=== PATIENT | male | born 1990 | race African-American/Black ===

== ENCOUNTER → 2016-12-29 | Outpatient (REF) | payer OTHER | LOC: M LAB REF 15:25 | PROVIDERS: ATTEND Physician Assistant Medical | DX: J10.1 Influenza due to other identified influenza virus with other respiratory manifestations (principal) ==

== ENCOUNTER → 2018-04-05 | Outpatient (REF) | payer OTHER ==
[2018-04-05 12:15] LABS: BASO % 0.5 % (0.0-1.0); EOS # 0.1 10^3/uL (0.0-0.50); EOS % 1.2 % (0.0-3.0); HEMATOCRIT 46.8 % (42.0-52.0); HEMOGLOBIN 15.8 g/dl (13.5-17.5); IMMATURE GRANULOCYTE % 0.3 % (0-3.0); LYMPH # 1.9 10^3/uL (1.5-6.5); MEAN CORPUSCULAR HGB CONC 33.8 g/dl (32.0-36.5); MEAN CORPUSCULAR VOLUME 91.8 fl (80.0-96.0); MONO # 0.7 10^3/uL (0.0-0.8); MONO % 11.7 % (0.0-5.0); NEUTROPHILS # 3.1 10^3/uL (1.8-7.7); NEUTROPHILS % 53.3 % (36.0-66.0); PLATELET COUNT, AUTOMATED 252 10^3/uL (150-450); RED CELL DISTRIBUTION WIDTH 12.3 % (11.5-14.5); WHITE BLOOD COUNT 5.8 10^3/uL (4.0-10.0)
[2018-04-05 12:17] LABS: APPEARANCE, URINE CLEAR (CLEAR); BACTERIA, URINE AUTO NEGATIVE (NEGATIVE); BILIRUBIN, URINE AUTO NEGATIVE (NEGATIVE); BLOOD, URINE BLOOD NEGATIVE (NEGATIVE); COLOR, URINE YELLOW (YELLOW); GLUCOSE, URINE (UA) AUTO 3+ mg/dL (NEGATIVE); KETONE, URINE AUTO 2+ mg/dL (NEGATIVE); LEUKOCYTE ESTERASE, URINE AUTO NEGATIVE (NEGATIVE); NITRITE, URINE AUTO NEGATIVE (NEGATIVE); PROTEIN, URINE AUTO NEGATIVE (NEGATIVE); RBC, URINE AUTO 2 /HPF (0-3); SPECIFIC GRAVITY URINE AUTO 1.038 (1.002-1.035); SQUAMOUS EPITHELIAL CELL UR AU 0 /HPF (0-6); UROBILINOGEN, URINE AUTO 0.2 mg/dL (0.0-2.0); WBC, URINE AUTO 0 /HPF (0-3)
[2018-04-05 12:45] LABS: PTH INTACT 29.8 PG/ML (18.5-88.0); TOTAL 25(OH) VITAMIN D 13.6 NG/ML (30.0-100.0)
[2018-04-05 13:03] LABS: ALBUMIN 4.1 GM/DL (3.2-5.2); ALBUMIN/GLOBULIN RATIO 1.17 (1.00-1.93); ALKALINE PHOSPHATASE 126 U/L (45-117); ALT/SGPT 21 U/L (12-78); ANION GAP 15 MEQ/L (8-16); AST/SGOT 12 U/L (7-37); BLOOD UREA NITROGEN 6 MG/DL (7-18); CALCIUM LEVEL 9.2 MG/DL (8.5-10.1); CARBON DIOXIDE LEVEL 28 MEQ/L (21-32); CHLORIDE LEVEL 94 MEQ/L (98-107); CHOLESTEROL LEVEL 174 MG/DL (<200); CHOLESTEROL RISK RATIO 4.833 (<5); CREATININE FOR GFR 1.04 MG/DL (0.70-1.30); GLOMERULAR FILTRATION RATE > 60.0 (>60); GLUCOSE, FASTING 342 MG/DL (70-100); HDL CHOLESTEROL 36 MG/DL (>40); LDL CHOLESTEROL 87.6 MG/DL (<100); NON-HDL-C 138 MG/DL; SODIUM LEVEL 137 MEQ/L (136-145); TOTAL PROTEIN 7.6 GM/DL (6.4-8.2); TRIGLYCERIDES LEVEL 252 MG/DL (<150)
[2018-04-05 13:32] LABS: ESTIMATED AVERAGE GLUCOSE 298 MG/DL (60-110)
[2018-04-06 14:28] LABS: C-PEPTIDE 0.6 ng/mL (1.1-4.4)
== END ==
LOC: M SFHCPLAZ 08:27
DX: Z13.228 Encounter for screening for other metabolic disorders (principal); Z13.220 Encounter for screening for lipoid disorders; E55.9 Vitamin D deficiency, unspecified
CPT/HCPCS: 84443

== ENCOUNTER → 2018-04-06 | Outpatient (CLI) | payer OTHER ==
[2018-04-09 14:30] LABS: INSULIN LEVEL 3.6 uIU/mL (2.6-24.9)
== END ==
LOC: M LAB 09:19
DX: E11.9 Type 2 diabetes mellitus without complications (principal)
CPT/HCPCS: 83525

== ENCOUNTER 2018-04-07 20:30 | Inpatient (IN) | payer OTHER ==
[2018-04-07] MEDS: NS 1,000 ML IV (21:15)
[2018-04-07 21:43] LABS: BEDSIDE GLUCOSE 324 MG/DL (70-105)
[2018-04-07 21:48] LABS: BASO % 0.2 % (0.0-1.0); EOS % 0.1 % (0.0-3.0); HEMATOCRIT 50.2 % (42.0-52.0); HEMOGLOBIN 16.8 g/dl (13.5-17.5); IMMATURE GRANULOCYTE % 0.4 % (0-3.0); LYMPH # 1.2 10^3/uL (1.5-6.5); LYMPH % 10.7 % (24.0-44.0); MEAN CORPUSCULAR HEMOGLOBIN 30.8 pg (27.0-33.0); MEAN CORPUSCULAR HGB CONC 33.5 g/dl (32.0-36.5); MEAN CORPUSCULAR VOLUME 92.1 fl (80.0-96.0); MONO # 0.9 10^3/uL (0.0-0.8); MONO % 8.3 % (0.0-5.0); NEUTROPHILS # 8.8 10^3/uL (1.8-7.7); NEUTROPHILS % 80.3 % (36.0-66.0); PLATELET COUNT, AUTOMATED 262 10^3/uL (150-450); RED BLOOD COUNT 5.45 10^6/uL (4.30-6.10); RED CELL DISTRIBUTION WIDTH 12.5 % (11.5-14.5); WHITE BLOOD COUNT 10.9 10^3/uL (4.0-10.0)
[2018-04-07 21:52] LABS: APPEARANCE, URINE CLEAR (CLEAR); BACTERIA, URINE AUTO NEGATIVE (NEGATIVE); BILIRUBIN, URINE AUTO NEGATIVE (NEGATIVE); BLOOD, URINE BLOOD 1+ (NEGATIVE); COLOR, URINE STRAW (YELLOW); GLUCOSE, URINE (UA) AUTO 3+ mg/dL (NEGATIVE); KETONE, URINE AUTO 2+ mg/dL (NEGATIVE); LEUKOCYTE ESTERASE, URINE AUTO NEGATIVE (NEGATIVE); MUCUS, URINE SMALL (NEGATIVE); NITRITE, URINE AUTO NEGATIVE (NEGATIVE); PROTEIN, URINE AUTO 2+ mg/dL (NEGATIVE); RBC, URINE AUTO 5 /HPF (0-3); SPECIFIC GRAVITY URINE AUTO 1.027 (1.002-1.035); SQUAMOUS EPITHELIAL CELL UR AU 0 /HPF (0-6); UROBILINOGEN, URINE AUTO 0.2 mg/dL (0.0-2.0); WBC, URINE AUTO 2 /HPF (0-3)
[2018-04-07 22:10] LABS: ALBUMIN 4.7 GM/DL (3.2-5.2); ALBUMIN/GLOBULIN RATIO 1.15 (1.00-1.93); ALKALINE PHOSPHATASE 141 U/L (45-117); ALT/SGPT 22 U/L (12-78); ANION GAP 24 MEQ/L (8-16); AST/SGOT 13 U/L (7-37); BILIRUBIN,DIRECT 0.2 MG/DL (0.0-0.2); BILIRUBIN,TOTAL 0.8 MG/DL (0.2-1.0); BLOOD UREA NITROGEN 8 MG/DL (7-18); CALCIUM LEVEL 9.2 MG/DL (8.5-10.1); CARBON DIOXIDE LEVEL 11 MEQ/L (21-32); CHLORIDE LEVEL 104 MEQ/L (98-107); CREATININE FOR GFR 1.48 MG/DL (0.70-1.30); GLOMERULAR FILTRATION RATE > 60.0 (>60); GLUCOSE, FASTING 320 MG/DL (70-100); LIPASE 65 U/L (73-393); POTASSIUM SERUM 4.4 MEQ/L (3.5-5.1); SODIUM LEVEL 139 MEQ/L (136-145); TOTAL PROTEIN 8.8 GM/DL (6.4-8.2)
[2018-04-07] MEDS ORDERED: INSULIN IV RATE CHANGE DOCUMENTATION ML/HR XX (22:15)
[2018-04-07 22:32] LABS: ACETONE/KETONE > 46.00 MG/DL (<2.81)
[2018-04-07 22:48] LABS: ABG BASE EXCESS -16.9 (-2.0-2.0); ABG HCO3 9.3 MEQ/L (22.0-26.0); ABG O2 SATURATION 97.9 % (95.0-99.0); ABG PARTIAL PRESSURE CO2 24.5 mmHg (35.0-45.0); ABG PARTIAL PRESSURE O2 104.2 mmHg (75.0-100.0); ABG STANDARD HCO3 12.3 MEQ/L (22.0-26.0); ABG pH (ARTERIAL) 7.196 UNITS (7.350-7.450)
[2018-04-07] MEDS: HumuLIN R (REGULAR) INSULIN (NovoLIN R) **100U/ML** PER UNIT IV (22:53)
[2018-04-07] MEDS: INSULIN HUMAN REGULAR 100 UNITS in NS 99 ML IV (22:59)
[2018-04-07 23:32] LABS: BEDSIDE GLUCOSE 241 MG/DL (70-105)
[2018-04-07 23:44] LABS: OSMOLALITY SERUM 315 MOSM/KG (275-295)
[2018-04-07] MEDS ORDERED: ONDANSETRON 4MG/2ML VIAL (J2405) IV (23:45)
[2018-04-08 00:12] LABS: VENOUS BASE EXCESS -18.5 (-2.0-2.0); VENOUS HCO3 9.8 MEQ/L (23.0-27.0); VENOUS O2 SATURATION 80.7 % (60.0-80.0); VENOUS PARTIAL PRESSURE CO2 31.6 mmHg (38.0-50.0); VENOUS PARTIAL PRESSURE O2 48.2 mmHg (30.0-50.0); VENOUS PH 7.109 UNITS (7.330-7.430); VENOUS STANDARD HCO3 11.1 MEQ/L; VENOUS TOTAL CO2 10.8 MEQ/L (24.0-28.0)
[2018-04-08 00:37] LABS: ANION GAP 22 MEQ/L (8-16); BLOOD UREA NITROGEN 8 MG/DL (7-18); CARBON DIOXIDE LEVEL 11 MEQ/L (21-32); CHLORIDE LEVEL 109 MEQ/L (98-107); CREATININE FOR GFR 1.51 MG/DL (0.70-1.30); GLOMERULAR FILTRATION RATE 59.3 (>60); GLUCOSE, FASTING 205 MG/DL (70-100); POTASSIUM SERUM 3.6 MEQ/L (3.5-5.1); SODIUM LEVEL 142 MEQ/L (136-145)
[2018-04-08 00:40] LABS: BEDSIDE GLUCOSE 194 MG/DL (70-105)
[2018-04-08] MEDS ORDERED: D5W/0.45% SODIUM CHLORIDE 1,000 ML IV (01:00)
[2018-04-08] MEDS: POTASSIUM CHLORIDE 10 MEQ SR TABLET PO (01:07)
[2018-04-08] MEDS: KCL 20MEQ IN D5/0.45NS 1000ML 1,000 ML IV ×6 (01:08→21:00)
[2018-04-08 01:49] LABS: BEDSIDE GLUCOSE 262 MG/DL (70-105)
[2018-04-08] MEDS: INSULIN HUMAN REGULAR 100 UNITS in NS 99 ML IV ×2 (02:00)
[2018-04-08 03:05] LABS: BEDSIDE GLUCOSE 279 MG/DL (70-105)
[2018-04-08] MEDS: INSULIN IV RATE CHANGE DOCUMENTATION ML/HR XX ×5 (03:11→20:15)
[2018-04-08 04:01] LABS: VENOUS BASE EXCESS -16.7 (-2.0-2.0); VENOUS HCO3 9.8 MEQ/L (23.0-27.0); VENOUS O2 SATURATION 95.7 % (60.0-80.0); VENOUS PARTIAL PRESSURE CO2 26.5 mmHg (38.0-50.0); VENOUS PARTIAL PRESSURE O2 81.1 mmHg (30.0-50.0); VENOUS PH 7.187 UNITS (7.330-7.430); VENOUS STANDARD HCO3 12.3 MEQ/L; VENOUS TOTAL CO2 10.6 MEQ/L (24.0-28.0)
[2018-04-08 04:10] LABS: BEDSIDE GLUCOSE 263 MG/DL (70-105)
[2018-04-08 04:24] LABS: ANION GAP 18 MEQ/L (8-16); BLOOD UREA NITROGEN 6 MG/DL (7-18); CALCIUM LEVEL 8.1 MG/DL (8.5-10.1); CARBON DIOXIDE LEVEL 11 MEQ/L (21-32); CHLORIDE LEVEL 110 MEQ/L (98-107); CREATININE FOR GFR 1.39 MG/DL (0.70-1.30); GLOMERULAR FILTRATION RATE > 60.0 (>60); GLUCOSE, FASTING 279 MG/DL (70-100); SODIUM LEVEL 139 MEQ/L (136-145)
[2018-04-08 05:02] LABS: BEDSIDE GLUCOSE 317 MG/DL (70-105)
[2018-04-08 05:45] LABS: VENOUS BASE EXCESS -15.3 (-2.0-2.0); VENOUS HCO3 10.3 MEQ/L (23.0-27.0); VENOUS PARTIAL PRESSURE O2 141.7 mmHg (30.0-50.0); VENOUS PH 7.233 UNITS (7.330-7.430); VENOUS STANDARD HCO3 13.2 MEQ/L; VENOUS TOTAL CO2 11.1 MEQ/L (24.0-28.0)
[2018-04-08 05:52] LABS: ANION GAP 19 MEQ/L (8-16); BLOOD UREA NITROGEN 6 MG/DL (7-18); CALCIUM LEVEL 8.1 MG/DL (8.5-10.1); CARBON DIOXIDE LEVEL 11 MEQ/L (21-32); CHLORIDE LEVEL 110 MEQ/L (98-107); CREATININE FOR GFR 1.42 MG/DL (0.70-1.30); GLOMERULAR FILTRATION RATE > 60.0 (>60); GLUCOSE, FASTING 304 MG/DL (70-100); POTASSIUM SERUM 4.4 MEQ/L (3.5-5.1); SODIUM LEVEL 140 MEQ/L (136-145)
[2018-04-08 06:04] LABS: BEDSIDE GLUCOSE 298 MG/DL (70-105)
[2018-04-08 06:34] LABS: MAGNESIUM LEVEL 1.9 MG/DL (1.8-2.4); PHOSPHORUS LEVEL 1.8 MG/DL (2.5-4.9); TROPONIN I < 0.02 NG/ML (< 0.10)
[2018-04-08 07:10] LABS: BEDSIDE GLUCOSE 296 MG/DL (70-105)
[2018-04-08 08:21] LABS: BEDSIDE GLUCOSE 290 MG/DL (70-105)
[2018-04-08 09:29] LABS: BEDSIDE GLUCOSE 284 MG/DL (70-105)
[2018-04-08 10:09] LABS: ANION GAP 13 MEQ/L (8-16); BLOOD UREA NITROGEN 4 MG/DL (7-18); CALCIUM LEVEL 8.3 MG/DL (8.5-10.1); CARBON DIOXIDE LEVEL 17 MEQ/L (21-32); CHLORIDE LEVEL 111 MEQ/L (98-107); CREATININE FOR GFR 1.44 MG/DL (0.70-1.30); GLOMERULAR FILTRATION RATE > 60.0 (>60); GLUCOSE, FASTING 297 MG/DL (70-100); POTASSIUM SERUM 4.3 MEQ/L (3.5-5.1); SODIUM LEVEL 141 MEQ/L (136-145)
[2018-04-08 10:47] LABS: AMPHETAMINES URINE REFLEX NEGATIVE (NEGATIVE); BARBITURATES URINE REFLEX NEGATIVE (NEGATIVE); BENZODIAZEPINES URINE REFLEX NEGATIVE (NEGATIVE); CANNABINOIDS URINE REFLEX NEGATIVE (NEGATIVE); COCAINE METABOLITE URINE REFLE NEGATIVE (NEGATIVE); METHADONE URINE REFLEX NEGATIVE (NEGATIVE); OPIATES URINE REFLEX NEGATIVE (NEGATIVE); PHENCYCLIDINE URINE REFLEX NEGATIVE (NEGATIVE)
[2018-04-08 11:06] LABS: BEDSIDE GLUCOSE 293 MG/DL (70-105)
[2018-04-08 12:02] LABS: BEDSIDE GLUCOSE 272 MG/DL (70-105)
[2018-04-08 12:11] LABS: BEDSIDE GLUCOSE 274 MG/DL (70-105)
[2018-04-08 13:15] LABS: BEDSIDE GLUCOSE 262 MG/DL (70-105)
[2018-04-08 14:18] LABS: BEDSIDE GLUCOSE 259 MG/DL (70-105)
[2018-04-08 14:41] LABS: ANION GAP 13 MEQ/L (8-16); BLOOD UREA NITROGEN 3 MG/DL (7-18); CALCIUM LEVEL 8.5 MG/DL (8.5-10.1); CARBON DIOXIDE LEVEL 16 MEQ/L (21-32); CHLORIDE LEVEL 113 MEQ/L (98-107); CREATININE FOR GFR 1.34 MG/DL (0.70-1.30); GLOMERULAR FILTRATION RATE > 60.0 (>60); GLUCOSE, FASTING 284 MG/DL (70-100); POTASSIUM SERUM 4.2 MEQ/L (3.5-5.1); SODIUM LEVEL 142 MEQ/L (136-145)
[2018-04-08 15:16] LABS: BEDSIDE GLUCOSE 262 MG/DL (70-105)
[2018-04-08 16:10] LABS: BEDSIDE GLUCOSE 277 MG/DL (70-105)
[2018-04-08 17:09] LABS: BEDSIDE GLUCOSE 256 MG/DL (70-105)
[2018-04-08] MEDS: ENOXAPARIN 40 MG/0.4 ML SYRINGE (J1650) SC (17:17)
[2018-04-08 18:18] LABS: BEDSIDE GLUCOSE 261 MG/DL (70-105)
[2018-04-08] MEDS: ACETAMINOPHEN TAB 650MG DOSE (2X325MG) PO (18:43)
[2018-04-08 18:54] LABS: INR 1.08; PROTHROMBIN TIME 14.1 SECONDS (12.1-14.4)
[2018-04-08 18:57] LABS: ANION GAP 14 MEQ/L (8-16); BLOOD UREA NITROGEN 2 MG/DL (7-18); CALCIUM LEVEL 8.5 MG/DL (8.5-10.1); CARBON DIOXIDE LEVEL 15 MEQ/L (21-32); CHLORIDE LEVEL 112 MEQ/L (98-107); CREATININE FOR GFR 1.31 MG/DL (0.70-1.30); GLOMERULAR FILTRATION RATE > 60.0 (>60); GLUCOSE, FASTING 266 MG/DL (70-100); POTASSIUM SERUM 3.7 MEQ/L (3.5-5.1); SODIUM LEVEL 141 MEQ/L (136-145)
[2018-04-08 19:08] LABS: BEDSIDE GLUCOSE 304 MG/DL (70-105)
[2018-04-08 20:12] LABS: BEDSIDE GLUCOSE 265 MG/DL (70-105)
[2018-04-08 21:11] LABS: BEDSIDE GLUCOSE 287 MG/DL (70-105)
[2018-04-08 22:17] LABS: BEDSIDE GLUCOSE 269 MG/DL (70-105)
[2018-04-08 22:18] LABS: ANION GAP 16 MEQ/L (8-16); BLOOD UREA NITROGEN 3 MG/DL (7-18); CALCIUM LEVEL 8.1 MG/DL (8.5-10.1); CARBON DIOXIDE LEVEL 16 MEQ/L (21-32); CHLORIDE LEVEL 109 MEQ/L (98-107); CREATININE FOR GFR 1.24 MG/DL (0.70-1.30); GLOMERULAR FILTRATION RATE > 60.0 (>60); GLUCOSE, FASTING 290 MG/DL (70-100); POTASSIUM SERUM 3.8 MEQ/L (3.5-5.1); SODIUM LEVEL 141 MEQ/L (136-145)
[2018-04-08 23:22] LABS: BEDSIDE GLUCOSE 281 MG/DL (70-105)
[2018-04-09 00:24] LABS: BEDSIDE GLUCOSE 282 MG/DL (70-105)
[2018-04-09] MEDS: KCL 20MEQ IN D5/0.45NS 1000ML 1,000 ML IV ×2 (01:05→05:00)
[2018-04-09 01:14] LABS: BEDSIDE GLUCOSE 273 MG/DL (70-105)
[2018-04-09 02:19] LABS: ANION GAP 10 MEQ/L (8-16); BLOOD UREA NITROGEN 3 MG/DL (7-18); CALCIUM LEVEL 8.3 MG/DL (8.5-10.1); CARBON DIOXIDE LEVEL 20 MEQ/L (21-32); CHLORIDE LEVEL 111 MEQ/L (98-107); CREATININE FOR GFR 1.26 MG/DL (0.70-1.30); GLOMERULAR FILTRATION RATE > 60.0 (>60); GLUCOSE, FASTING 266 MG/DL (70-100); POTASSIUM SERUM 3.5 MEQ/L (3.5-5.1); SODIUM LEVEL 141 MEQ/L (136-145)
[2018-04-09 02:25] LABS: BEDSIDE GLUCOSE 260 MG/DL (70-105)
[2018-04-09 03:06] LABS: BEDSIDE GLUCOSE 264 MG/DL (70-105)
[2018-04-09 04:26] LABS: BEDSIDE GLUCOSE 269 MG/DL (70-105)
[2018-04-09 05:12] LABS: HEMATOCRIT 37.6 % (42.0-52.0); MEAN CORPUSCULAR HEMOGLOBIN 30.9 pg (27.0-33.0); MEAN CORPUSCULAR HGB CONC 34.6 g/dl (32.0-36.5); MEAN CORPUSCULAR VOLUME 89.3 fl (80.0-96.0); PLATELET COUNT, AUTOMATED 206 10^3/uL (150-450); RED BLOOD COUNT 4.21 10^6/uL (4.30-6.10); RED CELL DISTRIBUTION WIDTH 12.8 % (11.5-14.5); WHITE BLOOD COUNT 6.1 10^3/uL (4.0-10.0)
[2018-04-09 05:44] LABS: ANION GAP 15 MEQ/L (8-16); BLOOD UREA NITROGEN 2 MG/DL (7-18); CARBON DIOXIDE LEVEL 19 MEQ/L (21-32); CHLORIDE LEVEL 110 MEQ/L (98-107); CREATININE FOR GFR 1.09 MG/DL (0.70-1.30); GLOMERULAR FILTRATION RATE > 60.0 (>60); GLUCOSE, FASTING 283 MG/DL (70-100); MAGNESIUM LEVEL 1.8 MG/DL (1.8-2.4); PHOSPHORUS LEVEL 1.2 MG/DL (2.5-4.9); POTASSIUM SERUM 3.5 MEQ/L (3.5-5.1); SODIUM LEVEL 144 MEQ/L (136-145)
[2018-04-09 05:52] LABS: BEDSIDE GLUCOSE 252 MG/DL (70-105)
[2018-04-09 06:33] LABS: BEDSIDE GLUCOSE 282 MG/DL (70-105)
[2018-04-09 07:05] LABS: BEDSIDE GLUCOSE 280 MG/DL (70-105)
[2018-04-09] MEDS ORDERED: DEXTROSE 50% 50 ML SYRINGE IV (08:30)
[2018-04-09] MEDS ORDERED: GLUCAGON FOR INJ 1 MG VIAL (J1610) SC (08:30)
[2018-04-09] MEDS ORDERED: GLUCOSE 4 GM CHEW TABLET PO (08:30)
[2018-04-09] MEDS: LEVEMIR (INSULIN DETEMIR) 1 UNITS/0.01ML SC (09:16)
[2018-04-09 10:41] LABS: DRVV SCREEN 42.7 SEC
[2018-04-09 11:06] LABS: ANION GAP 9 MEQ/L (8-16); BLOOD UREA NITROGEN 2 MG/DL (7-18); CALCIUM LEVEL 8.8 MG/DL (8.5-10.1); CARBON DIOXIDE LEVEL 24 MEQ/L (21-32); CHLORIDE LEVEL 111 MEQ/L (98-107); CREATININE FOR GFR 1.24 MG/DL (0.70-1.30); GLOMERULAR FILTRATION RATE > 60.0 (>60); GLUCOSE, FASTING 237 MG/DL (70-100); POTASSIUM SERUM 3.9 MEQ/L (3.5-5.1); SODIUM LEVEL 144 MEQ/L (136-145)
[2018-04-09 13:04] LABS: BEDSIDE GLUCOSE 249 MG/DL (70-105)
[2018-04-09] MEDS: HumaLOG INSULIN (NovoLOG) PER UNIT SC ×3 (13:20→21:00)
[2018-04-09 17:29] LABS: BEDSIDE GLUCOSE 179 MG/DL (70-105)
[2018-04-09] MEDS: ENOXAPARIN 40 MG/0.4 ML SYRINGE (J1650) SC (17:51)
[2018-04-09 20:49] LABS: BEDSIDE GLUCOSE 206 MG/DL (70-105)
[2018-04-10 07:51] LABS: HEMATOCRIT 39.6 % (42.0-52.0); HEMOGLOBIN 13.3 g/dl (13.5-17.5); MEAN CORPUSCULAR HEMOGLOBIN 30.7 pg (27.0-33.0); MEAN CORPUSCULAR HGB CONC 33.6 g/dl (32.0-36.5); MEAN CORPUSCULAR VOLUME 91.5 fl (80.0-96.0); PLATELET COUNT, AUTOMATED 207 10^3/uL (150-450); RED BLOOD COUNT 4.33 10^6/uL (4.30-6.10); WHITE BLOOD COUNT 5.7 10^3/uL (4.0-10.0)
[2018-04-10 07:58] LABS: ANION GAP 15 MEQ/L (8-16); BLOOD UREA NITROGEN 3 MG/DL (7-18); CALCIUM LEVEL 8.3 MG/DL (8.5-10.1); CARBON DIOXIDE LEVEL 20 MEQ/L (21-32); CHLORIDE LEVEL 108 MEQ/L (98-107); CREATININE FOR GFR 1.02 MG/DL (0.70-1.30); GLOMERULAR FILTRATION RATE > 60.0 (>60); GLUCOSE, FASTING 201 MG/DL (70-100); MAGNESIUM LEVEL 1.6 MG/DL (1.8-2.4); POTASSIUM SERUM 3.2 MEQ/L (3.5-5.1); SODIUM LEVEL 143 MEQ/L (136-145)
[2018-04-10] MEDS: POTASSIUM CHLORIDE 10 MEQ SR TABLET PO (08:58)
[2018-04-10] MEDS: LEVEMIR (INSULIN DETEMIR) 1 UNITS/0.01ML SC (08:59)
[2018-04-10] MEDS: MAG SULF 1GM/100ML (MAG RUN) 1 GM in APPROPRIATE DILUENT 1 EA IV (09:00)
[2018-04-10] MEDS: HumaLOG INSULIN (NovoLOG) PER UNIT SC ×4 (09:20→21:52)
[2018-04-10 12:18] LABS: BEDSIDE GLUCOSE 225 MG/DL (70-105)
[2018-04-10 16:58] LABS: BEDSIDE GLUCOSE 210 MG/DL (70-105)
[2018-04-10] MEDS: ENOXAPARIN 40 MG/0.4 ML SYRINGE (J1650) SC (17:51)
[2018-04-10 19:33] LABS: ANION GAP 14 MEQ/L (8-16); BLOOD UREA NITROGEN 3 MG/DL (7-18); CALCIUM LEVEL 8.1 MG/DL (8.5-10.1); CARBON DIOXIDE LEVEL 22 MEQ/L (21-32); CHLORIDE LEVEL 104 MEQ/L (98-107); CREATININE FOR GFR 1.13 MG/DL (0.70-1.30); GLOMERULAR FILTRATION RATE > 60.0 (>60); GLUCOSE, FASTING 251 MG/DL (70-100); POTASSIUM SERUM 3.1 MEQ/L (3.5-5.1); SODIUM LEVEL 140 MEQ/L (136-145)
[2018-04-10 21:35] LABS: BEDSIDE GLUCOSE 262 MG/DL (70-105)
[2018-04-11 07:23] LABS: HEMATOCRIT 37.6 % (42.0-52.0); HEMOGLOBIN 13.1 g/dl (13.5-17.5); MEAN CORPUSCULAR HEMOGLOBIN 30.9 pg (27.0-33.0); MEAN CORPUSCULAR HGB CONC 34.8 g/dl (32.0-36.5); MEAN CORPUSCULAR VOLUME 88.7 fl (80.0-96.0); PLATELET COUNT, AUTOMATED 196 10^3/uL (150-450); RED BLOOD COUNT 4.24 10^6/uL (4.30-6.10); RED CELL DISTRIBUTION WIDTH 12.9 % (11.5-14.5)
[2018-04-11 07:47] LABS: ANION GAP 14 MEQ/L (8-16); BLOOD UREA NITROGEN 4 MG/DL (7-18); CALCIUM LEVEL 8.3 MG/DL (8.5-10.1); CARBON DIOXIDE LEVEL 24 MEQ/L (21-32); CHLORIDE LEVEL 104 MEQ/L (98-107); CREATININE FOR GFR 0.91 MG/DL (0.70-1.30); GLOMERULAR FILTRATION RATE > 60.0 (>60); GLUCOSE, FASTING 183 MG/DL (70-100); SODIUM LEVEL 142 MEQ/L (136-145)
[2018-04-11 08:17] LABS: MAGNESIUM LEVEL 1.6 MG/DL (1.8-2.4)
[2018-04-11] MEDS: POTASSIUM CHLORIDE 10 MEQ SR TABLET PO ×2 (08:19→09:22)
[2018-04-11] MEDS: LEVEMIR (INSULIN DETEMIR) 1 UNITS/0.01ML SC (08:20)
[2018-04-11] MEDS ORDERED: KCL 10MEQ/100ML SWI (KRUN) 10 MEQ in APPROPRIATE DILUENT 1 EA IV (09:00)
[2018-04-11 09:12] LABS: BEDSIDE GLUCOSE 231 MG/DL (70-105)
[2018-04-11] MEDS: HumaLOG INSULIN (NovoLOG) PER UNIT SC ×3 (09:21→17:34)
[2018-04-11] MEDS: MAG SULF 1GM/100ML (MAG RUN) 1 GM in APPROPRIATE DILUENT 1 EA IV (09:21)
[2018-04-11] MEDS: MAGNESIUM OXIDE 400 MG TAB (MAG-OX) PO (09:22)
[2018-04-11] MEDS: KCL 10MEQ/100ML SWI (KRUN) 10 MEQ in APPROPRIATE DILUENT 1 EA IV (10:33)
[2018-04-11 13:26] LABS: BEDSIDE GLUCOSE 224 MG/DL (70-105)
[2018-04-11 17:29] LABS: BEDSIDE GLUCOSE 255 MG/DL (70-105)
[2018-04-11] MEDS: ENOXAPARIN 40 MG/0.4 ML SYRINGE (J1650) SC (18:00)
== END 2018-04-11 18:45 | disposition home or self-care (01) | DRG 420 ==
LOC: M PED 04-09 14:14 → M ICU 04-08 00:44 → M ED 20:30 → M ED INP 23:36
DX: E10.10 Type 1 diabetes mellitus with ketoacidosis without coma (principal); Z88.0 Allergy status to penicillin; Z88.8 Allergy status to other drugs, medicaments and biological substances

== ENCOUNTER → 2018-04-22 | Outpatient (REF) | payer OTHER ==
[2018-04-22 16:06] LABS: ALBUMIN 3.8 GM/DL (3.2-5.2); ALBUMIN/GLOBULIN RATIO 1.09 (1.00-1.93); ALKALINE PHOSPHATASE 86 U/L (45-117); ALT/SGPT 27 U/L (12-78); ANION GAP 8 MEQ/L (8-16); AST/SGOT 13 U/L (7-37); BILIRUBIN,TOTAL 0.4 MG/DL (0.2-1.0); BLOOD UREA NITROGEN 5 MG/DL (7-18); C REACTIVE PROTEIN QUANTITATIV < 0.30 MG/DL (0.00-0.30); CALCIUM LEVEL 9.7 MG/DL (8.5-10.1); CARBON DIOXIDE LEVEL 27 MEQ/L (21-32); CHLORIDE LEVEL 104 MEQ/L (98-107); CHOLESTEROL LEVEL 225 MG/DL (<200); CHOLESTEROL RISK RATIO 5.232 (<5); CPK CREATINE PHOSPHOKINASE 110 U/L (39-308); CREATININE FOR GFR 0.87 MG/DL (0.70-1.30); GLOMERULAR FILTRATION RATE > 60.0 (>60); GLUCOSE, FASTING 196 MG/DL (70-100); HDL CHOLESTEROL 43 MG/DL (>40); LDL CHOLESTEROL 159.8 MG/DL (<100); MAGNESIUM LEVEL 1.9 MG/DL (1.8-2.4); NON-HDL-C 182 MG/DL; POTASSIUM SERUM 4.4 MEQ/L (3.5-5.1); SODIUM LEVEL 139 MEQ/L (136-145); TOTAL PROTEIN 7.3 GM/DL (6.4-8.2); TRIGLYCERIDES LEVEL 111 MG/DL (<150)
[2018-04-22 16:07] LABS: THYROID PEROXIDASE ANTIBODY 28.3 U/ML (<60.0); TOTAL 25(OH) VITAMIN D 15.1 NG/ML (30.0-100.0)
[2018-04-22 16:08] LABS: PTH INTACT 39.8 PG/ML (18.5-88.0); VITAMIN B12 LEVEL 1083 PG/ML (247-911)
[2018-04-22 18:41] LABS: APPEARANCE, URINE CLEAR (CLEAR); BACTERIA, URINE AUTO NEGATIVE (NEGATIVE); BILIRUBIN, URINE AUTO NEGATIVE (NEGATIVE); BLOOD, URINE BLOOD NEGATIVE (NEGATIVE); COLOR, URINE YELLOW (YELLOW); GLUCOSE, URINE (UA) AUTO 3+ mg/dL (NEGATIVE); KETONE, URINE AUTO TRACE mg/dL (NEGATIVE); LEUKOCYTE ESTERASE, URINE AUTO NEGATIVE (NEGATIVE); NITRITE, URINE AUTO NEGATIVE (NEGATIVE); PROTEIN, URINE AUTO NEGATIVE (NEGATIVE); RBC, URINE AUTO 0 /HPF (0-3); SPECIFIC GRAVITY URINE AUTO 1.006 (1.002-1.035); SQUAMOUS EPITHELIAL CELL UR AU 0 /HPF (0-6); UROBILINOGEN, URINE AUTO 0.2 mg/dL (0.0-2.0); WBC, URINE AUTO 0 /HPF (0-3)
[2018-04-22 19:31] LABS: CREATININE, URINE 66.9 MG/DL; MALB URINE SIEMENS < 5.0 MG/L; MAU/CREAT RATIO 7.4 MCG/MG (0.0-30.0)
[2018-04-25 00:20] LABS: TISSUE TRANSGLUTAMINASE IgA <2 U/mL (0-3)
== END ==
LOC: M SFHCPLAZ 13:23
DX: E78.2 Mixed hyperlipidemia (principal); I10 Essential (primary) hypertension; E55.9 Vitamin D deficiency, unspecified; E10.9 Type 1 diabetes mellitus without complications
CPT/HCPCS: 82550

== ENCOUNTER → 2018-08-15 | Outpatient (REF) | payer OTHER ==
[2018-08-15 13:08] LABS: ALBUMIN/GLOBULIN RATIO 1.33 (1.00-1.93); ALKALINE PHOSPHATASE 89 U/L (45-117); ALT/SGPT 22 U/L (12-78); ANION GAP 6 MEQ/L (8-16); AST/SGOT 12 U/L (7-37); BILIRUBIN,TOTAL 0.6 MG/DL (0.2-1.0); BLOOD UREA NITROGEN 9 MG/DL (7-18); C REACTIVE PROTEIN QUANTITATIV < 0.30 MG/DL (0.00-0.30); CALCIUM LEVEL 9.4 MG/DL (8.5-10.1); CARBON DIOXIDE LEVEL 29 MEQ/L (21-32); CHLORIDE LEVEL 103 MEQ/L (98-107); CHOLESTEROL LEVEL 107 MG/DL (<200); CHOLESTEROL RISK RATIO 2.431 (<5); CPK CREATINE PHOSPHOKINASE 109 U/L (39-308); CREATININE FOR GFR 0.93 MG/DL (0.70-1.30); FREE T4 1.15 NG/DL (0.76-1.46); GLOMERULAR FILTRATION RATE > 60.0 (>60); GLUCOSE, FASTING 212 MG/DL (70-100); HDL CHOLESTEROL 44 MG/DL (>40); LDL CHOLESTEROL 55 MG/DL (<100); MAGNESIUM LEVEL 1.9 MG/DL (1.8-2.4); NON-HDL-C 63 MG/DL; POTASSIUM SERUM 4.8 MEQ/L (3.5-5.1); PTH INTACT 32.8 PG/ML (18.5-88.0); RHEUMATOID FACTOR QUANT < 10.0 IU/ML (<15.0); SODIUM LEVEL 138 MEQ/L (136-145); TOTAL 25(OH) VITAMIN D 46.5 NG/ML (30.0-100.0); TRIGLYCERIDES LEVEL 39 MG/DL (<150)
[2018-08-15 18:29] LABS: ESTIMATED AVERAGE GLUCOSE 157 MG/DL (60-110); HEMOGLOBIN A1c 7.1 %
[2018-08-17 00:06] LABS: CYCLIC CITRULLINATED PEPTIDE 7 units (0-19)
== END ==
LOC: M SFHCPLAZ 08:45
DX: E55.9 Vitamin D deficiency, unspecified (principal); E10.9 Type 1 diabetes mellitus without complications; E78.2 Mixed hyperlipidemia; I10 Essential (primary) hypertension

== ENCOUNTER → 2018-09-03 | Outpatient (CLI) | payer OTHER ==
[~2018-09-03] MED LIST: GASTROGRAFIN SOLUTION 30ML (Q9963) As Ordered; ISOVUE-370 76% 100ML VIAL (Q9967) As Ordered
== END ==
LOC: M RAD 17:50
DX: R10.10 Upper abdominal pain, unspecified (principal); Q27.2 Other congenital malformations of renal artery
CPT/HCPCS: Q9963

== ENCOUNTER 2019-01-04 08:36 | Inpatient (IN) | payer OTHER ==
[~2019-01-04] VITALS: Ht 175.3 cm; Wt 100.0 kg
[~2019-01-04 08:36] MED LIST changes: +ACET-683 PO; -GASTROGRAFIN SOLUTION 30ML (Q9963) As Ordered; +GLUC1KIT IM; +GLUC1TES2 XX; +INSU31MI XX; -ISOVUE-370 76% 100ML VIAL (Q9967) As Ordered; +KLOR10TA76 PO; +LANTINJ4 SC; +MAG400TA PO; +NOVOINJ3 SC; +ONETKIT XX; +ONETMIS7 TOP; +PEN1MIS22 XX
[2019-01-04] MEDS ORDERED: ATOR1TAB21 PO (08:42)
[2019-01-04] MEDS ORDERED: POTA10TA67 PO (08:42)
[2019-01-04] MEDS ORDERED: MAGN400T PO (08:42)
[2019-01-04] MEDS ORDERED: ADME100I SQ (08:42)
[2019-01-04] MEDS ORDERED: BAYEMIS PO (08:42)
[2019-01-04] MEDS ORDERED: VITA2000 PO (08:42)
[2019-01-04] MEDS ORDERED: SM A1TAB PO (08:42)
[2019-01-04] MEDS ORDERED: NS 1,000 ML IV ONE ×2 (09:00→09:45)
[2019-01-04 09:26] LABS: VENOUS BASE EXCESS -7.9 (-2.0-2.0); VENOUS HCO3 16.7 MEQ/L (23.0-27.0); VENOUS O2 SATURATION 94.7 % (60.0-80.0); VENOUS PARTIAL PRESSURE CO2 32.1 mmHg (38.0-50.0); VENOUS PARTIAL PRESSURE O2 76.6 mmHg (30.0-50.0); VENOUS PH 7.335 UNITS (7.330-7.430); VENOUS STANDARD HCO3 18.1 MEQ/L; VENOUS TOTAL CO2 17.7 MEQ/L (24.0-28.0)
[2019-01-04] MEDS ORDERED: ONDANSETRON 4MG/2ML VIAL (J2405) IV ONE (09:30)
[2019-01-04 09:32] LABS: BASO % 0.1 % (0.0-1.0); HEMOGLOBIN 13.8 g/dl (13.5-17.5); LYMPH # 0.6 10^3/uL (1.5-6.5); LYMPH % 3.2 % (24.0-44.0); MEAN CORPUSCULAR HEMOGLOBIN 31.3 pg (27.0-33.0); MEAN CORPUSCULAR HGB CONC 32.9 g/dl (32.0-36.5); MEAN CORPUSCULAR VOLUME 95.2 fl (80.0-96.0); MONO # 1.3 10^3/uL (0.0-0.8); MONO % 7.4 % (0.0-5.0); NEUTROPHILS # 15.8 10^3/uL (1.8-7.7); NEUTROPHILS % 88.7 % (36.0-66.0); PLATELET COUNT, AUTOMATED 266 10^3/uL (150-450); RED BLOOD COUNT 4.41 10^6/uL (4.30-6.10); WHITE BLOOD COUNT 17.8 10^3/uL (4.0-10.0)
[2019-01-04 10:36] LABS: ALBUMIN 4.5 GM/DL (3.2-5.2); ALT/SGPT 27 U/L (12-78); BILIRUBIN,DIRECT 0.6 MG/DL (0.0-0.2); BILIRUBIN,TOTAL 1.6 MG/DL (0.2-1.0); BLOOD UREA NITROGEN 26 MG/DL (7-18); CALCIUM LEVEL 9.6 MG/DL (8.5-10.1); CARBON DIOXIDE LEVEL 19 MEQ/L (21-32); CHLORIDE LEVEL 96 MEQ/L (98-107); CREATININE FOR GFR 1.59 MG/DL (0.70-1.30); GLOMERULAR FILTRATION RATE 55.5 (>60); LIPASE 47 U/L (73-393); MAGNESIUM LEVEL 1.9 MG/DL (1.8-2.4); PHOSPHORUS LEVEL 5.7 MG/DL (2.5-4.9); POTASSIUM SERUM 5.2 MEQ/L (3.5-5.1); SODIUM LEVEL 133 MEQ/L (136-145); TOTAL PROTEIN 7.3 GM/DL (6.4-8.2)
[2019-01-04 10:42] LABS: GLUCOSE, FASTING 445 MG/DL (70-100); OSMOLALITY SERUM 308 MOSM/KG (275-295)
[2019-01-04] MEDS ORDERED: INSULIN IV RATE CHANGE DOCUMENTATION ML/HR XX SCH ×2 (10:45→14:15)
[2019-01-04] MEDS ORDERED: INSULIN HUMAN REGULAR 100 UNITS in NS 99 ML IV SCH ×3 (10:45→14:30)
[2019-01-04 10:53] LABS: ACETONE/KETONE > 46.00 MG/DL (<2.81)
--- NOTE | 2019-01-04 11:20 | ECGEPIP ---
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
[2019-01-04] MEDS ORDERED: NS 1,000 ML IV SCH (11:30)
[2019-01-04] MEDS ORDERED: GLUC1KIT IM (11:39)
[2019-01-04 11:58] LABS: APPEARANCE, URINE CLEAR (CLEAR); BACTERIA, URINE AUTO NEGATIVE (NEGATIVE); BILIRUBIN, URINE AUTO NEGATIVE (NEGATIVE); BLOOD, URINE BLOOD NEGATIVE (NEGATIVE); COLOR, URINE STRAW (YELLOW); GLUCOSE, URINE (UA) AUTO 3+ mg/dL (NEGATIVE); KETONE, URINE AUTO 2+ mg/dL (NEGATIVE); LEUKOCYTE ESTERASE, URINE AUTO NEGATIVE (NEGATIVE); MUCUS, URINE SMALL (NEGATIVE); NITRITE, URINE AUTO NEGATIVE (NEGATIVE); OSMOLALITY URINE 659 MOSM/KG (500-800); PROTEIN, URINE AUTO NEGATIVE (NEGATIVE); RBC, URINE AUTO 1 /HPF (0-3); SPECIFIC GRAVITY URINE AUTO 1.024 (1.002-1.035); SQUAMOUS EPITHELIAL CELL UR AU 0 /HPF (0-6); UROBILINOGEN, URINE AUTO 0.2 mg/dL (0.0-2.0); WBC, URINE AUTO 0 /HPF (0-3)
[2019-01-04] MEDS ORDERED: D5W/0.45% SODIUM CHLORIDE 1,000 ML IV SCH (12:00)
[2019-01-04] MEDS ORDERED: ONDANSETRON 4MG/2ML VIAL (J2405) IV PRN (12:15)
[2019-01-04 12:18] LABS: HEMOGLOBIN A1c 7.5 %
--- NOTE | 2019-01-04 12:26 | HPEPDOC ---
[facility] Medical History & Physical Date of Admission Jan 04, 2019 Primary Care Physician: Jake Waters M.D. Attending Physician: BHUMIKA LIZARRAGA DO History and Physical PRIMARY CARE PROVIDER: Dr. Waters ATTENDING: Dr. Lizarraga CHIEF COMPLAINT: Emesis, generalized body aches HISTORY OF PRESENT ILLNESS: Patient is a 28 year old male presenting with chief complaints of nausea, vomiting, and generalized body aches beginning at 0300 this morning. He reports that he felt fine yesterday and that he and his both ate subway last night at about 2200. He admits to subjective fevers, but denies any headaches, dizziness, neck tenderness, sore throat, cough, dyspnea, chest pain, palpitations, constipation, diarrhea, blood in his stool, dysuria, hematuria, swelling in his arms or legs, or back pain. He was recently diagnosed with latent autoimmune diabetes this past April when he was hospitalized for DKA. He has been using an insulin pump and is not sure if it was working correctly last few days. They attempted to change out the injection disc earlier this morning but did not check to make sure the needle was in the skin when they actually removed the disc. The device has been removed and not using the emergency department because it is unknown whether it is functioning correctly. PAST MEDICAL HISTORY: 1. 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 Mixed Hyperlipidemia 3. Vitamin D Deficiency 4. Obesity PAST SURGICAL HISTORY: None SOCIAL HISTORY: Patient is a nonsmoker, denies alcohol use, denies illicit drug use including heroin, cocaine, PCP. Lives at home with his and mother who are at bedside currently FAMILY HISTORY: Mother has rheumatoid arthritis Father has unknown blood clotting condition ALLERGIES: Please see below. REVIEW OF SYSTEMS: GENERAL: Admits to subjective fevers, denies chills, recent unexpected weight change, hemoptysis HEENT: Denies headache, dizziness, vision changes, hearing loss, sore throat CARDIOVASCULAR: Denies chest pain, palpitations, orthopnea RESPIRATORY: Denies shortness of breath, wheezing, cough GASTROINTESTINAL: See HPI GENITOURINARY: Denies dysuria,urinary urgency, hematuria. MUSCULOSKELETAL: Denies muscle/joint pain, weakness, stiffness NEUROLOGICAL: Denies any numbness/tingling, focal weakness, or syncope HOME MEDICATIONS: Please see below. PHYSICAL EXAMINATION: Vitals: (see below) General: No acute distress, laying comfortably in bed. HEENT: Normocephalic, atraumatic. EOMI. Moist mucous membranes. Neck: No JVD, lymphadenopathy, or meningeal signs Cardiac: RRR, No murmurs, gallops, rubs. Pulm: Clear to auscultation bilaterally. No wheezing, crackles, or rhonchi Abd: Bowel sounds present. Soft, moderately tender to palpation in right lower quadrant, non-distended, no guarding, rebound tenderness, or rigidity. No CVA tenderness. No tenderness to palpation along cervical thoracic or lumbar vertebra Ext: No edema or cyanosis. LUE scaling rash near lateral elbow consistent with e czema. patient states he has had for a while, not new. Neuro: CN 3-12 grossly intact. Patient able to stand on 2 feet without assistance. No focal deficits appreciated LABORATORY DATA: See below. IMAGING: None MICROBIOLOGY: Please see below. ASSESSMENT/PLAN: Patient is a 28-year-old male with a recent diagnosis of type 1 diabetes in April presenting with DKA likely secondary to pump malfunction versus viral gastroenteritis. #. Diabetic ketoacidosis - Hyperglycemia with an elevated anion gap, elevated Beta Hydroxybutyrate, glucose, and ketones in urine. Patient on insulin drip at a rate of 4 and will be transitioned to D5-1/2NS once gap closes. Initial VBG did not show acidemia. K elevated at 5.2, may need K replacement later on today, ok to give Kruns as needed. Rechecking BMP at 1500 today with fingersticks Q1 hour. #. Acute Kidney Injury - Likely secondary to dehydration from DKA induced dehydration and emesis. Not ordering Renal US as patient's creatinine is improving with IV hydration. - Will continue to give patient IV fluid, currently he has received 2 liters of IV fluid. Currently running 1/2 NS@100 without D5 at this time. When we transition him we will try to use his insulin pump so that if it truly fails we can contact [employer] to troubleshoot the device and if need be they can send a replacement device within 24 hours. #. Leukocytosis -Not currently showing signs, symptoms, or lab work consistent with bacterial illness but we will continue to monitor him closely. UA negative, no upper respiratory complaints, no diarrhea, and currently not nauseated. Was actually asking for food 30 minutes after provider left the room. If this is truly infectious, I suspect it is likely viral gastroenteritis. #. Tick found on LUE - Tick was found LUE, patient was at a friends house last night and may have gotten it there. A nurse was able to remove it within 5 minutes and it was placed in a specimen jar. I think we are safe to say it has been less than 24 hours since the tick latched onto his arm, thus no treatment needs to be initiated. If he becomes symptomatic after his discharge he can have lyme titers drawn in 30 days as that is when the titer would likely be positive. -DVT prophy:Heparin SQ Vital Signs Vital Signs Date Time Temp Pulse Resp B/P (MAP) Pulse Ox O2 Delivery O2 Flow Rate FiO2 01/04/19 10:45 99.4 01/04/19 10:30 115 18 125/59 (81) 99 01/04/19 08:36 Room Air Laboratory Data Labs 24H Laboratory Tests 2 01/04/19 09:19: Immature Granulocyte % (Auto) 0.6, White Blood Count 17.8H, Red Blood Count 4.41, Hemoglobin 13.8, Hematocrit 42.0, Mean Corpuscular Volume 95.2, Mean Corpuscular Hemoglobin 31.3, Mean Corpuscular Hemoglobin Concent 32.9, Red Cell Distribution Width 12.3, Platelet Count 266, Neutrophils (%) (Auto) 88.7H, Lymphocytes (%) (Auto) 3.2L, Monocytes (%) (Auto) 7.4H, Eosinophils (%) (Auto) 0.0, Basophils (%) (Auto) 0.1, Neutrophils # (Auto) 15.8H, Lymphocytes # (Auto) 0.6L, Monocytes # (Auto) 1.3H, Eosinophils # (Auto) 0.0, Basophils # (Auto) 0.0, Nucleated Red Blood Cells % (auto) 0.0, Blood Gas Bicarbonate Standard 18.1, Venous Blood pH 7.335, Venous Blood Partial Pressure CO2 32.1L, Venous Blood Partial Pressure O2 76.6H, Venous Blood Total Carbon Dioxide 17.7L, Venous Blood HCO3 16.7L, Venous Blood Oxygen Saturation 94.7H, Venous Blood Base Excess - 7.9L, Anion Gap 18H, Glomerular Filtration Rate 55.5L, Osmolality 308H, Calcium Level 9.6, Phosphorus Level 5.7H, Magnesium Level 1.9, Aspartate Amino Transf (AST/SGOT) 19, Alanine Aminotransferase (ALT/SGPT) 27, Alkaline Phosphatase 115, Total Bilirubin 1.6H, Direct Bilirubin 0.6H, Total Protein 7.3, Albumin 4.5, Albumin/Globulin Ratio 1.61, Lipase 47L, B-Hydroxybutyrate > 46.00H 01/04/19 10:07: Bedside Glucose (Misc Panel) 418H 01/04/19 11:19: Bedside Glucose (Misc Panel) 393H 01/04/19 11:34: Urine Appearance CLEAR, Urine Color STRAW, Urine pH 5.0, Urine Specific [place] 1.024, Urine Protein NEGATIVE, Urine Glucose (UA) 3+H, Urine Ketones 2+H, Urine Urobilinogen 0.2, Urine Bilirubin NEGATIVE, Urine Leukocyte Esterase NEGATIVE, Urine Blood NEGATIVE, Urine Nitrite NEGATIVE, Urine WBC (Auto) 0, Urine RBC (Auto) 1, Urine Hyaline Casts (Auto) 0, Urine Bacteria (Auto) NEGATIVE, Urine Squamous Epithelial Cells 0, Urine Mucus (Auto) SMALL, Urine Sperm (Auto) , Uri ne Random Osmolality 659 01/04/19 11:48: CBC/BMP Laboratory Tests 01/04/19 09:19 Red Blood Count 4.41, Mean Corpuscular Volume 95.2, Mean Corpuscular Hemoglobin 31.3, Mean Corpuscular Hemoglobin Concent 32.9, Red Cell Distribution Width 12.3, Neutrophils (%) (Auto) 88.7 H, Lymphocytes (%) (Auto) 3.2 L, Monocytes (%) (Auto) 7.4 H, Eosinophils (%) (Auto) 0.0, Basophils (%) (Auto) 0.1, Neutrophils # (Auto) 15.8 H, Lymphocytes # (Auto) 0.6 L, Monocytes # (Auto) 1.3 H, Eosinophi ls # (Auto) 0.0, Basophils # (Auto) 0.0 Microbiology Microbiology 01/04/19 Blood Culture, Received Pending 01/04/19 Blood Culture, Received Pending Home Medications Scheduled (Admelog) 100 Unit/Ml Inj, 1 DOSE SQ ASDIRECTED USES WITH INSULIN PUMP. (Sm Aspirin Adult Low Stre) 81 Mg Tab, 81 MG PO QHS Atorvastatin Calcium (Atorvastatin Calcium) 20 Mg Tab, 20 MG PO QHS Cholecalciferol (Vitamin D3) 2,000 Unit Cap, 2,000 UNITS PO QHS Glucagon Rdna (Glucagon Emergency Kit) 1 Mg Kit, 1 MG IM ASDIRECTED Magnesium Oxide (Magnesium Oxide) 400 Mg Tab, 400 MG PO QHS Potassium Chloride (Potassium Chloride Cr) 10 Meq Tab, 20 MEQ PO BID Allergies Coded Allergies: amoxicillin (Verified Allergy, Intermediate, RASH, 01/04/19) clavulanic acid (Verified Allergy, Intermediate, RASH, 01/04/19) GME ATTESTATION GME ATTESTATION My faculty preceptor for this patient encounter was physically present during the encounter and was fully available. All aspects of the patient interview, examination, medical decision making process, and medical care plan development were reviewed and approved by the faculty preceptor. The faculty preceptor is aware and concurs with the plan as stated in the body of this note and will attest to such by his/her cosignature. MICH NEAL DO Jan 04, 2019 12:26
[2019-01-04 12:27] LABS: BLOOD UREA NITROGEN 24 MG/DL (7-18); CALCIUM LEVEL 8.5 MG/DL (8.5-10.1); CARBON DIOXIDE LEVEL 19 MEQ/L (21-32); CHLORIDE LEVEL 104 MEQ/L (98-107); CREATININE FOR GFR 1.37 MG/DL (0.70-1.30); GLOMERULAR FILTRATION RATE > 60.0 (>60); GLUCOSE, FASTING 372 MG/DL (70-100); SODIUM LEVEL 136 MEQ/L (136-145)
[2019-01-04] MEDS ORDERED: KCL 10MEQ/100ML SWI (KRUN) 10 MEQ in APPROPRIATE DILUENT 1 EA IV ONE (13:30)
[2019-01-04 14:00] VITALS: BP 118/60
[2019-01-04] MEDS ORDERED: NS 0.45% 1,000 ML IV SCH (14:00)
[2019-01-04] MEDS ORDERED: D5W/0.45% SODIUM CHLORIDE 1,000 ML IV ONE (14:15)
[2019-01-04] MEDS: PANTOPRAZOLE 40MG INJ (PROTONIX) (C9113) IV SCH (14:16)
[2019-01-04] MEDS: HEPARIN SOD (PORCINE) 5000 UNITS/ML VIAL SC SCH ×2 (14:16→21:07)
[2019-01-04 15:35] LABS: BLOOD UREA NITROGEN 21 MG/DL (7-18); CALCIUM LEVEL 8.4 MG/DL (8.5-10.1); CARBON DIOXIDE LEVEL 24 MEQ/L (21-32); CHLORIDE LEVEL 108 MEQ/L (98-107); CREATININE FOR GFR 1.31 MG/DL (0.70-1.30); GLOMERULAR FILTRATION RATE > 60.0 (>60); GLUCOSE, FASTING 213 MG/DL (70-100); POTASSIUM SERUM 4.3 MEQ/L (3.5-5.1); SODIUM LEVEL 141 MEQ/L (136-145)
[2019-01-04 16:00] VITALS: BP 108/53
[2019-01-04] MEDS: ACETAMINOPHEN TAB 650MG DOSE (2X325MG) PO PRN (17:32)
[2019-01-04 18:00] VITALS: BP 128/60
[2019-01-04 18:39] LABS: HEMATOCRIT 35.2 % (42.0-52.0); HEMOGLOBIN 11.9 g/dl (13.5-17.5); MEAN CORPUSCULAR HEMOGLOBIN 31.7 pg (27.0-33.0); MEAN CORPUSCULAR HGB CONC 33.8 g/dl (32.0-36.5); MEAN CORPUSCULAR VOLUME 93.9 fl (80.0-96.0); PLATELET COUNT, AUTOMATED 221 10^3/uL (150-450); RED BLOOD COUNT 3.75 10^6/uL (4.30-6.10); WHITE BLOOD COUNT 15.5 10^3/uL (4.0-10.0)
[2019-01-04] MEDS ORDERED: GLUCAGON FOR INJ 1 MG VIAL (J1610) SC PRN (19:15)
[2019-01-04] MEDS ORDERED: GLUCOSE 4 GM CHEW TABLET PO PRN (19:15)
[2019-01-04] MEDS ORDERED: LEVEMIR (INSULIN DETEMIR) 1 UNITS/0.01ML SC SCH (19:15)
[2019-01-04] MEDS ORDERED: DEXTROSE 50% 50 ML SYRINGE IV PRN (19:15)
[2019-01-04 20:00] VITALS: BP 106/53
[2019-01-04] MEDS: MAGNESIUM OXIDE 400 MG TAB (MAG-OX) PO SCH (21:06)
[2019-01-04] MEDS: VITAMIN D 1,000 INTERNATIONAL UNITS TABLET PO SCH (21:06)
[2019-01-04] MEDS: ATORVASTATIN 20 MG TAB PO SCH (21:06)
[2019-01-04] MEDS: HumaLOG INSULIN (NovoLOG) PER UNIT SC SCH (21:07)
[2019-01-04 21:35] LABS: BLOOD UREA NITROGEN 20 MG/DL (7-18); CARBON DIOXIDE LEVEL 27 MEQ/L (21-32); CHLORIDE LEVEL 105 MEQ/L (98-107); CREATININE FOR GFR 1.32 MG/DL (0.70-1.30); GLOMERULAR FILTRATION RATE > 60.0 (>60); GLUCOSE, FASTING 282 MG/DL (70-100); POTASSIUM SERUM 4.5 MEQ/L (3.5-5.1); SODIUM LEVEL 138 MEQ/L (136-145)
[2019-01-05] VITALS: BP 113/55
[2019-01-05 04:00] VITALS: BP 115/58
[2019-01-05 05:05] LABS: HEMOGLOBIN 11.5 g/dl (13.5-17.5); MEAN CORPUSCULAR HGB CONC 32.9 g/dl (32.0-36.5); MEAN CORPUSCULAR VOLUME 94.3 fl (80.0-96.0); PLATELET COUNT, AUTOMATED 223 10^3/uL (150-450); RED BLOOD COUNT 3.71 10^6/uL (4.30-6.10); WHITE BLOOD COUNT 9.7 10^3/uL (4.0-10.0)
[2019-01-05] MEDS: HEPARIN SOD (PORCINE) 5000 UNITS/ML VIAL SC SCH ×3 (05:05→21:20)
[2019-01-05 05:17] LABS: BLOOD UREA NITROGEN 17 MG/DL (7-18); CALCIUM LEVEL 8.3 MG/DL (8.5-10.1); CARBON DIOXIDE LEVEL 25 MEQ/L (21-32); CHLORIDE LEVEL 107 MEQ/L (98-107); CREATININE FOR GFR 1.03 MG/DL (0.70-1.30); GLOMERULAR FILTRATION RATE > 60.0 (>60); GLUCOSE, FASTING 191 MG/DL (70-100); POTASSIUM SERUM 4.3 MEQ/L (3.5-5.1); SODIUM LEVEL 140 MEQ/L (136-145)
[2019-01-05 08:00] VITALS: BP 116/56
[2019-01-05] MEDS: HumaLOG INSULIN (NovoLOG) PER UNIT SC SCH ×4 (08:25→21:36)
[2019-01-05] MEDS: PANTOPRAZOLE 40MG INJ (PROTONIX) (C9113) IV SCH (08:25)
[2019-01-05 10:10] VITALS: BP 129/75
[2019-01-05 16:10] VITALS: BP 129/65
[2019-01-05 20:00] VITALS: BP 121/61
[2019-01-05] MEDS ORDERED: LEVEMIR (INSULIN DETEMIR) 1 UNITS/0.01ML SC SCH (21:00)
[2019-01-05] MEDS: MAGNESIUM OXIDE 400 MG TAB (MAG-OX) PO SCH (21:19)
[2019-01-05] MEDS: ATORVASTATIN 20 MG TAB PO SCH (21:19)
[2019-01-05] MEDS: VITAMIN D 1,000 INTERNATIONAL UNITS TABLET PO SCH (21:35)
--- NOTE | 2019-01-05 23:16 | IPNPDOC ---
Subjective Date Seen The patient was seen on 01/05/19. Subjective Chief Complaint/HPI Leukocytosis resolved. After unsuccessfully trying to restart his insulin pump last night, including a troubleshooting session with [employer], patient was restarted on subcutaneous insulin. Today he is hyperglycemic. He also notes some oral discomfort; last night he complained of R sided jaw pain, and today of discomfort in the roof of his mouth. Constitutional: Denies: Chills, Fever ENT: Reports: Other Symptoms (roof of mouth intermittently sore) Skin: Denies: Rash Pulmonary: Denies: Dyspnea, Cough Cardiovascular: Denies: Chest Pain Gastrointestinal: Denies: Nausea, Vomiting, Abdominal Pain, Diarrhea, Co nstipation Objective Physical Examination General Exam: Positive: Alert, Cooperative, No Acute Distress Eye Exam: Positive: Conjunctiva & lids normal ENT Exam: Positive: Mucous membr. moist/pink, Pharynx Normal, Tongue Midline, Other ENT (no oral lesions) Neck Exam: Positive: Supple; Negative: Lymphadenopathy Chest Exam: Positive: Clear to auscultation, Normal air movement Heart Exam: Positive: Rate Normal, Regular Rhythm Abdomen Exam: Positive: Normal bowel sounds, Soft; Negative: Tenderness Skin Exam: Positive: Nl turgor and temperature; Negative: Rash Neuro Exam: Positive: Normal Speech Psych Exam: Positive: Mental status NL, Mood NL Assessment /Plan Problems (1) Diabetic ketoacidosis Status: Resolved Problem Text: Likely secondary to pump malfunction. No clinical infection, leukocytosis has resolved, and patient's DM is well-controlled at baseline. No longer acidotic, but patient is hyperglycemic; insulin adjusted today. (2) Dehydration Status: Resolved Problem Text: Secondary to DKA. (3) Breakdown (mechanical) of insulin pump, initial encounter Problem Text: [employer] is sending replacement parts. Dr. Waters, who manages the patient's pump, will be here tomorrow. Patient will not restart pump until seeing Dr. Waters and Tina. (4) Painful mouth Problem Text: No visible lesion or erythema, parotid gland duct identifiable and not inflamed, no dental trauma, no visible Candidiasis along the roof of the mouth. When jaw was more uncomfortable last night, ears were examined and WNL, sinuses nontender to palpation. Patient has continued eating despite reported oral discomfort. Plan/VTE VTE Prophylaxis Ordered?: Yes VS, I&O, 24H, Fishbone Vital Signs/I&O Vital Signs Date Time Temp Pulse Resp B/P (MAP) Pulse Ox O2 Delivery O2 Flow Rate FiO2 01/05/19 20:00 97.4 79 18 121/61 (81) 97 01/04/19 08:36 Room Air I&O- Last 24 Hours up to 6 AM0 01/05/19 06:00 Intake Total 5348.3 ml Output Total 1750 ml Balance 3598.3 ml Laboratory Data 24H LABS Laboratory Tests 2 01/05/19 04:44: Nucleated Red Blood Cells % (auto) 0.0, Anion Gap 8, Glomerular Filtration Rate > 60.0, Blood Urea Nitrogen 17, Creatinine 1.03, Sodium Level 140, Potassium Level 4.3, Chloride Level 107, Carbon Dioxide Level 25, Calcium Level 8.3L 01/05/19 11:56: Bedside Glucose (Misc Panel) 327H 01/05/19 17:09: Bedside Glucose (Misc Panel) 290H 01/05/19 21:24: Bedside Glucose (Misc Panel) 330H CBC/BMP Laboratory Tests 01/05/19 04:44 Red Blood Count 3.71 L, Mean Corpuscular Volume 94.3, Mean Corpuscular Hemoglobi n 31.0, Mean Corpuscular Hemoglobin Concent 32.9, Red Cell Distribution Width 12.6, Calcium Level 8.3 L Microbiology Microbiology 01/04/19 Blood Culture - Preliminary, Resulted No growth after 24 hours . All specim... 01/04/19 Blood Culture - Preliminary, Resulted No growth after 24 hours . All specim... BHUMIKA LIZARRAGA DO Jan 05, 2019 23:16
[2019-01-06 00:10] VITALS: BP 116/57
[2019-01-06 04:10] VITALS: BP 124/58
[2019-01-06] MEDS: HEPARIN SOD (PORCINE) 5000 UNITS/ML VIAL SC SCH ×3 (06:38→20:36)
[2019-01-06 07:17] LABS: HEMATOCRIT 36.1 % (42.0-52.0); HEMOGLOBIN 12.1 g/dl (13.5-17.5); MEAN CORPUSCULAR HEMOGLOBIN 30.6 pg (27.0-33.0); MEAN CORPUSCULAR HGB CONC 33.5 g/dl (32.0-36.5); MEAN CORPUSCULAR VOLUME 91.4 fl (80.0-96.0); PLATELET COUNT, AUTOMATED 217 10^3/uL (150-450); RED BLOOD COUNT 3.95 10^6/uL (4.30-6.10); WHITE BLOOD COUNT 6.4 10^3/uL (4.0-10.0)
[2019-01-06 07:36] LABS: BLOOD UREA NITROGEN 11 MG/DL (7-18); CALCIUM LEVEL 8.7 MG/DL (8.5-10.1); CARBON DIOXIDE LEVEL 29 MEQ/L (21-32); CHLORIDE LEVEL 105 MEQ/L (98-107); CREATININE FOR GFR 0.79 MG/DL (0.70-1.30); GLOMERULAR FILTRATION RATE > 60.0 (>60); GLUCOSE, FASTING 126 MG/DL (70-100); POTASSIUM SERUM 3.7 MEQ/L (3.5-5.1); SODIUM LEVEL 141 MEQ/L (136-145)
[2019-01-06] MEDS: PANTOPRAZOLE 40MG INJ (PROTONIX) (C9113) IV SCH (08:05)
[2019-01-06] MEDS: HumaLOG INSULIN (NovoLOG) PER UNIT SC SCH ×3 (08:05→17:40)
[2019-01-06 08:10] VITALS: BP 124/74
[2019-01-06] MEDS: ACETAMINOPHEN TAB 650MG DOSE (2X325MG) PO PRN (08:32)
[2019-01-06 16:01] VITALS: BP 138/74
--- NOTE | 2019-01-06 18:17 | IPNPDOC ---
Subjective Date Seen The patient was seen on 01/06/19. Subjective Chief Complaint/HPI resolved abdominal pain/nausea Constitutional: Denies: Chills, Fever Eyes: Denies: Pain ENT: Denies: Head Aches Pulmonary: Denies: Dyspnea, Cough Cardiovascular: Denies: Chest Pain Gastrointestinal: Denies: Nausea, Vomiting Objective Physical Examination General Exam: Positive: Alert, Cooperative, No Acute Distress Eye Exam: Positive: Conjunctiva & lids normal ENT Exam: Positive: Mucous membr. moist/pink, Pharynx Normal, Tongue Midline, Other ENT (no oral lesions) Neck Exam: Positive: Supple; Negative: Lymphadenopathy Chest Exam: Positive: Clear to auscultation, Normal air movement Heart Exam: Positive: Rate Normal, Regular Rhythm Abdomen Exam: Positive: Normal bowel sounds, Soft; Negative: Tenderness Skin Exam: Positive: Nl turgor and temperature; Negative: Rash Neuro Exam: Positive: Normal Speech Psych Exam: Positive: Mental status NL, Mood NL Assessment /Plan Problems (1) Breakdown (mechanical) of insulin pump, initial encounter Problem Text: no obvious leak at infusion site nor warning for line occlusion Contingency: swap insulin/IS/res; overPM new pump 01/06/19 2100 restart 760 pump in Manual mode only to test pump; 01/05/19 patient dw [employer] who felt problem was c sensor 01/03/19 given persistent hyperglycemia c Auto Mode exits for elevated BG; patient changed infusion set/reservoir/lispro insulin 01/02/19 midday BG increased to mid 300s (2) GLO (acute kidney injury) Status: Acute Problem Text: 01/06 back to baseline at 11/0.8 (peak cr 1.6) (3) Diabetic ketoacidosis Status: Resolved Problem Text: on admission, pH: 7.335, BHB >46, BG 445, HCO3 19; cw mild DKA Plan/VTE VTE Prophylaxis Ordered?: Yes VS, I&O, 24H, [place]bone Vital Signs/I&O Vital Signs Date Time Temp Pulse Resp B/P (MAP) Pulse Ox O2 Delivery O2 Flow Rate FiO2 01/06/19 16:01 98.3 76 18 138/74 (95) 95 01/04/19 08:36 Room Air I&O- Last 24 Hours up to 6 AM 01/06/19 06:00 Intake Total 1680 ml Output Total 3000 ml Balance -1320 ml Laboratory Data 24H LABS Laboratory Tests 2 01/05/19 21:24: Bedside Glucose (Misc Panel) 330H 01/06/19 06:53: Nucleated Red Blood Cells % (auto) 0.0, Anion Gap 7L, Glomerular Filtration Rate > 60.0, Blood Urea Nitrogen 11, Creatinine 0.79, Sodium Level 141, Potassium Level 3.7, Chloride Level 105, Carbon Dioxide Level 29, Calcium Level 8.7 01/06/19 07:52: Bedside Glucose (Misc Panel) 111H 01/06/19 12:30: Bedside Glucose (Misc Panel) 222H 01/06/19 17:19: Bedside Glucose (Misc Panel) 229H CBC/BMP Laboratory Tests 01/06/19 06:53 Red Blood Count 3.95 L, Mean Corpuscular Volume 91.4, Mean Corpuscular Hemoglobin 30.6, Mean Corpuscular Hemoglobin Concent 33.5, Red Cell Distribution Width 12.2, Calcium Level 8.7 Microbiology Microbiology 01/04/19 Blood Culture - Preliminary, Resulted No Growth after 48 hours. All Specime... 01/04/19 Blood Culture - Preliminary, Resulted No Growth after 48 hours. All Specime... Jake Waters M.D. Jan 06, 2019 18:17
[2019-01-06 20:00] VITALS: BP 126/66
[2019-01-06] MEDS: MAGNESIUM OXIDE 400 MG TAB (MAG-OX) PO SCH (20:35)
[2019-01-06] MEDS: VITAMIN D 1,000 INTERNATIONAL UNITS TABLET PO SCH (20:35)
[2019-01-06] MEDS: ATORVASTATIN 20 MG TAB PO SCH (20:35)
[2019-01-07] VITALS: BP 124/77
[2019-01-07] MEDS: ACETAMINOPHEN TAB 650MG DOSE (2X325MG) PO PRN ×2 (03:04→17:16)
[2019-01-07] MEDS: HEPARIN SOD (PORCINE) 5000 UNITS/ML VIAL SC SCH ×2 (05:46→14:00)
[2019-01-07 07:00] LABS: HEMOGLOBIN 13.2 g/dl (13.5-17.5); MEAN CORPUSCULAR HEMOGLOBIN 31.1 pg (27.0-33.0); MEAN CORPUSCULAR HGB CONC 33.8 g/dl (32.0-36.5); MEAN CORPUSCULAR VOLUME 91.8 fl (80.0-96.0); PLATELET COUNT, AUTOMATED 235 10^3/uL (150-450); RED BLOOD COUNT 4.25 10^6/uL (4.30-6.10); WHITE BLOOD COUNT 7.5 10^3/uL (4.0-10.0)
[2019-01-07 07:21] LABS: BLOOD UREA NITROGEN 11 MG/DL (7-18); CALCIUM LEVEL 8.9 MG/DL (8.5-10.1); CARBON DIOXIDE LEVEL 29 MEQ/L (21-32); CHLORIDE LEVEL 106 MEQ/L (98-107); CREATININE FOR GFR 0.86 MG/DL (0.70-1.30); GLOMERULAR FILTRATION RATE > 60.0 (>60); GLUCOSE, FASTING 76 MG/DL (70-100); POTASSIUM SERUM 3.7 MEQ/L (3.5-5.1); SODIUM LEVEL 140 MEQ/L (136-145)
[2019-01-07 08:00] VITALS: BP 121/75
[2019-01-07 16:00] VITALS: BP 132/93
--- NOTE | 2019-01-08 07:58 | DSES ---
DATE OF ADMISSION: 01/04/2019 DATE OF DISCHARGE: 01/07/2019 DISCHARGE DIAGNOSES: 1. Diabetic ketoacidosis (DKA), mild. 2. Acute kidney injury (GLO), stage I, secondary to DKA and dehydration. 3. Diabetes mellitus, type 1, on chronic 670 [employer] insulin pump. HISTORY OF PRESENT ILLNESS: The patient presented with elevated blood sugars beginning on 01/02/2019 midday into the 300s. Before this, they had been in the low 100s. Given the persistence the next day with frequent auto mode exits for elevated blood glucose, the patient changed the reservoir and insulin. Nevertheless, that sugars continued to be elevated. The patient became anorexic, nauseous with nonbloody, nonbilious vomiting, and therefore presented to the [facility] Emergency Room (ER) where he was temporarily placed on an insulin drip and given IV fluids with prompt correction of his anion gap and acidosis. On admission, pH was 7.335, beta-hydroxybutyrate (BHB) of greater than 486, blood glucose 445 with a sodium bicarbonate of 19. Peak creatinine was 1.6. By 01/06/2019, it was down to 0.8 at baseline. On 01/06/2019, the patient's injection basal and bolus were held and his insulin pump was restarted to determine if the hyperglycemia was related to the pump failure. In manual mode, blood sugars were tight throughout the night and all during the next day. On troubleshooting phone call with [employer], it was felt that his hyperglycemia was favored to be related to a sensor issue and not the pump itself. The patient was discharged to home on his current medications and current regimen through his insulin pump without change of basal nor bolus nor ratios. He was advised to return to the office as soon as possible (ELLIS) if the blood sugars were repeatedly greater than 200 or if he developed anorexia or nausea again. Otherwise, we plan hospital followup on 01/14/2019.
== END 2019-01-07 18:25 | disposition home or self-care (01) | DRG 813 ==
LOC: M ED 08:36 → M ED INP 12:54 → M ICU 13:43 → M PED 01-05 10:07
PROVIDERS: ADMIT Family Medicine; ATTEND Family Medicine
DX: T85.614A Breakdown (mechanical) of insulin pump, initial encounter (principal); E10.10 Type 1 diabetes mellitus with ketoacidosis without coma; N17.9 Acute kidney failure, unspecified; E86.0 Dehydration; Z68.32 Body mass index [BMI] 32.0-32.9, adult; E78.5 Hyperlipidemia, unspecified; E55.9 Vitamin D deficiency, unspecified; D72.829 Elevated white blood cell count, unspecified; Z79.899 Other long term (current) drug therapy; Z88.0 Allergy status to penicillin; Z88.8 Allergy status to other drugs, medicaments and biological substances; Y83.1 Surgical operation with implant of artificial internal device as the cause of abnormal reaction of the patient, or of later complication, without mention of misadventure at the time of the procedure

== ENCOUNTER → 2019-01-08 | Outpatient (REF) | payer OTHER ==
[~2019-01-08] MED LIST changes: +ADME100I SQ; +ASPI-164 PO; +ATOR1TAB21 PO; +BAYEMIS PO; -INSU31MI XX; +MAGN400T PO; +POTA10TA67 PO; +VITA2000 PO; +[UNRECOGNIZED DRUG - OTHER] XX
[2019-01-08 12:23] LABS: ALBUMIN 4.1 GM/DL (3.2-5.2); ALT/SGPT 27 U/L (12-78); BILIRUBIN,TOTAL 0.8 MG/DL (0.2-1.0); BLOOD UREA NITROGEN 14 MG/DL (7-18); CALCIUM LEVEL 9.3 MG/DL (8.5-10.1); CARBON DIOXIDE LEVEL 29 MEQ/L (21-32); CHLORIDE LEVEL 103 MEQ/L (98-107); CHOLESTEROL LEVEL 125 MG/DL (<200); CHOLESTEROL RISK RATIO 2.551 (<5); CREATININE FOR GFR 1.09 MG/DL (0.70-1.30); GLOMERULAR FILTRATION RATE > 60.0 (>60); GLUCOSE, FASTING 235 MG/DL (70-100); HDL CHOLESTEROL 49 MG/DL (>40); LDL CHOLESTEROL 59 MG/DL (<100); NON-HDL-C 76 MG/DL; POTASSIUM SERUM 4.7 MEQ/L (3.5-5.1); SODIUM LEVEL 138 MEQ/L (136-145); TOTAL 25(OH) VITAMIN D 39.6 NG/ML (30.0-100.0); TOTAL PROTEIN 7.2 GM/DL (6.4-8.2); TRIGLYCERIDES LEVEL 84 MG/DL (<150); VITAMIN B12 LEVEL > 2000 PG/ML (247-911)
[2019-01-08 12:46] LABS: HEMOGLOBIN A1c 7.7 %
[2019-01-08 14:03] LABS: BASO % 0.4 % (0.0-1.0); EOS # 0.1 10^3/uL (0.0-0.50); EOS % 1.3 % (0.0-3.0); HEMATOCRIT 44.5 % (42.0-52.0); HEMOGLOBIN 14.7 g/dl (13.5-17.5); LYMPH # 1.7 10^3/uL (1.5-6.5); LYMPH % 24.9 % (24.0-44.0); MEAN CORPUSCULAR HEMOGLOBIN 31.1 pg (27.0-33.0); MEAN CORPUSCULAR VOLUME 94.3 fl (80.0-96.0); MONO # 0.6 10^3/uL (0.0-0.8); MONO % 8.6 % (0.0-5.0); NEUTROPHILS # 4.5 10^3/uL (1.8-7.7); NEUTROPHILS % 63.9 % (36.0-66.0); PLATELET COUNT, AUTOMATED 272 10^3/uL (150-450); RED BLOOD COUNT 4.72 10^6/uL (4.30-6.10)
[2019-01-10 00:06] LABS: ANA (HEP2) Positive (.)
== END ==
LOC: M SFHCPLAZ 08:48
PROVIDERS: ATTEND Nurse Practitioner Family
DX: I10 Essential (primary) hypertension (principal); E10.9 Type 1 diabetes mellitus without complications; E55.9 Vitamin D deficiency, unspecified; E78.2 Mixed hyperlipidemia

== ENCOUNTER 2019-04-28 21:18 | Inpatient (IN) | payer OTHER ==
[~2019-04-28] VITALS: Ht 172.7 cm; Wt 94.8 kg
[2019-04-28 22:36] LABS: BASO # 0.1 10^3/uL (0.0-0.2); BASO % 0.2 % (0.0-1.0); HEMATOCRIT 49.8 % (42.0-52.0); HEMOGLOBIN 15.9 g/dl (13.5-17.5); LYMPH # 0.7 10^3/uL (1.5-6.5); MEAN CORPUSCULAR HEMOGLOBIN 31.4 pg (27.0-33.0); MEAN CORPUSCULAR HGB CONC 31.9 g/dl (32.0-36.5); MEAN CORPUSCULAR VOLUME 98.2 fl (80.0-96.0); NEUTROPHILS % 88.8 % (36.0-66.0); PLATELET COUNT, AUTOMATED 343 10^3/uL (150-450); RED BLOOD COUNT 5.07 10^6/uL (4.30-6.10)
[2019-04-28 22:53] LABS: MONO # 2.9 10^3/uL (0.0-0.8); NEUTROPHILS # 31.9 10^3/uL (1.8-7.7)
[2019-04-28] MEDS ORDERED: NS 1,000 ML IV ONE (23:00)
[2019-04-28 23:16] LABS: ALBUMIN 4.8 GM/DL (3.2-5.2); BILIRUBIN,DIRECT 0.2 MG/DL (0.0-0.2); BILIRUBIN,TOTAL 0.5 MG/DL (0.2-1.0); CREATININE FOR GFR 2.1 MG/DL (0.70-1.30); GLOMERULAR FILTRATION RATE 40.2 (>60); POTASSIUM SERUM 5.7 MEQ/L (3.5-5.1); TOTAL PROTEIN 8.7 GM/DL (6.4-8.2)
[2019-04-28] MEDS ORDERED: ONDANSETRON 4MG/2ML VIAL (J2405) IV ONE (23:45)
[2019-04-28] MEDS ORDERED: HumuLIN R (REGULAR) INSULIN (NovoLIN R) **100U/ML** PER UNIT IV ONE (23:45)
[2019-04-28] MEDS ORDERED: ONDANSETRON 4MG/2ML VIAL (J2405) As Ordered ONE (23:45)
[2019-04-28] MEDS ORDERED: INSULIN HUMAN REGULAR 100 UNITS in NS 99 ML IV SCH (23:45)
[2019-04-28] MEDS ORDERED: BASA100I SC (23:52)
[2019-04-28] MEDS ORDERED: ASPI-161 PO (23:52)
[2019-04-28] MEDS ORDERED: POTA10TA17 PO (23:52)
[2019-04-29] VITALS (8 sets, daily range): BP systolic 106–138; BP diastolic 53–66
--- NOTE | 2019-04-29 01:20 | REPVR ---
EXAM: CT Chest Without Contrast EXAM DATE/TIME: 04/28/2019 11:31 PM CLINICAL HISTORY: 28 years old, male; Chest pain; Type not specified; Additional info: Chest pain leukocytosis TECHNIQUE: Imaging protocol: Axial computed tomography images of the chest without intravenous contrast. Coronal and sagittal reformatted images were created and reviewed. Radiation optimization: All CT scans at this facility use at least one of these dose optimization techniques: automated exposure control; mA and/or kV adjustment per patient size (includes targeted exams where dose is matched to clinical indication); or iterative reconstruction. COMPARISON: No relevant prior studies available. FINDINGS: Limited by motion and absence of IV contrast. No obvious retrosternal mediastinal hematoma. No abnormal dilatation of the thoracic aorta. No hemothorax or pneumothorax. No evidence of lung contusion, aspiration or concerning lung mass. No acute displaced fractures involving ribs, thoracic spine or shoulder girdle. No asymmetric abnormality of the extrathoracic soft tissues. IMPRESSION: No CT evidence of acute thoracic trauma Electronically signed by: Layton Dubon On 04/29/2019 01:20:27 AM
--- NOTE | 2019-04-29 01:22 | REPVR ---
EXAM: CT Abdomen and Pelvis Without Contrast EXAM DATE/TIME: 04/28/2019 11:31 PM CLINICAL HISTORY: 28 years old, male; Abdominal pain; Generalized; Additional info: Flank pain leukocytosis TECHNIQUE: Imaging protocol: Axial computed tomography images of the abdomen and pelvis without contrast. Coronal and sagittal reformatted images were created and reviewed. Radiation optimization: All CT scans at this facility use at least one of these dose optimization techniques: automated exposure control; mA and/or kV adjustment per patient size (includes targeted exams where dose is matched to clinical indication); or iterative reconstruction. COMPARISON: CT ABD PELVIS WITH CONTRAST 09/03/2018 6:55 PM FINDINGS: ABDOMEN: Limited trauma evaluation without IV contrast and also limited by patient motion. No intra-abdominal hematoma. Noncontrast liver, spleen, gallbladder, pancreas and adrenal glands are normal. Kidneys show no stone or obstruction. 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 No evidence of bowel obstruction, pneumoperitoneum or free abdominal fluid. No enlarged lymph nodes. No aortic aneurysm. PELVIS: No pelvic hematoma. No abnormal pelvic mass. Bladder appears normal. Bony structures show no acute fracture or destructive process. Normal caliber appendix is identified, with no adjacent inflammation. No evidence of acute diverticulitis. No enlarged lymph nodes. IMPRESSION: No acute intra-abdominal or pelvic process. Ectopic kidney positioned in the pelvis . No stone or obstruction Electronically signed by: Layton Dubon On 04/29/2019 01:22:16 AM
[2019-04-29] MEDS ORDERED: SODIUM BICARBONATE 8.4% INJ 50 ML SYRINGE IV SCH (02:00)
[2019-04-29] MEDS ORDERED: NS 1,000 ML IV SCH (02:00)
[2019-04-29] MEDS ORDERED: MAALOX 30 ML SUSP *UDC PO PRN (02:00)
[2019-04-29] MEDS ORDERED: MOM 30ML SUSPENSION UDC PO PRN (02:00)
[2019-04-29] MEDS ORDERED: INSULIN HUMAN REGULAR 100 UNITS in NS 99 ML IV SCH (02:00)
--- NOTE | 2019-04-29 02:18 | HPEPDOC ---
General Date of Admission 04/29/19 Date of Service: Apr 29, 2019 Primary Care Physician: JARON WILLIAMSON Attending Physician: RANDAL SANTIAGO MD Chief Complaint The patient is a 28-year-old male admitted with a reason for visit of High Blood Sugar. Source: Patient, Family Exam Limitations: No limitations Timing/Duration: Day(s) Severity: Moderate Associated Symptoms: Vomiting, Other (bilateral flank pain) History of Present Illness 28 years old -[place] male past medical history of type 1 diabetes mellitus, presented in ED with chief complaints of vomiting and high blood sugar at the home glucometer readings and also complaining of bilateral flank pain which is sharp in nature, nonradiating, nonspecific associated with the any other substance of the symptoms, except vomiting. Pain is not relieved with any medication or not exacerbated by any position. Patient being admitted to the hospital with the diagnosis of DKA Home Medications Scheduled Aspirin (Aspirin EC) 81 Mg Tablet.dr, 81 MG PO QHS, (Reported) Atorvastatin Calcium (Atorvastatin Calcium) 20 Mg Tab, 20 MG PO QHS, (Reported) Cholecalciferol (Vitamin D3) (Vitamin D3) 2,000 Unit Cap, 2,000 UNITS PO QHS, (Reported) Glucagon,Human Recombinant (Glucagon Emergency Kit) 1 Mg Kit, 1 MG IM ASDIRECTED, (Reported) Insulin Glargine,Hum.rec.anlog (Basaglar Kwikpen U-100) 100 Unit/1 Ml Insuln .pen, 30 UNIT SC QHS, (Reported) Insulin Lispro (Admelog) 100 Unit/Ml Inj, 1 DOSE SQ ASDIRECTED, (Reported) USES WITH INSULIN PUMP. Magnesium Oxide (Magnesium Oxide) 400 Mg Tab, 400 MG PO QHS, (Reported) Potassium Chloride (Potassium Chloride) 10 Meq Tab.er.prt, 20 MEQ PO QHS, (Reported) Allergies Coded Allergies: amoxicillin (Verified Allergy, Intermediate, RASH, 01/04/19) clavulanic acid (Verified Allergy, Intermediate, RASH, 01/04/19) Past Medical History Medical History Diabetes mellitus type 1 Surgical History None Family History Significant Family History: No pertinent family hx Social History * Smoker: Denies Alcohol: Denies Drugs: denies A-FIB/CHADSVASC A-FIB History Current/History of A-Fib/PAF?: No Review of Systems Constitutional: Denies: Chills, Fever, Malaise, Night Sweats, Weakness, Fatigue, Weight Loss, Lethargy, Other Eyes: Denies: Pain, Vision change, Conjunctivae inflammation, Eyelid inflammation, Redness, Other ENT: Denies: Head Aches, Ear Pain, Dysphagia, Sinus Congestion, Post Nasal Drip, Sore Throat, Epistaxis, Other Symptoms Skin: Denies: Rash, Lesions, Jaundice, Bruising, Itching, Dry, Breakdown, Nail Changes, Other Pulmonary: Denies: Dyspnea, Cough, Pleuritic Chest Pain, Other Symptoms Cardiovascular: Denies: Chest Pain, Palpitations, Orthopnea, Paroxysmal Noc. Dyspnea, Edema, Lt Headedness, Other Symptoms Gastrointestinal: Reports: Vomiting, Abdominal Pain Genitourinary: Denies: Dysuria, Frequency, Incontinence, Hematuria, Retention, Other Symptoms Hematologic: Denies: Bruising, Bleeding Excessively, Petecchia, Purpura, Enlarged Lymph Nodes, Other Hematologic Endocrine: Denies: Polydipsia, Polyphagia, Polyuria, Heat Intolerance, Cold Intolerance, Other Endocrine Sx Musculoskeletal: Denies: Neck Pain, Back Pain, Shoulder Pain, Arm Pain, Hand Pain, Leg Pain, Foot Pain, Joint Pain, Muscle Pain, Spasms, Other Symptoms Psych: Reports: Mood Normal; Denies: Depression, Memory Issues Physical Examination General Exam: Positive: Alert Eye Exam: Positive: PERRLA, Conjunctiva & lids normal ENT Exam: Positive: Atraumatic Neck Exam: Positive: Supple Chest Exam: Positive: Clear to auscultation, Normal air movement Heart Exam: Positive: Rate Normal, Normal S1, Normal S2 Abdomen Exam: Positive: Normal bowel sounds, Soft Extremity Exam: Positive: Normal pulses Skin Exam: Positive: Nl turgor and temperature Neuro Exam: Positive: Strength at 5/5 X4 ext, Sensation Intact Psych Exam: Positive: Mental status NL, Mood NL Vital Signs Vital Signs Date Time Temp Pulse Resp B/P (MAP) Pulse Ox O2 Delivery O2 Flow Rate FiO2 04/29/19 00:53 167/69 (101) 04/29/19 00:48 105 99 04/28/19 21:43 97.4 19 Room Air Laboratory Data Labs 24H Laboratory Tests 2 04/28/19 21:32: Bedside Glucose (Misc Panel) 474H 04/28/19 22:29: Immature Granulocyte % (Auto) 1.0, White Blood Count 36.0*H, Red Blood Count 5.07, Hemoglobin 15.9, Hematocrit 49.8, Mean Corpuscular Volume 98.2H, Mean Corpuscular Hemoglobin 31.4, Mean Corpuscular Hemoglobin Concent 31.9L, Red Cell Distribution Width 12.5, Platelet Count 343, Neutrophils (%) (Auto) 88.8H, Lymphocytes (%) (Auto) 2.0L, Monocytes (%) (Auto) 8.0H, Eosinophils (%) (Auto) 0.0, Basophils (%) (Auto) 0.2, Neutrophils # (Auto) 31.9H, Lymphocytes # (Auto) 0.7L, Monocytes # (Auto) 2.9H, Eosinophils # (Auto) 0.0, Basophils # (Auto) 0.1, Nucleated Red Blood Cells % (auto) 0.0, Anion Gap 22H, Glomerular Filtration Rate 40.2L, Calcium Level 10.0, Aspartate Amino Transf (AST/SGOT) 17, Alanine Aminotransferase (ALT/SGPT) 36, Alkaline Phosphatase 115, Total Bilirubin 0.5, Direct Bilirubin 0.2, Total Protein 8.7H, Albumin 4.8, Albumin/Globulin Ratio 1.23, Lipase 167 04/28/19 22:47: Urine Color STRAW, Urine Appearance CLEAR, Urine pH 5.0, Urine Specific [place] 1.023, Urine Protein 1+H, Urine Glucose (UA) 3+H, Urine Ketones 2+H, Urine Blood 2+H, Urine Nitrite NEGATIVE, Urine Bilirubin NEGATIVE, Urine Urobilinogen 0.2, Urine Leukocyte Esterase NEGATIVE, Urine WBC (Auto) 0, Urine RBC (Auto) 0, Urine Hyaline Casts (Auto) 0, Urine Bacteria (Auto) NEGATIVE, Urine Squamous Epithelial Cells 0, Urine Sperm (Auto) 04/28/19 23:07: Bedside Glucose (Misc Panel) 495H 04/29/19 00:12: Bedside Glucose (Misc Panel) 504*H 04/29/19 01:35: Bedside Glucose (Misc Panel) 369H CBC/BMP Laboratory Tests 04/28/19 22:29 Red Blood Count 5.07, Mean Corpuscular Volume 98.2 H, Mean Corpuscular Hemoglobin 31.4, Mean Corpuscular Hemoglobin Concent 31.9 L, Red Cell Distribution Width 12.5, Neutrophils (%) (Auto) 88.8 H, Lymphocytes (%) (Auto) 2.0 L, Monocytes (%) (Auto) 8.0 H, Eosinophils (%) (Auto) 0.0, Basophils (%) (Auto) 0.2, Neutrophils # (Auto) 31.9 H, Lymphocytes # (Auto) 0.7 L, Monocytes # (Auto) 2.9 H, Eosinophils # (Auto) 0.0, Basophils # (Auto) 0.1 Problems (1) Diabetic ketoacidosis Status: Resolved Problem Text: Admit to ICU Patient received 1 L of normal saline in ED I will continue normal saline in the 150 mL per hour Insulin infusion as per orders Bicarbonate 50 mEq 1 dose BMP every 4 hours Phosphorous every 4 hours Osmolality every 6 hours 6:00 labs including CBC, CMP, magnesium, phosphorous Change IV fluids according to fingerstick blood sugar DVT prophylaxis with Lovenox Nothing by mouth Activity as tolerated (2) Leukocytosis Status: Acute Problem Text: Source unknown Lead cultures 2 UA and urine cultures Levaquin 500 mg IV every 24 hours Other as per pending cultures Repeat CBC in a.m. (3) GLO (acute kidney injury) Status: Acute Problem Text: Most likely secondary to dehydration and DKA IV fluids normal saline 150 mL per hour bmp every 4 hours CMP at 6:00 AM Plan / VTE VTE Prophylaxis Ordered?: Yes RANDAL SANTIAGO MD Apr 29, 2019 02:18
[2019-04-29] MEDS: INSULIN IV RATE CHANGE DOCUMENTATION ML/HR XX SCH ×6 (03:40→08:16)
[2019-04-29] MEDS: ACETAMINOPHEN TAB 650MG DOSE (2X325MG) PO PRN ×2 (03:41→10:01)
[2019-04-29 04:37] LABS: CREATININE FOR GFR 1.66 MG/DL (0.70-1.30); GLOMERULAR FILTRATION RATE 52.8 (>60); MAGNESIUM LEVEL 2.2 MG/DL (1.8-2.4); PHOSPHORUS LEVEL 1.9 MG/DL (2.5-4.9); POTASSIUM SERUM 5.2 MEQ/L (3.5-5.1)
[2019-04-29] MEDS: LevoFLOXacin IV 500 MG in APPROPRIATE DILUENT 1 EA IV SCH (05:38)
[2019-04-29 07:22] LABS: BASO # 0.1 10^3/uL (0.0-0.2); BASO % 0.2 % (0.0-1.0); HEMATOCRIT 45.2 % (42.0-52.0); HEMOGLOBIN 15.1 g/dl (13.5-17.5); LYMPH % 3.5 % (24.0-44.0); MEAN CORPUSCULAR HEMOGLOBIN 31.2 pg (27.0-33.0); MEAN CORPUSCULAR HGB CONC 33.4 g/dl (32.0-36.5); MEAN CORPUSCULAR VOLUME 93.4 fl (80.0-96.0); MONO # 1.9 10^3/uL (0.0-0.8); MONO % 6.5 % (0.0-5.0); NEUTROPHILS % 89.1 % (36.0-66.0); PLATELET COUNT, AUTOMATED 323 10^3/uL (150-450); RED BLOOD COUNT 4.84 10^6/uL (4.30-6.10); WHITE BLOOD COUNT 29.4 10^3/uL (4.0-10.0)
[2019-04-29 07:51] LABS: NEUTROPHILS # 26.2 10^3/uL (1.8-7.7)
[2019-04-29] MEDS ORDERED: GLUCAGON FOR INJ 1 MG VIAL (J1610) SC PRN (08:15)
[2019-04-29] MEDS ORDERED: DEXTROSE 50% 50 ML SYRINGE IV PRN (08:15)
[2019-04-29] MEDS ORDERED: LEVEMIR (INSULIN DETEMIR) 1 UNITS/0.01ML SC ONE (08:15)
[2019-04-29] MEDS ORDERED: GLUCOSE 4 GM CHEW TABLET PO PRN (08:15)
--- NOTE | 2019-04-29 08:15 | IPNPDOC ---
Subjective Date Seen The patient was seen on 04/29/19. Subjective Chief Complaint/HPI DKA Events since last encounter Patient admitted overnight for DKA. Had run out of pump supplies at home for approximately 12-24 hours. Today, c/o bilateral side pain. no further vomiting. c/o sore throat after vomiting. Denies nausea. Blood sugars coming down with assistance of Insulin Drip currently at 3 ml per hour. has been tachycardic. Denies CP or heart palp. Constitutional: Denies: Chills, Fever, Night Sweats Pulmonary: Denies: Dyspnea, Cough Cardiovascular: Denies: Chest Pain, Palpitations, Orthopnea, Paroxysmal Noc. Dyspnea, Lt Headedness Gastrointestinal: Reports: Abdominal Pain (sides) Genitourinary: Denies: Dysuria, Frequency, Incontinence, Retention Psych: Reports: Mood Normal; Denies: Depression, Memory Issues Objective Physical Examination General Exam: Positive: Alert Eye Exam: Positive: PERRLA, Conjunctiva & lids normal ENT Exam: Positive: Atraumatic Neck Exam: Positive: Supple Chest Exam: Positive: Clear to auscultation, Normal air movement Heart Exam: Positive: Rate Normal, Normal S1, Normal S2 Abdomen Exam: Positive: Normal bowel sounds, Soft Extremity Exam: Positive: Normal pulses Skin Exam: Positive: Nl turgor and temperature Neuro Exam: Positive: Strength at 5/5 X4 ext, Sensation Intact Psych Exam: Positive: Mental status NL, Mood NL Assessment /Plan Problems (1) Diabetic ketoacidosis Status: Acute Problem Text: 04/29/19 corrected acidosis/GLO gave patient 6 extra [employer] infusion sets an reservoirs to have as "back-up" so will never run out of supplies. Also nw has ins glar/lispro pens for back-up. no basal ins has been given, last lispro 8u at 1300 severe DKA 2 lack of pump supplies (2) Leukocytosis Status: Acute Problem Text: Source unknown Lead cultures 2 UA and urine cultures Levaquin 500 mg IV every 24 hours Other as per pending cultures Repeat CBC in a.m. (3) GLO (acute kidney injury) Status: Acute Problem Text: 04/29 cr down to 1.3-baseline 0.9 Plan/VTE VTE Prophylaxis Ordered?: Yes VS, I&O, 24H, Fishbone Vital Signs/I&O Vital Signs Date Time Temp Pulse Resp B/P (MAP) Pulse Ox O2 Delivery O2 Flow Rate FiO2 04/29/19 06:00 109 17 121/56 (77) 94 04/29/19 03:15 98.8 04/28/19 21:43 Room Air I&O- Last 24 Hours up to 6 AM 04/29/19 06:00 Intake Total 1419 ml Output Total 1500 ml Balance -81 ml Laboratory Data 24H LABS Laboratory Tests 2 04/28/19 21:32: Bedside Glucose (Misc Panel) 474H 04/28/19 22:29: Immature Granulocyte % (Auto) 1.0, White Blood Count 36.0*H, Red Blood Count 5.07, Hemoglobin 15.9, Hematocrit 49.8, Mean Corpuscular Volume 98.2H, Mean Corpuscular Hemoglobin 31.4, Mean Corpuscular Hemoglobin Concent 31.9L, Red Cell Distribution Width 12.5, Platelet Count 343, Neutrophils (%) (Auto) 88.8H, Lymphocytes (%) (Auto) 2.0L, Monocytes (%) (Auto) 8.0H, Eosinophils (%) (Auto) 0.0, Basophils (%) (Auto) 0.2, Neutrophils # (Auto) 31.9H, Lymphocytes # (Auto) 0.7L, Monocytes # (Auto) 2.9H, Eosinophils # (Auto) 0.0, Basophils # (Auto) 0.1, Nucleated Red Blood Cells % (auto) 0.0, Anion Gap 22H, Glomerular Filtration Rate 40.2L, Calcium Level 10.0, Aspartate Amino Transf (AST/SGOT) 17, Alanine Aminotransferase (ALT/SGPT) 36, Alkaline Phosphatase 115, Total Bilirubin 0.5, Direct Bilirubin 0.2, Total Protein 8.7H, Albumin 4.8, Albumin/Globulin Ratio 1.23, Lipase 167 04/28/19 22:47: Urine Color STRAW, Urine Appearance CLEAR, Urine pH 5.0, Urine Specific [place] 1.023, Urine Protein 1+H, Urine Glucose (UA) 3+H, Urine Ketones 2+H, Urine Blood 2+H, Urine Nitrite NEGATIVE, Urine Bilirubin NEGATIVE, Urine Urobilinogen 0.2, Urine Leukocyte Esterase NEGATIVE, Urine WBC (Auto) 0, Urine RBC (Auto) 0, Urine Hyaline Casts (Auto) 0, Urine Bacteria (Auto) NEGATIVE, Urine Squamous Epithelial Cells 0, Urine Sperm (Auto) 04/28/19 23:07: Bedside Glucose (Misc Panel) 495H 04/29/19 00:12: Bedside Glucose (Misc Panel) 504*H 04/29/19 01:35: Bedside Glucose (Misc Panel) 369H 04/29/19 02:35: Bedside Glucose (Misc Panel) 294H 04/29/19 03:37: Bedside Glucose (Misc Panel) 213H, Immature Granulocyte % (Auto) 0.7, White Blood Count 29.4H, Red Blood Count 4.84, Hemoglobin 15.1, Hematocrit 45.2, Mean Corpuscular Volume 93.4, Mean Corpuscular Hemoglobin 31.2, Mean Corpuscular Hemoglobin Concent 33.4, Red Cell Distribution Width 12.5, Platelet Count 323, Neutrophils (%) (Auto) 89.1H, Lymphocytes (%) (Auto) 3.5L, Monocytes (%) (Auto) 6.5H, Eosinophils (%) (Auto) 0.0, Basophils (%) (Auto) 0.2, Neutrophils # (Auto) 26.2H, Lymphocytes # (Auto) 1.0L, Monocytes # (Auto) 1.9H, Eosinophils # (Auto) 0.0, Basophils # (Auto) 0.1, Nucleated Red Blood Cells % (auto) 0.0, Anion Gap 8, Glomerular Filtration Rate 52.8L, Blood Urea Nitrogen 21H, Creatinine 1.66H, Sodium Level 138, Potassium Level 5.2H, Chloride Level 108H, Carbon Dioxide Level 22, Calcium Level 10.0, Phosphorus Level 1.9L, Magnesium Level 2.2 04/29/19 04:38: Bedside Glucose (Misc Panel) 189H 04/29/19 05:35: Bedside Glucose (Misc Panel) 151H 04/29/19 06:29: Bedside Glucose (Misc Panel) 143H CBC/BMP Laboratory Tests 04/28/19 22:29 Red Blood Count 5.07, Mean Corpuscular Volume 98.2 H, Mean Corpuscular Hemoglobin 31.4, Mean Corpuscular Hemoglobin Concent 31.9 L, Red Cell Distribution Width 12.5, Neutrophils (%) (Auto) 88.8 H, Lymphocytes (%) (Auto) 2.0 L, Monocytes (%) (Auto) 8.0 H, Eosinophils (%) (Auto) 0.0, Basophils (%) (Auto) 0.2, Neutrophils # (Auto) 31.9 H, Lymphocytes # (Auto) 0.7 L, Monocytes # (Auto) 2.9 H, Eosinophils # (Auto) 0.0, Basophils # (Auto) 0.1 04/29/19 03:37 Red Blood Count 4.84, Mean Corpuscular Volume 93.4, Mean Corpuscular Hemoglobin 31.2, Mean Corpuscular Hemoglobin Concent 33.4, Red Cell Distribution Width 12.5, Neutrophils (%) (Auto) 89.1 H, Lymphocytes (%) (Auto) 3.5 L, Monocytes (%) (Auto) 6.5 H, Eosinophils (%) (Auto) 0.0, Basophils (%) (Auto) 0.2, Neutrophils # (Auto) 26.2 H, Lymphocytes # (Auto) 1.0 L, Monocytes # (Auto) 1.9 H, Eosinophils # (Auto) 0.0, Basophils # (Auto) 0.1, Calcium Level 10.0 Microbiology Microbiology 04/29/19 Blood Culture, Received Pending Ana Renee Apr 29, 2019 08:15 Jake Waters M.D. Apr 29, 2019 16:53
[2019-04-29] MEDS: ASPIRIN 81 MG ENTERIC TAB PO SCH (09:01)
[2019-04-29] MEDS: DOCUSATE SODIUM 100 MG CAP PO SCH ×2 (09:01→21:13)
[2019-04-29 10:33] LABS: BLOOD UREA NITROGEN 21 MG/DL (7-18); CALCIUM LEVEL 9.2 MG/DL (8.5-10.1); CARBON DIOXIDE LEVEL 19 MEQ/L (21-32); CHLORIDE LEVEL 110 MEQ/L (98-107); CREATININE FOR GFR 1.31 MG/DL (0.70-1.30); GLOMERULAR FILTRATION RATE > 60.0 (>60); GLUCOSE, FASTING 154 MG/DL (70-100); POTASSIUM SERUM 4.8 MEQ/L (3.5-5.1); SODIUM LEVEL 139 MEQ/L (136-145)
[2019-04-29] MEDS ORDERED: HumaLOG INSULIN (NovoLOG) PER UNIT SC SCH ×2 (12:00→21:00)
[2019-04-29 14:39] LABS: BLOOD UREA NITROGEN 19 MG/DL (7-18); CALCIUM LEVEL 9.2 MG/DL (8.5-10.1); CARBON DIOXIDE LEVEL 22 MEQ/L (21-32); CHLORIDE LEVEL 106 MEQ/L (98-107); CREATININE FOR GFR 1.39 MG/DL (0.70-1.30); GLOMERULAR FILTRATION RATE > 60.0 (>60); GLUCOSE, FASTING 315 MG/DL (70-100); PHOSPHORUS LEVEL 2.9 MG/DL (2.5-4.9); POTASSIUM SERUM 4.6 MEQ/L (3.5-5.1); SODIUM LEVEL 136 MEQ/L (136-145)
[2019-04-29 18:50] LABS: BLOOD UREA NITROGEN 17 MG/DL (7-18); CARBON DIOXIDE LEVEL 25 MEQ/L (21-32); CHLORIDE LEVEL 105 MEQ/L (98-107); CREATININE FOR GFR 1.26 MG/DL (0.70-1.30); GLOMERULAR FILTRATION RATE > 60.0 (>60); GLUCOSE, FASTING 253 MG/DL (70-100); PHOSPHORUS LEVEL 2.9 MG/DL (2.5-4.9); POTASSIUM SERUM 4.3 MEQ/L (3.5-5.1); SODIUM LEVEL 136 MEQ/L (136-145)
[2019-04-29] MEDS ORDERED: ATORVASTATIN 20 MG TAB PO SCH (21:00)
[2019-04-29] MEDS ORDERED: VITAMIN D 1,000 INTERNATIONAL UNITS TABLET PO SCH (21:00)
[2019-04-29] MEDS ORDERED: MAGNESIUM OXIDE 400 MG TAB (MAG-OX) PO SCH (21:00)
[2019-04-29] MEDS ORDERED: POTASSIUM CHLORIDE 10 MEQ SR TABLET PO SCH (21:00)
[2019-04-29] MEDS: SODIUM CHLORIDE NASAL 0.65% SPRAY BTL (OCEAN) PRN ×2 (21:36→23:49)
[2019-04-30] MEDS: ACETAMINOPHEN TAB 650MG DOSE (2X325MG) PO PRN (01:31)
[2019-04-30 04:57] VITALS: BP 139/77
[2019-04-30 05:16] LABS: BASO % 0.2 % (0.0-1.0); EOS % 0.1 % (0.0-3.0); HEMOGLOBIN 14.3 g/dl (13.5-17.5); LYMPH # 2.5 10^3/uL (1.5-6.5); LYMPH % 14.9 % (24.0-44.0); MEAN CORPUSCULAR HEMOGLOBIN 32.1 pg (27.0-33.0); MEAN CORPUSCULAR HGB CONC 34.9 g/dl (32.0-36.5); MEAN CORPUSCULAR VOLUME 91.9 fl (80.0-96.0); MONO # 1.3 10^3/uL (0.0-0.8); MONO % 7.8 % (0.0-5.0); NEUTROPHILS # 13.1 10^3/uL (1.8-7.7); NEUTROPHILS % 76.6 % (36.0-66.0); PLATELET COUNT, AUTOMATED 274 10^3/uL (150-450); RED BLOOD COUNT 4.46 10^6/uL (4.30-6.10); WHITE BLOOD COUNT 17.1 10^3/uL (4.0-10.0)
[2019-04-30 05:34] LABS: OSMOLALITY SERUM 296 MOSM/KG (275-295)
[2019-04-30 05:37] LABS: ACETONE/KETONE 9.77 MG/DL (<2.81); BLOOD UREA NITROGEN 12 MG/DL (7-18); CALCIUM LEVEL 9.8 MG/DL (8.5-10.1); CARBON DIOXIDE LEVEL 26 MEQ/L (21-32); CHLORIDE LEVEL 107 MEQ/L (98-107); CREATININE FOR GFR 1.03 MG/DL (0.70-1.30); GLOMERULAR FILTRATION RATE > 60.0 (>60); GLUCOSE, FASTING 77 MG/DL (70-100); PHOSPHORUS LEVEL 2.8 MG/DL (2.5-4.9); POTASSIUM SERUM 3.8 MEQ/L (3.5-5.1); SODIUM LEVEL 139 MEQ/L (136-145)
[2019-04-30] MEDS: LevoFLOXacin IV 500 MG in APPROPRIATE DILUENT 1 EA IV SCH (06:01)
[2019-04-30] MEDS ORDERED: LEVA1TAB2 PO (07:46)
[2019-04-30] MEDS ORDERED: BACITAB PO (07:46)
[2019-04-30 08:00] VITALS: BP 142/83
[2019-04-30] MEDS: DOCUSATE SODIUM 100 MG CAP PO SCH (08:47)
[2019-04-30] MEDS: ASPIRIN 81 MG ENTERIC TAB PO SCH (08:47)
[2019-04-30] MEDS ORDERED: LEVEMIR (INSULIN DETEMIR) 1 UNITS/0.01ML SC SCH (21:00)
--- NOTE | 2019-05-01 11:17 | DSES ---
DATE OF ADMISSION: 04/29/2019 DATE OF DISCHARGE: 04/30/2019 PRIMARY CARE PHYSICIAN: Dr. Jake Waters and KIMBERLEY White ATTENDING PHYSICIAN: Dr. Josh Early HISTORY OF PRESENT ILLNESS: This is a 28-year-old male with past medical history of type 1 diabetes who presented to the emergency room with complaints of vomiting and elevated blood sugar at home. The patient also was experiencing bilateral flank pain which was sharp in nature as well as a sore throat. The patient had run out of his diabetic supplies and was waiting for shipment from his medical supply company and was out of insulin for approximately 12 hours, which resulted in his elevated blood sugars. Work in the emergency department (ED) proved positive for diabetic ketoacidosis. The patient did have some imaging completed which included a chest CT as well as CT of abdomen and pelvis with no abnormal findings. These were both completed without contrast secondary to an elevated creatinine. The patient was subsequently admitted to the family medicine service. HOSPITAL COURSE: The patient was placed on Levaquin for presumed pneumonia versus urinary tract infection despite no abnormal findings on chest x-ray. Urine did show 1+ protein, glucose, ketones and blood. He did not have any nitrites or leukocytes. White blood cell count on admission 36,000. He has been getting Levaquin for a full three doses and his white count today is 17,000. He did have a shift. The patient did have a Strep culture completed secondary to complaints of a sore throat, this was negative. CMP was obtained and did show an initial creatinine of 1.66. He is down to 1.03 today with IV fluid hydration. The patient received an insulin drip with excellent control of his blood sugars. He was transitioned over to his basal insulin, regular insulin sliding scale until his pump supplies could be obtained. The patient's pump was transitioned over last evening and he has maintained his blood sugars well. The patient's anion gap today is 6. The patient did have a blood culture which proved negative. PHYSICAL EXAMINATION: Today, vital signs are stable. Blood pressure 139/77. Respiratory rate 18-20. Oxygen saturation 95% on room air. Temperature 98.7. Heart rate 88. HEENT: Neck is supple, without lymphadenopathy or jugular venous distention (JVD). Cardiovascular: Heart rate and rhythm are regular. Pulmonary: Lungs are clear. Abdomen: Soft and nontender. Bilateral lower extremities are without any edema. Neurologic: Patient is alert and oriented times three. Psych: Affect is appropriate. Conversation is concurrent. Patient maintains eye contact. ASSESSMENT: 1. Diabetic ketoacidosis. 2. Leukocytosis. 3. Acute kidney injury. PLAN: Patient will be discharged to home. Diet is as tolerated with carbohydrate counting and appropriate insulin administration through pump. He will followup with his PCP. MEDICATIONS: - levofloxacin 500 mg one by mouth daily - Bacid probiotic one tab by mouth twice a day for a full 10 days - aspirin enteric coated 81 mg one by mouth at bedtime - atorvastatin 20 mg by mouth at bedtime - vitamin D3 2000 international units by mouth at bedtime - Glucagon emergency kit - Basaglar insulin 30 units subcu at bedtime - Lispro insulin via pump as directed - magnesium oxide 400 mg by mouth at bedtime - potassium chloride 10 mEq two by mouth at bedtime Patient is discharged in stable and satisfactory condition with no further questions at the time of discharge.
== END 2019-04-30 09:17 | disposition home or self-care (01) | DRG 420 ==
LOC: M ED 21:18 → M ED INP 04-29 02:00 → M ICU 04-29 03:10
PROVIDERS: ADMIT Internal Medicine; ATTEND Family Medicine
DX: E10.10 Type 1 diabetes mellitus with ketoacidosis without coma (principal); N17.9 Acute kidney failure, unspecified; D72.829 Elevated white blood cell count, unspecified; Z79.82 Long term (current) use of aspirin; Z79.899 Other long term (current) drug therapy; Z88.0 Allergy status to penicillin; Z88.8 Allergy status to other drugs, medicaments and biological substances; Z91.14 Patient's other noncompliance with medication regimen

== ENCOUNTER → 2019-06-04 | Outpatient (REF) | payer OTHER ==
[~2019-06-04] MED LIST changes: +ASPI-161 PO; +BACITAB PO; +BASA100I SC; +LEVA1TAB2 PO; +POTA10TA17 PO
[2019-06-04 10:23] LABS: BASO % 0.6 % (0.0-1.0); EOS # 0.2 10^3/uL (0.0-0.50); EOS % 2.2 % (0.0-3.0); HEMATOCRIT 43.6 % (42.0-52.0); HEMOGLOBIN 14.3 g/dl (13.5-17.5); LYMPH # 2.9 10^3/uL (1.5-6.5); LYMPH % 42.3 % (24.0-44.0); MEAN CORPUSCULAR HEMOGLOBIN 31.9 pg (27.0-33.0); MEAN CORPUSCULAR HGB CONC 32.8 g/dl (32.0-36.5); MEAN CORPUSCULAR VOLUME 97.3 fl (80.0-96.0); MONO # 0.7 10^3/uL (0.0-0.8); MONO % 10.4 % (0.0-5.0); NEUTROPHILS % 44.2 % (36.0-66.0); PLATELET COUNT, AUTOMATED 265 10^3/uL (150-450); RED BLOOD COUNT 4.48 10^6/uL (4.30-6.10); WHITE BLOOD COUNT 6.7 10^3/uL (4.0-10.0)
[2019-06-04 10:25] LABS: ALBUMIN 3.8 GM/DL (3.2-5.2); ALT/SGPT 18 U/L (12-78); BILIRUBIN,TOTAL 0.5 MG/DL (0.2-1.0); BLOOD UREA NITROGEN 8 MG/DL (7-18); CALCIUM LEVEL 9.5 MG/DL (8.5-10.1); CARBON DIOXIDE LEVEL 33 MEQ/L (21-32); CHLORIDE LEVEL 106 MEQ/L (98-107); CHOLESTEROL LEVEL 159 MG/DL (<200); CHOLESTEROL RISK RATIO 2.564 (<5); CREATININE FOR GFR 1.01 MG/DL (0.70-1.30); GLOMERULAR FILTRATION RATE > 60.0 (>60); GLUCOSE, FASTING 82 MG/DL (70-100); HDL CHOLESTEROL 62 MG/DL (>40); LDL CHOLESTEROL 84 MG/DL (<100); MAGNESIUM LEVEL 1.9 MG/DL (1.8-2.4); NON-HDL-C 97 MG/DL; POTASSIUM SERUM 4.6 MEQ/L (3.5-5.1); SODIUM LEVEL 143 MEQ/L (136-145); TRIGLYCERIDES LEVEL 67 MG/DL (<150)
[2019-06-04 10:33] LABS: TOTAL 25(OH) VITAMIN D 36.1 NG/ML (30.0-100.0)
[2019-06-04 10:51] LABS: HEMOGLOBIN A1c 7.1 %
[2019-06-04 10:58] LABS: MALB URINE SIEMENS 12.6 MG/L; MAU/CREAT RATIO 8.1 MCG/MG (0.0-30.0)
== END ==
LOC: M SFHCPLAZ 07:59
PROVIDERS: ATTEND Nurse Practitioner Family
DX: E10.9 Type 1 diabetes mellitus without complications (principal); E78.2 Mixed hyperlipidemia; I10 Essential (primary) hypertension; E55.9 Vitamin D deficiency, unspecified

== ENCOUNTER → 2019-06-10 | Outpatient (REF) | payer OTHER | LOC: M SFHCPLAZ 11:09 | PROVIDERS: ATTEND Nurse Practitioner Family | DX: Z11.1 Encounter for screening for respiratory tuberculosis (principal) ==

== ENCOUNTER → 2019-10-30 | Outpatient (CLI) | payer OTHER ==
[~2019-10-30] MED LIST changes: -MAGN400T PO; +MAGN400T3 PO
[2019-10-30 12:18] LABS: ALBUMIN 3.8 GM/DL (3.2-5.2); ALT/SGPT 19 U/L (12-78); BILIRUBIN,TOTAL 0.7 MG/DL (0.2-1.0); BLOOD UREA NITROGEN 7 MG/DL (7-18); CALCIUM LEVEL 8.9 MG/DL (8.5-10.1); CARBON DIOXIDE LEVEL 29 MEQ/L (21-32); CHLORIDE LEVEL 106 MEQ/L (98-107); CHOLESTEROL LEVEL 158 MG/DL (<200); CHOLESTEROL RISK RATIO 3.224 (<5); CREATININE FOR GFR 1.02 MG/DL (0.70-1.30); FREE T4 0.99 NG/DL (0.76-1.46); GLOMERULAR FILTRATION RATE > 60.0 (>60); GLUCOSE, FASTING 71 MG/DL (70-100); HDL CHOLESTEROL 49 MG/DL (>40); LDL CHOLESTEROL 93 MG/DL (<100); MAGNESIUM LEVEL 2.2 MG/DL (1.8-2.4); NON-HDL-C 109 MG/DL; SODIUM LEVEL 141 MEQ/L (136-145); TOTAL PROTEIN 6.9 GM/DL (6.4-8.2); TRIGLYCERIDES LEVEL 78 MG/DL (<150)
[2019-10-30 12:21] LABS: TOTAL 25(OH) VITAMIN D 28.4 NG/ML (30.0-100.0)
[2019-10-30 12:31] LABS: MALB URINE SIEMENS 13.1 MG/L; MAU/CREAT RATIO 6.4 MCG/MG (0.0-30.0)
[2019-10-30 12:36] LABS: HEMOGLOBIN A1c 8.7 %
== END ==
LOC: M LAB 11:04
PROVIDERS: ATTEND Nurse Practitioner Family
DX: E55.9 Vitamin D deficiency, unspecified (principal); E78.2 Mixed hyperlipidemia; I10 Essential (primary) hypertension; E10.9 Type 1 diabetes mellitus without complications; Z79.899 Other long term (current) drug therapy

== ENCOUNTER 2019-11-28 20:40 | Emergency (ER) | payer OTHER ==
[~2019-11-28] VITALS: Ht 175.3 cm; Wt 111.1 kg
[2019-11-28] MEDS: ACETAMINOPHEN 500 MG TAB PO ONE (22:17)
--- NOTE | 2019-11-28 22:48 | REPVR ---
PROCEDURE INFORMATION: Exam: CT Head Without Contrast Exam date and time: 11/28/2019 10:26 PM Age: 29 years old Clinical indication: Pain; Dizziness; Headache; Additional info: Hit head on or light C/O dizziness and SMITH TECHNIQUE: Imaging protocol: Computed tomography of the head without contrast. Radiation optimization: All CT scans at this facility use at least one of these dose optimization techniques: automated exposure control; mA and/or kV adjustment per patient size (includes targeted exams where dose is matched to clinical indication); or iterative reconstruction. COMPARISON: No relevant prior studies available. FINDINGS: Brain: Normal. No hemorrhage. Unremarkable white matter. No mass effect. Ventricles: Normal. No ventriculomegaly. Bones/joints: Unremarkable. No acute fracture. Sinuses: Visualized sinuses are unremarkable. No fluid levels. Mastoid air cells: Visualized mastoid air cells are well aerated. Soft tissues: Unremarkable. IMPRESSION: No acute intracranial abnormality. Electronically signed by: Jose L Hawley On 11/28/2019 22:47:51 PM
[2019-11-28 23:32] VITALS: BP 129/69
== END 2019-11-28 23:33 | disposition home or self-care (01) ==
LOC: M ED 20:40
DX: S09.90XA Unspecified injury of head, initial encounter (principal); W22.09XA Striking against other stationary object, initial encounter; Y92.234 Operating room of hospital as the place of occurrence of the external cause; Y93.E5 Activity, floor mopping and cleaning; Y99.0 Civilian activity done for income or pay; E11.9 Type 2 diabetes mellitus without complications; Z79.4 Long term (current) use of insulin; Z79.82 Long term (current) use of aspirin; Z79.899 Other long term (current) drug therapy; Z88.0 Allergy status to penicillin; Z88.8 Allergy status to other drugs, medicaments and biological substances

== ENCOUNTER 2020-03-02 19:38 | Emergency (ER) | payer OTHER ==
[~2020-03-02] VITALS: Ht 175.3 cm; Wt 111.4 kg
[2020-03-02 19:39] VITALS: BP 132/74
--- NOTE | 2020-03-03 01:02 | REP ---
Clinical: Nontraumatic right foot pain. Technique: AP, lateral, bilateral oblique views right . Findings: The osseous structures and joint spaces are intact and normal. There is no evidence for acute fracture or dislocation. Surrounding soft tissues are unremarkable. No subcutaneous emphysema or radiodense foreign body. Impression: Normal right foot series . No acute fracture or dislocation. Electronically Signed by Florencio Burnham MD 03/03/2020 12:53 A
== END 2020-03-02 21:18 | disposition home or self-care (01) ==
LOC: M ED 19:38
DX: M25.571 Pain in right ankle and joints of right foot (principal); I10 Essential (primary) hypertension; E11.9 Type 2 diabetes mellitus without complications; Z88.0 Allergy status to penicillin; Z79.899 Other long term (current) drug therapy; Z79.82 Long term (current) use of aspirin

== ENCOUNTER 2020-03-17 22:17 | Emergency (ER) | payer OTHER ==
[~2020-03-17] VITALS: Ht 175.3 cm; Wt 109.1 kg
[2020-03-17] MEDS ORDERED: ADME100I SC (22:39)
[2020-03-17] MEDS ORDERED: ANEC4CRE3 TOP (23:38)
[2020-03-17] MEDS ORDERED: LIDOCAINE 4% CREAM 5GM (LMX4) TOP ONE (23:45)
[2020-03-17 23:48] VITALS: BP 134/65
--- NOTE | 2020-03-18 08:20 | REP ---
REASON: Foot pain. COMPARISON: 03/02/2020 There is no change from the prior exam. IMPRESSION: No change. Negative exam. Electronically Signed by Keon White DO 03/18/2020 08:28 A
== END 2020-03-17 23:48 | disposition home or self-care (01) ==
LOC: M ED 22:17
DX: M79.671 Pain in right foot (principal); Z88.0 Allergy status to penicillin; Z88.8 Allergy status to other drugs, medicaments and biological substances; I10 Essential (primary) hypertension; E78.00 Pure hypercholesterolemia, unspecified; E11.9 Type 2 diabetes mellitus without complications; Z79.4 Long term (current) use of insulin; Z79.899 Other long term (current) drug therapy

== ENCOUNTER → 2020-06-25 | Outpatient (CLI) | payer OTHER ==
[~2020-06-25] MED LIST changes: +ADME100I SC; +ANEC4CRE3 TOP
[2020-06-25 18:15] LABS: BASO % 0.4 % (0.0-1.0); EOS # 0.1 10^3/uL (0.0-0.5); EOS % 0.7 % (0.0-3.0); HEMATOCRIT 47.1 % (42.0-52.0); HEMOGLOBIN 15.3 g/dl (13.5-17.5); LYMPH # 1.9 10^3/uL (1.5-5.0); LYMPH % 23.3 % (24.0-44.0); MEAN CORPUSCULAR HEMOGLOBIN 30.2 pg (27.0-33.0); MEAN CORPUSCULAR HGB CONC 32.5 g/dl (32.0-36.5); MEAN CORPUSCULAR VOLUME 93.1 fl (80.0-96.0); MONO # 0.6 10^3/uL (0.0-0.8); NEUTROPHILS # 5.4 10^3/uL (1.5-8.5); NEUTROPHILS % 67.5 % (36.0-66.0); PLATELET COUNT, AUTOMATED 287 10^3/uL (150-450); RED BLOOD COUNT 5.06 10^6/uL (4.30-6.10)
[2020-06-25 18:31] LABS: ALT/SGPT 22 U/L (12-78); BILIRUBIN,TOTAL 0.6 MG/DL (0.2-1.0); BLOOD UREA NITROGEN 9 MG/DL (7-18); CALCIUM LEVEL 8.8 MG/DL (8.5-10.1); CARBON DIOXIDE LEVEL 26 MEQ/L (21-32); CHLORIDE LEVEL 108 MEQ/L (98-107); CHOLESTEROL LEVEL 179 MG/DL (<200); CHOLESTEROL RISK RATIO 2.887 (<5); CREATININE FOR GFR 0.92 MG/DL (0.70-1.30); GLOMERULAR FILTRATION RATE > 60.0 (>60); GLUCOSE, FASTING 164 MG/DL (70-100); HDL CHOLESTEROL 62 MG/DL (>40); LDL CHOLESTEROL 108 MG/DL (<100); NON-HDL-C 117 MG/DL; POTASSIUM SERUM 4.3 MEQ/L (3.5-5.1); SODIUM LEVEL 139 MEQ/L (136-145); THYROXINE (T4) 10.3 UG/DL (4.5-12.0); TOTAL PROTEIN 7.2 GM/DL (6.4-8.2); TRIGLYCERIDES LEVEL 43 MG/DL (<150)
== END ==
LOC: M PLALAB 15:02
PROVIDERS: ATTEND Nurse Practitioner Family
DX: E10.9 Type 1 diabetes mellitus without complications (principal)

== ENCOUNTER 2021-02-08 09:23 | Observation (INO) | payer OTHER ==
[~2021-02-08] VITALS: Ht 175.3 cm; Wt 108.0 kg
[~2021-02-08 09:23] MED LIST changes: -MAG400TA PO; +MAGN400T35 PO
[2021-02-08] MEDS ORDERED: NS 1,000 ML IV ONE (09:40)
[2021-02-08 10:12] LABS: BASO # 0.1 10^3/uL (0.0-0.2); BASO % 0.2 % (0.0-1.0); HEMATOCRIT 51.3 % (42.0-52.0); HEMOGLOBIN 16.8 g/dl (13.5-17.5); LYMPH # 0.8 10^3/uL (1.5-5.0); LYMPH % 2.8 % (24.0-44.0); MEAN CORPUSCULAR HEMOGLOBIN 30.2 pg (27.0-33.0); MEAN CORPUSCULAR HGB CONC 32.7 g/dl (32.0-36.5); MEAN CORPUSCULAR VOLUME 92.1 fl (80.0-96.0); MONO # 1.7 10^3/uL (0.0-0.8); MONO % 5.8 % (2.0-8.0); NEUTROPHILS # 25.9 10^3/uL (1.5-8.5); NEUTROPHILS % 90.3 % (36.0-66.0); PLATELET COUNT, AUTOMATED 364 10^3/uL (150-450); RED BLOOD COUNT 5.57 10^6/uL (4.30-6.10)
[2021-02-08 10:21] LABS: VENOUS BASE EXCESS -12.9 (-2.0-2.0); VENOUS HCO3 11.9 MEQ/L (23.0-27.0); VENOUS O2 SATURATION 98.8 % (60.0-80.0); VENOUS PARTIAL PRESSURE CO2 26.5 mmHg (38.0-50.0); VENOUS PARTIAL PRESSURE O2 134.6 mmHg (30.0-50.0); VENOUS PH 7.271 UNITS (7.330-7.430); VENOUS STANDARD HCO3 14.9 MEQ/L; VENOUS TOTAL CO2 12.7 MEQ/L (24.0-28.0)
--- NOTE | 2021-02-08 10:23 | REP ---
INDICATION: DKA. COMPARISON: None. TECHNIQUE: Portable FINDINGS: The technique utilized in obtaining the radiograph has magnified the cardiac silhouette and accentuated the interstitial markings. The superior mediastinal structures are midline. The cardiac silhouette is unremarkable in size, shape, and position. The diaphragmatic surfaces of the lungs are regular, and the costophrenic angles are clear. The pulmonary granados are clear. The imaged osseous structures are intact. IMPRESSION: There is no acute cardiopulmonary disease. <Electronically signed by Keon White > 02/08/21 [id number]
[2021-02-08] MEDS ORDERED: ONDANSETRON 4MG/2ML VIAL IV PRN (10:30)
[2021-02-08 10:36] LABS: WHITE BLOOD COUNT 28.7 10^3/uL (4.0-10.0)
[2021-02-08 10:48] LABS: HEMOGLOBIN A1c 11.1 %
[2021-02-08 10:54] LABS: ACETONE/KETONE > 46.00 MG/DL (<2.81); ALBUMIN 4.8 GM/DL (3.2-5.2); ALT/SGPT 28 U/L (12-78); BILIRUBIN,DIRECT 0.2 MG/DL (0.0-0.2); BILIRUBIN,TOTAL 0.6 MG/DL (0.2-1.0); LIPASE 31 U/L (73-393); TOTAL PROTEIN 8.9 GM/DL (6.4-8.2)
[2021-02-08 11:08] LABS: OSMOLALITY SERUM 325 MOSM/KG (275-295)
[2021-02-08 11:30] LABS: BLOOD UREA NITROGEN 23 MG/DL (7-18); CALCIUM LEVEL 11.3 MG/DL (8.5-10.1); CARBON DIOXIDE LEVEL 13 MEQ/L (21-32); CHLORIDE LEVEL 97 MEQ/L (98-107); CREATININE FOR GFR 1.79 MG/DL (0.70-1.30); GLOMERULAR FILTRATION RATE 47.7 (>60); GLUCOSE, FASTING 590 MG/DL (70-100); POTASSIUM SERUM 4.5 MEQ/L (3.5-5.1); SODIUM LEVEL 135 MEQ/L (136-145)
[2021-02-08] MEDS ORDERED: NS 1,000 ML IV SCH ×2 (11:30→12:30)
[2021-02-08] MEDS ORDERED: INSULIN REGULAR IN 0.9 % NACL 100 UNIT in IV 1 EA IV SCH ×4 (12:00→12:45)
[2021-02-08] MEDS ORDERED: INSULIN IV RATE CHANGE DOCUMENTATION ML/HR XX SCH (12:00)
[2021-02-08] MEDS ORDERED: D31000TA2 PO (12:23)
[2021-02-08] MEDS ORDERED: KCL 20MEQ IN 100ML SWI (KRUN) 20 MEQ in IV 1 EA IV ONE ×2 (12:45)
[2021-02-08] MEDS ORDERED: ACETAMINOPHEN TAB 650MG DOSE (2X325MG) PO PRN (12:45)
--- NOTE | 2021-02-08 13:20 | HPEPDOC ---
General Date of Admission 02/08/21 Date of Service: February 08, 2021 Chief Complaint The patient is a 30-year-old male admitted with a reason for visit of Blood Sugar Problem. Source: Patient Exam Limitations: No limitations History of Present Illness Patient 31 years old male with past medical history of hyperlipidemia, hypertension, type 1 diabetes presented to her hospital with nausea and vomiting. Patient stated that he woke up in the night with nausea and he had a few episodes of vomiting. He found that insulin pump was disconnected and his blood glucose level around 600. Patient denies fever, chills, diarrhea. In ER patient was found to have leukocytosis of 28.7, potassium level IV.5, glucose level of 519, blood gas showed pH of 7.2, bicarbonate of 11.9. Chest x-ray negative for acute pulmonary diseases Home Medications Scheduled Aspirin (Aspirin EC) 81 Mg Tablet.dr, 81 MG PO QHS, (Reported) Cholecalciferol (Vitamin D3) (Vitamin D3) 1,000 Unit Tablet, 2,000 UNITS PO DAILY, (Reported) Glucagon,Human Recombinant (Glucagon Emergency Kit) 1 Mg Kit, 1 MG IM ASDIRECTED, (Reported) Insulin Lispro (Admelog) 100 Unit/1 Ml Vial, 70 UNITS SC DAILY, (Reported) Patient on insulin pump Magnesium Oxide (Magnesium Oxide) 400 Mg Tab, 400 MG PO QHS, (Reported) Allergies Coded Allergies: amoxicillin (Verified Allergy, Intermediate, RASH, 01/04/19) clavulanic acid (Verified Allergy, Intermediate, RASH, 01/04/19) Past Medical History Medical History JASMIN ELOISE DKA 04/2018 (7.2//104/10-17 C BHB >46)-FLAKITO AB >25K/IC AB 1:128; CSII LISPRO VIA 670G SINCE 07/10/18 VITAMIN D DEFICIENCY HYPERTENSION, ESSENTIAL OBESITY HYPERLIPDEMIA 2B Family History FATHER: ALIVE 45 YRS, BLOOD CLOT DISORDER, HTN MOTHER: ALIVE 49 YRS, RA IN 30S, FLORIWALTER SILVERIO SIBLINGS: ALIVE PATERNAL GRAND FATHER: PATERNAL GRAND MOTHER: ALIVE, NO KNOWN MEDICAL PROBLEMS MATERNAL GRAND FATHER: ALIVE, NO KNOWN MEDICAL PROBLEMS MATERNAL GRAND MOTHER: ALIVE, NO KNOWN MEDICAL PROBLEMS 1 BROTHER(S) , 1 SISTER(S) - HEALTHY. MATERNAL [id number] C DM ID (NO OTHER DM IN 1-2DR). Social History * Smoker: Denies Alcohol: Denies Drugs: denies A-FIB/CHADSVASC A-FIB History Current/History of A-Fib/PAF?: No Current PO Anticoag Therapy: No Review of Systems Constitutional: Reports: Weakness; Denies: Chills, Fever Eyes: Denies: Pain ENT: Denies: Head Aches Skin: Denies: Rash, Lesions Pulmonary: Denies: Dyspnea, Cough Cardiovascular: Denies: Chest Pain Gastrointestinal: Reports: Nausea, Vomiting, Abdominal Pain Genitourinary: Reports: Frequency Hematologic: Denies: Bruising, Bleeding Excessively Endocrine: Reports: Polydipsia Musculoskeletal: Denies: Neck Pain, Back Pain Neurological: Denies: Weakness Psych: Reports: Mood Normal Physical Examination General Exam: Positive: Alert, Cooperative Eye Exam: Positive: PERRLA ENT Exam: Positive: Atraumatic Neck Exam: Positive: Supple; Negative: JVD Chest Exam: Positive: Clear to auscultation Heart Exam: Positive: Tachycardic Telemetry: Positive: Sinus Abdomen Exam: Positive: Normal bowel sounds Extremity Exam: Negative: Clubbing, Cyanosis Skin Exam: Positive: Nl turgor and temperature Neuro Exam: Positive: Strength at 5/5 X4 ext Psych Exam: Positive: Mental status NL Vital Signs Vital Signs Date Time Temp Pulse Resp B/P (MAP) Pulse Ox O2 Delivery O2 Flow Rate FiO2 02/08/21 10:08 110 25 97 Room Air 02/08/21 10:05 131/71 (91) 02/08/21 09:31 97.2 Laboratory Data Labs 24H Laboratory Tests 2 02/08/21 09:36: Bedside Glucose (Misc Panel) 571*H 02/08/21 09:57: Immature Granulocyte % (Auto) 0.9, Neutrophils (%) (Auto) 90.3H, Lymphocytes (%) (Auto) 2.8L, Monocytes (%) (Auto) 5.8, Eosinophils (%) (Auto) 0.0, Basophils (%) (Auto) 0.2, Neutrophils # (Auto) 25.9H, Lymphocytes # (Auto) 0.8L, Monocytes # (Auto) 1.7H, Eosinophils # (Auto) 0.0, Basophils # (Auto) 0.1, Nucleated Red Blood Cells % (auto) 0.0, Blood Gas Bicarbonate Standard 14.9, Venous Blood pH 7.271L, Venous Blood Partial Pressure CO2 26.5L, Venous Blood Partial Pressure O2 134.6H, Venous Blood Total Carbon Dioxide 12.7L, Venous Blood HCO3 11.9L, Venous Blood Oxygen Saturation 98.8H, Venous Blood Base Excess -12.9L, Anion Gap 25H, Glomerular Filtration Rate 47.7L, Estimated Mean Plasma Glucose 272H, Hemoglobin A1c 11.1, Osmolality 325H, Calcium Level 11.3H, Total Bilirubin 0.6, Direct Bilirubin 0.2, Aspartate Amino Transf (AST/SGOT) 9, Alanine Aminotransferase (ALT/SGPT) 28, Alkaline Phosphatase 147H, Total Protein 8.9H, Albumin 4.8, Albumin/Globulin Ratio 1.2, Lipase 31L, B-Hydroxybutyrate > 46.00H 02/08/21 12:33: Bedside Glucose (Misc Panel) 461H CBC/BMP Laboratory Tests 02/08/21 09:57 Assessment/Plan Patient 31 years old male with past medical history of hyperlipidemia, hypertension, type 1 diabetes presented to her hospital with nausea and vomiting. Patient stated that he woke up in the night with nausea and he had a few episodes of vomiting. He found that insulin pump was disconnected and his blood glucose level around 600. Patient denies fever, chills, diarrhea. In ER patient was found to have leukocytosis of 28.7, potassium level IV.5, glucose level of 519, blood gas showed pH of 7.2, bicarbonate of 11.9. Chest x-ray negative for acute pulmonary diseases Problems (1) Diabetic ketoacidosis Status: Acute Problem Text: Secondary to malfunctioning insulin pump Insulin drip Bloog q1h, IV fluid with potassium sedimentation BMP every 4 hours (2) Diabetes mellitus type 1 Status: Acute Problem Text: Follow-up with PCP in the outpatient settings (3) GLO (acute kidney injury) Status: Acute Problem Text: Secondary to dehydration due to DKA Prerenal Continue to monitor (4) Leukocytosis Status: Acute Problem Text: Patient afebrile Leukocytosis most likely reactive, etiology DKA, not infection Continue to monitor Plan / VTE VTE Prophylaxis Ordered?: Yes SARY BRANDT DO February 08, 2021 13:20
[2021-02-08] MEDS: KCL 20MEQ in NS 1000ML 1,000 ML IV SCH ×2 (13:48→14:02)
[2021-02-08 14:02] LABS: VENOUS BASE EXCESS -9.7 (-2.0-2.0); VENOUS HCO3 15.1 MEQ/L (23.0-27.0); VENOUS O2 SATURATION 98.8 % (60.0-80.0); VENOUS PARTIAL PRESSURE CO2 30.8 mmHg (38.0-50.0); VENOUS PARTIAL PRESSURE O2 123.7 mmHg (30.0-50.0); VENOUS PH 7.307 UNITS (7.330-7.430); VENOUS STANDARD HCO3 16.9 MEQ/L
[2021-02-08 14:25] LABS: BLOOD UREA NITROGEN 20 MG/DL (7-18); CALCIUM LEVEL 9.5 MG/DL (8.5-10.1); CARBON DIOXIDE LEVEL 17 MEQ/L (21-32); CHLORIDE LEVEL 106 MEQ/L (98-107); CREATININE FOR GFR 1.42 MG/DL (0.70-1.30); GLOMERULAR FILTRATION RATE > 60.0 (>60); GLUCOSE, FASTING 413 MG/DL (70-100); POTASSIUM SERUM 4.9 MEQ/L (3.5-5.1); SODIUM LEVEL 138 MEQ/L (136-145)
[2021-02-08 14:53] LABS: HEMOGLOBIN A1c 11.2 %
[2021-02-08] MEDS: INSULIN IV RATE CHANGE DOCUMENTATION ML/HR XX SCH ×7 (15:18→22:55)
[2021-02-08 15:42] LABS: RSV AMPLIFICATION NEGATIVE (NEGATIVE)
[2021-02-08 16:16] LABS: VENOUS BASE EXCESS -6.6 (-2.0-2.0); VENOUS HCO3 18.2 MEQ/L (23.0-27.0); VENOUS O2 SATURATION 96.3 % (60.0-80.0); VENOUS PARTIAL PRESSURE CO2 34.7 mmHg (38.0-50.0); VENOUS PARTIAL PRESSURE O2 82.3 mmHg (30.0-50.0); VENOUS PH 7.338 UNITS (7.330-7.430); VENOUS STANDARD HCO3 19.2 MEQ/L; VENOUS TOTAL CO2 19.3 MEQ/L (24.0-28.0)
[2021-02-08 16:35] VITALS: BP 131/72
[2021-02-08 16:56] LABS: BLOOD UREA NITROGEN 18 MG/DL (7-18); CALCIUM LEVEL 9.8 MG/DL (8.5-10.1); CARBON DIOXIDE LEVEL 19 MEQ/L (21-32); CHLORIDE LEVEL 108 MEQ/L (98-107); CREATININE FOR GFR 1.39 MG/DL (0.70-1.30); GLOMERULAR FILTRATION RATE > 60.0 (>60); GLUCOSE, FASTING 303 MG/DL (70-100); POTASSIUM SERUM 4.8 MEQ/L (3.5-5.1); SODIUM LEVEL 140 MEQ/L (136-145)
--- NOTE | 2021-02-08 17:52 | ECGEPIP ---
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
[2021-02-08] MEDS ORDERED: CEPACOL LOZENGE PO PRN (18:25)
[2021-02-08 18:30] LABS: BLOOD UREA NITROGEN 18 MG/DL (7-18); CALCIUM LEVEL 9.4 MG/DL (8.5-10.1); CARBON DIOXIDE LEVEL 25 MEQ/L (21-32); CHLORIDE LEVEL 108 MEQ/L (98-107); CREATININE FOR GFR 1.35 MG/DL (0.70-1.30); GLOMERULAR FILTRATION RATE > 60.0 (>60); GLUCOSE, FASTING 205 MG/DL (70-100); POTASSIUM SERUM 4.1 MEQ/L (3.5-5.1); SODIUM LEVEL 139 MEQ/L (136-145)
[2021-02-08] MEDS: D5W/0.45% SODIUM CHLORIDE 1,000 ML IV SCH ×2 (19:10→20:59)
[2021-02-08 20:00] VITALS: BP 137/63
[2021-02-08] MEDS ORDERED: HumaLOG INSULIN (NovoLOG) PER UNIT SC SCH (21:00)
[2021-02-08] MEDS ORDERED: MAGNESIUM OXIDE 400MG TAB (MAG-OX) PO SCH (21:00)
[2021-02-08] MEDS ORDERED: GLUCAGON INJ 1MG VIAL SC PRN (21:20)
[2021-02-08] MEDS ORDERED: DEXTROSE 50% 50 ML SYRINGE IV PRN (21:20)
[2021-02-08] MEDS ORDERED: GLUCOSE 4GM CHEW TABLET PO PRN (21:20)
[2021-02-08 22:45] LABS: BLOOD UREA NITROGEN 14 MG/DL (7-18); CALCIUM LEVEL 9.2 MG/DL (8.5-10.1); CARBON DIOXIDE LEVEL 26 MEQ/L (21-32); CHLORIDE LEVEL 107 MEQ/L (98-107); CREATININE FOR GFR 1.16 MG/DL (0.70-1.30); GLOMERULAR FILTRATION RATE > 60.0 (>60); GLUCOSE, FASTING 207 MG/DL (70-100); PHOSPHORUS LEVEL 2.3 MG/DL (2.5-4.9); POTASSIUM SERUM 3.6 MEQ/L (3.5-5.1); SODIUM LEVEL 139 MEQ/L (136-145)
[2021-02-09] VITALS: BP 131/69
[2021-02-09] MEDS ORDERED: LEVEMIR (INSULIN DETEMIR) 1 UNITS/0.01ML SC ONE (00:05)
[2021-02-09 04:00] VITALS: BP 124/62
[2021-02-09 05:13] LABS: MEAN CORPUSCULAR HEMOGLOBIN 29.8 pg (27.0-33.0); MEAN CORPUSCULAR HGB CONC 32.6 g/dl (32.0-36.5); MEAN CORPUSCULAR VOLUME 91.5 fl (80.0-96.0); RED BLOOD COUNT 4.59 10^6/uL (4.30-6.10); WHITE BLOOD COUNT 16.3 10^3/uL (4.0-10.0)
[2021-02-09 05:18] LABS: HEMOGLOBIN 13.7 g/dl (13.5-17.5); PLATELET COUNT, AUTOMATED 260 10^3/uL (150-450)
[2021-02-09 05:41] LABS: ALBUMIN 3.4 GM/DL (3.2-5.2); ALT/SGPT 19 U/L (12-78); BILIRUBIN,TOTAL 0.9 MG/DL (0.2-1.0); BLOOD UREA NITROGEN 12 MG/DL (7-18); CALCIUM LEVEL 8.7 MG/DL (8.5-10.1); CARBON DIOXIDE LEVEL 21 MEQ/L (21-32); CHLORIDE LEVEL 107 MEQ/L (98-107); GLOMERULAR FILTRATION RATE > 60.0 (>60); GLUCOSE, FASTING 186 MG/DL (70-100); MAGNESIUM LEVEL 2.2 MG/DL (1.8-2.4); PHOSPHORUS LEVEL 3.2 MG/DL (2.5-4.9); POTASSIUM SERUM 4.6 MEQ/L (3.5-5.1); SODIUM LEVEL 138 MEQ/L (136-145); TOTAL PROTEIN 6.5 GM/DL (6.4-8.2)
[2021-02-09] MEDS ORDERED: HumaLOG INSULIN (NovoLOG) PER UNIT SC SCH (07:30)
[2021-02-09 08:00] VITALS: BP 126/70
[2021-02-09] MEDS ORDERED: VITAMIN D 1,000 INTERNATIONAL UNITS TABLET PO SCH (09:00)
[2021-02-09] MEDS ORDERED: ENOXAPARIN 40MG/0.4ML SYRINGE (J1650 PER 10MG) SC SCH (09:00)
--- NOTE | 2021-02-09 11:07 | DS.PDOC ---
Discharge Summary General Date of Admission February 08, 2021 at 12:51 Date of Discharge 02/09/21 Discharge Summary PROCEDURES PERFORMED DURING STAY: [None]. ADMITTING DIAGNOSES: Diabetic ketoacidosis Diabetes mellitus type 1 GLO (acute kidney injury) Leukocytosis DISCHARGE DIAGNOSES: Diabetic ketoacidosis Diabetes mellitus type 1 GLO (acute kidney injury) Leukocytosis COMPLICATIONS/CHIEF COMPLAINT: Diabetic Ketoacidosis. HISTORY OF PRESENT ILLNESS: Patient 31 years old male with past medical history of hyperlipidemia, hypertension, type 1 diabetes presented to her hospital with nausea and vomiting. Patient stated that he woke up in the night with nausea and he had a few episodes of vomiting. He found that insulin pump was disconnected and his blood glucose level around 600. Patient denies fever, chills, diarrhea. In ER patient was found to have leukocytosis of 28.7, potassium level IV.5, glucose level of 519, blood gas showed pH of 7.2, bicarbonate of 11.9. Chest x- ray negative for acute pulmonary diseases HOSPITAL COURSE: During the hospital stay the following issues addressed 1) Diabetic ketoacidosis secondary to malfunctioning insulin pump Patient received treatment with Insulin drip, electrolytes replacement. Blood was level was stabilized. Patient tolerated food without nausea or vomiting (2) Diabetes mellitus type 1 Follow-up with PCP in the outpatient settings (3) GLO (acute kidney injury) secondary to dehydration due to DKA Improved (4) Leukocytosis Secondary to DKA DISCHARGE MEDICATIONS: Please see below. ALLERGIES: Please see below. PHYSICAL EXAMINATION ON DISCHARGE: VITAL SIGNS: Please see below. Objective: GENERAL APPEARANCE: NAD HEENT: no scleral icterus, no JVD, EOMI CARDIOVASCULAR: S1S2 LUNGS: CTA ABDOMEN: soft & not tender w palpitation MUSCULOSKELETAL: no cyanosis, no swelling INTEGUMENT: no generalized pallor NEUROLOGICAL: cranial nerve function from 2-12 intact intact, follows commands, speech not dysarthric LABORATORY DATA: Please see below. PROGNOSIS: Fair ACTIVITY: [As tolerated]. DIET: Diabetes DISPOSITION: 01 Home, Self-Care. ITEMS TO FOLLOWUP ON ON OUTPATIENT: 1. Follow-up with his family to 5 days DISCHARGE CONDITION: [Stable]. TIME SPENT ON DISCHARGE: 30minutes. Vital Signs/I&Os Vital Signs Date Time Temp Pulse Resp B/P (MAP) Pulse Ox O2 Delivery O2 Flow Rate FiO2 02/09/21 08:00 98.8 96 18 126/70 (88) 96 Room Air I&O- Last 24 Hours up to 6 AM 02/09/21 06:00 Intake Total 2488 ml Output Total 0 ml Balance 2488 ml Laboratory Data Labs 24H Laboratory Tests 2 02/08/21 12:33: Bedside Glucose (Misc Panel) 461H 02/08/21 13:28: Bedside Glucose (Misc Panel) 418H 02/08/21 13:56: Blood Gas Bicarbonate Standard 16.9, Venous Blood pH 7.307L, Venous Blood Partial Pressure CO2 30.8L, Venous Blood Partial Pressure O2 123.7H, Venous Blood Total Carbon Dioxide 16.0L, Venous Blood HCO3 15.1L, Venous Blood Oxygen Saturation 98.8H, Venous Blood Base Excess -9.7L, Anion Gap 15, Glomerular Filtration Rate > 60.0, Estimated Mean Plasma Glucose 275H, Hemoglobin A1c 11.2, Calcium Level 9.5# 02/08/21 14:54: Coronavirus (COVID-19)(PCR) NEGATIVE, Influenza Type A (RT-PCR) NEGATIVE, Influenza Type B (RT-PCR) NEGATIVE, Respiratory Syncytial Virus (PCR) NEGATIVE 02/08/21 15:17: Bedside Glucose (Misc Panel) 313H 02/08/21 15:57: Blood Gas Puncture Site UNKNOWN, Blood Gas Bicarbonate Standard 19.2, Venous Blood pH 7.338, Venous Blood Partial Pressure CO2 34.7L, Venous Blood Partial Pressure O2 82.3H, Venous Blood Total Carbon Dioxide 19.3L, Venous Blood HCO3 18.2L, Venous Blood Oxygen Saturation 96.3H, Venous Blood Base Excess -6.6L, Anion Gap 13, Glomerular Filtration Rate > 60.0, Calcium Level 9.8 02/08/21 16:13: Bedside Glucose (Misc Panel) 262H 02/08/21 16:48: Bedside Glucose (Misc Panel) 224H 02/08/21 17:51: Anion Gap 6L, Glomerular Filtration Rate > 60.0, Calcium Level 9.4 02/08/21 17:53: Bedside Glucose (Misc Panel) 206H 02/08/21 18:54: Bedside Glucose (Misc Panel) 208H 02/08/21 20:01: Bedside Glucose (Misc Panel) 163H 02/08/21 20:57: Bedside Glucose (Misc Panel) 204H 02/08/21 21:59: Bedside Glucose (Misc Panel) 195H 02/08/21 22:00: Anion Gap 6L, Glomerular Filtration Rate > 60.0, Calcium Level 9.2, Phosphorus Level 2.3L 02/08/21 22:55: Bedside Glucose (Misc Panel) 162H 02/09/21 00:03: Bedside Glucose (Misc Panel) 161H 02/09/21 01:08: Bedside Glucose (Misc Panel) 154H 02/09/21 02:10: Bedside Glucose (Misc Panel) 162H 02/09/21 04:46: Nucleated Red Blood Cells % (auto) 0.0, Anion Gap 10, Glomerular Filtration Rate > 60.0, Calcium Level 8.7, Phosphorus Level 3.2#, Magnesium Level 2.2, Total Bilirubin 0.9, Aspartate Amino Transf (AST/SGOT) 23, Alanine Aminotransferase (ALT/SGPT) 19, Alkaline Phosphatase 96, Total Protein 6.5#, Albumin 3.4#, Albumin/Globulin Ratio 1.1 02/09/21 07:53: Bedside Glucose (Misc Panel) 226H CBC/BMP Laboratory Tests 02/08/21 13:56 02/08/21 15:57 02/08/21 17:51 02/08/21 22:00 02/09/21 04:46 FSBS Laboratory Tests Test 02/08/21 12:33 02/08/21 13:28 02/08/21 15:17 02/08/21 16:13 Range/Units Bedside Glucose (Misc Panel) 461 418 313 262 70-105 MG/DL Test 02/08/21 16:48 02/08/21 17:53 02/08/21 18:54 02/08/21 20:01 Range/Units Bedside Glucose (Misc Panel) 224 206 208 163 70-105 MG/DL Test 02/08/21 20:57 02/08/21 21:59 02/08/21 22:55 02/09/21 00:03 Range/Units Bedside Glucose (Misc Panel) 204 195 162 161 70-105 MG/DL Test 02/09/21 01:08 02/09/21 02:10 02/09/21 07:53 Range/Units Bedside Glucose (Misc Panel) 154 162 226 70-105 MG/DL Discharge Medications Scheduled Aspirin (Aspirin EC) 81 Mg Tablet.dr, 81 MG PO QHS, (Reported) Cholecalciferol (Vitamin D3) (Vitamin D3) 1,000 Unit Tablet, 2,000 UNITS PO DAILY, (Reported) Glucagon,Human Recombinant (Glucagon Emergency Kit) 1 Mg Kit, 1 MG IM ASDIRECTED, (Reported) Insulin Lispro (Admelog) 100 Unit/1 Ml Vial, 70 UNITS SC DAILY, (Reported) Patient on insulin pump Magnesium Oxide (Magnesium Oxide) 400 Mg Tab, 400 MG PO QHS, (Reported) Allergies Coded Allergies: amoxicillin (Verified Allergy, Intermediate, RASH, 01/04/19) clavulanic acid (Verified Allergy, Intermediate, RASH, 01/04/19) SARY BRANDT DO February 09, 2021 11:07
== END 2021-02-09 10:41 | disposition home or self-care (01) ==
LOC: M ED 09:23 → M ED INP 12:51 → ENRESERV 14:37 → M ICU 16:35
PROVIDERS: ADMIT Internal Medicine; ATTEND Internal Medicine
DX: E10.10 Type 1 diabetes mellitus with ketoacidosis without coma (principal); N17.9 Acute kidney failure, unspecified; D72.829 Elevated white blood cell count, unspecified; E78.49 Other hyperlipidemia; I10 Essential (primary) hypertension; T85.614A Breakdown (mechanical) of insulin pump, initial encounter; Z79.82 Long term (current) use of aspirin; Z79.899 Other long term (current) drug therapy; Z79.4 Long term (current) use of insulin; Z88.0 Allergy status to penicillin; Z88.1 Allergy status to other antibiotic agents; E66.9 Obesity, unspecified; E55.9 Vitamin D deficiency, unspecified; F41.9 Anxiety disorder, unspecified

== ENCOUNTER 2021-04-30 13:44 | Observation (INO) | payer OTHER ==
[~2021-04-30] VITALS: Ht 175.3 cm; Wt 110.6 kg
[~2021-04-30 13:44] MED LIST changes: +D31000TA2 PO; +PANTOPRAZOLE 40MG VIAL (C9113 PER 1) IV SCH
[2021-04-30] MEDS ORDERED: NS 1,000 ML IV ONE (14:40)
[2021-04-30] MEDS ORDERED: ONDANSETRON 4MG/2ML VIAL IV ONE (14:45)
[2021-04-30] MEDS ORDERED: HumuLIN R (REGULAR) INSULIN (NovoLIN R) **100U/ML** PER UNIT IV ONE (14:45)
[2021-04-30 14:48] LABS: VENOUS BASE EXCESS -12.3 (-2.0-2.0); VENOUS HCO3 14.1 MEQ/L (23.0-27.0); VENOUS O2 SATURATION 94.5 % (60.0-80.0); VENOUS PARTIAL PRESSURE CO2 34.3 mmHg (38.0-50.0); VENOUS PARTIAL PRESSURE O2 79.4 mmHg (30.0-50.0); VENOUS PH 7.232 UNITS (7.330-7.430); VENOUS STANDARD HCO3 15.1 MEQ/L; VENOUS TOTAL CO2 15.2 MEQ/L (24.0-28.0)
[2021-04-30 14:50] LABS: BASO % 0.3 % (0.0-1.0); EOS % 0.2 % (0.0-3.0); HEMATOCRIT 49.7 % (42.0-52.0); HEMOGLOBIN 16.1 g/dl (13.5-17.5); LYMPH # 1.9 10^3/uL (1.5-5.0); LYMPH % 16.7 % (24.0-44.0); MEAN CORPUSCULAR HEMOGLOBIN 29.8 pg (27.0-33.0); MEAN CORPUSCULAR HGB CONC 32.4 g/dl (32.0-36.5); MEAN CORPUSCULAR VOLUME 91.9 fl (80.0-96.0); MONO # 0.6 10^3/uL (0.0-0.8); NEUTROPHILS # 8.7 10^3/uL (1.5-8.5); NEUTROPHILS % 77.2 % (36.0-66.0); PLATELET COUNT, AUTOMATED 341 10^3/uL (150-450); RED BLOOD COUNT 5.41 10^6/uL (4.30-6.10); WHITE BLOOD COUNT 11.3 10^3/uL (4.0-10.0)
[2021-04-30 15:36] LABS: ALBUMIN 4.6 GM/DL (3.2-5.2); ALT/SGPT 23 U/L (12-78); BILIRUBIN,DIRECT 0.3 MG/DL (0.0-0.2); BILIRUBIN,TOTAL 0.8 MG/DL (0.2-1.0); BLOOD UREA NITROGEN 21 MG/DL (7-18); CALCIUM LEVEL 10.3 MG/DL (8.5-10.1); CARBON DIOXIDE LEVEL 18 MEQ/L (21-32); CHLORIDE LEVEL 96 MEQ/L (98-107); CREATININE FOR GFR 1.32 MG/DL (0.70-1.30); GLOMERULAR FILTRATION RATE > 60.0 (>60); GLUCOSE, FASTING 435 MG/DL (70-100); POTASSIUM SERUM 4.5 MEQ/L (3.5-5.1); SODIUM LEVEL 133 MEQ/L (136-145); TOTAL PROTEIN 8.2 GM/DL (6.4-8.2)
[2021-04-30 15:37] LABS: ACETONE/KETONE > 46.00 MG/DL (<2.81)
[2021-04-30] MEDS ORDERED: KCL 40MEQ IN D5/NS 1000ML 1,000 ML IV SCH (16:00)
[2021-04-30] MEDS ORDERED: INSULIN REGULAR IN 0.9 % NACL 100 UNIT in IV 1 EA IV SCH ×4 (16:20→17:00)
[2021-04-30] MEDS ORDERED: ATOR1TAB21 PO (16:37)
[2021-04-30 17:19] LABS: RSV AMPLIFICATION NEGATIVE (NEGATIVE)
[2021-04-30] MEDS ORDERED: HumuLIN R (REGULAR) INSULIN (NovoLIN R) **100U/ML** PER UNIT IV SCH (17:40)
[2021-04-30] MEDS ORDERED: KCL 10MEQ/100ML SWI (KRUN) 10 MEQ in IV 1 EA IV ONE (17:40)
[2021-04-30] MEDS ORDERED: SODIUM BICARBONATE 8.4% INJ 50 ML SYRINGE IV SCH (17:40)
[2021-04-30] MEDS ORDERED: MAALOX 30 ML SUSP *UDC PO PRN (17:40)
[2021-04-30] MEDS ORDERED: MOM 30ML SUSPENSION UDC PO PRN (17:40)
[2021-04-30] MEDS ORDERED: NS IV ONE (18:20)
[2021-04-30] MEDS ORDERED: POTASSIUM PHOSPHATE IV ONE (18:20)
--- NOTE | 2021-04-30 18:26 | REPVR ---
PROCEDURE INFORMATION: Exam: XR Chest Exam date and time: 04/30/2021 5:41 PM Age: 30 years old Clinical indication: Other: Dka TECHNIQUE: Imaging protocol: XR of the chest. Views: 1 view. COMPARISON: DC PORTABLE CHEST X-RAY 02/08/2021 10:10 AM FINDINGS: Lungs: Degree of lung inflation is normal. No evidence of pulmonary edema. No focal consolidation or parenchymal lung mass. Pleural spaces: No pleural effusion or pneumothorax. Heart/Mediastinum: Cardiac silhouette appears normal. No adenopathy or hilar mass. Bones/joints: Osseous structures show no concerning abnormality. IMPRESSION: No acute or focal cardiopulmonary process. Electronically signed by: Layton Dubon On 04/30/2021 18:26:23 PM
[2021-04-30] MEDS: INSULIN IV RATE CHANGE DOCUMENTATION ML/HR XX SCH ×5 (18:27→23:28)
[2021-04-30] MEDS ORDERED: KCL 20MEQ in NS 1000ML 1,000 ML IV SCH (19:00)
[2021-04-30] MEDS ORDERED: ONDANSETRON 4MG/2ML VIAL IV PRN (19:10)
--- NOTE | 2021-04-30 19:28 | HPEPDOC ---
General Date of Admission Apr 30, 2021 at 13:45 Date of Service: Apr 30, 2021 Attending Physician: BIRD HZAO DO Chief Complaint The patient is a 30-year-old male admitted with a reason for visit of Diabetic Ketoacidosis. History of Present Illness Presenting compliant: History of present illness: 30-year-old male patient with PMH of DM type I, HTN, DLP presenting to ED with 2 episodes of vomiting, dry heaving, feeling heavy in his chest, sweating, shaking. He reports his symptoms started at around midnight, patient generally has an insulin pump in place for long-acting insulin which has been malfunctioning since yesterday evening. He reports his last insulin dose was about 2 PM this afternoon prior to presentation to the ED he took Basaglar 3 units. He generally takes lispro with meals about 5 to 10 units based on the sliding scale. Patient's last meal was yesterday night. In the ED patient's blood sugar levels were 435, and pH of 7.2 VBG, given t hat patient was in DKA he got 1 L bolus of NS and 11 units of regular insulin and started on insulin drip and potassium drip. Past medical history and past surgical history: Diabetes mellitus type 1 diagnosed in 2018 [on insulin pumps since 3 years] Hypertension Dyslipidemia Social history: Denies smoking. Alcohol occasionally drinks alcohol. No illicit drug use Family History: Reports father has some clotting disease, not sure of the diagnosis. Mother: Rheumatoid arthritis, hypertension Brother; healthy REVIEW OF SYSTEMS: Constitutional: Denies having fever, reports having sweating and shaking, and mild headache Eyes: Denies any blurry vision or double vision. ENT: Denies any dysphagia, odynophagia, ear discharge, reports having dry mouth Cardiovascular: Denies any chest pain or palpitations. Respiratory: Denies shortness of breath and cough. Gastrointestinal (GI): Denies any nausea, patient had 2 episodes of vomiting. None after coming to the ED Genitourinary: Denies dysuria, hematuria. Musculoskeletal: Denies any muscle aches and pains. Skin: Denies any rashes or ulcers. Hematology/Oncology: Denies any easy bleeding or bruising. Endocrine: Denies cold intolerance, heat intolerance, polydipsia, polyphagia, polyuria All other review of systems is negative. PHYSICAL EXAMINATION: General: Patient is awake, alert, oriented times three, laying in bed , no ap parent distress. Eyes: Conjunctiva clear, pupils equal round and reactive to light and accommodation. EOM full, Fundus: not visualized. ENT: Hearing Bilateral normal. No nasal deviation, oropharynx clear with no lesions/erythema. Neck: supple, no masses, trachea midline, no thyroid nodules, masses, tenderness or enlargement. Cardiovascular: S1, S2, normal rhythm, no murmur appreciated Respiratory: Chest is clear to auscultation bilaterally, No rhonchi, wheezes appreciated. Abdomen: Soft, bowel sounds positive, no bruits. Nontender on palpation. Extremities: No clubbing or cyanosis. No edema, no tenderness.. 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 Cranial nerves I II-XII grossly intact. Skin: No rashes, lesions, ulcerations, subcutaneous nodules or induration. Imaging: Chest x-ray done on 04/30/2021: Reported as no acute or focal cardiopulmonary disease. Assessment: 30-year-old male patient with PMH of DM type I on insulin pump, DLP presented to the ED with insulin pump failure which happened yesterday evening and he did not receive any long-acting insulin since yesterday night. On presentation patient was in DKA with blood sugar levels of 435, potassium of 4.5, VBG pH 7.2, bicarb 14, PCO2 34.3. In the ED he was given 1 L bolus of NS, 11 units of regular insulin, started on insulin drip, and potassium drip. Patient is admitted under hospitalist service in ICU for further management of his DKA. Plan: Diabetic ketoacidosis: -Admit in ICU with DKA protocol. -Patient has anionic gap of 19 in ED -Patient's beta hydroxybutyrate is more than 46 -Blood glucose level in the ED initially was 435, by the time I saw the patient patient's glucose level was 318. -Potassium 4.5 -We will start patient on insulin drip with 20 mEq KCl in NS at 250 cc/h with the plan to bridge with fluids with D5 once the blood glucose level reduces to < 250 -Fingerstick glucose every hour, repeat BMP every 2 hours, osmolality every 6 hours. -Recheck ketones as well. -Switch to subcu insulin once the gap is closed. -Keep patient n.p.o. -Zofran as needed 4 mg every 4 hours for nausea/vomiting. Dyslipidemia: We will hold the statin for now. DVT prophylaxis: Heparin 5000 units subcu CODE STATUS: Patient is full code. Disposition: Based on his clinical improvement. If patient's gap closed overnight and he is able to tolerate oral feeding. If his electrolytes are stable. He can be discharged in a day or 2. I, Bird Zhao, DO, have independently examined this patient and performed my own physical exam, as well as reviewed the documentation and edited where necessary. I have discussed in detail with the resident / student the findings and plan of treatment as documented by the resident / student and edited their note. I agree with their findings and treatment plan and have edited their documentation. I will continue to follow the patient during this hospital stay. Home Medications Scheduled Aspirin (Aspirin EC) 81 Mg Tablet.dr, 81 MG PO QHS, (Reported) Atorvastatin Calcium (Atorvastatin Calcium) 20 Mg Tablet, 20 MG PO QHS, (Reported) Cholecalciferol (Vitamin D3) (Vitamin D3) 1,000 Unit Tablet, 2,000 UNITS PO QHS, (Reported) Glucagon,Human Recombinant (Glucagon Emergency Kit) 1 Mg Kit, 1 MG IM ASDIRE CTED, (Reported) Insulin Lispro (Admelog) 100 Unit/1 Ml Vial, 70 UNITS SC QHS, (Reported) Patient on insulin pump Magnesium Oxide (Magnesium Oxide) 400 Mg Tab, 400 MG PO QHS, (Reported) Allergies Coded Allergies: amoxicillin (Verified Allergy, Intermediate, RASH, 01/04/19) clavulanic acid (Verified Allergy, Intermediate, RASH, 01/04/19) A-FIB/CHADSVASC A-FIB History Current/History of A-Fib/PAF?: No Current PO Anticoag Therapy: No Vital Signs Vital Signs Date Time Temp Pulse Resp B/P (MAP) Pulse Ox O2 Delivery O2 Flow Rate FiO2 04/30/21 18:15 117/59 (78) 04/30/21 18:14 99 96 04/30/21 13:45 97.2 18 Room Air Laboratory Data Labs 24H Laboratory Tests 2 04/30/21 14:15: Immature Granulocyte % (Auto) 0.6, Neutrophils (%) (Auto) 77.2H, Lymphocytes (%) (Auto) 16.7L, Monocytes (%) (Auto) 5.0, Eosinophils (%) (Auto) 0.2, Basophils (%) (Auto) 0.3, Neutrophils # (Auto) 8.7H, Lymphocytes # (Auto) 1.9, Monocytes # (Auto) 0.6, Eosinophils # (Auto) 0.0, Basophils # (Auto) 0.0, Nucleated Red Blood Cells % (auto) 0.0, Anion Gap 19H, Glomerular Filtration Rate > 60.0, Calcium Level 10.3H, Total Bilirubin 0.8, Direct Bilirubin 0.3H, Aspartate Amino Transf (AST/SGOT) 17, Alanine Aminotransferase (ALT/SGPT) 23, Alkaline Phosphatase 114, Total Protein 8.2, Albumin 4.6, Albumin/Globulin Ratio 1.3, B- Hydroxybutyrate > 46.00H 04/30/21 14:30: Blood Gas Bicarbonate Standard 15.1, Venous Blood pH 7.232L, Venous Blood Partial Pressure CO2 34.3L, Venous Blood Partial Pressure O2 79.4H, Venous Blood Total Carbon Dioxide 15.2L, Venous Blood HCO3 14.1L, Venous Blood Oxygen Saturation 94.5H, Venous Blood Base Excess -12.3L 04/30/21 14:50: Lactic Acid Level 3.3*H 04/30/21 16:15: Bedside Glucose (Misc Panel) 383H 04/30/21 16:23: Coronavirus (COVID-19)(PCR) NEGATIVE, Influenza Type A (RT-PCR) NEGATIVE, Infl uenza Type B (RT-PCR) NEGATIVE, Respiratory Syncytial Virus (PCR) NEGATIVE 04/30/21 18:16: Bedside Glucose (Misc Panel) 318H CBC/BMP Laboratory Tests 04/30/21 14:15 Plan / VTE VTE Prophylaxis Ordered?: Yes Maxx Narvaez MD Apr 30, 2021 19:28 BIRD ZHAO DO May 01, 2021 19:30
[2021-04-30 19:33] LABS: BLOOD UREA NITROGEN 22 MG/DL (7-18); CALCIUM LEVEL 9.3 MG/DL (8.5-10.1); CARBON DIOXIDE LEVEL 20 MEQ/L (21-32); CHLORIDE LEVEL 102 MEQ/L (98-107); CREATININE FOR GFR 1.39 MG/DL (0.70-1.30); GLOMERULAR FILTRATION RATE > 60.0 (>60); GLUCOSE, FASTING 310 MG/DL (70-100); POTASSIUM SERUM 5.1 MEQ/L (3.5-5.1); SODIUM LEVEL 135 MEQ/L (136-145)
[2021-04-30 20:33] LABS: BLOOD UREA NITROGEN 21 MG/DL (7-18); CALCIUM LEVEL 9.2 MG/DL (8.5-10.1); CARBON DIOXIDE LEVEL 22 MEQ/L (21-32); CHLORIDE LEVEL 104 MEQ/L (98-107); CREATININE FOR GFR 1.44 MG/DL (0.70-1.30); GLOMERULAR FILTRATION RATE > 60.0 (>60); GLUCOSE, FASTING 249 MG/DL (70-100); POTASSIUM SERUM 4.8 MEQ/L (3.5-5.1); SODIUM LEVEL 137 MEQ/L (136-145)
[2021-04-30] MEDS: HEPARIN SOD (PORCINE) 5000UNITS/ML 1ML VIAL/SYRINGE SC SCH (21:21)
[2021-04-30] MEDS: DOCUSATE SODIUM 100MG CAPSULE PO SCH (21:21)
--- NOTE | 2021-04-30 21:35 | ECGEPIP ---
[facility] - ED Test Date: 2021-04-30 Pat Name: PABLO SANCHEZ Department: Room: [facility]02 Gender: Male Facilities Operator: : 1990 Requested By: RAJI CHU Order Number: [id number] Reading MD: Arlette Colin Measurements Intervals [place] Rate: 94 P: 61 NM: 150 QRS: 55 QRSD: 76 T: 40 QT: 346 QTc: 432 Interpretive Statements Normal sinus rhythm decreased rate 02/08/21 Electronically Signed on 04-30-2021 21:35:16 EDT by Arlette Colin
[2021-04-30] MEDS ORDERED: D5W 1,000 ML IV SCH (21:55)
[2021-04-30 22:00] VITALS: BP 126/66
[2021-04-30] MEDS ORDERED: LEVEMIR (INSULIN DETEMIR) 1 UNITS/0.01ML SC ONE (22:15)
[2021-04-30 22:53] LABS: BLOOD UREA NITROGEN 20 MG/DL (7-18); CALCIUM LEVEL 9.2 MG/DL (8.5-10.1); CARBON DIOXIDE LEVEL 24 MEQ/L (21-32); CHLORIDE LEVEL 107 MEQ/L (98-107); CREATININE FOR GFR 1.27 MG/DL (0.70-1.30); GLOMERULAR FILTRATION RATE > 60.0 (>60); GLUCOSE, FASTING 190 MG/DL (70-100); SODIUM LEVEL 139 MEQ/L (136-145)
[2021-04-30 23:00] VITALS: BP 133/80
[2021-05-01] VITALS (11 sets, daily range): BP systolic 111–165; BP diastolic 58–79
[2021-05-01] MEDS: ACETAMINOPHEN TAB 650MG DOSE (2X325MG) PO PRN (01:38)
[2021-05-01 02:49] LABS: BLOOD UREA NITROGEN 19 MG/DL (7-18); CALCIUM LEVEL 8.9 MG/DL (8.5-10.1); CARBON DIOXIDE LEVEL 24 MEQ/L (21-32); CHLORIDE LEVEL 104 MEQ/L (98-107); CREATININE FOR GFR 1.12 MG/DL (0.70-1.30); GLOMERULAR FILTRATION RATE > 60.0 (>60); GLUCOSE, FASTING 312 MG/DL (70-100); PHOSPHORUS LEVEL 3.6 MG/DL (2.5-4.9); POTASSIUM SERUM 4.6 MEQ/L (3.5-5.1); SODIUM LEVEL 137 MEQ/L (136-145)
[2021-05-01 06:46] LABS: BASO % 0.3 % (0.0-1.0); EOS % 0.3 % (0.0-3.0); HEMATOCRIT 42.7 % (42.0-52.0); HEMOGLOBIN 13.9 g/dl (13.5-17.5); LYMPH # 2.4 10^3/uL (1.5-5.0); LYMPH % 18.9 % (24.0-44.0); MEAN CORPUSCULAR HEMOGLOBIN 30.2 pg (27.0-33.0); MEAN CORPUSCULAR HGB CONC 32.6 g/dl (32.0-36.5); MEAN CORPUSCULAR VOLUME 92.6 fl (80.0-96.0); MONO # 1.1 10^3/uL (0.0-0.8); MONO % 8.9 % (2.0-8.0); NEUTROPHILS # 8.9 10^3/uL (1.5-8.5); NEUTROPHILS % 71.3 % (36.0-66.0); PLATELET COUNT, AUTOMATED 295 10^3/uL (150-450); RED BLOOD COUNT 4.61 10^6/uL (4.30-6.10); WHITE BLOOD COUNT 12.5 10^3/uL (4.0-10.0)
[2021-05-01 07:06] LABS: OSMOLALITY SERUM 307 MOSM/KG (275-295)
[2021-05-01 07:11] LABS: BLOOD UREA NITROGEN 19 MG/DL (7-18); CALCIUM LEVEL 9.1 MG/DL (8.5-10.1); CARBON DIOXIDE LEVEL 17 MEQ/L (21-32); CHLORIDE LEVEL 102 MEQ/L (98-107); GLOMERULAR FILTRATION RATE > 60.0 (>60); GLUCOSE, FASTING 431 MG/DL (70-100); POTASSIUM SERUM 5.1 MEQ/L (3.5-5.1); SODIUM LEVEL 135 MEQ/L (136-145)
[2021-05-01] MEDS ORDERED: HumaLOG INSULIN (NovoLOG) PER UNIT SC SCH ×4 (07:30→21:00)
[2021-05-01] MEDS ORDERED: LEVEMIR (INSULIN DETEMIR) 1 UNITS/0.01ML SC ONE ×3 (08:00→19:30)
[2021-05-01] MEDS: PANTOPRAZOLE 40MG TAB (PROTONIX) PO SCH (09:00)
[2021-05-01] MEDS: DOCUSATE SODIUM 100MG CAPSULE PO SCH ×2 (09:00→21:37)
[2021-05-01] MEDS: HEPARIN SOD (PORCINE) 5000UNITS/ML 1ML VIAL/SYRINGE SC SCH ×2 (09:16→21:37)
[2021-05-01] MEDS ORDERED: HumuLIN R (REGULAR) INSULIN (NovoLIN R) **100U/ML** PER UNIT IV SCH (09:30)
[2021-05-01 09:42] LABS: VENOUS BASE EXCESS -9.3 (-2.0-2.0); VENOUS HCO3 17.5 MEQ/L (23.0-27.0); VENOUS O2 SATURATION 89.6 % (60.0-80.0); VENOUS PARTIAL PRESSURE CO2 41.3 mmHg (38.0-50.0); VENOUS PARTIAL PRESSURE O2 60.3 mmHg (30.0-50.0); VENOUS PH 7.245 UNITS (7.330-7.430); VENOUS TOTAL CO2 18.8 MEQ/L (24.0-28.0)
[2021-05-01] MEDS ORDERED: INSULIN REGULAR IN 0.9 % NACL 100 UNIT in IV 1 EA IV SCH ×2 (09:45)
[2021-05-01] MEDS ORDERED: NS 1,000 ML IV ONE (10:00)
[2021-05-01 10:21] LABS: BLOOD UREA NITROGEN 19 MG/DL (7-18); CALCIUM LEVEL 9.3 MG/DL (8.5-10.1); CARBON DIOXIDE LEVEL 19 MEQ/L (21-32); CHLORIDE LEVEL 99 MEQ/L (98-107); GLOMERULAR FILTRATION RATE > 60.0 (>60); GLUCOSE, FASTING 432 MG/DL (70-100); POTASSIUM SERUM 4.8 MEQ/L (3.5-5.1); SODIUM LEVEL 135 MEQ/L (136-145)
[2021-05-01] MEDS ORDERED: NS 1,000 ML IV SCH (11:00)
[2021-05-01] MEDS ORDERED: KCL 20MEQ in NS 1000ML 1,000 ML IV SCH (12:00)
[2021-05-01] MEDS: INSULIN IV RATE CHANGE DOCUMENTATION ML/HR XX SCH ×4 (12:09→17:07)
[2021-05-01 15:36] LABS: BLOOD UREA NITROGEN 17 MG/DL (7-18); CALCIUM LEVEL 8.9 MG/DL (8.5-10.1); CARBON DIOXIDE LEVEL 19 MEQ/L (21-32); CHLORIDE LEVEL 109 MEQ/L (98-107); GLOMERULAR FILTRATION RATE > 60.0 (>60); GLUCOSE, FASTING 200 MG/DL (70-100); POTASSIUM SERUM 4.7 MEQ/L (3.5-5.1); SODIUM LEVEL 139 MEQ/L (136-145)
--- NOTE | 2021-05-01 15:53 | IPNPDOC ---
Text Note Date of Service The patient was seen on 05/01/21. NOTE Subjective: Patient is a 30-year-old male presented yesterday in diabetic ket oacidosis secondary to pump failure. Patient was seen this morning. Patient was bridged overnight however, patient began vomiting this morning. Patient's labs were checked and it was found that the patient had gone back into diabetic ketoacidosis. Patient was otherwise feeling well. Review of systems: General: Patient denies fevers HEENT: Patient denies headaches Cardiovascular: Patient denies chest pain Respiratory: Patient denies shortness of breath, cough GI: Patient reported some nausea and did vomit. Patient denies abdominal pain or diarrhea : Patient denies increased frequency or pain with urination Extremities: Patient denies swelling or pain in extremities Neurological: Patient denies numbness or tingling in legs Physical exam: Vitals: See below General: Alert and oriented male patient who was sitting up in bed when I walked in the room. Patient did not appear to be in any acute distress. HEENT: Normocephalic, atraumatic, moist mucous membranes. Neck: No lymphadenopathy or thyromegaly Cardiac: Regular rate and rhythm, no murmurs, normal S1, normal S2 Pulm: Clear to auscultation bilaterally. No wheezes, rhonchi, rales Abd: Nondistended, nontender to palpation, normal bowel sounds Ext: No edema bilateral lower extremities Labs: See below Imaging: No new imaging has been performed Assessment/plan: 30-year-old male who presented to the hospital in diabetic ketoacidosis secondary to pump failure. 1. Diabetic ketoacidosis. Patient was bridged overnight with 10 units of Levemir. Patient usually receives a max daily dose of about 70 units of insulin through his pump. I do not believe that he got enough bridging insulin in order to maintain the patient out of DKA. Patient was put back on the insulin drip and made n.p.o. We will continue to follow. Goal is to have anion gap less than 12 with a bicarbonate greater than 21 prior to bridging the patient. Based on the patient's weight, patient should receive about 30 or more units of Levemir prior to being bridged and should receive about 10 units of rapid acting insulin prior to his meals. Once the patient is out of diabetic ketoacidosis and is eating, patient will be discharged. DVT Prophylaxis: Heparin Disposition: Pending improvement of diabetic ketoacidosis. VS,Fishbone, I+O VS, Fishbone, I+O Laboratory Tests 04/30/21 18:54 04/30/21 20:02 04/30/21 22:16 05/01/21 01:52 05/01/21 06:31 05/01/21 09:36 05/01/21 14:56 Vital Signs Date Time Temp Pulse Resp B/P (MAP) Pulse Ox O2 Delivery O2 Flow Rate FiO2 05/01/21 07:53 97.7 103 18 114/71 (85) 95 Room Air I&O- Last 24 Hours up to 6 AM 05/01/21 06:00 Intake Total 2080 ml Output Total 950 ml Balance 1130 ml AMRITA ZHAO DO May 01, 2021 15:53
[2021-05-01] MEDS ORDERED: KCL 20MEQ IN D5/0.45NS 1000ML 1,000 ML IV SCH (16:00)
[2021-05-01 18:15] LABS: BLOOD UREA NITROGEN 15 MG/DL (7-18); CALCIUM LEVEL 8.6 MG/DL (8.5-10.1); CARBON DIOXIDE LEVEL 23 MEQ/L (21-32); CHLORIDE LEVEL 111 MEQ/L (98-107); CREATININE FOR GFR 1.23 MG/DL (0.70-1.30); GLOMERULAR FILTRATION RATE > 60.0 (>60); GLUCOSE, FASTING 138 MG/DL (70-100); POTASSIUM SERUM 4.5 MEQ/L (3.5-5.1); SODIUM LEVEL 142 MEQ/L (136-145)
[2021-05-02 00:02] VITALS: BP 105/57
[2021-05-02 03:45] VITALS: BP 120/59
[2021-05-02 05:03] LABS: BASO % 0.5 % (0.0-1.0); EOS # 0.1 10^3/uL (0.0-0.5); EOS % 0.7 % (0.0-3.0); HEMATOCRIT 41.2 % (42.0-52.0); HEMOGLOBIN 13.3 g/dl (13.5-17.5); LYMPH # 3.1 10^3/uL (1.5-5.0); LYMPH % 35.1 % (24.0-44.0); MEAN CORPUSCULAR HEMOGLOBIN 29.8 pg (27.0-33.0); MEAN CORPUSCULAR HGB CONC 32.3 g/dl (32.0-36.5); MEAN CORPUSCULAR VOLUME 92.4 fl (80.0-96.0); MONO # 0.8 10^3/uL (0.0-0.8); MONO % 8.6 % (2.0-8.0); NEUTROPHILS # 4.9 10^3/uL (1.5-8.5); NEUTROPHILS % 54.9 % (36.0-66.0); PLATELET COUNT, AUTOMATED 261 10^3/uL (150-450); RED BLOOD COUNT 4.46 10^6/uL (4.30-6.10); WHITE BLOOD COUNT 8.8 10^3/uL (4.0-10.0)
[2021-05-02] MEDS: ACETAMINOPHEN TAB 650MG DOSE (2X325MG) PO PRN (05:06)
[2021-05-02 05:23] LABS: BLOOD UREA NITROGEN 13 MG/DL (7-18); CALCIUM LEVEL 8.4 MG/DL (8.5-10.1); CARBON DIOXIDE LEVEL 23 MEQ/L (21-32); CHLORIDE LEVEL 107 MEQ/L (98-107); GLOMERULAR FILTRATION RATE > 60.0 (>60); GLUCOSE, FASTING 138 MG/DL (70-100); SODIUM LEVEL 138 MEQ/L (136-145)
[2021-05-02 07:30] VITALS: BP 121/64
[2021-05-02] MEDS ORDERED: HumaLOG INSULIN (NovoLOG) PER UNIT SC SCH (07:30)
[2021-05-02] MEDS ORDERED: BD P31MI2 SC (07:43)
[2021-05-02] MEDS ORDERED: LEVE1INJ5 SC (07:43)
[2021-05-02] MEDS ORDERED: HUMA100I5 SC (07:43)
[2021-05-02] MEDS ORDERED: LEVEMIR (INSULIN DETEMIR) 1 UNITS/0.01ML SC ONE (08:00)
[2021-05-02] MEDS: PANTOPRAZOLE 40MG TAB (PROTONIX) PO SCH (08:25)
[2021-05-02] MEDS: DOCUSATE SODIUM 100MG CAPSULE PO SCH (08:25)
[2021-05-02] MEDS: HEPARIN SOD (PORCINE) 5000UNITS/ML 1ML VIAL/SYRINGE SC SCH (08:26)
--- NOTE | 2021-05-02 12:43 | DS.PDOC ---
Discharge Summary General Date of Admission Apr 30, 2021 at 13:45 Date of Discharge 05/02/2021 Primary Care Physician: Jake Waters M.D. Attending Physician: AMRITA ZHAO DO Discharge Summary PROCEDURES PERFORMED DURING STAY: None. ADMITTING DIAGNOSES: 1. Diabetic ketoacidosis in the setting of type 1 diabetes with pump failure. DISCHARGE DIAGNOSES: 1. Diabetic ketoacidosis, resolved in the setting of type 1 diabetes with insulin pump failure. COMPLICATIONS/CHIEF COMPLAINT: Diabetic Ketoacidosis. HISTORY OF PRESENT ILLNESS: Patient is a 30-year-old male who presented to the hospital after noticing that his blood sugars have been quite elevated. Patient states that he has been having issues with his insulin pump. Patient states that the pump had began malfunctioning earlier in the day on 04/30/2021 and the patient was unable to get new supplies as it was the weekend. Patient states that the pump supplies that he was sent were not the right size and the pump kept giving him an error message stating that the tubing was kinked. Patient did not have any backup insulin and his sugars began to become higher and higher. Patient reported the emergency department and was found to be in diabetic ketoacidosis. HOSPITAL COURSE: Overnight on the first day of the patient's hospital stay, patient's anion gap had closed and the patient was found to be out of diabetic ketoacidosis. Patient was given 10 units of Levemir and was given food however, patient did not receive enough Levemir overnight and in the morning on 05/01/2021 patient was found to be in diabetic ketoacidosis again. Patient was put back on the diabetic ketoacidosis protocol and was placed back on the insulin drip. Patient was on the insulin drip for most of the day and in the evening, patient's anion gap had closed the patient's serum bicarbonate returned to christina l as well as his blood sugars had returned into the 180s. Patient was transitioned to Levemir. Patient was given 20 units of Levemir in the morning prior to going back on the insulin drip and was given 30 units Levemir to transition him off the drip. Patient was given 9 units of lispro insulin with meals. Patient was sent home on this regimen. Patient stated that he would like a referral to an sifting operator to see if he could get a new pump. Patient was deemed ready for discharge and was discharged home on 05/02/2021 DISCHARGE MEDICATIONS: Please see below. ALLERGIES: Please see below. PHYSICAL EXAMINATION ON DISCHARGE: VITAL SIGNS: Please see below. General: Alert and oriented male patient who was laying in bed when I walked into the room. Patient did not appear to be in any acute distress. HEENT: Normocephalic, atraumatic, moist mucous membranes. Neck: No lymphadenopathy or thyromegaly Cardiac: Regular rate and rhythm, no murmurs, normal S1, normal S2 Pulm: Clear to auscultation bilaterally. No wheezes, rhonchi, rales Abd: Nondistended, nontender to palpation, normal bowel sounds Ext: No edema bilateral lower extremities LABORATORY DATA: Please see below. IMAGING: Chest x-ray performed on 04/30/2021 was reported to show no acute or focal cardiopulmonary process PROGNOSIS: Good ACTIVITY: As tolerated. DIET: Consistent carbohydrate DISCHARGE PLAN: Discharge home DISPOSITION: 01 Home, Self-Care. DISCHARGE INSTRUCTIONS: 1. Follow-up with your primary care provider within 3 to 5 days. 2. You may reattach you were pump if you have new supplies but you must be very cognizant of your blood sugar and use the back of insulin that was sent with the prescribed regimen if your blood sugars begin to climb. 3. Return the emergency department if symptoms return ITEMS TO FOLLOWUP ON ON OUTPATIENT: 1. Possible referral to sifting operator. DISCHARGE CONDITION: Stable. TIME SPENT ON DISCHARGE: 25 minutes. Vital Signs/I&Os Vital Signs Date Time Temp Pulse Resp B/P (MAP) Pulse Ox O2 Delivery O2 Flow Rate FiO2 05/02/21 07:30 97.7 90 16 121/64 (83) 98 Room Air I&O- Last 24 Hours up to 6 AM0 05/02/21 06:00 Intake Total 3080 ml Output Total 3625 ml Balance -545 ml Laboratory Data Labs 24H Laboratory Tests 2 05/01/21 13:07: Bedside Glucose (Misc Panel) 256H 05/01/21 14:05: Bedside Glucose (Misc Panel) 224H 05/01/21 14:56: Anion Gap 11, Glomerular Filtration Rate > 60.0, Calcium Level 8.9 05/01/21 16:07: Bedside Glucose (Misc Panel) 164H 05/01/21 17:06: Bedside Glucose (Misc Panel) 148H 05/01/21 17:38: Anion Gap 8, Glomerular Filtration Rate > 60.0, Calcium Level 8.6 05/01/21 20:22: Bedside Glucose (Misc Panel) 214H 05/01/21 21:04: Bedside Glucose (Misc Panel) 228H 05/01/21 23:56: Bedside Glucose (Misc Panel) 168H 05/02/21 04:44: Immature Granulocyte % (Auto) 0.2, Neutrophils (%) (Auto) 54.9, Lymphocytes (%) (Auto) 35.1, Monocytes (%) (Auto) 8.6H, Eosinophils (%) (Auto) 0.7, Basophils (%) (Auto) 0.5, Neutrophils # (Auto) 4.9, Lymphocytes # (Auto) 3.1, Monocytes # (Auto) 0.8, Eosinophils # (Auto) 0.1, Basophils # (Auto) 0.0, Nucleated Red Blood Cells % (auto) 0.0, Anion Gap 8, Glomerular Filtration Rate > 60.0, Alfonzo cium Level 8.4L CBC/BMP Laboratory Tests 05/01/21 14:56 05/01/21 17:38 05/02/21 04:44 FSBS Laboratory Tests Test 05/01/21 13:07 05/01/21 14:05 05/01/21 16:07 05/01/21 17:06 Range/Units Bedside Glucose (Misc Panel) 256 224 164 148 70-105 MG/DL Test 05/01/21 20:22 05/01/21 21:04 05/01/21 23:56 Range/Units Bedside Glucose (Misc Panel) 214 228 168 70-105 MG/DL Discharge Medications Scheduled Aspirin (Aspirin EC) 81 Mg Tablet.dr, 81 MG PO QHS, (Reported) Atorvastatin Calcium (Atorvastatin Calcium) 20 Mg Tablet, 20 MG PO QHS, (Reported) Cholecalciferol (Vitamin D3) (Vitamin D3) 1,000 Unit Tablet, 2,000 UNITS PO QHS, (Reported) Glucagon,Human Recombinant (Glucagon Emergency Kit) 1 Mg Kit, 1 MG IM ASDIRECTED, (Reported) Insulin Detemir (Levemir Flextouch) 100 Unit/1 Ml Insuln.pen, 20-30 UNIT SC QHS Take 20 units in the morning and 30 units at bedtime Insulin Lispro (Admelog) 100 Unit/1 Ml Vial, 70 UNITS SC QHS, (Reported) Patient on insulin pump Insulin Lispro (Humalog Kwikpen U-100) 100 Unit/1 Ml Insuln.pen, 9 UNITS SC AC Magnesium Oxide (Magnesium Oxide) 400 Mg Tab, 400 MG PO QHS, (Reported) Allergies Coded Allergies: amoxicillin (Verified Allergy, Intermediate, RASH, 01/04/19) clavulanic acid (Verified Allergy, Intermediate, RASH, 01/04/19) AMRITA ZHAO DO May 02, 2021 12:43
== END 2021-05-02 10:00 | disposition home or self-care (01) ==
LOC: M ED 13:44 → UNDOADMOB 13:45 → M ED INP 13:45 → M ICU 20:10
PROVIDERS: ADMIT Family Medicine; ATTEND Family Medicine
DX: E10.10 Type 1 diabetes mellitus with ketoacidosis without coma (principal); T85.614A Breakdown (mechanical) of insulin pump, initial encounter; Z79.4 Long term (current) use of insulin; Z79.82 Long term (current) use of aspirin; Z79.899 Other long term (current) drug therapy; Z88.0 Allergy status to penicillin; Z88.1 Allergy status to other antibiotic agents
CPT/HCPCS: 36415; 71045; 80048; 80076; 82010; 82803; 83036; 83605; 83735; 83930; 84100; 85025; 87631; 93005; 96361; 96365; 96366; 96372; 96375; 96376; 99285; J1644; J2405

== ENCOUNTER → 2021-06-20 | Outpatient (CLI) | payer OTHER ==
[~2021-06-20] MED LIST changes: +BD P31MI2 SC; +HUMA100I5 SC; -KLOR10TA76 PO; +LEVE1INJ5 SC; -PANTOPRAZOLE 40MG VIAL (C9113 PER 1) IV SCH; +POTA-136 PO
[2021-06-20 15:47] LABS: BASO % 0.4 % (0.0-1.0); EOS # 0.1 10^3/uL (0.0-0.5); EOS % 0.8 % (0.0-3.0); HEMATOCRIT 47.4 % (42.0-52.0); HEMOGLOBIN 15.4 g/dl (13.5-17.5); LYMPH # 2.4 10^3/uL (1.5-5.0); LYMPH % 32.6 % (24.0-44.0); MEAN CORPUSCULAR HEMOGLOBIN 30.1 pg (27.0-33.0); MEAN CORPUSCULAR HGB CONC 32.5 g/dl (32.0-36.5); MEAN CORPUSCULAR VOLUME 92.8 fl (80.0-96.0); MONO # 0.7 10^3/uL (0.0-0.8); MONO % 9.5 % (2.0-8.0); NEUTROPHILS # 4.2 10^3/uL (1.5-8.5); NEUTROPHILS % 56.4 % (36.0-66.0); PLATELET COUNT, AUTOMATED 192 10^3/uL (150-450); RED BLOOD COUNT 5.11 10^6/uL (4.30-6.10); WHITE BLOOD COUNT 7.4 10^3/uL (4.0-10.0)
[2021-06-20 16:02] LABS: ALBUMIN 3.6 GM/DL (3.2-5.2); ALT/SGPT 24 U/L (12-78); BILIRUBIN,TOTAL 0.7 MG/DL (0.2-1.0); BLOOD UREA NITROGEN 9 MG/DL (7-18); CALCIUM LEVEL 9.3 MG/DL (8.5-10.1); CARBON DIOXIDE LEVEL 30 MEQ/L (21-32); CHLORIDE LEVEL 105 MEQ/L (98-107); CHOLESTEROL LEVEL 193 MG/DL (<200); CHOLESTEROL RISK RATIO 3.112 (<5); CREATININE FOR GFR 0.94 MG/DL (0.70-1.30); FERRITIN 210 NG/ML (26-388); GLOMERULAR FILTRATION RATE > 60.0 (>60); GLUCOSE, FASTING 183 MG/DL (70-100); HDL CHOLESTEROL 62 MG/DL (>40); LDL CHOLESTEROL 116 MG/DL (<100); NON-HDL-C 131 MG/DL; NT-PRO BNP 6 PG/ML (<125); POTASSIUM SERUM 5.7 MEQ/L (3.5-5.1); SODIUM LEVEL 136 MEQ/L (136-145); TOTAL PROTEIN 7.2 GM/DL (6.4-8.2); TRIGLYCERIDES LEVEL 73 MG/DL (<150)
[2021-06-20 16:09] LABS: PTH INTACT 75.2 PG/ML (18.5-88.0); TOTAL 25(OH) VITAMIN D 18.7 NG/ML (30.0-100.0); VITAMIN B12 LEVEL 740 PG/ML (247-911)
[2021-06-20 17:39] LABS: HEMOGLOBIN A1c 8.9 %
== END ==
LOC: M PLALAB 12:41
PROVIDERS: ATTEND Family Medicine
DX: I10 Essential (primary) hypertension (principal); E78.2 Mixed hyperlipidemia; E55.9 Vitamin D deficiency, unspecified; E10.9 Type 1 diabetes mellitus without complications

== ENCOUNTER 2021-07-20 21:09 | Emergency (ER) | payer OTHER ==
[~2021-07-20] VITALS: Ht 175.3 cm; Wt 113.6 kg
[2021-07-20 21:10] VITALS: BP 143/84
--- OUTSIDE RECORDS SUMMARY | 2021-07-20 21:16 | CCD ---
Author Author [facility] Organization [facility] Address Unknown Phone Unavailable Care Team Providers Care Perianesthesia Manager Name Role Phone Tina Mccormick Unavailable PROBLEMS Type Condition ICD9-CM Code [id number] Code Onset Dates Condition S tatus W/U Status Risk SNOMED Code Notes Problem Obesity E66.9 Active confirmed 439535602 Problem Keratosis pilaris L85.8 Active confirmed 51 43350 Problem Non compliance w medication regimen Z91.14 Acti ve confirmed 770922469 Problem Essential hypertension I10 Active confirmed 25708853 Problem Vitamin D deficiency E55.9 Active confirmed 36510067 Problem Mixed hyperlipidemia E78.2 Active confirmed 157032192 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), 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 confirmed 665675781 ALLERGIES Allergen (clinical drug ingredient) Drug/Non Drug Allergy do cumented on EMR Reaction Allergy Type Onset Date Status amoxicillin / clavulanate Augmentin([facility] Code:[address]-52) Rash Drug Allergy Active ENCOUNTERS from 1990 to 2021-05-18 Encounter Location Date Provider Diagnosis [facility] [address] [facility] [phone] [place] [address] 10 May, 2021 Tina Mccormick IMMUNIZATIONS Vaccine Route Administration Date Status Influenza 18 yrs & older Flublok IM Intramuscular Sep 08, 2020 Administered Pneumococcal Adult 0.5mL Pneumovax 23 IM Intramuscular May 12, 2 019 Administered SOCIAL HISTORY Tobacco Use: Social History Observation Description Date Details (start date - stop date) Never Smoker Sex Assigned At : Social History Observation Description Sex Assigned At Unknown Education: Question Answer Notes Level of Education: High School Language: Question Answer Notes Languages spoken: Arabic Mormonism: Question Answer Notes Mormonism No christianity beliefs that would impact health care. Sexual Hx: Question Answer Notes Had sex in the last 12 months (vaginal, oral, or anal)? Yes Have you ever had an STD? No Prevention Strategies discussed: Condoms with Women only Use protection? Yes How often? 90% Alcohol Screening: Question Answer Notes Did you have a drink containing alcohol in the past year? No Points 0 Interpretation Negative Tobacco Use: Question Answer Notes Are you a: never smoker REASON FOR REFERRAL No Information VITAL SIGNS No information MEDICATIONS Medication SIG (Take, Route, Frequency, Duration) Notes Start Da te End Date Status Admelog SoloStar 100 UNIT/ML as directed Subcutaneous inject 9 units before meals for 28 day(s) Apr, Active Levemir Flex Touch 100 UNIT/ML as directed Subcutaneou s inject 20 units in he morning and 30 units at bedtime Need PA Apr, Active Magnesium Oxide 400 (241.3 Mg) MG 1 tablet with food orally Michael y for 30 Days Active Klor-Con M10 10 MEQ 2 tabs Orally Daily for 30 Days Active Glucagon Emergency 1 MG as directed Injection as dir for 30 days Active Microlet Lancets - USE FOUR TIMES A DAY SUBCUTANEOUSLY for 30 Active Basaglar KwikPen 100 UNIT/ML as directed Subcutaneous inject 20 units in the morning and 30 units at bedtime for 30 Days Apr, Active FreeStyle Ginger 14 Day Sensor - as directed subcutaneously D aily for 90 day(s) Mar, Active Atorvastatin Calcium 20 MG 1 tablet Orally Once a day for 90 day(s) Active Cholecalciferol 2000 UNIT 1 capsule Orally Once a day for 90 day(s) Active Aspirin 81 MG 1 tablet Orally Once a day for 30 Days Active HumaLOG KwikPen 100 UNIT/ML as directed Subcutaneous i nject 9 units before each meal Need PA Apr, Active FreeStyle Ginger Wing - as directed subcutaneously Daily, E 13.9 for 90 day(s) Mar, Active Admelog 100 UNIT/ML as directed Subcutaneous via CSII, MDD 70 Active PROCEDURES No Information RESULTS No Results REASON FOR VISIT FSLP MEDICAL (GENERAL) HISTORY Type Description Date Medical History JASMIN ender DKA 04/2018 (7.2//17 c BHB >46)-FLAKITO Ab >25K/IC Ab 1:128; CSII lispro via 670G since 07/10/18 Medical History vitamin D deficiency Medical History hypertension, essential Medical History obesity Medical History hyperlipdemia 2B Surgical History No Surgical history information Hospitalization History first DKA-pH 7.2, BHB >46 c GLO cr to 1.4, dced on glar 18 qAM c SS lis AC TID 04/07/2018 Hospitalization History mild DKA, GLO 1-favor 2 nonfunctiona l insulin 01/04-01/07/2019 Hospitalization History mild DKA, AKI2 2 lack of pump suppli es 04/29- Hospitalization History moderate DKA-on admisssion p H 7.27, sHCO3 13, WBC 29, 23/1.8, 4.5, BHB >46 02/08-02/25 Goals Section No Information Health Concerns No Information MEDICAL EQUIPMENT No Information MENTAL STATUS No Information FUNCTIONAL STATUS No Information ASSESSMENTS No Information PLAN OF TREATMENT Medication Medication Name Sig Start Date Stop Date Admelog 100 UNIT/ML as directed Subcutaneous via CSII, MDD 70 Microlet Lancets - USE FOUR TIMES A DAY SUBCUTANEOUSLY for 30 Next Appt Details Provider Name:Jake Janeen Jt, 2021-05-30 0 8:30:00 AM, [address] [place] [address] , [place], [address], Provider Name:Jake Waters, 2021-08-16 0 4:00:00 PM, [address] [place] [address] , [place], [address], Insurance Providers Payer Name Payer Address Payer Phone Insured Name Patient Relati onship to Insured Coverage Start Date Coverage End Date [facility] [place] [address] [facility] [phone] PABLO SANCHEZ self
--- OUTSIDE RECORDS SUMMARY | 2021-07-20 21:16 | CCD ---
Author Author [facility] Organization [facility] Address Unknown Phone Unavailable Care Team Providers Care Contracts Paralegal Name Role Phone Jake Waters Unavailable PROBLEMS Type Condition ICD9-CM Code [id number] Code Onset Dates Condition S tatus W/U Status Risk SNOMED Code Notes Problem Obesity E66.9 Active confirmed 406153273 Problem Keratosis pilaris L85.8 Active confirmed 51 18867 Problem Non compliance w medication regimen Z91.14 Acti ve confirmed 813702366 Problem Essential hypertension I10 Active confirmed 99145787 Problem Vitamin D deficiency E55.9 Active confirmed 38876202 Problem Mixed hyperlipidemia E78.2 Active confirmed 316409272 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), 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 confirmed 518783357 ALLERGIES Allergen (clinical drug ingredient) Drug/Non Drug Allergy do cumented on EMR Reaction Allergy Type Onset Date Status amoxicillin / clavulanate Augmentin([facility] Code:[address]-28) Rash Drug Allergy Active ENCOUNTERS from 1990 to 2021-05-24 Encounter Location Date Provider Diagnosis [address] [phone] [place] [address] 17 May, 2021 Jake Waters IMMUNIZATIONS Vaccine Route Administration Date Status Influenza [...] School Language: Question Answer Notes Languages spoken: Polish Rastafari: Question Answer Notes Rastafari No baptism beliefs that would impact health care. Sexual [...] meal Need PA Apr, Active FreeStyle Ginger Donna - as directed subcutaneously Daily, E 13.9 for 90 day(s) Mar, Active Admelog 100 UNIT/ML as directed Subcutaneous via CSII, MDD 70 Active PROCEDURES No Information RESULTS No Results REASON FOR VISIT referral MEDICAL (GENERAL) HISTORY Type Description Date Medical History JASMIN ender DKA 04/2018 (7.2/ 04//-17 c BHB >46)-FLAKITO Ab >25K/IC Ab 1:128; [...] Name:Jake Janeen Jt, 2021-05-30 0 8:30:00 AM, [address] [place] [address] , [place], [address], Provider Name:Jake Janeen Jt, 2021-08-16 0 4:00:00 PM, [address] [place] [address], , [place], [address], Insurance Providers Payer Name Payer Address Payer Phone Insured Name Patient Relati onship to Insured Coverage Start Date Coverage End Date [facility] [employer] [facility] [address] [facility] [phone] PABLO SANCHEZ self
--- OUTSIDE RECORDS SUMMARY | 2021-07-20 21:16 | CCD ---
Author Author [facility] Organization [facility] Address Unknown Phone Unavailable Care Team Providers Care Small Stock Facer Name Role Phone Jt, Jake Unavailable PROBLEMS Type Condition ICD9-CM Code [id number] Code Onset Dates Condition S tatus W/U Status Risk SNOMED Code Notes Problem Obesity E66.9 Active confirmed 485448727 Problem Keratosis pilaris L85.8 Active confirmed 51 28506 Problem Non compliance w medication regimen Z91.14 Acti ve confirmed 341412610 Problem Essential hypertension I10 Active confirmed 66623315 Problem Vitamin D deficiency E55.9 Active confirmed 22831823 Problem Mixed hyperlipidemia E78.2 Active confirmed 082084194 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), 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 confirmed 102968829 ALLERGIES Allergen (clinical drug ingredient) Drug/Non Drug Allergy do cumented on EMR Reaction Allergy Type Onset Date Status amoxicillin / clavulanate Augmentin([facility] Code:[address]-35) Rash Drug Allergy Active ENCOUNTERS from 1990 to 2021-06-01 Encounter Location Date Provider Diagnosis [address] [phone] [place] [address] May, Jake CASTELLANOS (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), 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 ; Mixed hyperlipidemia E78.2 ; Essential hypertension I10 ; Vitamin D deficiency E55.9 ; Obesity E66.9 and Keratosis pilaris L85.8 IMMUNIZATIONS Vaccine Route Administration Date Status Influenza 18 yrs & older Flublok IM Intramuscular Sep 08, 2020 Administered Pneumococcal Adult 0.5mL Pneumovax 23 IM Intramuscular Aug 12, 2 019 Administered SOCIAL HISTORY Tobacco Use: Social History Observation Description Date Details (start date - stop date) Never Smoker Sex Assigned At : Social History Observation Description Sex Assigned At Unknown Education: Question Answer Notes Level of Education: High School Language: Question Answer Notes Languages spoken: Greenlandic Voodoo: Question Answer Notes Voodoo No nondenominational beliefs that would impact health care. Sexual [...] Notes Start Da te End Date Status Microlet Lancets - USE FOUR TIMES A DAY SUBCUTANEOUSLY for 30 Active FreeStyle Ginger [place] - as directed subcutaneously Daily, E 13.9 for 90 day(s) Active Admelog 100 UNIT/ML as directed Subcutaneous via CSII, MDD 70 for 3 0 day(s) Active Klor-Con M10 10 MEQ 2 tabs Orally Daily for 30 Days Active Glucagon Emergency 1 MG as directed Injection as dir for 30 days Active FreeStyle Ginger 14 Day Sensor - as directed subcutaneously D aily for 90 day(s) Active Aspirin 81 MG 1 tablet Orally Once a day for 30 Days Active Atorvastatin Calcium 20 MG 1 tablet Orally Once a day for 90 day(s) Active Magnesium Oxide 400 (241.3 Mg) MG 1 tablet with food orally Michael y for 30 Days Active Cholecalciferol 2000 UNIT 1 capsule Orally Once a day for 90 day(s) Active PROCEDURES No Information RESULTS No Results REASON FOR VISIT 2 Weeks Free style sensor download MEDICAL (GENERAL) HISTORY Type Description Date Medical History T1DM/JASMIN sp first DKA 8 (7.2/25/104/10/-17 c BHB >46)- FLAKITO/+ICA 1:128; CSII via 670G since 07/10/18 Medical History vitamin [...] WBC 29, 23/1.8, 4.5, BHB >46 02/08-02/25 Hospitalization History moderate DKA 7.23, 14, 1D 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 No Information Health Concerns No Information MEDICAL EQUIPMENT No Information MENTAL STATUS No Information FUNCTIONAL STATUS No Information ASSESSMENTS Encounter Date Diagnosis Assessment Notes Treatment Notes Treatm ent Clinical Notes May, 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 Reviewed 20-30 gm CC per meal, low GI snacks, need to bolus c EVERY po 05/02/21 per px request, referred to Elin for 2nd opinion 02/28/21 again placed FSL2 advising to check as below c 10D download and send rx to [facility] for covarge 02/08/21 moderate DKA 2 dislodging IS (per px), A1C 11.1 11/22/20 placed free FSL2 and advised to check 7x daily- AC TID and 2PP and at 2AM bolusing AT LEAST AC TID (placed alarms),then will read in 7D-but patient never returned, BUT does state he liked the FSL2 06/25/20 9.0 06/04/19 7.1 10/18/18 inserted sensor posterior arm (repeatedly disloding p 1-2D on anterior abdomen) 07/10/18 changed ins glar 35 at 24 c AC TID SS lispro (TDI ~50, ISF 34, CR 9) to CSII lispro via 670G 06/05/18 dietary apt (TI) for CBH counting in preparation for 570G pump 05/31/18 excellent control on MDI-only will tighten c improved diet and CLS (Auto mode)-plan next apt c Liz for 570G start-up when paperwork approved 05/09/18 basal/ratios adjusted, CMN/rx/14D BGs for 670G sent, apt for carb counting secured 04/29/18 increased basal, referred to Nutrition for carb counting and CMN for 570G 04/16/18 changed glar 18 at 8 to 18 at 24 given AC br low 200s c repeat BG download in 4D bringing in SS 04/16/[address] Carreon for DM exam and decreased OU visual acuity since elevated BG 03/2018 A1C 12 (11/2014 5.8) 04/2018 FLAKITO Ab >25K/IC Ab 1:128, C-peptide 0.6 c RBG 342 04/2018 SYDNEE/creatinine 7 04/2018 -TTG, B12 1083 mother Saad rajan RA-RF/08/2018 CCP 7/-RF, CRP <0.3 May, Mixed hyperlipidemia (ICD-10 - E78.2) 06/25/20 108/62/43 08/2018 55/44/39, 109, <0.3 on atorva 20 04/2018 lipids 160/43/111, 11, <0.3; therefore, + atorva 20 06/15/20 TSH 1.3 08/2018 1.7, 1.2 03/2018 TSH 1.5, TPO Ab 28 (<60) May, Essential hypertension (ICD-10 - I10) Continue behavorial control 06/25/20 4.3, 0.9 on K 20 QD, MOX 400 QD 08/2018 4.8, 1.9, 0.9 on K 20 BID, MOX 400 BID; therefore, decreased both to QD 04/2018 4.4, 1.9, c stable cr 0.9 on K 20 BID and MOX 400 BID, hgb stable at 15.8, 92 Contingency: ARB May, Vitamin D deficiency (ICD-10 - E55.9) 04/2018 vitamin D 15, 9.7, 40; therefore, + D3 2000 May, Obesity (ICD-10 - E66.9) Encouraged weight loss May, Keratosis pilaris (ICD-10 - L85.8) B elbow and extensor UE 10/2018 + LH 12% BID prn PLAN OF TREATMENT Medication Medication Name Sig Start Date Stop Date Aspirin 81 MG 1 tablet Orally Once a day for 30 Days Atorvastatin Calcium 20 MG 1 tablet Orally Once a day for 90 day (s) Klor-Con M10 10 MEQ 2 tabs Orally Daily for 30 Days Magnesium Oxide 400 (241.3 Mg) MG 1 tablet with food orally Michael y for 30 Days FreeStyle Ginger 14 Day Sensor - as directed subcutaneously D aily for 90 day(s) Cholecalciferol 2000 UNIT 1 capsule Orally Once a day for 90 day (s) Admelog 100 UNIT/ML as directed Subcutaneous via CSII, MDD 70 fo r 30 day(s) FreeStyle Ginger [place] - as directed subcutaneously Daily, E 13.9 for 90 day(s) Treatment Notes Assessment Notes Clinical Notes 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 Reviewed 20-30 gm CC per meal, low GI snacks, need to bolus c EVERY po05/02/21 per px request, referred to Elin for 2nd opinion02/28/21 again placed FSL2 advising to check as below c 10D download and send rx to [place] for covarge02/08/21 moderate DKA 2 dislodging IS (per px), A1C 11.09/21/21 placed free FSL2 and advised to check 7x daily- AC TID and 2PP and at 2AM bolusing AT LEAST AC TID (placed alarms),then will read in 7D-but patient never returned, BUT does state he liked the FSL 9.06/04/19 7.08/18/19 inserted sensor posterior arm (repeatedly disloding p 1-2D on anterior abdomen)07/10/18 changed ins glar 35 at 24 c AC TID SS lispro (TDI ~50, ISF 34, CR 9) to CSII lispro via 670G06/05/18 dietary apt (TI) for CBH counting in preparation for 570G pump05/31/18 excellent control on MDI-only will tighten c improved diet and CLS (Auto mode)-plan next apt c Liz for 570G start-up when paperwork approved05/09/18 basal/ratios adjusted, CMN/rx/14D BGs for 670G sent, a pt for carb counting secured04/29/18 increased basal, referred to Nutrition for carb counting and CMN for 570G04/16/18 changed glar 18 at 8 to 18 at 24 given AC br low 200s c repeat BG download in 4D bringing in SS04/16/[address] Carreon for DM exam and decreased OU visual acuity since elevated BG03/2018 A1C 12 (11/2014 5.8)04/2018 FLAKITO Ab >25K/IC Ab 1:128, C-peptide 0.6 c RBG 34204/2018 SYDNEE/creatinine -TTG, B12 1083mother Saad rajan RA-RF/08/2018 CCP 7/- RF, CRP <0.3 Mixed hyperlipidemia 06/25/20 108/ 55/44/39, 109, <0.3 on atorva lipids 160/43/111, 11, <0.3; therefore, + atorva TSH 1.311 1.7, 1. TSH 1.5, TPO Ab 28 (<60) Essential hypertension Continue behavori al control06/25/20 4.3, 0.9 on K 20 QD, MOX 400 QD08/2018 4.8, 1.9, 0.9 on K 20 BID, MOX 400 BID; therefore, decreased both to QD04/2018 4.4, 1.9, c stable cr 0.9 on K 20 BID and MOX 400 BID, hgb stable at 15.8, 92Contingency: ARB Vitamin D deficiency 04/2018 vitamin D 15 , 9.7, 40; therefore, + D3 2000 Obesity Encouraged weight lo ss Keratosis pilaris B elbow and extensor U + LH 12% BID prn Treatment Notes Test Name Order Date VITAMIN B12 LEVEL 2021-05-30 FERRITIN 2021-05-30 NT-PRO BNP 2021-05-30 Comprehensive Metabolic Profile (CMP) 2021-05-30 PTH INTACT 2021-05-30 HEMOGLOBIN A1c 2021-05-30 LIPID PANEL (CARDIAC RISK) 2021-05-30 CBC with Differential 2021-05-30 VITAMIN D 25-HYDROXY 2021-05-30 Next Appt Details 3W FSL2, BW NOW Reason: Provider Name:Jake Janeen Jt, 2021-08-16 0 4:00:00 PM, [address] [facility], , [place], [address], Insurance Providers Payer Name Payer Address Payer Phone Insured Name Patient Relati onship to Insured Coverage Start Date Coverage End Date [facility] COMMUNITY PLAN [facility] [address] [facility] [phone] [phone] PABLO SANCHEZ self
--- OUTSIDE RECORDS SUMMARY | 2021-07-20 21:16 | CCD ---
Author Author [facility] Organization [facility] Address Unknown Phone Unavailable Care Team Providers Care Buyer Name Role Phone Tina Mccormick Unavailable PROBLEMS Type Condition ICD9-CM Code [id number] Code Onset Dates Condition S tatus W/U Status Risk SNOMED Code Notes Problem Obesity E66.9 Active confirmed 304514298 Problem Keratosis pilaris L85.8 Active confirmed 51 65885 Problem Non compliance w medication regimen Z91.14 Acti ve confirmed 089174458 Problem Essential hypertension I10 Active confirmed 29804539 Problem Vitamin D deficiency E55.9 Active confirmed 38427791 Problem Mixed hyperlipidemia E78.2 Active confirmed 395713464 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), 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 confirmed 391074106 ALLERGIES Allergen (clinical drug ingredient) Drug/Non Drug Allergy do cumented on EMR Reaction Allergy Type Onset Date Status amoxicillin / clavulanate Augmentin([facility] Code:[address]-26) Rash Drug Allergy Active ENCOUNTERS from 1990 to 2021-05-21 Encounter Location Date Provider [place] [facility] [place] [address] [facility] [phone] [place] [address] May, Tina Mccormick 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 Sexual [...] REASON FOR REFERRAL No Information VITAL SIGNS Weight 255.12 lbs May, Weight-kg 115.72 kg May, Height 69 in May, BMI 37.67 kg/m2 May, Heart Rate 104 /min May, Respiratory Rate 18 /min May, Temperature 97.9 degrees Fahrenheit May, Oximetry 100% May, Blood pressure systolic 128 mm Hg May, Blood pressure diastolic 76 mm Hg May, MEDICATIONS Medication SIG (Take, Route, Frequency, Duration) [...] meal Need PA Apr, Active FreeStyle Ginger [place] - as directed subcutaneously Daily, E 13.9 for 90 day(s) Mar, Active Admelog 100 UNIT/ML as directed Subcutaneous via CSII, MDD 70 Active PROCEDURES No Information RESULTS No Results REASON FOR VISIT follow-up while DR Waters here, [facility] Discharge in [facility] MEDICAL (GENERAL) HISTORY Type Description Date Medical History JASMIN sp DKA 04/2018 (7.217 c BHB >46)-FLAKITO Ab >25K/IC Ab 1:128; [...] 13, WBC 29, 23/1.8, 4.5, BHB >46 54-02/25 Goals Section No Information Health Concerns No Information MEDICAL EQUIPMENT No Information MENTAL STATUS No Information FUNCTIONAL STATUS No Information ASSESSMENTS Encounter Date Diagnosis Assessment Notes Treatment Notes Treatm ent Clinical Notes May, 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), managed as type 1 (ICD-10 - E10.9) as above May, Hospital discharge follow-up (ICD-10 - Z09) Reviewed hospital records advised compliance with medication/treatment started back on pump received it from [employer] as per patient using FSLP for 2 weeks unable to download today therefore new FSLP sent home with patient rechek in 2 weeks for FSLP download PLAN OF TREATMENT Medication Medication Name Sig Start Date Stop Date Admelog 100 UNIT/ML as directed Subcutaneous via CSII, MDD 70 Microlet Lancets - USE FOUR TIMES A DAY SUBCUTANEOUSLY for 30 Treatment Notes Assessment Notes Clinical Notes 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), managed as type 1 as above Hospital discharge follow-up Reviewed [facility] recordsadvised compliance with medication/treatmentstarted back on pump received it from [facility] per patient using FSLP for 2 weeks unable to download todaytherefore new FSLP sent home with patientrechek in 2 weeks for FSLP download Next Appt Details 2 Weeks Free style sensor download Reaso n: Provider Name:Jake Waters, 2021-05-30 0 8:30:00 AM, [address] [place] [address] , [place], [address], Provider Name:Jake Waters, 2021-08-16 0 4:00:00 PM, [address] [place] [address] , [place], [address], Insurance Providers Payer Name Payer Address Payer Phone Insured Name Patient Relati onship to Insured Coverage Start Date Coverage End Date [facility] COMMUNITY PLAN [facility] [address] [facility] [address] PABLO SANCHEZ self
--- OUTSIDE RECORDS SUMMARY | 2021-07-20 21:16 | CCD ---
Author Author [facility] Organization [facility] Address Unknown Phone Unavailable Care Team Providers Care Fish Cake Maker Name Role Phone Jt, Jake Unavailable PROBLEMS Type Condition ICD9-CM Code [id number] Code Onset Dates Condition S tatus W/U Status Risk SNOMED Code Notes Problem Obesity E66.9 Active confirmed 860629991 Problem Keratosis pilaris L85.8 Active confirmed 51 74276 Problem Non compliance w medication regimen Z91.14 Acti ve confirmed 513153820 Problem Essential hypertension I10 Active confirmed 29208017 Problem Vitamin D deficiency E55.9 Active confirmed 80625367 Problem Mixed hyperlipidemia E78.2 Active confirmed 478760394 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), 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 confirmed 971568804 ALLERGIES Allergen (clinical drug ingredient) Drug/Non Drug Allergy do cumented on EMR Reaction Allergy Type Onset Date Status amoxicillin / clavulanate Augmentin([facility] Code:[address]-28) Rash Drug Allergy Active ENCOUNTERS from 1990 to 2021-07-19 Encounter Location Date Provider Diagnosis [address] [phone] [place] [address] 11 Jul, 2021 Jake CASTELLANOS (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), 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 IMMUNIZATIONS Vaccine Route Administration Date Status Influenza 18 yrs & older Flublok IM Intramuscular Sep 08, 2020 Administered Pneumococcal Adult 0.5mL Pneumovax 23 IM Intramuscular May 19, 2 019 Administered SOCIAL HISTORY Tobacco Use: Social History Observation Description Date Details (start date - stop date) Never Smoker Sex Assigned At : Social History Observation Description Sex Assigned At Unknown Education: Question Answer Notes Level of Education: High School Language: Question Answer Notes Languages spoken: Faroese Druze: Question Answer Notes Druze No scientologist beliefs that would impact health care. Sexual [...] DAY SUBCUTANEOUSLY for 30 Active FreeStyle Ginger 14 Day Sensor - as directed subcutaneously D aily for 90 day(s) Active FreeStyle Ginger [place] - as directed subcutaneously Daily, E 13.9 for 90 day(s) Active Klor-Con M10 10 MEQ 2 tabs Orally Daily for 30 Days Active Glucagon Emergency 1 MG as directed Injection as dir for 30 days Active Admelog 100 UNIT/ML as directed Subcutaneous via CSII, MDD 100 f or 30 day(s) Active Aspirin 81 MG 1 tablet [...] Information RESULTS No Results REASON FOR VISIT sliding scale MEDICAL (GENERAL) HISTORY Type Description Date Medical [...] moderate DKA 7.23, 14, 1D N/V/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 Health Concerns No Information MEDICAL EQUIPMENT No Information MENTAL STATUS No Information FUNCTIONAL STATUS No Information ASSESSMENTS Encounter Date Diagnosis Assessment Notes Treatment Notes Treatm ent Clinical Notes Jul, 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), managed as type 1 (ICD-10 - E10.9) PLAN OF TREATMENT Medication Medication Name Sig [...] food orally Michael y for 30 Days Admelog 100 UNIT/ML as directed Subcutaneous via CSII, MDD 100 f or 30 day(s) Cholecalciferol 2000 UNIT 1 capsule Orally Once a day for 90 day (s) FreeStyle Ginger [place] - as directed subcutaneously Daily, E 13.9 for 90 day(s) FreeStyle Ginger 14 Day Sensor - as directed subcutaneously D aily for 90 day(s) Next Appt Details Provider Name:Jake Waters, 2021-08-16 0 4:00:00 PM, [address] [facility], , [place], [address], Insurance Providers Payer Name Payer Address Payer Phone Insured Name Patient Relati onship to Insured Coverage Start Date Coverage End Date [facility] COMMUNITY PLAN [facility] [address] [facility] [phone] PABLO SANCHEZ self
--- OUTSIDE RECORDS SUMMARY | 2021-07-20 21:16 | CCD ---
Author Author [facility] Organization [facility] Address Unknown Phone Unavailable Care Team Providers Care Sales Contract Administrator Name Role Phone Jt, Jake Unavailable PROBLEMS Type Condition ICD9-CM Code [id number] Code Onset Dates Condition S tatus W/U Status Risk SNOMED Code Notes Problem Obesity E66.9 Active confirmed 319905417 Problem Keratosis pilaris L85.8 Active confirmed 51 03082 Problem Non compliance w medication regimen Z91.14 Acti ve confirmed 196532960 Problem Essential hypertension I10 Active confirmed 37506293 Problem Vitamin D deficiency E55.9 Active confirmed 24365405 Problem Mixed hyperlipidemia E78.2 Active confirmed 493415696 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), 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 confirmed 460830363 ALLERGIES Allergen (clinical drug ingredient) Drug/Non Drug Allergy do cumented on EMR Reaction Allergy Type Onset Date Status amoxicillin / clavulanate Augmentin([facility] Code:[address]-40) Rash Drug Allergy Active ENCOUNTERS from 1990 to 2021-06-22 Encounter Location Date Provider Diagnosis [address] [phone] [place] [address] 15 Jun, 2021 Jake CASTELLANOS (latent autoimmune diab etes [...] School Language: Question Answer Notes Languages spoken: Bulgarian Restorationist: Question Answer Notes Restorationist No yazidism beliefs that would impact health care. 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 No Information Health Concerns No Information MEDICAL EQUIPMENT No Information MENTAL STATUS No Information FUNCTIONAL STATUS No Information ASSESSMENTS Encounter Date Diagnosis Assessment Notes Treatment Notes Treatm ent Clinical Notes 15 Jun, 2021 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), [...] CSII, MDD 70 fo r 30 day(s) Magnesium Oxide 400 (241.3 Mg) MG 1 tablet with food orally Michael y for 30 Days Cholecalciferol 2000 UNIT 1 capsule Orally Once a day for 90 day (s) Klor-Con M10 10 MEQ 2 tabs Orally Daily for 30 Days FreeStyle Ginger [place] - as directed subcutaneously Daily, E 13.9 for 90 day(s) FreeStyle Ginger 14 Day Sensor - as directed subcutaneously D aily for 90 day(s) Next Appt Details Provider Name:Jake Waters, 2021-08-16 0 4:00:00 PM, [address] [facility], , [place], [address], Insurance Providers Payer Name Payer Address Payer Phone Insured Name Patient Relati onship to Insured Coverage Start Date Coverage End Date [facility] [address] [facility] [phone] PABLO SANCHEZ self
--- OUTSIDE RECORDS SUMMARY | 2021-07-20 21:17 | CCD ---
Author Author [facility] Organization [facility] Address Unknown Phone Unavailable Care Team Providers Care First Assistant Name Role Phone Jt, Jake Unavailable PROBLEMS Type Condition ICD9-CM Code [id number] Code Onset Dates Condition S tatus W/U Status Risk SNOMED Code Notes Problem Obesity E66.9 Active confirmed 840393290 Problem Keratosis pilaris L85.8 Active confirmed 51 90314 Problem Non compliance w medication regimen Z91.14 Acti ve confirmed 374537656 Problem Essential hypertension I10 Active confirmed 54121926 Problem Vitamin D deficiency E55.9 Active confirmed 34923214 Problem Mixed hyperlipidemia E78.2 Active confirmed 712050943 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 Code:[address]-43) Rash Drug Allergy Active ENCOUNTERS from 1990 to 2021-05-03 Encounter Location Date Provider Diagnosis [address] [phone] [place] [address] Apr, Jake CASTELLANOS (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), 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 and Non compliance w medication regimen Z91.14 IMMUNIZATIONS Vaccine Route Administration Date Status Influenza 18 yrs & older Flublok IM Intramuscular Sep 08, 2020 Administered Pneumococcal Adult 0.5mL Pneumovax 23 IM Intramuscular May 19 019 Administered SOCIAL HISTORY Tobacco Use: Social History Observation Description Date Details (start date - stop date) Never Smoker Sex Assigned At : Social History Observation Description Sex Assigned At Unknown Education: Question Answer Notes Level of Education: High School Language: Question Answer Notes Languages spoken: Swedish Latter-Day: Question Answer Notes Latter-Day No restorationist beliefs that would impact health care. Sexual [...] Notes Start Da te End Date Status Lancets 1 as directed subcutaneously four times daily for 90 day(s) Active FreeStyle Ginger 14 Day Sensor - as directed subcutaneously D aily for 90 day(s) Mar, Active Atorvastatin Calcium 20 MG 1 tablet Orally Once a day for 90 day(s) Active MiniMed 670G Insulin Pump - as directed _ with Latoya n 3 sensor and Guardian 3 transmitter for 99 months Active Magnesium Oxide 400 (241.3 Mg) MG 1 tablet with food orally Michael y for 30 Days Active Admelog 100 UNIT/ML USE DIRECTED VIA CSII MAX IMUM DAILY DOSE = 70 UNITS SUBCUTANEOUS for 57 Active Cholecalciferol 2000 UNIT 1 capsule Orally Once a day for 90 day(s) Active Klor-Con M10 10 MEQ 2 tabs Orally Daily for 30 Days Active Glucagon Emergency 1 MG as directed Injection as dir for 30 days Active FreeStyle Ginger [place] - as directed subcutaneously Daily, E 13.9 for 90 day(s) Mar, Active Aspirin 81 MG 1 tablet Orally Once a day for 30 Days Active Admelog 100 UNIT/ML as directed Subcutaneous via CSII, MDD 70 for 3 0 day(s) Active PROCEDURES No Information RESULTS No Results REASON FOR VISIT No Information MEDICAL (GENERAL) HISTORY Type Description Date Medical History JASMIN ender DKA 04/2018 (7.217 c BHB >46)-FLAKITO Ab [...] Notes Treatment Notes Treatm ent Clinical Notes Apr, 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), managed as type 1 (ICD-10 - E10.9) Apr, Non compliance w medication regimen (ICD-10 - Z9 1.14) PLAN OF TREATMENT Medication Medication Name Sig Start Date Stop Date Klor-Con M10 10 MEQ 2 tabs Orally Daily for 30 Days FreeStyle Ginger [place] - as directed subcutaneously Daily, E 13.9 for 90 day(s) Mar, Magnesium Oxide 400 (241.3 Mg) MG 1 tablet with food orally Michael y for 30 Days Aspirin 81 MG 1 tablet Orally Once a day for 30 Days Cholecalciferol 2000 UNIT 1 capsule Orally Once a day for 90 day (s) Admelog 100 UNIT/ML as directed Subcutaneous via CSII, MDD 70 fo r 30 day(s) Atorvastatin Calcium 20 MG 1 tablet Orally Once a day for 90 day (s) FreeStyle Ginger 14 Day Sensor - as directed subcutaneously D aily for 90 day(s) Mar, Next Appt Details Provider Name:Tina Mccormick, 05-10 08:30:00 AM, [address] [place] [address] , [place], [address], Provider Name:Jake Waters, 2021-08-16 0 4:00:00 PM, [address] [place] [address] , [place], [address], Insurance Providers Payer Name Payer Address Payer Phone Insured Name Patient Relati onship to Insured Coverage Start Date Coverage End Date [facility] COMMUN[facility] PL[facility] [address] [facility] [phone] PABLO SANCHEZ self
--- OUTSIDE RECORDS SUMMARY | 2021-07-20 21:17 | CCD ---
Author Author [facility] Organization [facility] Address Unknown Phone Unavailable Care Team Providers Care Home Inspector Name Role Phone Tina Mccormick Unavailable PROBLEMS Type Condition ICD9-CM Code [id number] Code Onset Dates Condition S tatus W/U Status Risk SNOMED Code Notes Problem Obesity E66.9 Active confirmed 245486797 Problem Keratosis pilaris L85.8 Active confirmed 51 77949 Problem Non compliance w medication regimen Z91.14 Acti ve confirmed 453730771 Problem Essential hypertension I10 Active confirmed 47441435 Problem Vitamin D deficiency E55.9 Active confirmed 49295700 Problem Mixed hyperlipidemia E78.2 Active confirmed 944141605 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), 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 confirmed 577184736 ALLERGIES Allergen (clinical drug ingredient) Drug/Non Drug Allergy do cumented on EMR Reaction Allergy Type Onset Date Status amoxicillin / clavulanate Augmentin([facility] Code:[address]-07) Rash Drug Allergy Active ENCOUNTERS from 1990 to 2021-05-05 Encounter Location Date Provider Diagnosis [facility] [address] [facility] [phone] [place] [address] Apr, Tina Vergararasta IMMUNIZATIONS Vaccine Route Administration Date Status Influenza [...] School Language: Question Answer Notes Languages spoken: Bengali Mormonism: Question Answer Notes Mormonism No jehovah's witness beliefs that would impact health care. Sexual [...] Notes Start Da te End Date Status Levemir Flex Touch 100 UNIT/ML as directed Subcutaneou s inject 20 units in he morning and 30 units at bedtime Apr, Active FreeStyle Ginger [place] - as directed subcutaneously Daily, E 13.9 for 90 day(s) Mar, Active Cholecalciferol 2000 UNIT 1 capsule Orally Once a day for 90 day(s) Active Atorvastatin Calcium 20 MG 1 tablet Orally Once a day for 90 day(s) Active HumaLOG KwikPen 100 UNIT/ML as directed Subcutaneous i nject 9 units before each meal Apr, Active Admelog SoloStar 100 UNIT/ML as directed Subcutaneous inject 9 units before meals for 28 day(s) Apr, Active Magnesium Oxide 400 (241.3 Mg) MG 1 tablet with food orally Michael y for 30 Days Active FreeStyle Ginger 14 Day Sensor - as directed subcutaneously D aily for 90 day(s) Mar, Active Basaglar KwikPen 100 UNIT/ML as directed Subcutaneous inject 20 units in the morning and 30 units at bedtime for 30 Days Apr, Active Glucagon Emergency 1 MG as directed Injection as dir for 30 days Active Aspirin 81 MG 1 tablet Orally Once a day for 30 Days Active Admelog 100 UNIT/ML as directed Subcutaneous via CSII, MDD 70 for 3 0 day(s) Active Lancets 1 as directed subcutaneously four times daily for 90 day(s) Active Klor-Con M10 10 MEQ 2 tabs Orally Daily for 30 Days Active PROCEDURES No Information RESULTS No Results REASON FOR VISIT no show MEDICAL (GENERAL) HISTORY Type Description Date Medical History JASMIN DAO 04/2018 (7.2/25/1 04/10/-17 c BHB >46)-FLAKITO Ab >25K/IC Ab 1:128; [...] Medication Name Sig Start Date Stop Date Basaglar KwikPen 100 UNIT/ML as directed Subcutaneous inject 20 units in the morning and 30 units at bedtime for 30 Days Apr, Admelog SoloStar 100 UNIT/ML as directed Subcutaneous inject 9 units before meals for 28 day(s) Apr, Next Appt Details Provider Name:Jake Watres, 2021-08-16 0 4:00:00 PM, [address] [facility], , [place], [address], Insurance Providers Payer Name Payer Address Payer Phone Insured Name Patient Relati onship to Insured Coverage Start Date Coverage End Date [facility] [address] [facility] [phone] PABLO SANCHEZ self
--- OUTSIDE RECORDS SUMMARY | 2021-07-20 21:17 | CCD ---
Author Author [facility] Organization [facility] Address Unknown Phone Unavailable Care Team Providers Care Apparel Manager Name Role Phone Janeen Waters MD Unavailable Unavailable Janeen Waters MD Unavailable Unavailable Janeen Waters MD Unavailable Unavailable Janeen Waters MD Unavailable Unavailable Janeen Waters MD Unavailable Unavailable Janeen Waters MD Unavailable Unavailable JtJaneen MD Unavailable Unavailable Jt, Janeen Joseph MD Unavailable Unavailable Jt, Janeen Joseph MD Unavailable Unavailable Jt, Janeen Joseph MD Unavailable Unavailable Jt, Janeen Joseph MD Unavailable Unavailable Jt, Janeen Joseph MD Unavailable Unavailable Jt, Janeen Joseph MD Unavailable Unavailable Jt, Janeen Joseph MD Unavailable Unavailable Jt, Janeen Joseph MD Unavailable Unavailable Jt, Janeen Joseph MD Unavailable Unavailable Jt, Janeen Joseph MD Unavailable Unavailable Jt, Janeen Joseph MD Unavailable Unavailable Jt, Janeen Joseph MD Unavailable Unavailable Jt, Janeen Joseph MD Unavailable Unavailable Jt, Janeen Joseph MD Unavailable Unavailable Jt, Janeen Joseph MD Unavailable Unavailable Jt, Janeen Joseph MD Unavailable Unavailable Jt, Janeen Joseph MD Unavailable Unavailable Jt, Janeen Joseph MD Unavailable Unavailable Jt, Janeen Joseph MD Unavailable Unavailable Jt, Janeen Joseph MD Unavailable Unavailable Jt, Janeen Joseph MD Unavailable Unavailable Jt, Janeen Joseph MD Unavailable Unavailable JtJaneen MD Unavailable Unavailable JtJaneen MD Unavailable Unavailable Jt, Janeen Joseph MD Unavailable Unavailable Jt, Janeen Joseph MD Unavailable Unavailable Jt, Janeen Joseph MD Unavailable Unavailable Jt, Janeen Joseph MD Unavailable Unavailable Jt, Janeen Joseph MD Unavailable Unavailable JtJaneen MD Unavailable Unavailable JtJaneen MD Unavailable Unavailable JtJaneen MD Unavailable Unavailable Jt, Janeen Joseph MD Unavailable Unavailable JtJaneen MD Unavailable Unavailable Jt, Janeen Joseph MD Unavailable Unavailable JtJaneen MD Unavailable Unavailable JtJaneen MD Unavailable Unavailable JtJaneen MD Unavailable Unavailable JtJaneen MD Unavailable Unavailable JtJaneen MD Unavailable Unavailable JtJaneen MD Unavailable Unavailable JtJaneen MD Unavailable Unavailable JtJaneen MD Unavailable Unavailable JtJaneen MD Unavailable Unavailable JtJaneen MD Unavailable Unavailable JtJaneen MD Unavailable Unavailable JtJaneen MD Unavailable Unavailable JtJaneen MD Unavailable Unavailable JtJaneen MD Unavailable Unavailable JtJaneen MD Unavailable Unavailable Jt, Janeen Joseph MD Unavailable Unavailable Jt, Janeen Joseph MD Unavailable Unavailable May Georges MD Unavailable Unavailable May Georges MD Unavailable Unavailable May Georges MD Unavailable Unavailable May Georges MD Unavailable Unavailable May Georges MD Unavailable Unavailable May Georges MD Unavailable Unavailable May Georges MD Unavailable Unavailable José Manuel, May MD Unavailable Unavailable José Manuel, May MD Unavailable Unavailable José Manuel, May MD Unavailable Unavailable José Manuel, May MD Unavailable Unavailable José Manuel, May MD Unavailable Unavailable José Manuel, May MD Unavailable Unavailable José Manuel, May MD Unavailable Unavailable José Manuel, May MD Unavailable Unavailable José Manuel, May MD Unavailable Unavailable José Manuel, May MD Unavailable Unavailable José Manuel, May MD Unavailable Unavailable José Manuel, May MD Unavailable Unavailable José Manuel, May MD Unavailable Unavailable José Manuel, May MD Unavailable Unavailable José Manuel, May MD Unavailable Unavailable José Manuel, May MD Unavailable Unavailable José Manuel, May MD Unavailable Unavailable José Manuel, May MD Unavailable Unavailable José Manuel, May MD Unavailable Unavailable José Manuel, May MD Unavailable Unavailable José Manuel, May MD Unavailable Unavailable José Manuel, May MD Unavailable Unavailable José Manuel, May MD Unavailable Unavailable José Manuel, May MD Unavailable Unavailable José Manuel, May MD Unavailable Unavailable José Manuel, May MD Unavailable Unavailable José Manuel, May MD Unavailable Unavailable Re-disclosure Warning The records that you are about to access may contain information from federally-assisted alcohol or drug abuse programs. If such information is present, then the following federally mandated warning applies: This information has been disclosed to you from records protected by federal confidentiality rules (42 CFR part 2). The federal rules prohibit you from making any further disclosure of this information unless further disclosure is expressly permitted by the written consent of the person to whom it pertains or as otherwise permitted by 42 CFR part 2. A general authorization for the release of medical or other information is NOT sufficient for this purpose. The Federal rules restrict any use of the information to criminally investigate or prosecute any alcohol or drug abuse patient.The records that you are about to access may contain highly sensitive health information, the redisclosure of which is protected by Article 27-F of the [place] [facility] Public Health law. If you continue you may have access to information: Regarding HIV / AIDS; Provided by facilities licensed or operated by the [facility] Office of Mental Health; or Provided by the [facility] Office for People With Developmental Disabilities. If such information is present, then the following [facility] mandated warning applies: This information has been disclosed to you from confidential records which are protected by state law. State law prohibits you from making any further disclosure of this information without the specific written consent of the person to whom it pertains, or as otherwise permitted by law. Any unauthorized further disclosure in violation of state law may result in a fine or halfway sentence or both. A general authorization for the release of medical or other information is NOT sufficient authorization for further disc losure. Encounters Encounter Providers Location Date Indications Data Source(s ) Outpatient Attender: May Georges MDReferrer: Jake Waters MD 02/15/2022 12:00:00 AM EDT [facility] Unknown [address] [facility] [address] [address] 07/18/2021 12:00:00 AM EDT eCW1 ([facility]) Unknown [address] [facility] [address] [address] 06/22/2021 12:00:00 AM EDT eCW1 ([facility]) Outpatient [address] [facility] [id number] 05/30/2021 12:00:00 AM EDT eCW1 ([facility]) Unknown [address] [facility] [address] [address] 05/24/2021 12:00:00 AM EDT eCW1 ([facility]) Unknown [address] [facility] [address] [address] 05/17/2021 12:00:00 AM EDT eCW1 ([facility]) Outpatient [address] [facility] [address] [address] 05/16/2021 12:00:00 AM EDT eCW1 ([facility]) Unknown [address] [facility] [address] [address] 05/04/2021 12:00:00 AM EDT [facility] Unknown [address] [facility] [address] [address] 05/03/2021 12:00:00 AM EDT eCW1 [facility] Unknown [address] [facility] [address] [address] 05/02/2021 12:00:00 AM EDT eCW1 ([facility]) [place] [address] [facility] [place] [address] 05/02/2021 12:00:00 AM EDT eCW1 ([facility]) [place] [address] [facility] [place] [address] 04/21/2021 12:00:00 AM EDT eCW1 ([facility]) [place] [address] [facility] [place] [address] 04/14/2021 12:00:00 AM EDT eCW1 ([facility]) [place] [address] [facility] [place] [address] 03/30/2021 12:00:00 AM EDT eCW1 ([facility]) [place] [address] [facility] [place] [address] 03/14/2021 12:00:00 AM EDT eCW1 ([facility]) [place] [address] [facility] [place] [address] 03/14/2021 12:00:00 AM EDT eCW1 ([facility]) [place] [address] [facility] [place] [address] 02/28/2021 12:00:00 AM EDT eCW1 ([facility]) [place] [address] [facility] [place] [address] 02/17/2021 12:00:00 AM EDT eCW1 ([facility]) Unknown [address] [facility] [place] [address] 02/16/2021 12:00:00 AM EDT eCW1 ([facility]) Unknown [address] [facility] [place] [address] 02/11/2021 12:00:00 AM EDT eCW1 ([facility]) Unknown [address] [facility] [place] [address] 01/14/2021 12:00:00 AM EDT eCW1 ([facility]) [place] [address] [facility] [place] [address] 12/24/2020 12:00:00 AM EDT eCW1 ([facility]) Unknown [address] [facility] [place] [address] 11/29/2020 12:00:00 AM EST eCW1 ([facility]) Unknown [address] [facility] [place] [address] 11/22/2020 12:00:00 AM EST eCW1 ([facility]) Outpatient [address] [facility] [place] [address] 11/19/2020 12:00:00 AM EST eCW1 ([facility]) Unknown [address] [facility] [place] [address] 11/03/2020 12:00:00 AM EST eCW1 ([facility]) Unknown [address] [facility] [place] [address] 10/11/2020 12:00:00 AM EST eCW1 ([facility]) Unknown [address] [facility] [place] [address] 09/13/2020 12:00:00 AM EST eCW1 ([facility]) Unknown [address] [facility] [place] [address] 09/08/2020 12:00:00 AM EST eCW1 ([facility]) [place] [address] [facility] [place] [address] 09/08/2020 12:00:00 AM EST eCW1 ([facility]) [place] [address] [facility] [place] [address] 08/27/2020 12:00:00 AM EST eCW1 ([facility]) [place] [address] [facility] [place] [address] 08/24/2020 12:00:00 AM EST eCW1 ([facility]) [place] [address] [facility] [place] [address] 08/24/2020 12:00:00 AM EST eCW1 ([facility]) Outpatient [address] [facility] [place] [address] 07/22/2020 12:00:00 AM EDT eCW1 ([facility]) Unknown [address] [facility] [place] [address] 07/16/2020 12:00:00 AM EDT eCW1 ([facility]) [place] [address] [facility] [place] [address] 07/15/2020 12:00:00 AM EDT eCW1 ([facility]) Unknown [address] [facility] [place] [address] 07/12/2020 12:00:00 AM EDT eCW1 ([facility]) [facility] [address] [facility] [place] [address] 05/25/2020 12:00:00 AM EDT eCW1 ([facility]) Immunizations Vaccine Date Status Description Data Source(s) COVID-19 VACCINE Pfizer 03/27/2021 12:00:00 AM EDT completed [facility] Vaccine Series Complete: YESThis Data wa s Submitted to [facility] Via [employer]. COVID-19 VACC, MRNA(PFIZER)/PF 03/27/2021 12:00:00 AM EDT completed [facility] COVID-19 VACC, MRNA(PFIZER)/PF 03/06/2021 12:00:00 AM EDT completed [facility] COVID-19 VACCINE Pfizer 03/06/2021 12:00:00 AM EDT completed [facility] Vaccine Series Complete: NOThis Data was Submitted to [facility] Via [employer]. influenza, recombinant, quadrIvalent,injectable, prese rvative free 09/08/2020 03:02:00 PM EST completed eCW1 ([facility]) influenza, recombinant, quadrIvalent,injectable, prese rvative free 09/08/2020 03:02:00 PM EST completed eCW1 ([facility]) influenza, recombinant, quadrIvalent,injectable, prese rvative free 09/08/2020 03:02:00 PM EST completed eCW1 ([facility]) influenza, recombinant, quadrIvalent,injectable, prese rvative free 09/08/2020 03:02:00 PM EST completed eCW1 ([facility]) influenza, recombinant, quadrIvalent,injectable, prese rvative free 09/08/2020 03:02:00 PM EST completed eCW1 ([facility]) influenza, recombinant, quadrIvalent,injectable, prese rvative free 09/08/2020 03:02:00 PM EST completed eCW1 ([facility]) influenza, recombinant, quadrIvalent,injectable, prese rvative free 09/08/2020 03:02:00 PM EST completed eCW1 ([facility]) influenza, recombinant, quadrIvalent,injectable, prese rvative free 09/08/2020 03:02:00 PM EST completed eCW1 ([facility]) influenza, recombinant, quadrIvalent,injectable, prese rvative free 09/08/2020 03:02:00 PM EST completed eCW1 ([facility]) influenza, recombinant, quadrIvalent,injectable, prese rvative free 09/08/2020 03:02:00 PM EST completed eCW1 ([facility]) influenza, recombinant, quadrIvalent,injectable, prese rvative free 09/08/2020 03:02:00 PM EST completed eCW1 ([facility]) influenza, recombinant, quadrIvalent,injectable, prese rvative free 09/08/2020 03:02:00 PM EST completed eCW1 ([facility]) influenza, recombinant, quadrIvalent,injectable, prese rvative free 09/08/2020 03:02:00 PM EST completed eCW1 ([facility]) influenza, recombinant, quadrIvalent,injectable, prese rvative free 09/08/2020 03:02:00 PM EST completed eCW1 ([facility]) influenza, recombinant, quadrIvalent,injectable, prese rvative free 09/08/2020 03:02:00 PM EST completed eCW1 ([facility]) influenza, recombinant, quadrIvalent,injectable, prese rvative free 09/08/2020 03:02:00 PM EST completed eCW1 ([facility]) influenza, recombinant, quadrIvalent,injectable, prese rvative free 09/08/2020 03:02:00 PM EST completed eCW1 ([facility]) influenza, recombinant, quadrIvalent,injectable, prese rvative free 09/08/2020 03:02:00 PM EST completed eCW1 ([facility]) influenza, recombinant, quadrIvalent,injectable, prese rvative free 09/08/2020 03:02:00 PM EST completed eCW1 ([facility]) influenza, recombinant, quadrIvalent,injectable, prese rvative free 09/08/2020 03:02:00 PM EST completed eCW1 ([facility]) influenza, recombinant, quadrIvalent,injectable, prese rvative free 09/08/2020 03:02:00 PM EST completed eCW1 ([facility]) influenza, recombinant, quadrIvalent,injectable, prese rvative free 09/08/2020 03:02:00 PM EST completed eCW1 ([facility]) influenza, recombinant, quadrIvalent,injectable, prese rvative free 09/08/2020 03:02:00 PM EST completed eCW1 ([facility]) influenza, recombinant, quadrIvalent,injectable, prese rvative free 09/08/2020 03:02:00 PM EST completed eCW1 ([facility]) influenza, recombinant, quadrIvalent,injectable, prese rvative free 09/08/2020 03:02:00 PM EST completed eCW1 ([facility]) influenza, recombinant, quadrIvalent,injectable, prese rvative free 09/08/2020 03:02:00 PM EST completed eCW1 ([facility]) influenza, recombinant, quadrIvalent,injectable, prese rvative free 09/08/2020 03:02:00 PM EST completed eCW1 ([facility]) influenza, recombinant, quadrIvalent,injectable, prese rvative free 09/08/2020 03:02:00 PM EST completed eCW1 ([facility]) influenza, recombinant, quadrIvalent,injectable, prese rvative free 09/08/2020 03:02:00 PM EST completed eCW1 ([facility]) influenza, recombinant, quadrIvalent,injectable, prese rvative free 09/08/2020 03:02:00 PM EST completed eCW1 ([facility]) Medications Medication Brand Name Start Date Product Form Dose Route Admi nistrative Instructions Pharmacy Instructions Status Indications Reaction Description Data Source(s) 100 unit/mL 07/18/2021 12:00:00 AM EDT solution 30 INJECT DIRECTED MAXIMUM DAILY DOSE = 100 UNITS INJECT DIRECTED MAXIMUM DAILY DOSE = 100 UNITS SOLD: 07/18/2021 [facility] 60 mcg (15 mcg x 4)/0.5 mL 07/08/2021 12:00:00 AM EDT [facility] [place] 0 DIRECTED DIRECTED SOLD: 07/08/2021 [facility] 100 unit/mL 06/26/2021 12:00:00 AM EDT solution 20 DIRECTED VIA CSII MAXIMUM DAILY DOSE = 70 UNITS DIRECTED VIA CSII MAXIMUM DAILY DOSE = 70 UNITS SOLD: 06/26/2021 [facility] Admelog SoloStar 100 UNIT/ML Admelog SoloStar 100 UNIT/ML 12:00:00 AM EDT active Admelog SoloStar 100 UNIT/ML eCW1 ([facility]) Admelog SoloStar 100 UNIT/ML Admelog SoloStar 100 UNIT/ML 12:00:00 AM EDT active Admelog SoloStar 100 UNIT/ML eCW1 ([facility]) Admelog SoloStar 100 UNIT/ML Admelog SoloStar 100 UNIT/ML 12:00:00 AM EDT active eCW1 ([facility]) Basaglar KwikPen 100 UNIT/ML Basaglar KwikPen 100 UNIT/ML 12:00:00 AM EDT active Basaglar KwikPen 100 UNIT/ML eCW1 ([facility]) Basaglar KwikPen 100 UNIT/ML Basaglar KwikPen 100 UNIT/ML 12:00:00 AM EDT active Basaglar KwikPen 100 UNIT/ML eCW1 ([facility]) 3 ML Insulin Glargine 100 UNT/ML Pen Injector [Basagla r] 100 unit/mL (3 mL) INSULIN GLARGINE,HUM.REC.ANLOG 05/04/2021 12:00:00 AM EDT insulin pen 30 INJECT 20 UNITS SUBCUTANEOUSLY EVERY MORNING AND 30 UNITS AT BEDTIME INJECT 20 UNITS SUBCUTANEOUSLY EVERY MORNING AND 30 UNITS AT BEDTIME SOLD: 05/04/2021 [facility] Admelog SoloStar 100 UNIT/ML Admelog SoloStar 100 UNIT/ML 12:00:00 AM EDT active Admelog SoloStar 100 UNIT/ML eCW1 ([facility]) Basaglar KwikPen 100 UNIT/ML Basaglar KwikPen 100 UNIT/ML 12:00:00 AM EDT active Basaglar KwikPen 100 UNIT/ML eCW1 ([facility]) Admelog SoloStar 100 UNIT/ML Admelog SoloStar 100 UNIT/ML 12:00:00 AM EDT active Admelog SoloStar 100 UNIT/ML eCW1 ([facility]) Basaglar KwikPen 100 UNIT/ML Basaglar KwikPen 100 UNIT/ML 12:00:00 AM EDT active eCW1 ([facility]) Basaglar KwikPen 100 UNIT/ML Basaglar KwikPen 100 UNIT/ML 12:00:00 AM EDT active Basaglar KwikPen 100 UNIT/ML eCW1 ([facility]) Basaglar KwikPen 100 UNIT/ML Basaglar KwikPen 100 UNIT/ML 12:00:00 AM EDT active Basaglar KwikPen 100 UNIT/ML eCW1 ([facility]) Admelog SoloStar 100 UNIT/ML Admelog SoloStar 100 UNIT/ML 12:00:00 AM EDT active Admelog SoloStar 100 UNIT/ML eCW1 ([facility]) Levemir Flex Touch 100 UNIT/ML UNK 05/02/2021 12:00:00 AM EDT active Levemir Flex Touch 100 UNIT/ML eCW1 ([facility]) Levemir Flex Touch 100 UNIT/ML UNK 05/02/2021 12:00:00 AM EDT active eCW1 ([facility]) Levemir Flex Touch 100 UNIT/ML UNK 05/02/2021 12:00:00 AM EDT active Levemir Flex Touch 100 UNIT/ML eCW1 ([facility]) 31 gauge x 3/16" 05/02/2021 12:00:00 AM EDT needle 5 USE DIRECTED USE DIRECTED SOLD: 05/04/2021 [facility] 3 ML Insulin Lispro 100 UNT/ML Pen Injec tor [Humalog] HumaLOG KwikPen 100 UNIT/ML HumaLOG KwikPen 100 UNIT/ML 05/02/2021 12:00:00 AM EDT active eCW1 ([facility]) 3 ML Insulin Lispro 100 UNT/ML Pen Injec tor [Humalog] HumaLOG KwikPen 100 UNIT/ML HumaLOG KwikPen 100 UNIT/ML 05/02/2021 12:00:00 AM EDT active HumaLOG KwikPen 100 UNIT/ML eCW1 ([facility]) 3 ML Insulin Lispro 100 UNT/ML Pen Injec tor [Humalog] HumaLOG KwikPen 100 UNIT/ML HumaLOG KwikPen 100 UNIT/ML 05/02/2021 12:00:00 AM EDT active HumaLOG KwikPen 100 UNIT/ML eCW1 ([facility]) Levemir Flex Touch 100 UNIT/ML UNK 05/02/2021 12:00:00 AM EDT active Levemir Flex Touch 100 UNIT/ML eCW1 ([facility]) Levemir Flex Touch 100 UNIT/ML UNK 05/02/2021 12:00:00 AM EDT active Levemir Flex Touch 100 UNIT/ML eCW1 ([facility]) 3 ML Insulin Lispro 100 UNT/ML Pen Injec tor [Humalog] HumaLOG KwikPen 100 UNIT/ML HumaLOG KwikPen 100 UNIT/ML 05/02/2021 12:00:00 AM EDT active HumaLOG KwikPen 100 UNIT/ML eCW1 ([facility]) Levemir Flex Touch 100 UNIT/ML UNK 05/02/2021 12:00:00 AM EDT active Levemir Flex Touch 100 UNIT/ML eCW1 ([facility]) 3 ML Insulin Lispro 100 UNT/ML Pen Injec tor [Humalog] HumaLOG KwikPen 100 UNIT/ML HumaLOG KwikPen 100 UNIT/ML 05/02/2021 12:00:00 AM EDT active HumaLOG KwikPen 100 UNIT/ML eCW1 ([facility]) 3 ML Insulin Lispro 100 UNT/ML Pen Injec tor [Humalog] HumaLOG KwikPen 100 UNIT/ML HumaLOG KwikPen 100 UNIT/ML 05/02/2021 12:00:00 AM EDT active HumaLOG KwikPen 100 UNIT/ML eCW1 ([facility]) FreeStyle Ginger Warren - FreeStyle Ginger Warren - 03/14/2021 12:00: 00 AM EDT active FreeStyle Ginger [place] - eCW1 ([facility]) FreeStyle Ginger 14 Day Sensor - FreeStyle Ginger 14 Day Senso r - 03/14/2021 12:00:00 AM EDT active FreeStyl e Ginger 14 Day Sensor - eCW1 ([facility]) FreeStyle Ginger 14 Day Sensor - FreeStyle Ginger 14 Day Senso r - 03/14/2021 12:00:00 AM EDT active FreeStyl e Ginger 14 Day Sensor - eCW1 ([facility]) FreeStyle Ginger 14 Day Sensor - FreeStyle Ginger 14 Day Senso r - 03/14/2021 12:00:00 AM EDT active FreeStyl e Ginger 14 Day Sensor - eCW1 ([facility]) FreeStyle Ginger Warren - FreeStyle Ginger Warren - 03/14/2021 12:00: 00 AM EDT active FreeStyle Ginger [place] - eCW1 ([facility]) FreeStyle Ginger Warren - FreeStyle Ginger Warren - 03/14/2021 12:00: 00 AM EDT active FreeStyle Ginger Warren - eCW1 ([facility]) FreeStyle Ginger Warren - FreeStyle Ginger Warren - 03/14/2021 12:00: 00 AM EDT active FreeStyle Ginger Warren - eCW1 ([facility]) FreeStyle Ginger 14 Day Sensor - FreeStyle Ginger 14 Day Senso r - 03/14/2021 12:00:00 AM EDT active FreeStyl e Ginger 14 Day Sensor - eCW1 ([facility]) FreeStyle Ginger Warren - FreeStyle Ginger Warren - 03/14/2021 12:00: 00 AM EDT active FreeStyle Ginger [place] - eCW1 ([facility]) FreeStyle Ginger 14 Day Sensor - FreeStyle Ginger 14 Day Senso r - 03/14/2021 12:00:00 AM EDT active FreeStyl e Ginger 14 Day Sensor - eCW1 ([facility]) FreeStyle Ginger 14 Day Sensor - FreeStyle Ginger 14 Day Senso r - 03/14/2021 12:00:00 AM EDT active FreeStyl e Ginger 14 Day Sensor - eCW1 ([facility]) FreeStyle Ginger 14 Day Sensor - FreeStyle Ginger 14 Day Senso r - 03/14/2021 12:00:00 AM EDT active FreeStyl e Ginger 14 Day Sensor - eCW1 ([facility]) FreeStyle Ginger Warren - FreeStyle Ginger Warren - 03/14/2021 12:00: 00 AM EDT active FreeStyle Ginger [place] - eCW1 ([facility]) FreeStyle Ginger Warren - FreeStyle Ginger Warren - 03/14/2021 12:00: 00 AM EDT active eCW1 ([facility]) FreeStyle Ginger 14 Day Sensor - FreeStyle Ginger 14 Day Senso r - 03/14/2021 12:00:00 AM EDT active e CW1 ([facility]) FreeStyle Ginger 14 Day Sensor - FreeStyle Ginger 14 Day Senso r - 03/14/2021 12:00:00 AM EDT active FreeStyl e Ginger 14 Day Sensor - eCW1 ([facility]) FreeStyle Ginger 14 Day Sensor - FreeStyle Ignger 14 Day Senso r - 03/14/2021 12:00:00 AM EDT active FreeStyl e Ginger 14 Day Sensor - eCW1 ([facility]) FreeStyle Ginger [place] - FreeStyle Ginger [place] - 03/14/2021 12:00: 00 AM EDT active FreeStyle Ginger [place] - eCW1 ([facility]) FreeStyle Ginger 14 Day Sensor - FreeStyle Ginger 14 Day Senso r - 03/14/2021 12:00:00 AM EDT active FreeStyl e Ginger 14 Day Sensor - eCW1 ([facility]) FreeStyle Ginger 14 Day Sensor - FreeStyle Ginger 14 Day Senso r - 03/14/2021 12:00:00 AM EDT active FreeStyl e Ginger 14 Day Sensor - eCW1 ([facility]) FreeStyle Ginger [place] - FreeStyle Ginger [place] - 03/14/2021 12:00: 00 AM EDT active FreeStyle Ginger [place] - eCW1 ([facility]) FreeStyle Ginger [place] - FreeStyle Ginger [place] - 03/14/2021 12:00: 00 AM EDT active FreeStyle Ginger [place] - eCW1 ([facility]) FreeStyle Ginger [place] - FreeStyle Ginger [place] - 03/14/2021 12:00: 00 AM EDT active FreeStyle Ginger [place] - eCW1 ([facility]) FreeStyle Ginger [place] - [facility] Ginger [place] - 03/14/2021 12:00: 00 AM EDT active FreeStyle Ginger [place] - eCW1 ([facility]) FreeStyle Ginger [place] - [employer] Ginger [place] - 03/14/2021 12:00: 00 AM EDT active FreeStyle Ginger [place] - eCW1 ([facility]) FreeStyle Ginger 14 Day Sensor - FreeStyle Ginger 14 Day Senso r - 03/14/2021 12:00:00 AM EDT active FreeStyl e Ginger 14 Day Sensor - eCW1 ([facility]) 100 unit/mL 03/01/2021 12:00:00 AM EDT solution 20 DIRECTED VIA PUMP MAXIMUM DAILY DOSE = 70 UNITS DIRECTED VIA PUMP MAXIMUM DAILY DOSE = 70 UNITS SOLD: 03/01/2021 [facility] 100 unit/mL 03/01/2021 12:00:00 AM EDT solution 20 DIRECTED VIA PUMP MAXIMUM DAILY DOSE = 70 UNITS DIRECTED VIA PUMP MAXIMUM DAILY DOSE = 70 UNITS SOLD: 04/19/2021 [facility] atorvastatin 20 MG Oral Tablet ATORVASTATIN CALCIUM 03/01/2021 1 2:00:00 AM EDT tablet 90 TAKE ONE TABLET BY MOUTH EVERY D AY TAKE ONE TABLET BY MOUTH EVERY DAY SOLD: 03/01/2021 [facility] 100 unit/mL 03/01/2021 12:00:00 AM EDT solution 20 DIRECTED VIA PUMP MAXIMUM DAILY DOSE = 70 UNITS DIRECTED VIA PUMP MAXIMUM DAILY DOSE = 70 UNITS SOLD: 03/24/2021 [facility] 10 mEq 02/17/2021 12:00:00 AM EDT tablet,ER particles/cry stals 60 TAKE TWO TABLETS BY MOUTH EVERY DAY TAKE TWO TABLETS BY MOUTH EVERY DAY SOLD: 02/18/2021 [facility] 1 mg 02/17/2021 12:00:00 AM EDT recon soln 1 IN JECT DIRECTED INJECT DIRECTED SOLD: 02/18/2021 [facility] 50 mcg (2,000 unit) 02/17/2021 12:00:00 AM EDT capsule 30 TAKE ONE CAPSULE BY MOUTH EVERY DAY TAKE ONE CAPSULE BY MOUTH EVERY DAY SOLD: 02/18/2021 [facility] 81 mg 02/17/2021 12:00:00 AM EDT tablet,delayed release (DR/EC) 30 TAKE ONE TABLET BY MOUTH EVERY DAY TAKE ONE TABLET BY MOUTH EVERY DAY SOLD: 02/18/2021 [facility] 100 unit/mL 01/27/2021 12:00:00 AM EDT solution 20 DIRECTED VIA CSII MAXIMUM DAILY DOSE = 70 UNITS DIRECTED VIA CSII MAXIMUM DAILY DOSE = 70 UNITS SOLD: 05/11/2021 [facility] 100 unit/mL 01/27/2021 12:00:00 AM EDT solution 20 DIRECTED VIA CSII MAXIMUM DAILY DOSE = 70 UNITS DIRECTED VIA CSII MAXIMUM DAILY DOSE = 70 UNITS SOLD: 01/30/2021 [facility] 100 unit/mL 01/27/2021 12:00:00 AM EDT solution 20 DIRECTED VIA CSII MAXIMUM DAILY DOSE = 70 UNITS DIRECTED VIA CSII MAXIMUM DAILY DOSE = 70 UNITS SOLD: 06/03/2021 [facility] 100 unit/mL 12/13/2020 12:00:00 AM EST solution 20 DIRECTED VIA CSII MAXIMUM DAILY DOSE = 70 UNITS DIRECTED VIA CSII MAXIMUM DAILY DOSE = 70 UNITS SOLD: 01/05/2021 [facility] 100 unit/mL 12/13/2020 12:00:00 AM EST solution 20 DIRECTED VIA CSII MAXIMUM DAILY DOSE = 70 UNITS DIRECTED VIA CSII MAXIMUM DAILY DOSE = 70 UNITS SOLD: 12/15/[address] [facility] 11/03/2020 12:00:00 AM EST misc 100 USE FOUR TIMES A DAY SUBCUTANEOUSLY USE FOUR TIMES A DAY SUBCUTANEOUSLY SOLD: 03/02/[address] [facility] 11/03/2020 12:00:00 AM EST misc 100 USE FOUR TIMES A DAY SUBCUTANEOUSLY USE FOUR TIMES A DAY SUBCUTANEOUSLY SOLD: 11/03/2020 [facility] 100 unit/mL 10/25/2020 12:00:00 AM EST solution 40 INJECT VIA PUMP DIRECTED MAXIMUM DAILY DOSE = 70 UNITS INJECT VIA PUMP DIRECTED MAXIMUM MARK Y DOSE = 70 UNITS SOLD: 10/25/2020 [facility] 100 unit/mL 08/30/2020 12:00:00 AM EST solution 40 USE DIRECTED MAXIMUM DAILY DOSE = 70 UNITS USE DIRECTED MAXIMUM DAILY DOSE = 70 UNITS SOLD: 08/31/2020 [facility] BLOOD SUGAR DIAGNOSTIC 07/16/2020 12:00:00 AM EDT strip 200 DIRECTED SIX TIMES DAILY DIRECTED SIX TIMES DAILY SOLD: 10/24/2020 [facility] BLOOD SUGAR DIAGNOSTIC 07/16/2020 12:00:00 AM EDT strip 200 DIRECTED SIX TIMES DAILY DIRECTED SIX TIMES DAILY SOLD: 07/20/2020 [facility] 100 unit/mL 07/15/2020 12:00:00 AM EDT solution 40 USE DIRECTED VIA CSII MAXIMUM DAILY DOSE = 70 UNITS SUBCUTANEOUS USE DIRECTED VIA CSII MAXIMUM DAILY DOSE = 70 UNITS SUBCUTANEOUS SOLD: 07/15/2020 [facility] 100 unit/mL 02/18/2020 12:00:00 AM EDT solution 40 USE DIRECTED MAXIMUM DAILY DOSE = 70 UNITS USE DIRECTED MAXIMUM DAILY DOSE = 70 UNITS SOLD: 05/24/2020 [facility] LANCETS 05/24/2019 12:00:00 AM EDT misc 100 USE 1 LANCET FOUR TIMES A DAY USE 1 LANCET FOUR TIMES A DAY SOLD: 07/03/2020 [facility] Insurance Providers Payer name Policy type / Coverage type Policy ID Covered republican ID Covered republican's relationship to herrera Policy Herrera Plan Information [place] [id number] [id number] MO2 [id number] FORMERLY [facility] COMMUNITY PLAN MCDO [id number] SP [id number] PMA MANAGEMENT IKE [id number] SP [id number] [facility] O [id number] S [id number] [facility] O [id number] S [id number] [facility] INSURANCE [employer] O [id number] S [id number] [facility]-Medicaid [id number] [facility]-Medicaid [id number] ANS-Medicaid [id number] [facility]-Medicaid [id number] [facility]-Medicaid [id number] ANSI-Medicaid [id number] ANSI-Medicaid [id number] ANSI-Medicaid [id number] ANSI-Medicaid [id number] ANSI-Medicaid [id number] ANSI-Medicaid [id number] ANSI-Medicaid [id number] ANSI-Medicaid [id number] ANSI-Medicaid [id number] ANSI-Medicaid [id number] ANSI-Medicaid [id number] ANSI-Medicaid [id number] ANSI-Medicaid [id number] ANSI-Medicaid [id number] ANSI-Medicaid [id number] ANSI-Medicaid [id number] ANSI-Medicaid [id number] ANSI-Medicaid [id number] ANSI-Medicaid [id number] ANSI-Medicaid [id number] ANSI-Medicaid [id number] ANSI-Medicaid [id number] ANSI-Medicaid [id number] ANSI-Medicaid [id number] ANSI-Medicaid [id number] ANSI-Medicaid [id number] ANSI-Medicaid [id number] ANSI-Medicaid [id number] ANSI-Medicaid [id number] ANSI-Medicaid [id number] ANSI-Medicaid [id number] ANSI-Medicaid [id number] ANSI-Medicaid [id number] ANSI-Medicaid [id number] ANSI-Medicaid [id number] ANSI-Medicaid [id number] ANSI-Medicaid [id number] ANSI-Medicaid [id number] ANSI-Medicaid [id number] ANSI-Medicaid [id number] ANSI-Medicaid [id number] ANSI-Medicaid [id number] ANSI-Medicaid [id number] ANSI-Medicaid [id number] ANSI-Medicaid [id number] ANSI-Medicaid [id number] ANSI-Medicaid [id number] ANSI-Medicaid [id number] ANSI-Medicaid [id number] ANSI-Medicaid [id number] ANSI-Medicaid [id number] ANSI-Medicaid [id number] SELF PAY UNAVAILABLE SP UNAVAILA BLE ACTIVE DUTY [id number] MO2 [id number] [employer] [place] PPO 302/307 [id number] MO2 [id number] O BLUE [id number] SP [id number] FORMERLY [facility] COMMUNITY PLAN [facility] [id number] SP [id number] [place] [id number] FA2 [id number] FORMERLY [facility] COMMUNITY PLAN [facility] [id number] SP [id number] Problems, Conditions, and Diagnoses Code Display Name Description Problem Type Effective Dates Data Source(s) Z91.14 [id number] Non compliance w medication regimen Probl em 05/02/2021 12:00:00 AM EDT eCW1 ([facility]) Surgeries/Procedures Procedure Description Date Indications Data Source(s) Immunization: Flublok Quadrivalent (18 years & older) 0.5mL IM (Influenza) 09/08/2020 12:00:00 AM EST [facility]CW1 [facility] Results ID Date Data Source [id number] 04/30/2021 04:23:00 PM EDT [facility] Name Value Range Interpretation Code Description Data Kaley rce(s) Supporting Document(s) SARS coronavirus 2 RNA [Presence] in Res piratory specimen by LISETH with probe detection NEGATIVE [facility] This lab was ordered by [facility] a nd reported by [facility]. ID Date Data Source [id number] 02/08/2021 02:54:00 PM EDT [facility] Name Value Range Interpretation Code Description Data Kaley rce(s) Supporting Document(s) SARS coronavirus 2 RNA [Presence] in Res piratory specimen by LISETH with probe detection NEGATIVE [facility] This lab was ordered by [facility] a nd reported by [facility]. Procedure Social History Code Duration Value Status Description Data Source(s ) Smoking 05/30/2021 12:00:00 AM EDT Never Smoker completed Never S moker eCW1 ([facility]) Smoking 05/30/2021 12:00:00 AM EDT Never Smoker completed Never S moker eCW1 ([facility]) Smoking 05/30/2021 12:00:00 AM EDT Never Smoker completed Never S moker eCW1 ([facility]) Smoking 05/16/2021 12:00:00 AM EDT Never Smoker completed Never S moker eCW1 ([facility]) Smoking 05/16/2021 12:00:00 AM EDT Never Smoker completed Never S moker eCW1 ([facility]) Smoking 05/16/2021 12:00:00 AM EDT Never Smoker completed Never S moker eCW1 ([facility]) Smoking 02/28/2021 12:00:00 AM EDT Never Smoker completed Never S moker eCW1 ([facility]) Smoking 02/28/2021 12:00:00 AM EDT Never Smoker completed Never S moker eCW1 ([facility]) Smoking 02/28/2021 12:00:00 AM EDT Never Smoker completed Never S moker eCW1 ([facility]) Smoking 02/28/2021 12:00:00 AM EDT Never Smoker completed Never S moker eCW1 ([facility]) Smoking 02/28/2021 12:00:00 AM EDT Never Smoker completed Never S moker eCW1 ([facility]) Smoking 02/28/2021 12:00:00 AM EDT Never Smoker completed Never S moker eCW1 ([facility]) Smoking 02/28/2021 12:00:00 AM EDT Never Smoker completed Never S moker eCW1 ([facility]) Smoking 02/28/2021 12:00:00 AM EDT Never Smoker completed Never S moker eCW1 ([facility]) Smoking 02/28/2021 12:00:00 AM EDT Never Smoker completed Never S moker eCW1 ([facility]) Smoking 02/28/2021 12:00:00 AM EDT Never Smoker completed Never S moker eCW1 ([facility]) Smoking 02/28/2021 12:00:00 AM EDT Never Smoker completed Never S moker eCW1 ([facility]) Smoking 11/19/2020 12:00:00 AM EST Never Smoker completed Never S moker eCW1 ([facility]) Smoking 11/19/2020 12:00:00 AM EST Never Smoker completed Never S moker eCW1 ([facility]) Smoking 11/19/2020 12:00:00 AM EST Never Smoker completed Never S moker eCW1 ([facility]) Smoking 11/19/2020 12:00:00 AM EST Never Smoker completed Never S moker eCW1 ([facility]) Smoking 11/19/2020 12:00:00 AM EST Never Smoker completed Never S moker eCW1 ([facility]) Smoking 11/19/2020 12:00:00 AM EST Never Smoker completed Never S moker eCW1 ([facility]) Smoking 11/19/2020 12:00:00 AM EST Never Smoker completed Never S moker eCW1 ([facility]) Smoking 11/19/2020 12:00:00 AM EST Never Smoker completed Never S moker eCW1 ([facility]) Smoking 09/08/2020 12:00:00 AM EST Never Smoker completed Never S moker eCW1 ([facility]) Smoking 09/08/2020 12:00:00 AM EST Never Smoker completed Never S moker eCW1 ([facility]) Smoking 09/08/2020 12:00:00 AM EST Never Smoker completed Never S moker eCW1 ([facility]) Smoking 09/08/2020 12:00:00 AM EST Never Smoker completed Never S moker eCW1 ([facility]) Smoking 09/08/2020 12:00:00 AM EST Never Smoker completed Never S moker eCW1 ([facility]) Smoking 07/22/2020 12:00:00 AM EDT Never Smoker completed Never S moker eCW1 ([facility]) Smoking 07/22/2020 12:00:00 AM EDT Never Smoker completed Never S moker eCW1 ([facility]) Smoking 07/22/2020 12:00:00 AM EDT Never Smoker completed Never S moker eCW1 ([facility]) Smoking 07/22/2020 12:00:00 AM EDT Never Smoker completed Never S moker eCW1 ([facility]) Vital Signs ID Date Data Source UNK Name Value Range Interpretation Code Description Data Source(s) Body weight 255.12 [lb_av] 255.12 [lb_av] eCW1 ([facility]) Body temperature 97.9 [degF] 97.9 [degF] eCW1 ( [facility]) Body weight 115.72 kg 115.72 kg eCW1 ([facility]) Systolic blood pressure 128 mm[Hg] 128 mm[Hg] e CW1 ([facility]) Diastolic blood pressure 76 mm[Hg] 76 mm[Hg] eCW1 ([facility]) Body height 69 [in_i] 69 [in_i] eCW1 ([facility]) Body mass index (BMI) [Ratio] 37.67 kg/m2 37.67 kg/m2 W1 ([facility]) Heart rate 104 /min 104 /min eCW1 ([facility]) Respiratory rate 18 /min 18 /min eCW1 ([facility]) Body weight 250.0 [lb_av] 250.0 [lb_av] eCW1 ([facility]) Body height 69 [in_i] 69 [in_i] eCW1 ([facility]) Body mass index (BMI) [Ratio] 36.91 kg/m2 36.91 kg/m2 W1 ([facility]) Heart rate 107 /min 107 /min eCW1 ([facility]) Respiratory rate 18 /min 18 /min eCW1 ([facility]) Body temperature 97.1 [degF] 97.1 [degF] eCW1 ( [facility]) Systolic blood pressure 116 mm[Hg] 116 mm[Hg] e CW1 ([facility]) Diastolic blood pressure 72 mm[Hg] 72 mm[Hg] eCW1 ([facility]) Body height 69 [in_i] 69 [in_i] eCW1 ([facility]) Body weight 250.0 [lb_av] 250.0 [lb_av] eCW1 ([facility]) Respiratory rate 18 /min 18 /min eCW1 ([facility]) Body mass index (BMI) [Ratio] 36.91 kg/m2 36.91 kg/m2 eCW1 ([facility]) Body temperature 97.1 [degF] 97.1 [degF] eCW1 ( [facility]) Heart rate 107 /min 107 /min eCW1 ([facility]) Systolic blood pressure 116 mm[Hg] 116 mm[Hg] e CW1 ([facility]) Diastolic blood pressure 72 mm[Hg] 72 mm[Hg] eCW1 ([facility]) Body weight 252.2 [lb_av] 252.2 [lb_av] eCW1 ([facility]) Body height 69 [in_i] 69 [in_i] eCW1 ([facility]) Body mass index (BMI) [Ratio] 37.24 kg/m2 37.24 kg/m2 eCW1 ([facility]) Heart rate 108 /min 108 /min eCW1 ([facility]) Respiratory rate 18 /min 18 /min eCW1 ([facility]) Body temperature 97.7 [degF] 97.7 [degF] eCW1 ( [facility]) Systolic blood pressure 112 mm[Hg] 112 mm[Hg] e CW1 ([facility]) Diastolic blood pressure 72 mm[Hg] 72 mm[Hg] eCW1 ([facility]) Body weight 257 [lb_av] 257 [lb_av] eCW[facility] Body height 69 [in_i] 69 [in_i] eCW1 ([facility]) Body mass index (BMI) [Ratio] 37.95 kg/m2 37.95 kg/m2 eCW1 ([facility]) Heart rate 116 /min 116 /min eCW1 ([facility]) Respiratory rate 18 /min 18 /min eCW1 ([facility]) Body temperature 96.2 [degF] 96.2 [degF] eCW1 ( [facility]) Systolic blood pressure 112 mm[Hg] 112 mm[Hg] e CW1 ([facility]) Diastolic blood pressure 68 mm[Hg] 68 mm[Hg] eCW1 ([facility]) Body weight 253.8 [lb_av] 253.8 [lb_av] eCW1 ([facility]) Body height 69 [in_i] 69 [in_i] eCW1 ([facility]) Body mass index (BMI) [Ratio] 37.48 kg/m2 37.48 kg/m2 eCW1 ([facility]) Body weight 260.0 [lb_av] 260.0 [lb_av] eCW1 ([facility]) Body height 69 [in_i] 69 [in_i] eCW1 ([facility]) Body mass index (BMI) [Ratio] 38.39 kg/m2 38.39 kg/m2 eCW1 ([facility]) Heart rate 98 /min 98 /min eCW1 ([facility]) Respiratory rate 18 /min 18 /min eCW1 ([facility]) Body temperature 97.6 [degF] 97.6 [degF] eCW1 ( [facility]) Systolic blood pressure 122 mm[Hg] 122 mm[Hg] e CW1 ([facility]) Diastolic blood pressure 80 mm[Hg] 80 mm[Hg] eCW1 ([facility]) Patient Treatment Plan of Care Planned Activity Planned Date Details Description Data Source (s) Basaglar KwikPen 100 UNIT/ML 05/04/2021 12:00:00 AM EDT eCW1 ([facility]) Admelog SoloStar 100 UNIT/ML 05/04/2021 12:00:00 AM EDT eCW1 ([facility]) Basaglar KwikPen 100 UNIT/ML 05/04/2021 12:00:00 AM EDT eCW1 ([facility]) Admelog SoloStar 100 UNIT/ML 05/04/2021 12:00:00 AM EDT eCW1 ([facility]) Basaglar KwikPen 100 UNIT/ML 05/04/2021 12:00:00 AM EDT eCW1 ([facility]) Admelkhurram FulleroStar 100 UNIT/ML 05/04/2021 12:00:00 AM EDT eCW1 ([facility]) FreeStyle Ginger [place] - 03/14/2021 12:00:00 AM EDT eCW1 ([facility]) FreeStyle Ginger 14 Day Sensor - 03/14/2021 12:00:00 AM EDT eCW1 ([facility]) FreeStyle Ginger [place] - 03/14/2021 12:00:00 AM EDT eCW1 ([facility]) FreeStyle Ginger 14 Day Sensor - 03/14/2021 12:00:00 AM EDT eCW1 ([facility]) FreeStyle Ginger [place] - 03/14/2021 12:00:00 AM EDT eCW1 ([facility]) FreeStyle Ginger 14 Day Sensor - 03/14/2021 12:00:00 AM EDT eCW1 ([facility]) FreeStyle Ginger [place] - 03/14/2021 12:00:00 AM EDT eCW1 ([facility]) FreeStyle Ginger 14 Day Sensor - 03/14/2021 12:00:00 AM EDT eCW1 ([facility]) FreeStyle Ginger [place] - 03/14/2021 12:00:00 AM EDT eCW1 ([facility]) FreeStyle Ginger 14 Day Sensor - 03/14/2021 12:00:00 AM EDT eCW1 ([facility]) FreeStyle Ginger [place] - 03/14/2021 12:00:00 AM EDT eCW1 ([facility]) FreeStyle Ginger 14 Day Sensor - 03/14/2021 12:00:00 AM EDT eCW1 ([facility]) FreeStyle Ginger [place] - 03/14/2021 12:00:00 AM EDT eCW1 ([facility]) FreeStyle Ginger 14 Day Sensor - 03/14/2021 12:00:00 AM EDT eCW1 ([facility])
--- OUTSIDE RECORDS SUMMARY | 2021-07-20 21:17 | CCD ---
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 confirmed 028741121 Problem Keratosis pilaris L85.8 Active confirmed 51 68839 Problem Obesity E66.9 Active confirmed 562499913 Problem Essential hypertension I10 Active confirmed 46496154 Problem Vitamin D deficiency E55.9 Active confirmed 94466746 Problem Mixed hyperlipidemia E78.2 Active confirmed 122773442 ALLERGIES Allergen (clinical drug ingredient) Drug/Non Drug Allergy do cumented on EMR Reaction Allergy Type Onset Date Status amoxicillin / clavulanate Augmentin([facility][NOTE 3] Code:[address]-91) Rash Drug Allergy Active ENCOUNTERS from 1990 to 2021-04-25 Encounter Location Date Provider Diagnosis [address] [phone] [place] [address] Apr, Jake Waters IMMUNIZATIONS Vaccine Route Administration Date Status Influenza 18 yrs & older Flublok IM Intramuscular Sep 08, 2020 Administered Pneumococcal Adult 0.5mL Pneumovax 23 IM Intramuscular May 19, 019 Administered SOCIAL HISTORY Tobacco Use: Social History Observation Description Date Details (start date - stop date) Never Smoker Sex Assigned At : Social History Observation Description Sex Assigned At Unknown Education: Question Answer Notes Level of Education: High School Language: Question Answer Notes Languages spoken: Austrian Restoration: Question Answer Notes Restoration No gnosticist beliefs that would impact health care. Sexual [...] dir for 30 days Active FreeStyle Ginger [place] - as directed subcutaneously Daily, E 13.9 for 90 day(s) Mar, Active Aspirin 81 MG 1 tablet Orally Once a day for 30 Days Active Admelog 100 UNIT/ML as directed Subcutaneous via CSII, MDD 70 for 3 0 day(s) Active PROCEDURES No Information RESULTS No Results REASON FOR VISIT medtronic supplies? MEDICAL (GENERAL) HISTORY Type Description Date Medical History JASMIN sp DKA 04/2018 (7.2/25/17 c BHB >46)-FLAKITO Ab >25K/IC Ab 1:128; [...] Orally Daily for 30 Days FreeStyle Ginger [place] - as directed subcutaneously Daily, E 13.9 [...] Mar, Next Appt Details Provider Name:Tina Mccormick, 05-16 03:00:00 PM, [address] [place], [place] [id number], [place], [address], Provider Name:Jake Waters, 2021-08-16 0 4:00:00 PM, [address] [place], [place] [id number], [place], [address], Insurance Providers Payer Name Payer Address Payer Phone Insured Name Patient Relati onship to Insured Coverage Start Date Coverage End Date [facility] [employer] [place] [address] [facility] [id number] PABLO SANCHEZ self
--- OUTSIDE RECORDS SUMMARY | 2021-07-20 21:17 | CCD ---
Author Author [facility] Organization [facility] Address Unknown Phone Unavailable Care Team Providers Care Blind Aide Name Role Phone Jake Waters Unavailable PROBLEMS Type Condition ICD9-CM Code [id number] Code Onset Dates Condition S tatus W/U Status Risk SNOMED Code Notes Problem Obesity E66.9 Active confirmed 331202512 Problem Keratosis pilaris L85.8 Active confirmed 51 33603 Problem Non compliance w medication regimen Z91.14 Acti ve confirmed 011821814 Problem Essential hypertension I10 Active confirmed 18089574 Problem Vitamin D deficiency E55.9 Active confirmed 60440556 Problem Mixed hyperlipidemia E78.2 Active confirmed 140853397 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 Code:[address]-81) Rash Drug Allergy Active ENCOUNTERS from 1990 to 2021-05-07 Encounter Location Date Provider Diagnosis [address] [phone] [place] [address] Apr, Jake Waters IMMUNIZATIONS Vaccine Route Administration [...] School Language: Question Answer Notes Languages spoken: Sami Druze: Question Answer Notes Druze No restoration beliefs that would impact health care. Sexual [...] units at bedtime Apr, Active FreeStyle Ginger [place] - as directed subcutaneously Daily, E 13.9 [...] Information RESULTS No Results REASON FOR VISIT [facility] d/c 05/02 - Diabetic Ketoacidosis MEDICAL (GENERAL) HISTORY Type Description Date Medical History JASMIN handley DKA 04/2018 (01/15/17 c BHB >46)-FLAKITO Ab >25K/IC Ab 1:128; [...] Treatment Notes Treatm ent Clinical Notes Apr, Other 05/04/21 12:25 p m- Discussion with patient s/p hospitalization for diabetic ketoacidosis secondary to malfunction of insulin pump. Pt reports feeling better and states he received new parts and insulin p ump working well and blood sugars improved. Pt reports need for PA for insulin pens prescribed on discharge from hospital and this ws discussed with RS who sent covered insulin pens to pharmacy. Medication reconciliation completed and medication record updated. Screening for social determinants of health completed with pt and no needs were identified. Pt needs to have hospital f/u rescheduled and is waiting for staff to reach out with new appt date and time. Landscape Crew Leader advised pt to contact office with further questions/concerns. Marley Sequeira RN PLAN OF TREATMENT Medication Medication Name Sig Start Date Stop Date Basaglar KwikPen 100 UNIT/ML as directed Subcutaneous inject 20 units in the morning and 30 units at bedtime for 30 Days Apr, Admelog SoloStar 100 UNIT/ML as directed Subcutaneous inject 9 units before meals for 28 day(s) Apr, Next Appt Details Provider Name:Tina Herringfelisha, 2020-0 8- 08:30:00 AM, [address] [facility], , [place], [address], Provider Name:Jake Waters, 2021-08-16 0 4:00:00 PM, [address] [facility], , [place], [address], Insurance Providers Payer Name Payer Address Payer Phone Insured Name Patient Relati onship to Insured Coverage Start Date Coverage End Date [facility] [employer] [address] [facility] [address] PABLO SANCHEZ self
--- OUTSIDE RECORDS SUMMARY | 2021-07-20 21:17 | CCD ---
Author Author [facility] Organization [facility] Address Unknown Phone Unavailable Care Team Providers Care Consumer Loan Manager Name Role Phone Jake Waters Unavailable PROBLEMS ALLERGIES ENCOUNTERS from 1990 to 2021-05-05 IMMUNIZATIONS SOCIAL HISTORY REASON FOR REFERRAL No Information VITAL SIGNS MEDICATIONS PROCEDURES No Information RESULTS No Results REASON FOR VISIT MEDICAL (GENERAL) HISTORY Goals Section Health Concerns MEDICAL EQUIPMENT No Information MENTAL STATUS FUNCTIONAL STATUS ASSESSMENTS No Information PLAN OF TREATMENT Insurance Providers
--- OUTSIDE RECORDS SUMMARY | 2021-07-20 23:34 | CCD ---
Author Author [facility] Organization [facility] Address Unknown Phone Unavailable Care Team Providers Care Taping Foreman Name Role Phone Janeen Waters MD Unavailable [...] is protected by Article 27-F of the [facility] Public Health law. If you continue you may have access to information: Regarding HIV / AIDS; Provided by facilities licensed or operated by the [facility] Office of Mental Health; or Provided by the [facility] Office for People With Developmental Disabilities. If such information is present, then the following [facility] mandated warning applies: This information has been [...] law may result in a fine or retirement sentence or both. A general authorization for the release of medical or other information is NOT sufficient authorization for further disc losure. Encounters Encounter Providers Location Date Indications Data Source(s ) Outpatient Attender: May Georges MDReferrer: Jake Waters MD 02/15/2022 12:00:00 AM EDT [facility] Unknown [address] [facility] [place] [address] 07/18/2021 12:00:00 AM EDT eCW1 ([facility]) Unknown [address] [facility] [place] [address] 06/22/2021 12:00:00 AM EDT eCW1 ([facility]) Outpatient [address] [facility] [address] 05/30/2021 12:00:00 AM EDT eCW1 ([facility]) Unknown [address] [facility] [place] [address] 05/24/2021 12:00:00 AM EDT eCW1 ([facility]) Unknown [address] [facility] [place] [address] 05/17/2021 12:00:00 AM EDT eCW1 ([facility]) Outpatient [address] [facility] [place] [address] 05/16/2021 12:00:00 AM EDT eCW1 ([facility]) Unknown [address] [facility] [place] [address] 05/04/2021 12:00:00 AM EDT eCW1 ([facility]) Unknown [address] [facility] [place] [address] 05/03/2021 12:00:00 AM EDT eCW1 ([facility]) Unknown [address] [facility] [place] [address] 05/02/2021 12:00:00 AM EDT eCW1 ([facility]) Unknown [address] [facility] [place] [address] 05/02/2021 12:00:00 AM EDT eCW1 ([facility]) Unknown [address] [facility] [place] [address] 04/21/2021 12:00:00 AM EDT eCW1 ([facility]) Unknown [address] [facility] [place] [address] 04/14/2021 12:00:00 AM EDT eCW1 ([facility]) Unknown [address] [facility] [place] [address] 03/30/2021 12:00:00 AM EDT eCW1 ([facility]) Outpatient [address] [facility] [place] [address] 03/14/2021 12:00:00 AM EDT eCW1 ([facility]) Unknown [address] [facility] [place] [address] 03/14/2021 12:00:00 AM EDT eCW1 ([facility]) Outpatient [address] [facility] [place] [address] 02/28/2021 12:00:00 AM EDT eCW1 ([facility]) Unknown [address] [facility] [place] [address] 02/17/2021 12:00:00 AM EDT eCW1 ([facility]) Unknown [address] [facility] [place] [address] 02/16/2021 12:00:00 AM EDT eCW1 ([facility]) Unknown [address] [facility] [place] [address] 02/11/2021 12:00:00 AM EDT eCW1 ([facility]) Unknown [address] [facility] [place] [address] 01/14/2021 12:00:00 AM EDT eCW1 ([facility]) Unknown [address] [facility] [place] [address] 12/24/2020 12:00:00 AM EDT eCW1 ([facility]) Unknown [address] [facility] [place] [address] 11/29/2020 12:00:00 AM EST eCW1 ([facility]) Unknown [address] [facility] [place] [address] 11/22/2020 12:00:00 AM EST eCW1 ([facility]) Outpatient [address] [facility] [place] [address] 11/19/2020 12:00:00 AM EST eCW1 ([facility]) Unknown [address] [facility] [place] [address] 11/03/2020 12:00:00 AM EST eCW1 ([facility]) Unknown [address] [facility] [place] [address] 10/11/2020 12:00:00 AM EST eCW1 ([facility]) Unknown [address] [facility] [place] [address] 09/13/2020 12:00:00 AM EST eCW1 ([facility]) Unknown [address] [facility] [place] [address] 09/08/2020 12:00:00 AM EST eCW1 ([facility]) Outpatient [address] [facility] [place] [address] 09/08/2020 12:00:00 AM EST eCW1 ([facility]) Unknown [address] [facility] [place] [address] 08/27/2020 12:00:00 AM EST eCW1 ([facility]) Outpatient [address] [facility] [place] [address] 08/24/2020 12:00:00 AM EST eCW1 ([facility]) Unknown [address] [facility] [place] [address] 08/24/2020 12:00:00 AM EST eCW1 ([facility]) Outpatient [address] [facility] [place] [address] 07/22/2020 12:00:00 AM EDT eCW1 ([facility]) Unknown [address] [facility] [place] [address] 07/16/2020 12:00:00 AM EDT eCW1 ([facility]) Unknown [address] [facility] [place] [address] 07/15/2020 12:00:00 AM EDT eCW1 ([facility]) Unknown [address] [facility] [place] [address] 07/12/2020 12:00:00 AM EDT eCW1 ([facility]) [facility] [address] [facility] [place] [address] 05/25/2020 12:00:00 AM EDT eCW1 ([facility]) Immunizations Vaccine Date Status Description Data Source(s) COVID-19 VACCINE Pfizer 03/27/2021 12:00:00 AM EDT completed [facility] Vaccine Series Complete: YESThis Data wa s Submitted to [facility] Via [employer]. COVID-19 VACC, MRNA(PFIZER)/PF 03/27/2021 12:00:00 AM EDT completed [facility] COVID-19 VACC, MRNA(PFIZER)/PF 03/06/2021 12:00:00 AM EDT completed [facility] COVID-19 VACCINE Pfizer 03/06/2021 12:00:00 AM EDT completed [facility] Vaccine Series Complete: NOThis Data was Submitted to [facility] Via [employer]. influenza, recombinant, quadrIvalent,injectable, prese rvative free 09/08/2020 03:02:00 PM EST completed eCW1 ([facility]) influenza, recombinant, quadrIvalent,injectable, prese rvative free 09/08/2020 03:02:00 PM EST completed eCW1 ([facility]) influenza, recombinant, quadrIvalent,injectable, prese rvative free 09/08/2020 03:02:00 PM EST completed eCW1 ([facility]) influenza, recombinant, quadrIvalent,injectable, prese rvative free 09/08/2020 03:02:00 PM EST completed eCW1 ([facility]) influenza, recombinant, quadrIvalent,injectable, prese rvative free 09/08/2020 03:02:00 PM EST completed eCW1 ([facility]) influenza, recombinant, quadrIvalent,injectable, prese rvative free 09/08/2020 03:02:00 PM EST completed eCW1 ([facility]) influenza, recombinant, quadrIvalent,injectable, prese rvative free 09/08/2020 03:02:00 PM EST completed eCW1 ([facility]) influenza, recombinant, quadrIvalent,injectable, prese rvative free 09/08/2020 03:02:00 PM EST completed eCW1 ([facility]) influenza, recombinant, quadrIvalent,injectable, prese rvative free 09/08/2020 03:02:00 PM EST completed eCW1 ([facility]) influenza, recombinant, quadrIvalent,injectable, prese rvative free 09/08/2020 03:02:00 PM EST completed eCW1 ([facility]) influenza, recombinant, quadrIvalent,injectable, prese rvative free 09/08/2020 03:02:00 PM EST completed eCW1 ([facility]) influenza, recombinant, quadrIvalent,injectable, prese rvative free 09/08/2020 03:02:00 PM EST completed eCW1 ([facility]) influenza, recombinant, quadrIvalent,injectable, prese rvative free 09/08/2020 03:02:00 PM EST completed eCW1 ([facility]) influenza, recombinant, quadrIvalent,injectable, prese rvative free 09/08/2020 03:02:00 PM EST completed eCW1 ([facility]) influenza, recombinant, quadrIvalent,injectable, prese rvative free 09/08/2020 03:02:00 PM EST completed eCW1 ([facility]) influenza, recombinant, quadrIvalent,injectable, prese rvative free 09/08/2020 03:02:00 PM EST completed eCW1 ([facility]) influenza, recombinant, quadrIvalent,injectable, prese rvative free 09/08/2020 03:02:00 PM EST completed eCW1 ([facility]) influenza, recombinant, quadrIvalent,injectable, prese rvative free 09/08/2020 03:02:00 PM EST completed eCW1 ([facility]) influenza, recombinant, quadrIvalent,injectable, prese rvative free 09/08/2020 03:02:00 PM EST completed eCW1 ([facility]) influenza, recombinant, quadrIvalent,injectable, prese rvative free 09/08/2020 03:02:00 PM EST completed eCW1 ([facility]) influenza, recombinant, quadrIvalent,injectable, prese rvative free 09/08/2020 03:02:00 PM EST completed eCW1 ([facility]) influenza, recombinant, quadrIvalent,injectable, prese rvative free 09/08/2020 03:02:00 PM EST completed eCW1 ([facility]) influenza, recombinant, quadrIvalent,injectable, prese rvative free 09/08/2020 03:02:00 PM EST completed eCW1 ([facility]) influenza, recombinant, quadrIvalent,injectable, prese rvative free 09/08/2020 03:02:00 PM EST completed eCW1 ([facility]) influenza, recombinant, quadrIvalent,injectable, prese rvative free 09/08/2020 03:02:00 PM EST completed eCW1 ([facility]) influenza, recombinant, quadrIvalent,injectable, prese rvative free 09/08/2020 03:02:00 PM EST completed eCW1 ([facility]) influenza, recombinant, quadrIvalent,injectable, prese rvative free 09/08/2020 03:02:00 PM EST completed eCW1 ([facility]) influenza, recombinant, quadrIvalent,injectable, prese rvative free 09/08/2020 03:02:00 PM EST completed eCW1 ([facility]) influenza, recombinant, quadrIvalent,injectable, prese rvative free 09/08/2020 03:02:00 PM EST completed eCW1 ([facility]) influenza, recombinant, quadrIvalent,injectable, prese rvative free 09/08/2020 03:02:00 PM EST completed eCW1 ([facility]) Medications Medication Brand Name Start Date Product [...] EDT active Admelog SoloStar 100 UNIT/ML eCW1 ([facility]) Admelog SoloStar 100 UNIT/ML Admelog SoloStar 100 UNIT/ML 12:00:00 AM EDT active Admelog SoloStar 100 UNIT/ML eCW1 ([facility]) Admelog SoloStar 100 UNIT/ML Admelog SoloStar 100 UNIT/ML 12:00:00 AM EDT active eCW1 ([facility]) Basaglar KwikPen 100 UNIT/ML Basaglar KwikPen 100 UNIT/ML 12:00:00 AM EDT active Basaglar KwikPen 100 UNIT/ML eCW1 ([facility]) Basaglar KwikPen 100 UNIT/ML Basaglar KwikPen 100 UNIT/ML 12:00:00 AM EDT active Basaglar KwikPen 100 UNIT/ML eCW1 ([facility]) 3 ML Insulin Glargine 100 UNT/ML Pen [...] EDT active Admelog SoloStar 100 UNIT/ML eCW1 ([facility]) Basaglar KwikPen 100 UNIT/ML Basaglar KwikPen 100 UNIT/ML 12:00:00 AM EDT active Basaglar KwikPen 100 UNIT/ML eCW1 ([facility]) Admelog SoloStar 100 UNIT/ML Admelog SoloStar 100 UNIT/ML 12:00:00 AM EDT active Admelog SoloStar 100 UNIT/ML eCW1 ([facility]) Basaglar KwikPen 100 UNIT/ML Basaglar KwikPen 100 UNIT/ML 12:00:00 AM EDT active eCW1 ([facility]) Basaglar KwikPen 100 UNIT/ML Basaglar KwikPen 100 UNIT/ML 12:00:00 AM EDT active Basaglar KwikPen 100 UNIT/ML eCW1 ([facility]) Basaglar KwikPen 100 UNIT/ML Basaglar KwikPen 100 UNIT/ML 12:00:00 AM EDT active Basaglar KwikPen 100 UNIT/ML eCW1 ([facility]) Admelog SoloStar 100 UNIT/ML Admelog SoloStar 100 UNIT/ML 12:00:00 AM EDT active Admelog SoloStar 100 UNIT/ML eCW1 ([facility]) Levemir Flex Touch 100 UNIT/ML UNK 05/02/2021 12:00:00 AM EDT active Levemir Flex Touch 100 UNIT/ML eCW1 ([facility]) Levemir Flex Touch 100 UNIT/ML UNK 05/02/2021 12:00:00 AM EDT active eCW1 ([facility]) Levemir Flex Touch 100 UNIT/ML UNK 05/02/2021 12:00:00 AM EDT active Levemir Flex Touch 100 UNIT/ML eCW1 ([facility]) 31 gauge x 3/16" 05/02/2021 12:00:00 AM EDT needle 5 USE DIRECTED USE DIRECTED SOLD: 05/04/2021 [facility] 3 ML Insulin Lispro 100 UNT/ML Pen Injec tor [Humalog] HumaLOG KwikPen 100 UNIT/ML HumaLOG KwikPen 100 UNIT/ML 05/02/2021 12:00:00 AM EDT active eCW1 ([facility]) 3 ML Insulin Lispro 100 UNT/ML Pen Injec tor [Humalog] HumaLOG KwikPen 100 UNIT/ML HumaLOG KwikPen 100 UNIT/ML 05/02/2021 12:00:00 AM EDT active HumaLOG KwikPen 100 UNIT/ML eCW1 ([facility]) 3 ML Insulin Lispro 100 UNT/ML Pen Injec tor [Humalog] HumaLOG KwikPen 100 UNIT/ML HumaLOG KwikPen 100 UNIT/ML 05/02/2021 12:00:00 AM EDT active HumaLOG KwikPen 100 UNIT/ML eCW1 ([facility]) Levemir Flex Touch 100 UNIT/ML UNK 05/02/2021 12:00:00 AM EDT active Levemir Flex Touch 100 UNIT/ML eCW1 ([facility]) Levemir Flex Touch 100 UNIT/ML UNK 05/02/2021 12:00:00 AM EDT active Levemir Flex Touch 100 UNIT/ML eCW1 ([facility]) 3 ML Insulin Lispro 100 UNT/ML Pen Injec tor [Humalog] HumaLOG KwikPen 100 UNIT/ML HumaLOG KwikPen 100 UNIT/ML 05/02/2021 12:00:00 AM EDT active HumaLOG KwikPen 100 UNIT/ML eCW1 ([facility]) Levemir Flex Touch 100 UNIT/ML UNK 05/02/2021 12:00:00 AM EDT active Levemir Flex Touch 100 UNIT/ML eCW1 ([facility]) 3 ML Insulin Lispro 100 UNT/ML Pen Injec tor [Humalog] HumaLOG KwikPen 100 UNIT/ML HumaLOG KwikPen 100 UNIT/ML 05/02/2021 12:00:00 AM EDT active HumaLOG KwikPen 100 UNIT/ML eCW1 ([facility]) 3 ML Insulin Lispro 100 UNT/ML Pen Injec tor [Humalog] HumaLOG KwikPen 100 UNIT/ML HumaLOG KwikPen 100 UNIT/ML 05/02/2021 12:00:00 AM EDT active HumaLOG KwikPen 100 UNIT/ML eCW1 ([facility]) FreeStyle Ginger [place] - FreeStyle Ginger [place] - 03/14/2021 12:00: 00 AM EDT active FreeStyle Ginger [place] - eCW1 ([facility]) FreeStyle Ginger 14 Day Sensor - FreeStyle Ginger 14 Day Senso r - 03/14/2021 12:00:00 AM EDT active FreeStyl e Ginger 14 Day Sensor - eCW1 ([facility]) FreeStyle Ginger 14 Day Sensor - FreeStyle Ginger 14 Day Senso r - 03/14/2021 12:00:00 AM EDT active FreeStyl e Ginger 14 Day Sensor - eCW1 ([facility]) FreeStyle Ginger 14 Day Sensor - FreeStyle Ginger 14 Day Senso r - 03/14/2021 12:00:00 AM EDT active FreeStyl e Ginger 14 Day Sensor - eCW1 ([facility]) FreeStyle Ginger [place] - FreeStyle Ginger [place] - 03/14/2021 12:00: 00 AM EDT active FreeStyle Ginger [place] - eCW1 ([facility]) FreeStyle Ginger [place] - FreeStyle Ginger [place] - 03/14/2021 12:00: 00 AM EDT active FreeStyle Ginger [place] - eCW1 ([facility]) FreeStyle Ginger [place] - FreeStyle Ginger [place] - 03/14/2021 12:00: 00 AM EDT active FreeStyle Ginger [place] - eCW1 ([facility]) FreeStyle Ginger 14 Day Sensor - FreeStyle Ginger 14 Day Senso r - 03/14/2021 12:00:00 AM EDT active FreeStyl e Ginger 14 Day Sensor - eCW1 ([facility]) FreeStyle Ginger [place] - FreeStyle Ginger [place] - 03/14/2021 12:00: 00 AM EDT active FreeStyle Ginger [place] - eCW1 ([facility]) FreeStyle Ignger 14 Day Sensor - FreeStyle Ginger 14 Day Senso r - 03/14/2021 12:00:00 AM EDT active FreeStyl e Ginger 14 Day Sensor - eCW1 ([facility]) FreeStyle Ginger 14 Day Sensor - FreeStyle Ginger 14 Day Senso r - 03/14/2021 12:00:00 AM EDT active FreeStyl e Ginger 14 Day Sensor - eCW1 ([facility]) FreeStyle Ginger 14 Day Sensor - FreeStyle Ginger 14 Day Senso r - 03/14/2021 12:00:00 AM EDT active FreeStyl e Ginger 14 Day Sensor - eCW1 ([facility]) FreeStyle Ginger [place] - FreeStyle Ginger [place] - 03/14/2021 12:00: 00 AM EDT active FreeStyle Ginger [place] - eCW1 ([facility]) FreeStyle Ginger [place] - FreeStyle Ginger [place] - 03/14/2021 12:00: 00 AM EDT active eCW1 ([facility]) FreeStyle Ginger 14 Day Sensor - FreeStyle Ginger 14 Day Senso r - 03/14/2021 12:00:00 AM EDT active e CW1 ([facility]) FreeStyle Ginger 14 Day Sensor - FreeStyle Ginger 14 Day Senso r - 03/14/2021 12:00:00 AM EDT active FreeStyl e Ginger 14 Day Sensor - eCW1 ([facility]) FreeStyle Ginger 14 Day Sensor - FreeStyle Ginger 14 Day Senso r - 03/14/2021 12:00:00 AM EDT active FreeStyl e Ginger 14 Day Sensor - eCW1 ([facility]) FreeStyle Ginger [place] - FreeStyle Ginger [place] - 03/14/2021 12:00: 00 AM EDT active FreeStyle Ginger [place] - eCW1 ([facility]) FreeStyle Ginger 14 Day Sensor - FreeStyle Ginger 14 Day Senso r - 03/14/2021 12:00:00 AM EDT active FreeStyl e Ginger 14 Day Sensor - eCW1 ([facility]) FreeStyle Ginger 14 Day Sensor - FreeStyle Ginger 14 Day Senso r - 03/14/2021 12:00:00 AM EDT active FreeStyl e Ginger 14 Day Sensor - eCW1 ([facility]) FreeStyle Ginger [place] - FreeStyle Ginger [place] - 03/14/2021 12:00: 00 AM EDT active FreeStyle Ginger [place] - eCW1 ([facility]) FreeStyle Ginger [place] - FreeStyle Ginger [place] - 03/14/2021 12:00: 00 AM EDT active FreeStyle Ginger [place] - eCW1 ([facility]) FreeStyle Ginger [place] - FreeStyle Ginger [place] - 03/14/2021 12:00: 00 AM EDT active FreeStyle Ginger [place] - eCW1 ([facility]) FreeStyle Ginger [place] - FreeStyle Ginger [place] - 03/14/2021 12:00: 00 AM EDT active FreeStyle Ginger [place] - eCW1 ([facility]) FreeStyle Ginger [place] - FreeStyle Ginger [place] - 03/14/2021 12:00: 00 AM EDT active FreeStyle Ginger [place] - eCW1 ([facility]) FreeStyle Ginger 14 Day Sensor - FreeStyle Ginger 14 Day Senso r - 03/14/2021 12:00:00 AM EDT active FreeStyl e Ginger 14 Day Sensor - eCW1 ([facility]) 100 unit/mL 03/01/2021 12:00:00 AM EDT solution [...] 70 UNITS SOLD: 12/15/2020 [facility] 11/03/2020 12:00:00 AM EST misc 100 USE FOUR TIMES A DAY SUBCUTANEOUSLY USE FOUR TIMES A DAY SUBCUTANEOUSLY SOLD: 03/02/2021 [facility] 11/03/2020 12:00:00 AM EST misc [...] type / Coverage type Policy ID Covered constitution party ID Covered constitution party's relationship to herrera Policy Herrera Plan Information [place] 305/805 [id number] MO2 [id number] [facility] COMMUNITY PLAN MCDO [id number] SP [id number] PMA MANAGEMENT IKE [id number] SP [id number] [facility] O [id number] S [id number] [facility] O [id number] S [id number] [facility] [employer] O [id number] S [id number] [facility]-Medicaid [id number] [facility]-Medicaid [id number] ANS-Medicaid [id number] [facility]-Medicaid [id number] [facility]-Medicaid [id number] ANSI-Medicaid [id number] ANSI-Medicaid [id number] ANSI-Medicaid [id number] ANSI-Medicaid [id number] ANSI-Medicaid [id number] ANSI-Medicaid [id number] ANSI-Medicaid [id number] ANSI-Medicaid [id number] ANSI-Medicaid [id number] ANSI-Medicaid [id number] ANSI-Medicaid [id number] ANSI-Medicaid [id number] ANSI-Medicaid [id number] ANSI-Medicaid [id number] ANSI-Medicaid [id number] ANSI-Medicaid [id number] ANSI-Medicaid [id number] ANSI-Medicaid [id number] ANSI-Medicaid [id number] ANSI-Medicaid [id number] ANSI-Medicaid [id number] ANSI-Medicaid [id number] ANSI-Medicaid [id number] ANSI-Medicaid [id number] ANSI-Medicaid [id number] ANSI-Medicaid [id number] ANSI-Medicaid [id number] ANSI-Medicaid [id number] ANSI-Medicaid [id number] ANSI-Medicaid [id number] ANSI-Medicaid [id number] ANSI-Medicaid [id number] ANSI-Medicaid [id number] ANSI-Medicaid [id number] ANSI-Medicaid [id number] ANSI-Medicaid [id number] ANSI-Medicaid [id number] ANSI-Medicaid [id number] ANSI-Medicaid [id number] ANSI-Medicaid [id number] ANSI-Medicaid [id number] ANSI-Medicaid [id number] ANSI-Medicaid [id number] ANSI-Medicaid [id number] ANSI-Medicaid [id number] ANSI-Medicaid [id number] ANSI-Medicaid [id number] ANSI-Medicaid [id number] ANSI-Medicaid [id number] ANSI-Medicaid [id number] ANSI-Medicaid [id number] ANSI-Medicaid [id number] SELF PAY UNAVAILABLE SP UNAVAILA BLE ACTIVE DUTY [id number] MO2 [id number] [place] PPO [phone] [id number] MO2 [id number] O BLUE [id number] SP [id number] [facility] [id number] SP [id number] [facility] [place] [id number] FA2 [id number] [facility] [id number] SP [id number] Problems, Conditions, and Diagnoses Code Display Name Description Problem Type Effective Dates Data Source(s) Z91.14 [id number] Non compliance w medication regimen Probl em 05/02/2021 12:00:00 AM EDT eCW1 ([facility]) Surgeries/Procedures Procedure Description Date Indications Data Source(s) Immunization: Flublok Quadrivalent (18 years & older) 0.5mL IM (Influenza) 09/08/2020 12:00:00 AM EST eCW1 ([facility]) Results ID Date Data Source [id number] 04/30/2021 04:23:00 PM EDT [facility] Name Value Range Interpretation Code Description Data Kaley rce(s) Supporting Document(s) SARS coronavirus 2 RNA [Presence] in Res piratory specimen by LISETH with probe detection NEGATIVE [facility] This lab was ordered by [facility] a nd reported by [facility]. ID Date Data Source [id number] 02/08/2021 02:54:00 PM EDT [facility] Name Value Range Interpretation Code Description Data Kaley rce(s) Supporting Document(s) SARS coronavirus 2 RNA [Presence] in Res piratory specimen by LISETH with probe detection NEGATIVE [facility] This lab was ordered by [facility] a nd reported by [facility]. Procedure Social History Code Duration Value Status Description Data Source(s ) Smoking 05/30/2021 12:00:00 AM EDT Never Smoker completed Never S moker eCW1 ([facility]) Smoking 05/30/2021 12:00:00 AM EDT Never Smoker completed Never S moker eCW1 ([facility]) Smoking 05/30/2021 12:00:00 AM EDT Never Smoker completed Never S moker eCW1 ([facility]) Smoking 05/16/2021 12:00:00 AM EDT Never Smoker completed Never S moker eCW1 ([facility]) Smoking 05/16/2021 12:00:00 AM EDT Never Smoker completed Never S moker eCW1 ([facility]) Smoking 05/16/2021 12:00:00 AM EDT Never Smoker completed Never S moker eCW1 ([facility]) Smoking 02/28/2021 12:00:00 AM EDT Never Smoker completed Never S moker eCW1 ([facility]) Smoking 02/28/2021 12:00:00 AM EDT Never Smoker completed Never S moker eCW1 ([facility]) Smoking 02/28/2021 12:00:00 AM EDT Never Smoker completed Never S moker eCW1 ([facility]) Smoking 02/28/2021 12:00:00 AM EDT Never Smoker completed Never S moker eCW1 ([facility]) Smoking 02/28/2021 12:00:00 AM EDT Never Smoker completed Never S moker eCW1 ([facility]) Smoking 02/28/2021 12:00:00 AM EDT Never Smoker completed Never S moker eCW1 ([facility]) Smoking 02/28/2021 12:00:00 AM EDT Never Smoker completed Never S moker eCW1 ([facility]) Smoking 02/28/2021 12:00:00 AM EDT Never Smoker completed Never S moker eCW1 ([facility]) Smoking 02/28/2021 12:00:00 AM EDT Never Smoker completed Never S moker eCW1 ([facility]) Smoking 02/28/2021 12:00:00 AM EDT Never Smoker completed Never S moker eCW1 ([facility]) Smoking 02/28/2021 12:00:00 AM EDT Never Smoker completed Never S moker eCW1 ([facility]) Smoking 11/19/2020 12:00:00 AM EST Never Smoker completed Never S moker eCW1 ([facility]) Smoking 11/19/2020 12:00:00 AM EST Never Smoker completed Never S moker eCW1 ([facility]) Smoking 11/19/2020 12:00:00 AM EST Never Smoker completed Never S moker eCW1 ([facility]) Smoking 11/19/2020 12:00:00 AM EST Never Smoker completed Never S moker eCW1 ([facility]) Smoking 11/19/2020 12:00:00 AM EST Never Smoker completed Never S moker eCW1 ([facility]) Smoking 11/19/2020 12:00:00 AM EST Never Smoker completed Never S moker eCW1 ([facility]) Smoking 11/19/2020 12:00:00 AM EST Never Smoker completed Never S moker eCW1 ([facility]) Smoking 11/19/2020 12:00:00 AM EST Never Smoker completed Never S moker eCW1 ([facility]) Smoking 09/08/2020 12:00:00 AM EST Never Smoker completed Never S moker eCW1 ([facility]) Smoking 09/08/2020 12:00:00 AM EST Never Smoker completed Never S moker eCW1 ([facility]) Smoking 09/08/2020 12:00:00 AM EST Never Smoker completed Never S moker eCW1 ([facility]) Smoking 09/08/2020 12:00:00 AM EST Never Smoker completed Never S moker eCW1 ([facility]) Smoking 09/08/2020 12:00:00 AM EST Never Smoker completed Never S moker eCW1 ([facility]) Smoking 07/22/2020 12:00:00 AM EDT Never Smoker completed Never S moker eCW1 ([facility]) Smoking 07/22/2020 12:00:00 AM EDT Never Smoker completed Never S moker eCW1 ([facility]) Smoking 07/22/2020 12:00:00 AM EDT Never Smoker completed Never S moker eCW1 ([facility]) Smoking 07/22/2020 12:00:00 AM EDT Never Smoker completed Never S moker eCW1 ([facility]) Vital Signs ID Date Data Source UNK Name Value Range Interpretation Code Description Data Source(s) Body temperature 97.9 [degF] 97.9 [degF] eCW1 ( [facility]) Systolic blood pressure 128 mm[Hg] 128 mm[Hg] e CW1 ([facility]) Diastolic blood pressure 76 mm[Hg] 76 mm[Hg] eCW1 ([facility]) Body weight 255.12 [lb_av] 255.12 [lb_av] eCW1 ([facility]) Body weight 115.72 kg 115.72 kg eCW1 ([facility]) Body height 69 [in_i] 69 [in_i] eCW1 ([facility]) Body mass index (BMI) [Ratio] 37.67 kg/m2 37.67 kg/m2 eCW1 ([facility]) Heart rate 104 /min 104 /min eCW1 ([facility]) Respiratory rate 18 /min 18 /min eCW1 ([facility]) Body weight 250.0 [lb_av] 250.0 [lb_av] eCW1 ([facility]) Body height 69 [in_i] 69 [in_i] eCW1 ([facility]) Body mass index (BMI) [Ratio] 36.91 kg/m2 36.91 kg/m2 eCW1 ([facility]) Heart rate 107 /min 107 /min eCW1 ([facility]) Respiratory rate 18 /min 18 /min eCW1 ([facility]) Body temperature 97.1 [degF] 97.1 [degF] eCW1 ( [facility]) Systolic blood pressure 116 mm[Hg] 116 mm[Hg] e CW1 ([facility]) Diastolic blood pressure 72 mm[Hg] 72 mm[Hg] eCW1 ([facility]) Respiratory rate 18 /min 18 /min eCW1 ([facility]) Body weight 250.0 [lb_av] 250.0 [lb_av] eCW1 ([facility]) Body temperature 97.1 [degF] 97.1 [degF] eCW1 ( [facility]) Systolic blood pressure 116 mm[Hg] 116 mm[Hg] e CW1 ([facility]) Diastolic blood pressure 72 mm[Hg] 72 mm[Hg] eCW1 ([facility]) Body height 69 [in_i] 69 [in_i] eCW1 ([facility]) Body mass index (BMI) [Ratio] 36.91 kg/m2 36.91 kg/m2 eCW1 ([facility]) Heart rate 107 /min 107 /min eCW1 ([facility]) Body weight 252.2 [lb_av] 252.2 [lb_av] eCW1 ([facility]) Body height 69 [in_i] 69 [in_i] eCW1 ([facility]) Body mass index (BMI) [Ratio] 37.24 kg/m2 37.24 kg/m2 eCW1 ([facility]) Heart rate 108 /min 108 /min eCW1 ([facility]) Respiratory rate 18 /min 18 /min eCW1 ([facility]) Body temperature 97.7 [degF] 97.7 [degF] eCW1 ( [facility]) Systolic blood pressure 112 mm[Hg] 112 mm[Hg] e CW1 ([facility]) Diastolic blood pressure 72 mm[Hg] 72 mm[Hg] eCW1 ([facility]) Body weight 257 [lb_av] 257 [lb_av] eCW1 ([facility]) Body height 69 [in_i] 69 [in_i] eCW1 ([facility]) Body mass index (BMI) [Ratio] 37.95 kg/m2 37.95 kg/m2 eCW1 ([facility]) Heart rate 116 /min 116 /min eCW1 ([facility]) Respiratory rate 18 /min 18 /min eCW1 ([facility]) Body temperature 96.2 [degF] 96.2 [degF] eCW1 ( [facility]) Systolic blood pressure 112 mm[Hg] 112 mm[Hg] e CW1 ([facility]) Diastolic blood pressure 68 mm[Hg] 68 mm[Hg] eCW1 ([facility]) Body weight 253.8 [lb_av] 253.8 [lb_av] eCW1 ([facility]) Body height 69 [in_i] 69 [in_i] eCW1 ([facility]) Body mass index (BMI) [Ratio] 37.48 kg/m2 37.48 kg/m2 eCW1 ([facility]) Body weight 260.0 [lb_av] 260.0 [lb_av] eCW1 ([facility]) Body height 69 [in_i] 69 [in_i] eCW1 ([facility]) Body mass index (BMI) [Ratio] 38.39 kg/m2 38.39 kg/m2 eCW1 ([facility]) Heart rate 98 /min 98 /min eCW1 ([facility]) Respiratory rate 18 /min 18 /min eCW1 ([facility]) Body temperature 97.6 [degF] 97.6 [degF] eCW1 ( [facility]) Systolic blood pressure 122 mm[Hg] 122 mm[Hg] e CW1 ([facility]) Diastolic blood pressure 80 mm[Hg] 80 mm[Hg] eCW1 ([facility]) Patient Treatment Plan of Care Planned Activity Planned Date Details Description Data Source (s) Basaglar KwikPen 100 UNIT/ML 05/04/2021 12:00:00 AM EDT eCW1 ([facility]) Admelog SoloStar 100 UNIT/ML 05/04/2021 12:00:00 AM EDT eCW1 ([facility]) Basaglar KwikPen 100 UNIT/ML 05/04/2021 12:00:00 AM EDT eCW1 ([facility]) Admelog SoloStar 100 UNIT/ML 05/04/2021 12:00:00 AM EDT eCW1 ([facility]) Basaglar KwikPen 100 UNIT/ML 05/04/2021 12:00:00 AM EDT eCW1 ([facility]) Admelkhurram FulleroStar 100 UNIT/ML 05/04/2021 12:00:00 AM EDT eCW1 ([facility]) FreeStyle Ginger [place] - 03/14/2021 12:00:00 AM EDT eCW1 ([facility]) FreeStyle Ginger 14 Day Sensor - 03/14/2021 12:00:00 AM EDT eCW1 ([facility]) FreeStyle Ginger [place] - 03/14/2021 12:00:00 AM EDT eCW1 ([facility]) FreeStyle Ginger 14 Day Sensor - 03/14/2021 12:00:00 AM EDT eCW1 ([facility]) FreeStyle Ginger [place] - 03/14/2021 12:00:00 AM EDT eCW1 ([facility]) FreeStyle Ginger 14 Day Sensor - 03/14/2021 12:00:00 AM EDT eCW1 ([facility]) FreeStyle Ginger [place] - 03/14/2021 12:00:00 AM EDT eCW1 ([facility]) FreeStyle Ginger 14 Day Sensor - 03/14/2021 12:00:00 AM EDT eCW1 ([facility]) FreeStyle Ginger [place] - 03/14/2021 12:00:00 AM EDT eCW1 ([facility]) FreeStyle Ginger 14 Day Sensor - 03/14/2021 12:00:00 AM EDT eCW1 ([facility]) FreeStyle Ginger [place] - 03/14/2021 12:00:00 AM EDT eCW1 ([facility]) FreeStyle Ginger 14 Day Sensor - 03/14/2021 12:00:00 AM EDT eCW1 ([facility]) FreeStyle Ginger [place] - 03/14/2021 12:00:00 AM EDT eCW1 ([facility]) FreeStyle Ginger 14 Day Sensor - 03/14/2021 12:00:00 AM EDT eCW1 ([facility])
[2021-07-21] MEDS ORDERED: BASA100I SC ×2 (06:06)
[2021-07-21] MEDS ORDERED: POTA10TA17 PO (06:06)
== END 2021-07-20 23:36 | disposition left against medical advice (07) ==
LOC: M ED 21:09
DX: Z53.21 Procedure and treatment not carried out due to patient leaving prior to being seen by health care provider (principal)

== ENCOUNTER 2021-07-21 02:25 | Inpatient (IN) | payer OTHER ==
[2021-07-21] VITALS (7 sets, daily range): BP systolic 115–155; BP diastolic 60–77
[~2021-07-21] VITALS: Ht 175.3 cm; Wt 113.4 kg
--- OUTSIDE RECORDS SUMMARY | 2021-07-21 02:30 | CCD ---
Author Author [facility] Organization [facility] Address Unknown Phone Unavailable Care Team Providers Care Reel Repairer Name Role Phone Janeen Waters MD Unavailable Unavailable Janeen Waters MD Unavailable Unavailable Janeen Waters MD Unavailable Unavailable Janeen Watesr MD Unavailable Unavailable Janeen Waters MD Unavailable [...] is protected by Article 27-F of the [facility] Public Health law. If you continue you may have access to information: Regarding HIV / AIDS; Provided by facilities licensed or operated by the [facility] Office of Mental Health; or Provided by the [facility] Office for People With Developmental Disabilities. If such information is present, then the following [facility] mandated warning applies: This information has [...] law may result in a fine or [place] health [place] facility sentence or both. A general authorization for the release of medical or other information is NOT sufficient authorization for further disc losure. Encounters Encounter Providers Location Date Indications Data Source(s ) Outpatient Attender: May Georges MDReferrer: Jake Waters MD 02/15/2022 12:00:00 AM EDT [facility] Unknown [address] [facility] [place] [address] 07/18/2021 12:00:00 AM EDT eCW1 ([facility]) Unknown [address] [facility] [place] [address] 06/22/2021 12:00:00 AM EDT eCW1 ([facility]) Outpatient [address] [facility] [address] 05/30/2021 12:00:00 AM EDT eCW1 ([facility]) Unknown [address] [facility] [place] [address] 05/24/2021 12:00:00 AM EDT eCW1 ([facility]) Unknown [address] [facility] [place] [address] 05/17/2021 12:00:00 AM EDT eCW1 ([facility]) Outpatient [address] [facility] [place] [address] 05/16/2021 12:00:00 AM EDT eCW1 ([facility]) Unknown [address] [facility] [place] [address] 05/04/2021 12:00:00 AM EDT [facility] [address] [facility] [place] [address] 05/03/2021 12:00:00 AM EDT eCW1 [facility] Unknown [address] [facility] [place] [address] 05/02/2021 12:00:00 AM EDT eCW1 ([facility]) [place] [address] [facility] [place] [address] 05/02/2021 12:00:00 AM EDT eCW1 ([facility]) [place] [address] [facility] [place] [address] 04/21/2021 12:00:00 AM EDT eCW1 ([facility]) [place] [address] [facility] [place] [address] 04/14/2021 12:00:00 AM EDT eCW1 ([facility]) [place] [address] [facility] [place] [address] 03/30/2021 12:00:00 AM EDT eCW1 ([facility]) [place] [address] [facility] [place] [address] 03/14/2021 12:00:00 AM EDT eCW1 ([facility]) Unknown [address] [facility] [place] [address] 03/14/2021 12:00:00 AM EDT eCW1 ([facility]) [place] [address] [facility] [place] [address] 02/28/2021 12:00:00 AM EDT eCW1 ([facility]) Unknown [address] [facility] [place] [address] 02/17/2021 12:00:00 AM EDT eCW1 ([facility]) [place] [address] [facility] [place] [address] 02/16/2021 12:00:00 AM EDT eCW1 ([facility]) Unknown [address] [facility] [place] [address] 02/11/2021 12:00:00 AM EDT eCW1 ([facility]) [place] [address] [facility] [place] [address] 01/14/2021 12:00:00 AM EDT eCW1 ([facility]) [place] [address] [facility] [place] [address] 12/24/2020 12:00:00 AM EDT eCW1 ([facility]) Unknown [address] [facility] [place] [address] 11/29/2020 12:00:00 AM EST eCW1 ([facility]) Unknown [address] [facility] [place] [address] 11/22/2020 12:00:00 AM EST eCW1 ([facility]) Out[place] [address] [facility] [place] [address] 11/19/2020 12:00:00 AM EST eCW1 ([facility]) Unknown [address] [facility] [place] [address] 11/03/2020 12:00:00 AM EST eCW1 ([facility]) Unknown [address] [facility] [place] [address] 10/11/2020 12:00:00 AM EST eCW1 ([facility]) Unknown [address] [facility] [place] [address] 09/13/2020 12:00:00 AM EST eCW1 ([facility]) Unknown [address] [facility] [place] [address] 09/08/2020 12:00:00 AM EST eCW1 ([facility]) Out[place] [address] [facility] [place] [address] 09/08/2020 12:00:00 AM EST eCW1 ([facility]) Unknown [address] [facility] [place] [address] 08/27/2020 12:00:00 AM EST eCW1 ([facility]) [place] [address] [facility] [place] [address] 08/24/2020 12:00:00 AM EST eCW1 ([facility]) Unknown [address] [facility] [place] [address] 08/24/2020 12:00:00 AM EST eCW1 ([facility]) [place] [address] [facility] [place] [address] 07/22/2020 12:00:00 AM EDT eCW1 ([facility]) Unknown [address] [facility] [place] [address] 07/16/2020 12:00:00 AM EDT eCW1 ([facility]) Unknown [address] [facility] [place] [address] 07/15/2020 12:00:00 AM EDT eCW1 ([facility]) Unknown [address] [facility] [place] [address] 07/12/2020 12:00:00 AM EDT eCW1 ([facility]) [facility] [address] [facility] [place] [address] 05/25/2020 12:00:00 AM EDT eCW1 ([facility]) Immunizations Vaccine Date Status Description Data Source(s) COVID-19 VACCINE Pfizer 03/27/2021 12:00:00 AM EDT completed [facility] Vaccine Series Complete: YESThis Data wa s Submitted to [facility] Via [employer]. COVID-19 VACC, MRNA(PFIZER)/PF 03/27/2021 12:00:00 AM EDT completed [facility] COVID-19 VACC, MRNA(PFIZER)/PF 03/06/2021 12:00:00 AM EDT completed [facility] COVID-19 VACCINE Pfizer 03/06/2021 12:00:00 AM EDT completed [facility] Vaccine Series Complete: NOThis Data was Submitted to [facility] [employer]. influenza, recombinant, quadrIvalent,injectable, prese rvative free 09/08/2020 03:02:00 PM EST completed eCW1 ([facility]) influenza, recombinant, quadrIvalent,injectable, prese rvative free 09/08/2020 03:02:00 PM EST completed eCW1 ([facility]) influenza, recombinant, quadrIvalent,injectable, prese rvative free 09/08/2020 03:02:00 PM EST completed eCW1 ([facility]) influenza, recombinant, quadrIvalent,injectable, prese rvative free 09/08/2020 03:02:00 PM EST completed eCW1 ([facility]) influenza, recombinant, quadrIvalent,injectable, prese rvative free 09/08/2020 03:02:00 PM EST completed eCW1 ([facility]) influenza, recombinant, quadrIvalent,injectable, prese rvative free 09/08/2020 03:02:00 PM EST completed eCW1 ([facility]) influenza, recombinant, quadrIvalent,injectable, prese rvative free 09/08/2020 03:02:00 PM EST completed eCW1 ([facility]) influenza, recombinant, quadrIvalent,injectable, prese rvative free 09/08/2020 03:02:00 PM EST completed eCW1 ([facility]) influenza, recombinant, quadrIvalent,injectable, prese rvative free 09/08/2020 03:02:00 PM EST completed eCW1 ([facility]) influenza, recombinant, quadrIvalent,injectable, prese rvative free 09/08/2020 03:02:00 PM EST completed eCW1 ([facility]) influenza, recombinant, quadrIvalent,injectable, prese rvative free 09/08/2020 03:02:00 PM EST completed eCW1 ([facility]) influenza, recombinant, quadrIvalent,injectable, prese rvative free 09/08/2020 03:02:00 PM EST completed eCW1 ([facility]) influenza, recombinant, quadrIvalent,injectable, prese rvative free 09/08/2020 03:02:00 PM EST completed eCW1 ([facility]) influenza, recombinant, quadrIvalent,injectable, prese rvative free 09/08/2020 03:02:00 PM EST completed eCW1 ([facility]) influenza, recombinant, quadrIvalent,injectable, prese rvative free 09/08/2020 03:02:00 PM EST completed eCW1 ([facility]) influenza, recombinant, quadrIvalent,injectable, prese rvative free 09/08/2020 03:02:00 PM EST completed eCW1 ([facility]) influenza, recombinant, quadrIvalent,injectable, prese rvative free 09/08/2020 03:02:00 PM EST completed eCW1 ([facility]) influenza, recombinant, quadrIvalent,injectable, prese rvative free 09/08/2020 03:02:00 PM EST completed eCW1 ([facility]) influenza, recombinant, quadrIvalent,injectable, prese rvative free 09/08/2020 03:02:00 PM EST completed eCW1 ([facility]) influenza, recombinant, quadrIvalent,injectable, prese rvative free 09/08/2020 03:02:00 PM EST completed eCW1 ([facility]) influenza, recombinant, quadrIvalent,injectable, prese rvative free 09/08/2020 03:02:00 PM EST completed eCW1 ([facility]) influenza, recombinant, quadrIvalent,injectable, prese rvative free 09/08/2020 03:02:00 PM EST completed eCW1 ([facility]) influenza, recombinant, quadrIvalent,injectable, prese rvative free 09/08/2020 03:02:00 PM EST completed eCW1 ([facility]) influenza, recombinant, quadrIvalent,injectable, prese rvative free 09/08/2020 03:02:00 PM EST completed eCW1 ([facility]) influenza, recombinant, quadrIvalent,injectable, prese rvative free 09/08/2020 03:02:00 PM EST completed eCW1 ([facility]) influenza, recombinant, quadrIvalent,injectable, prese rvative free 09/08/2020 03:02:00 PM EST completed eCW1 ([facility]) influenza, recombinant, quadrIvalent,injectable, prese rvative free 09/08/2020 03:02:00 PM EST completed eCW1 ([facility]) influenza, recombinant, quadrIvalent,injectable, prese rvative free 09/08/2020 03:02:00 PM EST completed eCW1 ([facility]) influenza, recombinant, quadrIvalent,injectable, prese rvative free 09/08/2020 03:02:00 PM EST completed eCW1 ([facility]) influenza, recombinant, quadrIvalent,injectable, prese rvative free 09/08/2020 03:02:00 PM EST completed eCW1 ([facility]) Medications Medication Brand Name Start [...] EDT active Admelog SoloStar 100 UNIT/ML eCW1 ([facility]) Admelog SoloStar 100 UNIT/ML Admelog SoloStar 100 UNIT/ML 12:00:00 AM EDT active Admelog SoloStar 100 UNIT/ML eCW1 ([facility]) Admelog SoloStar 100 UNIT/ML Admelog SoloStar 100 UNIT/ML 12:00:00 AM EDT active eCW1 ([facility]) Basaglar KwikPen 100 UNIT/ML Basaglar KwikPen 100 UNIT/ML 12:00:00 AM EDT active Basaglar KwikPen 100 UNIT/ML eCW1 ([facility]) Basaglar KwikPen 100 UNIT/ML Basaglar KwikPen 100 UNIT/ML 12:00:00 AM EDT active Basaglar KwikPen 100 UNIT/ML eCW1 ([facility]) 3 ML Insulin Glargine 100 UNT/ML [...] EDT active Admelog SoloStar 100 UNIT/ML eCW1 ([facility]) Basaglar KwikPen 100 UNIT/ML Basaglar KwikPen 100 UNIT/ML 12:00:00 AM EDT active Basaglar KwikPen 100 UNIT/ML eCW1 ([facility]) Admelog SoloStar 100 UNIT/ML Admelog SoloStar 100 UNIT/ML 12:00:00 AM EDT active Admelog SoloStar 100 UNIT/ML eCW1 ([facility]) Basaglar KwikPen 100 UNIT/ML Basaglar KwikPen 100 UNIT/ML 12:00:00 AM EDT active eCW1 ([facility]) Basaglar KwikPen 100 UNIT/ML Basaglar KwikPen 100 UNIT/ML 12:00:00 AM EDT active Basaglar KwikPen 100 UNIT/ML eCW1 ([facility]) Basaglar KwikPen 100 UNIT/ML Basaglar KwikPen 100 UNIT/ML 12:00:00 AM EDT active Basaglar KwikPen 100 UNIT/ML eCW1 ([facility]) Admelog SoloStar 100 UNIT/ML Admelog SoloStar 100 UNIT/ML 12:00:00 AM EDT active Admelog SoloStar 100 UNIT/ML eCW1 ([facility]) Levemir Flex Touch 100 UNIT/ML UNK 05/02/2021 12:00:00 AM EDT active Levemir Flex Touch 100 UNIT/ML eCW1 ([facility]) Levemir Flex Touch 100 UNIT/ML UNK 05/02/2021 12:00:00 AM EDT active eCW1 ([facility]) Levemir Flex Touch 100 UNIT/ML UNK 05/02/2021 12:00:00 AM EDT active Levemir Flex Touch 100 UNIT/ML eCW1 ([facility]) 31 gauge x 3/16" 05/02/2021 12:00:00 AM EDT needle 5 USE DIRECTED USE DIRECTED SOLD: 05/04/2021 [facility] 3 ML Insulin Lispro 100 UNT/ML Pen Injec tor [Humalog] HumaLOG KwikPen 100 UNIT/ML HumaLOG KwikPen 100 UNIT/ML 05/02/2021 12:00:00 AM EDT active eCW1 ([facility]) 3 ML Insulin Lispro 100 UNT/ML Pen Injec tor [Humalog] HumaLOG KwikPen 100 UNIT/ML HumaLOG KwikPen 100 UNIT/ML 05/02/2021 12:00:00 AM EDT active HumaLOG KwikPen 100 UNIT/ML eCW1 ([facility]) 3 ML Insulin Lispro 100 UNT/ML Pen Injec tor [Humalog] HumaLOG KwikPen 100 UNIT/ML HumaLOG KwikPen 100 UNIT/ML 05/02/2021 12:00:00 AM EDT active HumaLOG KwikPen 100 UNIT/ML eCW1 ([facility]) Levemir Flex Touch 100 UNIT/ML UNK 05/02/2021 12:00:00 AM EDT active Levemir Flex Touch 100 UNIT/ML eCW1 ([facility]) Levemir Flex Touch 100 UNIT/ML UNK 05/02/2021 12:00:00 AM EDT active Levemir Flex Touch 100 UNIT/ML eCW1 ([facility]) 3 ML Insulin Lispro 100 UNT/ML Pen Injec tor [Humalog] HumaLOG KwikPen 100 UNIT/ML HumaLOG KwikPen 100 UNIT/ML 05/02/2021 12:00:00 AM EDT active HumaLOG KwikPen 100 UNIT/ML eCW1 ([facility]) Levemir Flex Touch 100 UNIT/ML UNK 05/02/2021 12:00:00 AM EDT active Levemir Flex Touch 100 UNIT/ML eCW1 ([facility]) 3 ML Insulin Lispro 100 UNT/ML Pen Injec tor [Humalog] HumaLOG KwikPen 100 UNIT/ML HumaLOG KwikPen 100 UNIT/ML 05/02/2021 12:00:00 AM EDT active HumaLOG KwikPen 100 UNIT/ML eCW1 ([facility]) 3 ML Insulin Lispro 100 UNT/ML Pen Injec tor [Humalog] HumaLOG KwikPen 100 UNIT/ML HumaLOG KwikPen 100 UNIT/ML 05/02/2021 12:00:00 AM EDT active HumaLOG KwikPen 100 UNIT/ML eCW1 ([facility]) FreeStyle Ginger Roxton - FreeStyle Ginger Roxton - 03/14/2021 12:00: 00 AM EDT active FreeStyle Ginger Roxton - eCW1 ([facility]) FreeStyle Ginger 14 Day Sensor - FreeStyle Ginger 14 Day Senso r - 03/14/2021 12:00:00 AM EDT active FreeStyl e Ginger 14 Day Sensor - eCW1 ([facility]) FreeStyle Ginger 14 Day Sensor - FreeStyle Ginger 14 Day Senso r - 03/14/2021 12:00:00 AM EDT active FreeStyl e Ginger 14 Day Sensor - eCW1 ([facility]) FreeStyle Ginger 14 Day Sensor - FreeStyle Ginger 14 Day Senso r - 03/14/2021 12:00:00 AM EDT active FreeStyl e Ginger 14 Day Sensor - eCW1 ([facility]) FreeStyle Ginger Roxton - FreeStyle Ginger Roxton - 03/14/2021 12:00: 00 AM EDT active FreeStyle Ginger Roxton - eCW1 ([facility]) FreeStyle Ginger Roxton - FreeStyle Ginger Roxton - 03/14/2021 12:00: 00 AM EDT active FreeStyle Ginger Roxton - eCW1 ([facility]) FreeStyle Ginger Roxton - FreeStyle Ginger Roxton - 03/14/2021 12:00: 00 AM EDT active FreeStyle Ginger Roxton - eCW1 ([facility]) FreeStyle Ginger 14 Day Sensor - FreeStyle Ginger 14 Day Senso r - 03/14/2021 12:00:00 AM EDT active FreeStyl e Ginger 14 Day Sensor - eCW1 ([facility]) FreeStyle Ginger Roxton - FreeStyle Ginger Roxton - 03/14/2021 12:00: 00 AM EDT active FreeStyle Ginger Roxton - eCW1 ([facility]) FreeStyle Ginger 14 Day Sensor - FreeStyle Ginger 14 Day Senso r - 03/14/2021 12:00:00 AM EDT active FreeStyl e Ginger 14 Day Sensor - eCW1 ([facility]) FreeStyle Ginger 14 Day Sensor - FreeStyle Ginger 14 Day Senso r - 03/14/2021 12:00:00 AM EDT active FreeStyl e Ginger 14 Day Sensor - eCW1 ([facility]) FreeStyle Ginger 14 Day Sensor - FreeStyle Ginger 14 Day Senso r - 03/14/2021 12:00:00 AM EDT active FreeStyl e Ginger 14 Day Sensor - eCW1 ([facility]) FreeStyle Ginger Roxton - FreeStyle Ginger Roxton - 03/14/2021 12:00: 00 AM EDT active FreeStyle Ginger Roxton - eCW1 ([facility]) FreeStyle Ginger Roxton - FreeStyle Ginger Roxton - 03/14/2021 12:00: 00 AM EDT active eCW1 ([facility]) FreeStyle Ginger 14 Day Sensor - FreeStyle Ginger 14 Day Senso r - 03/14/2021 12:00:00 AM EDT active e CW1 ([facility]) FreeStyle Ginger 14 Day Sensor - FreeStyle Ginger 14 Day Senso r - 03/14/2021 12:00:00 AM EDT active FreeStyl e Ginger 14 Day Sensor - eCW1 ([facility]) FreeStyle Ginger 14 Day Sensor - FreeStyle Ginger 14 Day Senso r - 03/14/2021 12:00:00 AM EDT active FreeStyl e Ginger 14 Day Sensor - eCW1 ([facility]) FreeStyle Ginger Roxton - FreeStyle Ginger Roxton - 03/14/2021 12:00: 00 AM EDT active FreeStyle Ginger Roxton - eCW1 ([facility]) FreeStyle Ginger 14 Day Sensor - FreeStyle Ginger 14 Day Senso r - 03/14/2021 12:00:00 AM EDT active FreeStyl e Ginger 14 Day Sensor - eCW1 ([facility]) FreeStyle Ginger 14 Day Sensor - FreeStyle Ginger 14 Day Senso r - 03/14/2021 12:00:00 AM EDT active FreeStyl e Ginger 14 Day Sensor - eCW1 ([facility]) FreeStyle Ginger Roxton - FreeStyle Ginger Roxton - 03/14/2021 12:00: 00 AM EDT active FreeStyle Ginger Roxton - eCW1 ([facility]) FreeStyle Ginger Roxton - FreeStyle Ginger Roxton - 03/14/2021 12:00: 00 AM EDT active FreeStyle Ginger Roxton - eCW1 ([facility]) FreeStyle Ginger Roxton - FreeStyle Ginger Roxton - 03/14/2021 12:00: 00 AM EDT active FreeStyle Ginger Roxton - eCW1 ([facility]) FreeStyle Ginger Roxton - FreeStyle Ginger Roxton - 03/14/2021 12:00: 00 AM EDT active FreeStyle Ginger Roxton - eCW1 ([facility]) FreeStyle Ginger Roxton - FreeStyle Ginger Roxton - 03/14/2021 12:00: 00 AM EDT active FreeStyle Ginger Roxton - eCW1 ([facility]) FreeStyle Ginger 14 Day Sensor - FreeStyle Ginger 14 Day Senso r - 03/14/2021 12:00:00 AM EDT active FreeStyl e Ginger 14 Day Sensor - eCW1 ([facility]) 100 unit/mL 03/01/2021 12:00:00 AM EDT [...] 70 UNITS SOLD: 12/15/2020 [facility] 11/03/2020 12:00:00 AM EST misc 100 USE FOUR TIMES A DAY SUBCUTANEOUSLY USE FOUR TIMES A DAY SUBCUTANEOUSLY SOLD: 03/02/2021 [facility] 11/03/2020 12:00:00 AM EST misc 100 USE [...] type / Coverage type Policy ID Covered libertarian ID Covered libertarian's relationship to herrera Policy Herrera Plan Information [place] 305/805 [id number] MO2 [id number] [facility] COMM[facility] MCDO [id number] SP [id number] PMA MANAGEMENT IKE [id number] SP [id number] [facility] O [id number] S [id number] [facility] O [id number] S [id number] [facility] [employer] O [id number] S [id number] [facility]-Medicaid [id number] [facility]-Medicaid [id number] ANS-Medicaid [id number] [facility]-Medicaid [id number] [facility]-Medicaid [id number] ANSI-Medicaid [id number] ANSI-Medicaid [id number] ANSI-Medicaid [id number] ANSI-Medicaid [id number] ANSI-Medicaid [id number] ANSI-Medicaid [id number] ANSI-Medicaid [id number] ANSI-Medicaid [id number] ANSI-Medicaid [id number] ANSI-Medicaid [id number] ANSI-Medicaid [id number] ANSI-Medicaid [id number] ANSI-Medicaid [id number] ANSI-Medicaid [id number] ANSI-Medicaid [id number] ANSI-Medicaid [id number] ANSI-Medicaid [id number] ANSI-Medicaid [id number] ANSI-Medicaid [id number] ANSI-Medicaid [id number] ANSI-Medicaid [id number] ANSI-Medicaid [id number] ANSI-Medicaid [id number] ANSI-Medicaid [id number] ANSI-Medicaid [id number] ANSI-Medicaid [id number] ANSI-Medicaid [id number] ANSI-Medicaid [id number] ANSI-Medicaid [id number] ANSI-Medicaid [id number] ANSI-Medicaid [id number] ANSI-Medicaid [id number] ANSI-Medicaid [id number] ANSI-Medicaid [id number] ANSI-Medicaid [id number] ANSI-Medicaid [id number] ANSI-Medicaid [id number] ANSI-Medicaid [id number] ANSI-Medicaid [id number] ANSI-Medicaid [id number] ANSI-Medicaid [id number] ANSI-Medicaid [id number] ANSI-Medicaid [id number] ANSI-Medicaid [id number] ANSI-Medicaid [id number] ANSI-Medicaid [id number] ANSI-Medicaid [id number] ANSI-Medicaid [id number] ANSI-Medicaid [id number] ANSI-Medicaid [id number] ANSI-Medicaid [id number] ANSI-Medicaid [id number] SELF PAY UNAVAILABLE SP UNAVAILA BLE ACTIVE DUTY [id number] MO2 [id number] [place] PPO 302/[id number] MO2 [id number] O BLUE [id number] SP [id number] [facility] [id number] SP [id number] [facility] [id number] FA2 [id number] [facility] [id number] SP [id number] Problems, Conditions, and Diagnoses Code Display Name Description Problem Type Effective Dates Data Source(s) Z91.14 [id number] Non compliance w medication regimen Probl em 05/02/2021 12:00:00 AM EDT eCW1 ([facility]) Surgeries/Procedures Procedure Description Date Indications Data Source(s) Immunization: Flublok Quadrivalent (18 years & older) 0.5mL IM (Influenza) 09/08/2020 12:00:00 AM EST eCW1 ([facility]) Results ID Date Data Source [id number] 04/30/2021 04:23:00 PM EDT [facility] Name Value Range Interpretation Code Description Data Kaley rce(s) Supporting Document(s) SARS coronavirus 2 RNA [Presence] in Res piratory specimen by LISETH with probe detection NEGATIVE [facility] This lab was ordered by [facility] a nd reported by [facility]. ID Date Data Source [id number] 02/08/2021 02:54:00 PM EDT [facility] Name Value Range Interpretation Code Description Data Kaley rce(s) Supporting Document(s) SARS coronavirus 2 RNA [Presence] in Res piratory specimen by LISETH with probe detection NEGATIVE [facility] This lab was ordered by [facility] a nd reported by [facility]. Procedure Social History Code Duration Value Status Description Data Source(s ) Smoking 05/30/2021 12:00:00 AM EDT Never Smoker completed Never S moker eCW1 ([facility]) Smoking 05/30/2021 12:00:00 AM EDT Never Smoker completed Never S moker eCW1 ([facility]) Smoking 05/30/2021 12:00:00 AM EDT Never Smoker completed Never S moker eCW1 ([facility]) Smoking 05/16/2021 12:00:00 AM EDT Never Smoker completed Never S moker eCW1 ([facility]) Smoking 05/16/2021 12:00:00 AM EDT Never Smoker completed Never S moker eCW1 ([facility]) Smoking 05/16/2021 12:00:00 AM EDT Never Smoker completed Never S moker eCW1 ([facility]) Smoking 02/28/2021 12:00:00 AM EDT Never Smoker completed Never S moker eCW1 ([facility]) Smoking 02/28/2021 12:00:00 AM EDT Never Smoker completed Never S moker eCW1 ([facility]) Smoking 02/28/2021 12:00:00 AM EDT Never Smoker completed Never S moker eCW1 ([facility]) Smoking 02/28/2021 12:00:00 AM EDT Never Smoker completed Never S moker eCW1 ([facility]) Smoking 02/28/2021 12:00:00 AM EDT Never Smoker completed Never S moker eCW1 ([facility]) Smoking 02/28/2021 12:00:00 AM EDT Never Smoker completed Never S moker eCW1 ([facility]) Smoking 02/28/2021 12:00:00 AM EDT Never Smoker completed Never S moker eCW1 ([facility]) Smoking 02/28/2021 12:00:00 AM EDT Never Smoker completed Never S moker eCW1 ([facility]) Smoking 02/28/2021 12:00:00 AM EDT Never Smoker completed Never S moker eCW1 ([facility]) Smoking 02/28/2021 12:00:00 AM EDT Never Smoker completed Never S moker eCW1 ([facility]) Smoking 02/28/2021 12:00:00 AM EDT Never Smoker completed Never S moker eCW1 ([facility]) Smoking 11/19/2020 12:00:00 AM EST Never Smoker completed Never S moker eCW1 ([facility]) Smoking 11/19/2020 12:00:00 AM EST Never Smoker completed Never S moker eCW1 ([facility]) Smoking 11/19/2020 12:00:00 AM EST Never Smoker completed Never S moker eCW1 ([facility]) Smoking 11/19/2020 12:00:00 AM EST Never Smoker completed Never S moker eCW1 ([facility]) Smoking 11/19/2020 12:00:00 AM EST Never Smoker completed Never S moker eCW1 ([facility]) Smoking 11/19/2020 12:00:00 AM EST Never Smoker completed Never S moker eCW1 ([facility]) Smoking 11/19/2020 12:00:00 AM EST Never Smoker completed Never S moker eCW1 ([facility]) Smoking 11/19/2020 12:00:00 AM EST Never Smoker completed Never S moker eCW1 ([facility]) Smoking 09/08/2020 12:00:00 AM EST Never Smoker completed Never S moker eCW1 ([facility]) Smoking 09/08/2020 12:00:00 AM EST Never Smoker completed Never S moker eCW1 ([facility]) Smoking 09/08/2020 12:00:00 AM EST Never Smoker completed Never S moker eCW1 ([facility]) Smoking 09/08/2020 12:00:00 AM EST Never Smoker completed Never S moker eCW1 ([facility]) Smoking 09/08/2020 12:00:00 AM EST Never Smoker completed Never S moker eCW1 ([facility]) Smoking 07/22/2020 12:00:00 AM EDT Never Smoker completed Never S moker eCW1 ([facility]) Smoking 07/22/2020 12:00:00 AM EDT Never Smoker completed Never S moker eCW1 ([facility]) Smoking 07/22/2020 12:00:00 AM EDT Never Smoker completed Never S moker eCW1 ([facility]) Smoking 07/22/2020 12:00:00 AM EDT Never Smoker completed Never S moker eCW1 ([facility]) Vital Signs ID Date Data Source UNK Name Value Range Interpretation Code Description Data Source(s) Body weight 255.12 [lb_av] 255.12 [lb_av] eCW1 ([facility]) Body weight 115.72 kg 115.72 kg eCW1 ([facility]) Body height 69 [in_i] 69 [in_i] eCW1 ([facility]) Body mass index (BMI) [Ratio] 37.67 kg/m2 37.67 kg/m2 eCW1 ([facility]) Heart rate 104 /min 104 /min eCW1 ([facility]) Respiratory rate 18 /min 18 /min eCW1 ([facility]) Body temperature 97.9 [degF] 97.9 [degF] eCW1 ( [facility]) Systolic blood pressure 128 mm[Hg] 128 mm[Hg] e CW1 ([facility]) Diastolic blood pressure 76 mm[Hg] 76 mm[Hg] eCW1 ([facility]) Body height 69 [in_i] 69 [in_i] eCW1 ([facility]) Body weight 250.0 [lb_av] 250.0 [lb_av] [facility] Body weight 250.0 [lb_av] 250.0 [lb_av] eCW1 [facility] Body height 69 [in_i] 69 [in_i] eCW1 ([facility]) Body mass index (BMI) [Ratio] 36.91 kg/m2 36.91 kg/m2 eCW1 ([facility]) Heart rate 107 /min 107 /min eCW1 ([facility]) Respiratory rate 18 /min 18 /min eCW1 ([facility]) Body temperature 97.1 [degF] 97.1 [degF] eCW1 ( [facility]) Systolic blood pressure 116 mm[Hg] 116 mm[Hg] e CW1 ([facility]) Diastolic blood pressure 72 mm[Hg] 72 mm[Hg] eCW1 ([facility]) Body temperature 97.1 [degF] 97.1 [degF] eCW1 ( [facility]) Body mass index (BMI) [Ratio] 36.91 kg/m2 36.91 kg/m2 eCW1 ([facility]) Systolic blood pressure 116 mm[Hg] 116 mm[Hg] e CW1 ([facility]) Heart rate 107 /min 107 /min eCW1 ([facility]) Diastolic blood pressure 72 mm[Hg] 72 mm[Hg] eCW1 ([facility]) Respiratory rate 18 /min 18 /min eCW1 ([facility]) Body weight 252.2 [lb_av] 252.2 [lb_av] eCW1 [facility] Body height 69 [in_i] 69 [in_i] eCW1 ([facility]) Body mass index (BMI) [Ratio] 37.24 kg/m2 37.24 kg/m2 eCW1 ([facility]) Heart rate 108 /min 108 /min eCW1 ([facility]) Respiratory rate 18 /min 18 /min eCW1 ([facility]) Body temperature 97.7 [degF] 97.7 [degF] eCW1 ( [facility]) Systolic blood pressure 112 mm[Hg] 112 mm[Hg] e CW1 ([facility]) Diastolic blood pressure 72 mm[Hg] 72 mm[Hg] eCW1 ([facility]) Body mass index (BMI) [Ratio] 37.95 kg/m2 37.95 kg/m2 eCW1 ([facility]) Heart rate 116 /min 116 /min eCW1 ([facility]) Respiratory rate 18 /min 18 /min eCW1 ([facility]) Body temperature 96.2 [degF] 96.2 [degF] eCW1 ( [facility]) Systolic blood pressure 112 mm[Hg] 112 mm[Hg] e CW1 ([facility]) Diastolic blood pressure 68 mm[Hg] 68 mm[Hg] eCW1 ([facility]) Body weight 257 [lb_av] 257 [lb_av] eCW1 ([facility]) Body height 69 [in_i] 69 [in_i] eCW1 ([facility]) Body weight 253.8 [lb_av] 253.8 [lb_av] eCW1 [facility] Body height 69 [in_i] 69 [in_i] eCW1 ([facility]) Body mass index (BMI) [Ratio] 37.48 kg/m2 37.48 kg/m2 eCW1 ([facility]) Body weight 260.0 [lb_av] 260.0 [lb_av] eCW1 ([facility] Body height 69 [in_i] 69 [in_i] eCW1 ([facility]) Body mass index (BMI) [Ratio] 38.39 kg/m2 38.39 kg/m2 eCW1 ([facility]) Heart rate 98 /min 98 /min eCW1 ([facility]) Respiratory rate 18 /min 18 /min eCW1 ([facility]) Body temperature 97.6 [degF] 97.6 [degF] eCW1 ( [facility]) Systolic blood pressure 122 mm[Hg] 122 mm[Hg] e CW1 ([facility]) Diastolic blood pressure 80 mm[Hg] 80 mm[Hg] eCW1 ([facility]) Patient Treatment Plan of Care Planned Activity Planned Date Details Description Data Source (s) Basaglar KwikPen 100 UNIT/ML 05/04/2021 12:00:00 AM EDT eCW1 ([facility]) Admelog SoloStar 100 UNIT/ML 05/04/2021 12:00:00 AM EDT eCW1 ([facility]) Basaglar KwikPen 100 UNIT/ML 05/04/2021 12:00:00 AM EDT eCW1 ([facility]) Admelog SoloStar 100 UNIT/ML 05/04/2021 12:00:00 AM EDT eCW1 ([facility]) Basaglar KwikPen 100 UNIT/ML 05/04/2021 12:00:00 AM EDT eCW1 ([facility]) Admelkhurram FulleroStar 100 UNIT/ML 05/04/2021 12:00:00 AM EDT eCW1 ([facility]) FreeStyle Ginger Roxton - 03/14/2021 12:00:00 AM EDT eCW1 ([facility]) FreeStyle Ginger 14 Day Sensor - 03/14/2021 12:00:00 AM EDT eCW1 ([facility]) FreeStyle Ginger Roxton - 03/14/2021 12:00:00 AM EDT eCW1 ([facility]) FreeStyle Ginger 14 Day Sensor - 03/14/2021 12:00:00 AM EDT eCW1 ([facility]) FreeStyle Ginger Roxton - 03/14/2021 12:00:00 AM EDT eCW1 ([facility]) FreeStyle Ginger 14 Day Sensor - 03/14/2021 12:00:00 AM EDT eCW1 ([facility]) FreeStyle Ginger Roxton - 03/14/2021 12:00:00 AM EDT eCW1 ([facility]) FreeStyle Ginger 14 Day Sensor - 03/14/2021 12:00:00 AM EDT eCW1 ([facility]) FreeStyle Ginger Roxton - 03/14/2021 12:00:00 AM EDT eCW1 ([facility]) FreeStyle Ginger 14 Day Sensor - 03/14/2021 12:00:00 AM EDT eCW1 ([facility]) FreeStyle Ginger Roxton - 03/14/2021 12:00:00 AM EDT eCW1 ([facility]) FreeStyle Ginger 14 Day Sensor - 03/14/2021 12:00:00 AM EDT eCW1 ([facility]) FreeStyle Ginger Roxton - 03/14/2021 12:00:00 AM EDT eCW1 ([facility]) FreeStyle Ginger 14 Day Sensor - 03/14/2021 12:00:00 AM EDT eCW1 ([facility])
[2021-07-21] MEDS ORDERED: NS 1,000 ML IV ONE ×2 (02:55→04:40)
[2021-07-21 03:25] LABS: VENOUS HCO3 9.1 MEQ/L (23.0-27.0); VENOUS O2 SATURATION 97.6 % (60.0-80.0); VENOUS PARTIAL PRESSURE CO2 29.2 mmHg (38.0-50.0); VENOUS PARTIAL PRESSURE O2 111.5 mmHg (30.0-50.0); VENOUS PH 7.111 UNITS (7.330-7.430); VENOUS STANDARD HCO3 11.2 MEQ/L
[2021-07-21 03:30] LABS: BASO # 0.1 10^3/uL (0.0-0.2); BASO % 0.4 % (0.0-1.0); HEMATOCRIT 51.8 % (42.0-52.0); HEMOGLOBIN 16.8 g/dl (13.5-17.5); LYMPH # 1.2 10^3/uL (1.5-5.0); LYMPH % 3.1 % (24.0-44.0); MEAN CORPUSCULAR HEMOGLOBIN 30.5 pg (27.0-33.0); MEAN CORPUSCULAR HGB CONC 32.4 g/dl (32.0-36.5); MONO # 2.6 10^3/uL (0.0-0.8); MONO % 6.8 % (2.0-8.0); NEUTROPHILS # 33.7 10^3/uL (1.5-8.5); NEUTROPHILS % 88.6 % (36.0-66.0); PLATELET COUNT, AUTOMATED 408 10^3/uL (150-450); RED BLOOD COUNT 5.51 10^6/uL (4.30-6.10)
[2021-07-21 04:09] LABS: OSMOLALITY SERUM 331 MOSM/KG (275-295)
[2021-07-21 04:14] LABS: CALCIUM LEVEL 9.9 MG/DL (8.5-10.1); CREATININE FOR GFR 2.09 MG/DL (0.70-1.30); GLOMERULAR FILTRATION RATE 39.9 (>60); POTASSIUM SERUM 5.5 MEQ/L (3.5-5.1)
[2021-07-21 04:17] LABS: ACETONE/KETONE > 46.00 MG/DL (<2.81); ALBUMIN 4.5 GM/DL (3.2-5.2); ALT/SGPT 26 U/L (12-78); BILIRUBIN,DIRECT 0.1 MG/DL (0.0-0.2); BILIRUBIN,TOTAL 0.5 MG/DL (0.2-1.0); LIPASE 33 U/L (73-393)
[2021-07-21] MEDS ORDERED: INSULIN IV RATE CHANGE DOCUMENTATION ML/HR XX SCH ×2 (04:40→04:50)
[2021-07-21] MEDS ORDERED: SODIUM CHLORIDE 0.9% 1000ML IV STA (04:50)
[2021-07-21] MEDS ORDERED: NS 1,000 ML IV SCH (04:50)
[2021-07-21] MEDS ORDERED: INSULIN REGULAR IN 0.9 % NACL 100 UNIT in IV 1 EA IV SCH ×2 (04:50)
[2021-07-21] MEDS ORDERED: LR 2,000 ML IV SCH (05:10)
--- OUTSIDE RECORDS SUMMARY | 2021-07-21 05:10 | CCD ---
Author Author [facility] Organization [facility] Address Unknown Phone Unavailable Care Team Providers Care Industrial Refrigeration Mechanic Name Role Phone Janeen Waters MD Unavailable [...] is protected by Article 27-F of the [facility] Public Health law. If you continue you may have access to information: Regarding HIV / AIDS; Provided by facilities licensed or operated by the [facility] Office of Mental Health; or Provided by the [facility] Office for People With Developmental Disabilities. If such information is present, then the following [facility] mandated warning applies: This information has [...] law may result in a fine or long-term sentence or both. A general authorization for the release of medical or other information is NOT sufficient authorization for further disc losure. Encounters Encounter Providers Location Date Indications Data Source(s ) Outpatient Attender: May Georges MDReferrer: Jake Waters MD 02/15/2022 12:00:00 AM EDT [facility] Unknown [address] [facility] [place] [address] 07/18/2021 12:00:00 AM EDT eCW1 ([facility]) Unknown [address] [facility] [place] [address] 06/22/2021 12:00:00 AM EDT eCW1 ([facility]) Outpatient [address] [facility] [address] 05/30/2021 12:00:00 AM EDT eCW1 ([facility]) Unknown [address] [facility] [place] [address] 05/24/2021 12:00:00 AM EDT eCW1 ([facility]) Unknown [address] [facility] [place] [address] 05/17/2021 12:00:00 AM EDT eCW1 ([facility]) Outpatient [address] [facility] [place] [address] 05/16/2021 12:00:00 AM EDT eCW1 ([facility]) Unknown [address] [facility] [place] [address] 05/04/2021 12:00:00 AM EDT eCW1 ([facility]) Unknown [address] [facility] [place] [address] 05/03/2021 12:00:00 AM EDT eCW1 ([facility]) Unknown [address] [facility] [place] [address] 05/02/2021 12:00:00 AM EDT eCW1 ([facility]) [place] [address] [facility] [place] [address] 05/02/2021 12:00:00 AM EDT eCW1 ([facility]) [place] [address] [facility] [place] [address] 04/21/2021 12:00:00 AM EDT eCW1 ([facility]) [place] [address] [facility] [place] [address] 04/14/2021 12:00:00 AM EDT eCW1 ([facility]) [place] [address] [facility] [place] [address] 03/30/2021 12:00:00 AM EDT eCW1 ([facility]) Outpatient [address] [facility] [place] [address] 03/14/2021 12:00:00 AM EDT eCW1 ([facility]) [place] [address] [facility] [place] [address] 03/14/2021 12:00:00 AM EDT eCW1 ([facility]) Outpatient [address] [facility] [place] [address] 02/28/2021 12:00:00 AM EDT eCW1 ([facility]) Unknown [address] [facility] [place] [address] 02/17/2021 12:00:00 AM EDT eCW1 ([facility]) [place] [address] [facility] [place] [address] 02/16/2021 12:00:00 AM EDT eCW1 ([facility]) Unknown [address] [facility] [place] [address] 02/11/2021 12:00:00 AM EDT eCW1 ([facility]) Unknown [address] [facility] [place] [address] 01/14/2021 12:00:00 AM EDT eCW1 ([facility]) Unknown [address] [facility] [place] [address] 12/24/2020 12:00:00 AM EDT eCW1 ([facility]) Unknown [address] [facility] [place] [address] 11/29/2020 12:00:00 AM EST eCW1 ([facility]) Unknown [address] [facility] [place] [address] 11/22/2020 12:00:00 AM EST eCW1 ([facility]) Outpatient [address] [facility] [place] [address] 11/19/2020 12:00:00 AM EST eCW1 ([facility]) Unknown [address] [facility] [place] [address] 11/03/2020 12:00:00 AM EST eCW1 ([facility]) Unknown [address] [facility] [place] [address] 10/11/2020 12:00:00 AM EST eCW1 ([facility]) Unknown [address] [facility] [place] [address] 09/13/2020 12:00:00 AM EST eCW1 ([facility]) Unknown [address] [facility] [place] [address] 09/08/2020 12:00:00 AM EST eCW1 ([facility]) Outpatient [address] [facility] [place] [address] 09/08/2020 12:00:00 AM EST eCW1 ([facility]) Unknown [address] [facility] [place] [address] 08/27/2020 12:00:00 AM EST eCW1 ([facility]) Outpatient [address] [facility] [place] [address] 08/24/2020 12:00:00 AM EST eCW1 ([facility]) Unknown [address] [facility] [place] [address] 08/24/2020 12:00:00 AM EST [facility]CW1 ([facility]) [place] [address] [facility] [place] [address] 07/22/2020 12:00:00 AM EDT eCW1 ([facility] hospital) Unknown [address] [facility] [place] [address] 07/16/2020 12:00:00 AM EDT eCW1 (Critical [facility] hospital) [place] [address] [facility] [place] [address] 07/15/2020 12:00:00 AM EDT eCW1 (Critical access hospital) Unknown [address] [facility] [place] [address] 07/12/2020 12:00:00 AM EDT eCW1 (Critical access hospital) [facility] [address] [facility] [place] [address] 05/25/2020 12:00:00 AM EDT eCW1 (Critical access hospital) Immunizations Vaccine Date Status Description Data Source(s) COVID-19 VACCINE Pfizer 03/27/2021 12:00:00 AM EDT completed [facility] Vaccine Series Complete: YESThis Data wa s Submitted to [facility] Via [employer]. COVID-19 VACC, MRNA(PFIZER)/PF 03/27/2021 12:00:00 AM EDT completed [facility] COVID-19 VACC, MRNA(PFIZER)/PF 03/06/2021 12:00:00 AM EDT completed [facility] COVID-19 VACCINE Pfizer 03/06/2021 12:00:00 AM EDT completed [facility] Vaccine Series Complete: NOThis Data was Submitted to [facility] [employer]. influenza, recombinant, quadrIvalent,injectable, prese rvative free 09/08/2020 03:02:00 PM EST completed eCW1 ([facility]) influenza, recombinant, quadrIvalent,injectable, prese rvative free 09/08/2020 03:02:00 PM EST completed eCW1 ([facility]) influenza, recombinant, quadrIvalent,injectable, prese rvative free 09/08/2020 03:02:00 PM EST completed eCW1 ([facility]) influenza, recombinant, quadrIvalent,injectable, prese rvative free 09/08/2020 03:02:00 PM EST completed eCW1 ([facility]) influenza, recombinant, quadrIvalent,injectable, prese rvative free 09/08/2020 03:02:00 PM EST completed eCW1 ([facility]) influenza, recombinant, quadrIvalent,injectable, prese rvative free 09/08/2020 03:02:00 PM EST completed eCW1 ([facility]) influenza, recombinant, quadrIvalent,injectable, prese rvative free 09/08/2020 03:02:00 PM EST completed eCW1 ([facility]) influenza, recombinant, quadrIvalent,injectable, prese rvative free 09/08/2020 03:02:00 PM EST completed eCW1 ([facility]) influenza, recombinant, quadrIvalent,injectable, prese rvative free 09/08/2020 03:02:00 PM EST completed eCW1 ([facility]) influenza, recombinant, quadrIvalent,injectable, prese rvative free 09/08/2020 03:02:00 PM EST completed eCW1 ([facility]) influenza, recombinant, quadrIvalent,injectable, prese rvative free 09/08/2020 03:02:00 PM EST completed eCW1 ([facility]) influenza, recombinant, quadrIvalent,injectable, prese rvative free 09/08/2020 03:02:00 PM EST completed eCW1 ([facility]) influenza, recombinant, quadrIvalent,injectable, prese rvative free 09/08/2020 03:02:00 PM EST completed eCW1 ([facility]) influenza, recombinant, quadrIvalent,injectable, prese rvative free 09/08/2020 03:02:00 PM EST completed eCW1 ([facility]) influenza, recombinant, quadrIvalent,injectable, prese rvative free 09/08/2020 03:02:00 PM EST completed eCW1 ([facility]) influenza, recombinant, quadrIvalent,injectable, prese rvative free 09/08/2020 03:02:00 PM EST completed eCW1 ([facility]) influenza, recombinant, quadrIvalent,injectable, prese rvative free 09/08/2020 03:02:00 PM EST completed eCW1 ([facility]) influenza, recombinant, quadrIvalent,injectable, prese rvative free 09/08/2020 03:02:00 PM EST completed eCW1 ([facility]) influenza, recombinant, quadrIvalent,injectable, prese rvative free 09/08/2020 03:02:00 PM EST completed eCW1 ([facility]) influenza, recombinant, quadrIvalent,injectable, prese rvative free 09/08/2020 03:02:00 PM EST completed eCW1 ([facility]) influenza, recombinant, quadrIvalent,injectable, prese rvative free 09/08/2020 03:02:00 PM EST completed eCW1 ([facility]) influenza, recombinant, quadrIvalent,injectable, prese rvative free 09/08/2020 03:02:00 PM EST completed eCW1 ([facility]) influenza, recombinant, quadrIvalent,injectable, prese rvative free 09/08/2020 03:02:00 PM EST completed eCW1 ([facility]) influenza, recombinant, quadrIvalent,injectable, prese rvative free 09/08/2020 03:02:00 PM EST completed eCW1 ([facility]) influenza, recombinant, quadrIvalent,injectable, prese rvative free 09/08/2020 03:02:00 PM EST completed eCW1 ([facility]) influenza, recombinant, quadrIvalent,injectable, prese rvative free 09/08/2020 03:02:00 PM EST completed eCW1 ([facility]) influenza, recombinant, quadrIvalent,injectable, prese rvative free 09/08/2020 03:02:00 PM EST completed eCW1 ([facility]) influenza, recombinant, quadrIvalent,injectable, prese rvative free 09/08/2020 03:02:00 PM EST completed eCW1 ([facility]) influenza, recombinant, quadrIvalent,injectable, prese rvative free 09/08/2020 03:02:00 PM EST completed eCW1 ([facility]) influenza, recombinant, quadrIvalent,injectable, prese rvative free 09/08/2020 03:02:00 PM EST completed eCW1 ([facility]) Medications Medication Brand Name Start Date [...] EDT active Admelog SoloStar 100 UNIT/ML eCW1 ([facility]) Admelog SoloStar 100 UNIT/ML Admelog SoloStar 100 UNIT/ML 12:00:00 AM EDT active Admelog SoloStar 100 UNIT/ML eCW1 ([facility]) Admelog SoloStar 100 UNIT/ML Admelog SoloStar 100 UNIT/ML 12:00:00 AM EDT active eCW1 ([facility]) Basaglar KwikPen 100 UNIT/ML Basaglar KwikPen 100 UNIT/ML 12:00:00 AM EDT active Basaglar KwikPen 100 UNIT/ML eCW1 ([facility]) Basaglar KwikPen 100 UNIT/ML Basaglar KwikPen 100 UNIT/ML 12:00:00 AM EDT active Basaglar KwikPen 100 UNIT/ML eCW1 ([facility]) 3 ML Insulin Glargine 100 UNT/ML [...] EDT active Admelog SoloStar 100 UNIT/ML eCW1 ([facility]) Basaglar KwikPen 100 UNIT/ML Basaglar KwikPen 100 UNIT/ML 12:00:00 AM EDT active Basaglar KwikPen 100 UNIT/ML eCW1 ([facility]) Admelog SoloStar 100 UNIT/ML Admelog SoloStar 100 UNIT/ML 12:00:00 AM EDT active Admelog SoloStar 100 UNIT/ML eCW1 ([facility]) Basaglar KwikPen 100 UNIT/ML Basaglar KwikPen 100 UNIT/ML 12:00:00 AM EDT active eCW1 ([facility]) Basaglar KwikPen 100 UNIT/ML Basaglar KwikPen 100 UNIT/ML 12:00:00 AM EDT active Basaglar KwikPen 100 UNIT/ML eCW1 ([facility]) Basaglar KwikPen 100 UNIT/ML Basaglar KwikPen 100 UNIT/ML 12:00:00 AM EDT active Basaglar KwikPen 100 UNIT/ML eCW1 ([facility]) Admelog SoloStar 100 UNIT/ML Admelog SoloStar 100 UNIT/ML 12:00:00 AM EDT active Admelog SoloStar 100 UNIT/ML eCW1 ([facility]) Levemir Flex Touch 100 UNIT/ML UNK 05/02/2021 12:00:00 AM EDT active Levemir Flex Touch 100 UNIT/ML eCW1 ([facility]) Levemir Flex Touch 100 UNIT/ML UNK 05/02/2021 12:00:00 AM EDT active eCW1 ([facility]) Levemir Flex Touch 100 UNIT/ML UNK 05/02/2021 12:00:00 AM EDT active Levemir Flex Touch 100 UNIT/ML eCW1 ([facility]) 31 gauge x 3/16" 05/02/2021 12:00:00 AM EDT needle 5 USE DIRECTED USE DIRECTED SOLD: 05/04/2021 [facility] 3 ML Insulin Lispro 100 UNT/ML Pen Injec tor [Humalog] HumaLOG KwikPen 100 UNIT/ML HumaLOG KwikPen 100 UNIT/ML 05/02/2021 12:00:00 AM EDT active eCW1 ([facility]) 3 ML Insulin Lispro 100 UNT/ML Pen Injec tor [Humalog] HumaLOG KwikPen 100 UNIT/ML HumaLOG KwikPen 100 UNIT/ML 05/02/2021 12:00:00 AM EDT active HumaLOG KwikPen 100 UNIT/ML eCW1 ([facility]) 3 ML Insulin Lispro 100 UNT/ML Pen Injec tor [Humalog] HumaLOG KwikPen 100 UNIT/ML HumaLOG KwikPen 100 UNIT/ML 05/02/2021 12:00:00 AM EDT active HumaLOG KwikPen 100 UNIT/ML eCW1 ([facility]) Levemir Flex Touch 100 UNIT/ML UNK 05/02/2021 12:00:00 AM EDT active Levemir Flex Touch 100 UNIT/ML eCW1 ([facility]) Levemir Flex Touch 100 UNIT/ML UNK 05/02/2021 12:00:00 AM EDT active Levemir Flex Touch 100 UNIT/ML eCW1 ([facility]) 3 ML Insulin Lispro 100 UNT/ML Pen Injec tor [Humalog] HumaLOG KwikPen 100 UNIT/ML HumaLOG KwikPen 100 UNIT/ML 05/02/2021 12:00:00 AM EDT active HumaLOG KwikPen 100 UNIT/ML eCW1 ([facility]) Levemir Flex Touch 100 UNIT/ML UNK 05/02/2021 12:00:00 AM EDT active Levemir Flex Touch 100 UNIT/ML eCW1 ([facility]) 3 ML Insulin Lispro 100 UNT/ML Pen Injec tor [Humalog] HumaLOG KwikPen 100 UNIT/ML HumaLOG KwikPen 100 UNIT/ML 05/02/2021 12:00:00 AM EDT active HumaLOG KwikPen 100 UNIT/ML eCW1 ([facility]) 3 ML Insulin Lispro 100 UNT/ML Pen Injec tor [Humalog] HumaLOG KwikPen 100 UNIT/ML HumaLOG KwikPen 100 UNIT/ML 05/02/2021 12:00:00 AM EDT active HumaLOG KwikPen 100 UNIT/ML eCW1 ([facility]) FreeStyle Ginger [place] - FreeStyle Ginger [place] - 03/14/2021 12:00: 00 AM EDT active FreeStyle Ginger [place] - eCW1 ([facility]) FreeStyle Ginger 14 Day Sensor - FreeStyle Ginger 14 Day Senso r - 03/14/2021 12:00:00 AM EDT active FreeStyl e Ginger 14 Day Sensor - eCW1 ([facility]) FreeStyle Ginger 14 Day Sensor - FreeStyle Ginger 14 Day Senso r - 03/14/2021 12:00:00 AM EDT active FreeStyl e Ginger 14 Day Sensor - eCW1 ([facility]) FreeStyle Ginger 14 Day Sensor - FreeStyle Ginger 14 Day Senso r - 03/14/2021 12:00:00 AM EDT active FreeStyl e Ginger 14 Day Sensor - eCW1 ([facility]) FreeStyle Ginger [place] - FreeStyle Ginger [place] - 03/14/2021 12:00: 00 AM EDT active FreeStyle Ginger [place] - eCW1 ([facility]) FreeStyle Ginger [place] - FreeStyle Ginger [place] - 03/14/2021 12:00: 00 AM EDT active FreeStyle Ginger [place] - eCW1 ([facility]) FreeStyle Ginger [place] - FreeStyle Ginger [place] - 03/14/2021 12:00: 00 AM EDT active FreeStyle Ginger [place] - eCW1 ([facility]) FreeStyle Ginger 14 Day Sensor - FreeStyle Ginger 14 Day Senso r - 03/14/2021 12:00:00 AM EDT active FreeStyl e Ginger 14 Day Sensor - eCW1 ([facility]) FreeStyle Ginger [place] - FreeStyle Ginger [place] - 03/14/2021 12:00: 00 AM EDT active FreeStyle Ginger [place] - eCW1 ([facility]) FreeStyle Ginger 14 Day Sensor - FreeStyle Ginger 14 Day Senso r - 03/14/2021 12:00:00 AM EDT active FreeStyl e Ginger 14 Day Sensor - eCW1 ([facility]) FreeStyle Ginger 14 Day Sensor - FreeStyle Ginger 14 Day Senso r - 03/14/2021 12:00:00 AM EDT active FreeStyl e Ginger 14 Day Sensor - eCW1 ([facility]) FreeStyle Ginger 14 Day Sensor - FreeStyle Ginger 14 Day Senso r - 03/14/2021 12:00:00 AM EDT active FreeStyl e Ginger 14 Day Sensor - eCW1 ([facility]) FreeStyle Ginger [place] - FreeStyle Ginger [place] - 03/14/2021 12:00: 00 AM EDT active FreeStyle Ginger [place] - eCW1 ([facility]) FreeStyle Ginger [place] - FreeStyle Ginger [place] - 03/14/2021 12:00: 00 AM EDT active eCW1 ([facility]) FreeStyle Ginger 14 Day Sensor - FreeStyle Ginger 14 Day Senso r - 03/14/2021 12:00:00 AM EDT active e CW1 ([facility]) FreeStyle Ginger 14 Day Sensor - FreeStyle Ginger 14 Day Senso r - 03/14/2021 12:00:00 AM EDT active FreeStyl e Ginger 14 Day Sensor - eCW1 ([facility]) FreeStyle Ginger 14 Day Sensor - FreeStyle Ginger 14 Day Senso r - 03/14/2021 12:00:00 AM EDT active FreeStyl e Ginger 14 Day Sensor - eCW1 ([facility]) FreeStyle Ginger [place] - FreeStyle Ginger [place] - 03/14/2021 12:00: 00 AM EDT active FreeStyle Ginger [place] - eCW1 ([facility]) FreeStyle Ginger 14 Day Sensor - FreeStyle Ginger 14 Day Senso r - 03/14/2021 12:00:00 AM EDT active FreeStyl e Ginger 14 Day Sensor - eCW1 ([facility]) FreeStyle Ginger 14 Day Sensor - FreeStyle Ginger 14 Day Senso r - 03/14/2021 12:00:00 AM EDT active FreeStyl e Ginger 14 Day Sensor - eCW1 ([facility]) FreeStyle Ginger [place] - FreeStyle Ginger [place] - 03/14/2021 12:00: 00 AM EDT active FreeStyle Ginger [place] - eCW1 ([facility]) FreeStyle Ginger [place] - FreeStyle Ginger [place] - 03/14/2021 12:00: 00 AM EDT active FreeStyle Ginger [place] - eCW1 ([facility]) FreeStyle Ginger [place] - FreeStyle Ginger [place] - 03/14/2021 12:00: 00 AM EDT active FreeStyle Ginger [place] - eCW1 ([facility]) FreeStyle Ginger [place] - FreeStyle Ginger [employer] [place] - 03/14/2021 12:00: 00 AM EDT active FreeStyle Ginger [place] - eCW1 ([facility]) FreeStyle [place] - FreeStyle Ginger [employer] [place] - 03/14/2021 12:00: 00 AM EDT active FreeStyle Ginger [place] - eCW1 ([facility]) FreeStyle Ginger 14 Day Sensor - FreeStyle Ginger 14 Day Senso r - 03/14/2021 12:00:00 AM EDT active FreeStyl e Ginger 14 Day Sensor - eCW1 ([facility]) 100 unit/mL 03/01/2021 12:00:00 AM EDT [...] 70 UNITS SOLD: 12/15/2020 [facility] 11/03/2020 12:00:00 AM EST misc 100 USE FOUR TIMES A DAY SUBCUTANEOUSLY USE FOUR TIMES A DAY SUBCUTANEOUSLY SOLD: 03/02/2021 [facility] 11/03/2020 12:00:00 AM EST misc [...] type / Coverage type Policy ID Covered alliance party ID Covered alliance party's relationship to herrera Policy Herrera Plan Information [place] 305/805 [id number] MO2 [id number] [facility] MCDO [id number] SP [id number] PMA MANAGEMENT IKE [id number] SP [id number] [facility] O [id number] S [id number] [facility] O [id number] S [id number] [facility] O [id number] S [id number] [facility]-Medicaid [id number] [facility]-Medicaid [id number] ANS-Medicaid [id number] [facility]-Medicaid [id number] [facility]-Medicaid [id number] ANSI-Medicaid [id number] ANSI-Medicaid [id number] ANSI-Medicaid [id number] ANSI-Medicaid [id number] ANSI-Medicaid [id number] ANSI-Medicaid [id number] ANSI-Medicaid [id number] ANSI-Medicaid [id number] ANSI-Medicaid [id number] ANSI-Medicaid [id number] ANSI-Medicaid [id number] ANSI-Medicaid [id number] ANSI-Medicaid [id number] ANSI-Medicaid [id number] ANSI-Medicaid [id number] ANSI-Medicaid [id number] ANSI-Medicaid [id number] ANSI-Medicaid [id number] ANSI-Medicaid [id number] ANSI-Medicaid [id number] ANSI-Medicaid [id number] ANSI-Medicaid [id number] ANSI-Medicaid [id number] ANSI-Medicaid [id number] ANSI-Medicaid [id number] ANSI-Medicaid [id number] ANSI-Medicaid [id number] ANSI-Medicaid [id number] ANSI-Medicaid [id number] ANSI-Medicaid [id number] ANSI-Medicaid [id number] ANSI-Medicaid [id number] ANSI-Medicaid [id number] ANSI-Medicaid [id number] ANSI-Medicaid [id number] ANSI-Medicaid [id number] ANSI-Medicaid [id number] ANSI-Medicaid [id number] ANSI-Medicaid [id number] ANSI-Medicaid [id number] ANSI-Medicaid [id number] ANSI-Medicaid [id number] ANSI-Medicaid [id number] ANSI-Medicaid [id number] ANSI-Medicaid [id number] ANSI-Medicaid [id number] ANSI-Medicaid [id number] ANSI-Medicaid [id number] ANSI-Medicaid [id number] ANSI-Medicaid [id number] ANSI-Medicaid [id number] ANSI-Medicaid [id number] SELF PAY UNAVAILABLE SP UNAVAILA BLE ACTIVE DUTY [id number] MO2 [id number] [place] PPO [id number] MO2 [id number] O BLUE [id number] SP [id number] [facility] [id number] SP [id number] [facility] [place] [id number] FA2 [id number] [facility] [id number] SP [id number] Problems, Conditions, and Diagnoses Code Display Name Description Problem Type Effective Dates Data Source(s) Z91.14 [id number] Non compliance w medication regimen Probl em 05/02/2021 12:00:00 AM EDT eCW1 ([facility]) Surgeries/Procedures Procedure Description Date Indications Data Source(s) Immunization: Flublok Quadrivalent (18 years & older) 0.5mL IM (Influenza) 09/08/2020 12:00:00 AM EST eCW1 ([facility]) Results ID Date Data Source [id number] 04/30/2021 04:23:00 PM EDT [facility] Name Value Range Interpretation Code Description Data Kaley rce(s) Supporting Document(s) SARS coronavirus 2 RNA [Presence] in Res piratory specimen by LISETH with probe detection NEGATIVE [facility] This lab was ordered by [facility] a nd reported by [facility]. ID Date Data Source [id number] 02/08/2021 02:54:00 PM EDT [facility] Name Value Range Interpretation Code Description Data Kaley rce(s) Supporting Document(s) SARS coronavirus 2 RNA [Presence] in Res piratory specimen by LISETH with probe detection NEGATIVE [facility] This lab was ordered by [facility] a nd reported by [facility]. Procedure Social History Code Duration Value Status Description Data Source(s ) Smoking 05/30/2021 12:00:00 AM EDT Never Smoker completed Never S moker eCW1 ([facility]) Smoking 05/30/2021 12:00:00 AM EDT Never Smoker completed Never S moker eCW1 ([facility]) Smoking 05/30/2021 12:00:00 AM EDT Never Smoker completed Never S moker eCW1 ([facility]) Smoking 05/16/2021 12:00:00 AM EDT Never Smoker completed Never S moker eCW1 ([facility]) Smoking 05/16/2021 12:00:00 AM EDT Never Smoker completed Never S moker eCW1 ([facility]) Smoking 05/16/2021 12:00:00 AM EDT Never Smoker completed Never S moker eCW1 ([facility]) Smoking 02/28/2021 12:00:00 AM EDT Never Smoker completed Never S moker eCW1 ([facility]) Smoking 02/28/2021 12:00:00 AM EDT Never Smoker completed Never S moker eCW1 ([facility]) Smoking 02/28/2021 12:00:00 AM EDT Never Smoker completed Never S moker eCW1 ([facility]) Smoking 02/28/2021 12:00:00 AM EDT Never Smoker completed Never S moker eCW1 ([facility]) Smoking 02/28/2021 12:00:00 AM EDT Never Smoker completed Never S moker eCW1 ([facility]) Smoking 02/28/2021 12:00:00 AM EDT Never Smoker completed Never S moker eCW1 ([facility]) Smoking 02/28/2021 12:00:00 AM EDT Never Smoker completed Never S moker eCW1 ([facility]) Smoking 02/28/2021 12:00:00 AM EDT Never Smoker completed Never S moker eCW1 ([facility]) Smoking 02/28/2021 12:00:00 AM EDT Never Smoker completed Never S moker eCW1 ([facility]) Smoking 02/28/2021 12:00:00 AM EDT Never Smoker completed Never S moker eCW1 ([facility]) Smoking 02/28/2021 12:00:00 AM EDT Never Smoker completed Never S moker eCW1 ([facility]) Smoking 11/19/2020 12:00:00 AM EST Never Smoker completed Never S moker eCW1 ([facility]) Smoking 11/19/2020 12:00:00 AM EST Never Smoker completed Never S moker eCW1 ([facility]) Smoking 11/19/2020 12:00:00 AM EST Never Smoker completed Never S moker eCW1 ([facility]) Smoking 11/19/2020 12:00:00 AM EST Never Smoker completed Never S moker eCW1 ([facility]) Smoking 11/19/2020 12:00:00 AM EST Never Smoker completed Never S moker eCW1 ([facility]) Smoking 11/19/2020 12:00:00 AM EST Never Smoker completed Never S moker eCW1 ([facility]) Smoking 11/19/2020 12:00:00 AM EST Never Smoker completed Never S moker eCW1 ([facility]) Smoking 11/19/2020 12:00:00 AM EST Never Smoker completed Never S moker eCW1 ([facility]) Smoking 09/08/2020 12:00:00 AM EST Never Smoker completed Never S moker eCW1 ([facility]) Smoking 09/08/2020 12:00:00 AM EST Never Smoker completed Never S moker eCW1 ([facility]) Smoking 09/08/2020 12:00:00 AM EST Never Smoker completed Never S moker eCW1 ([facility]) Smoking 09/08/2020 12:00:00 AM EST Never Smoker completed Never S moker eCW1 ([facility]) Smoking 09/08/2020 12:00:00 AM EST Never Smoker completed Never S moker eCW1 ([facility]) Smoking 07/22/2020 12:00:00 AM EDT Never Smoker completed Never S moker eCW1 ([facility]) Smoking 07/22/2020 12:00:00 AM EDT Never Smoker completed Never S moker eCW1 ([facility]) Smoking 07/22/2020 12:00:00 AM EDT Never Smoker completed Never S moker eCW1 ([facility]) Smoking 07/22/2020 12:00:00 AM EDT Never Smoker completed Never S moker eCW1 ([facility]) Vital Signs ID Date Data Source UNK Name Value Range Interpretation Code Description Data Source(s) Body temperature 97.9 [degF] 97.9 [degF] eCW1 ( [facility]) Body weight 255.12 [lb_av] 255.12 [lb_av] eCW1 ([facility]) Systolic blood pressure 128 mm[Hg] 128 mm[Hg] e CW1 ([facility]) Body weight 115.72 kg 115.72 kg eCW1 ([facility]) Body height 69 [in_i] 69 [in_i] eCW1 ([facility]) Body mass index (BMI) [Ratio] 37.67 kg/m2 37.67 kg/m2 eCW1 ([facility]) Heart rate 104 /min 104 /min eCW1 ([facility]) Diastolic blood pressure 76 mm[Hg] 76 mm[Hg] eCW1 ([facility]) Respiratory rate 18 /min 18 /min eCW1 ([facility]) Body weight 250.0 [lb_av] 250.0 [lb_av] eCW1 ([facility]) Body height 69 [in_i] 69 [in_i] eCW1 ([facility]) Body mass index (BMI) [Ratio] 36.91 kg/m2 36.91 kg/m2 eCW1 ([facility]) Heart rate 107 /min 107 /min eCW1 ([facility]) Respiratory rate 18 /min 18 /min eCW1 ([facility]) Body temperature 97.1 [degF] 97.1 [degF] eCW1 ( [facility]) Systolic blood pressure 116 mm[Hg] 116 mm[Hg] e CW1 ([facility]) Diastolic blood pressure 72 mm[Hg] 72 mm[Hg] eCW1 ([facility]) Body height 69 [in_i] 69 [in_i] eCW1 ([facility]) Body weight 250.0 [lb_av] 250.0 [lb_av] eCW1 ([facility]) Body temperature 97.1 [degF] 97.1 [degF] eCW1 ( [facility]) Systolic blood pressure 116 mm[Hg] 116 mm[Hg] e CW1 ([facility]) Diastolic blood pressure 72 mm[Hg] 72 mm[Hg] eCW1 ([facility]) Respiratory rate 18 /min 18 /min eCW1 ([facility]) Body mass index (BMI) [Ratio] 36.91 kg/m2 36.91 kg/m2 eCW1 ([facility]) Heart rate 107 /min 107 /min eCW1 ([facility]) Body weight 252.2 [lb_av] 252.2 [lb_av] eCW1 ([facility]) Body height 69 [in_i] 69 [in_i] eCW1 ([facility]) Body mass index (BMI) [Ratio] 37.24 kg/m2 37.24 kg/m2 eCW1 ([facility]) Heart rate 108 /min 108 /min eCW1 ([facility]) Respiratory rate 18 /min 18 /min eCW1 ([facility]) Body temperature 97.7 [degF] 97.7 [degF] eCW1 ( [facility]) Systolic blood pressure 112 mm[Hg] 112 mm[Hg] e CW1 ([facility]) Diastolic blood pressure 72 mm[Hg] 72 mm[Hg] eCW1 ([facility]) Body weight 257 [lb_av] 257 [lb_av] eCW1 ([facility]) Body mass index (BMI) [Ratio] 37.95 kg/m2 37.95 kg/m2 eCW1 ([facility]) Heart rate 116 /min 116 /min eCW1 ([facility]) Respiratory rate 18 /min 18 /min eCW1 ([facility]) Body temperature 96.2 [degF] 96.2 [degF] eCW1 ( [facility]) Systolic blood pressure 112 mm[Hg] 112 mm[Hg] e CW1 ([facility]) Diastolic blood pressure 68 mm[Hg] 68 mm[Hg] eCW1 ([facility]) Body height 69 [in_i] 69 [in_i] eCW1 ([facility]) Body weight 253.8 [lb_av] 253.8 [lb_av] eCW1 ([facility]) Body height 69 [in_i] 69 [in_i] eCW1 ([facility]) Body mass index (BMI) [Ratio] 37.48 kg/m2 37.48 kg/m2 eCW1 ([facility]) Body weight 260.0 [lb_av] 260.0 [lb_av] eCW1 ([facility]) Body height 69 [in_i] 69 [in_i] eCW1 ([facility]) Body mass index (BMI) [Ratio] 38.39 kg/m2 38.39 kg/m2 eCW1 ([facility]) Heart rate 98 /min 98 /min eCW1 ([facility]) Respiratory rate 18 /min 18 /min eCW1 ([facility] access [facility]) Body temperature 97.6 [degF] 97.6 [degF] eCW1 ( [facility]) Systolic blood pressure 122 mm[Hg] 122 mm[Hg] e CW1 ([facility]) Diastolic blood pressure 80 mm[Hg] 80 mm[Hg] eCW1 ([facility]) Patient Treatment Plan of Care Planned Activity Planned Date Details Description Data Source (s) Basaglar KwikPen 100 UNIT/ML 05/04/2021 12:00:00 AM EDT eCW1 ([facility]) Admelog SoloStar 100 UNIT/ML 05/04/2021 12:00:00 AM EDT eCW1 ([facility]) Basaglar KwikPen 100 UNIT/ML 05/04/2021 12:00:00 AM EDT eCW1 ([facility]) Admelog SoloStar 100 UNIT/ML 05/04/2021 12:00:00 AM EDT eCW1 ([facility]) Basaglar KwikPen 100 UNIT/ML 05/04/2021 12:00:00 AM EDT eCW1 ([facility]) Admelkhurram FulleroStar 100 UNIT/ML 05/04/2021 12:00:00 AM EDT eCW1 ([facility]) FreeStyle Ginger [place] - 03/14/2021 12:00:00 AM EDT eCW1 ([facility]) FreeStyle Ginger 14 Day Sensor - 03/14/2021 12:00:00 AM EDT eCW1 ([facility]) FreeStyle Ginger [place] - 03/14/2021 12:00:00 AM EDT eCW1 ([facility]) FreeStyle Ginger 14 Day Sensor - 03/14/2021 12:00:00 AM EDT eCW1 ([facility]) FreeStyle Ginger [place] - 03/14/2021 12:00:00 AM EDT eCW1 ([facility]) FreeStyle Ginger 14 Day Sensor - 03/14/2021 12:00:00 AM EDT eCW1 ([facility]) FreeStyle Ginger [place] - 03/14/2021 12:00:00 AM EDT eCW1 ([facility]) FreeStyle Ginger 14 Day Sensor - 03/14/2021 12:00:00 AM EDT eCW1 ([facility]) FreeStyle Ginger [place] - 03/14/2021 12:00:00 AM EDT eCW1 ([facility]) FreeStyle Ginger 14 Day Sensor - 03/14/2021 12:00:00 AM EDT eCW1 ([facility]) FreeStyle Ginger [place] - 03/14/2021 12:00:00 AM EDT eCW1 ([facility]) FreeStyle Ginger 14 Day Sensor - 03/14/2021 12:00:00 AM EDT eCW1 ([facility]) FreeStyle Ginger [place] - 03/14/2021 12:00:00 AM EDT eCW1 ([facility]) FreeStyle Ginger 14 Day Sensor - 03/14/2021 12:00:00 AM EDT eCW1 ([facility])
--- OUTSIDE RECORDS SUMMARY | 2021-07-21 05:11 | CCD ---
Author Author [facility] Organization [facility] Address Unknown Phone Unavailable Care Team Providers Care Manager Transport Name Role Phone Janeen Waters MD Unavailable [...] MD Unavailable Unavailable JtJaneen MD Unavailable Unavailable TjJaneen MD Unavailable Unavailable JtJaneen MD Unavailable Unavailable [...] is protected by Article 27-F of the [facility] Public Health law. If you continue you may have access to information: Regarding HIV / AIDS; Provided by facilities licensed or operated by the [facility] Office of Mental Health; or Provided by the [facility] Office for People With Developmental Disabilities. If such information is present, then the following [facility] mandated warning applies: This information has [...] law may result in a fine or correction sentence or both. A general authorization for the release of medical or other information is NOT sufficient authorization for further disc losure. Encounters Encounter Providers Location Date Indications Data Source(s ) Outpatient Attender: May Georges MDReferrer: Jake Waters MD 02/15/2022 12:00:00 AM EDT [facility] Unknown [address] [facility] [place] [address] 07/18/2021 12:00:00 AM EDT [facility] ([facility] [place] [address] [facility] [place] [address] 06/22/2021 12:00:00 AM EDT eCW1 ([facility]) Outpatient [address] [facility] [address] 05/30/2021 12:00:00 AM EDT eCW1 ([facility]) Unknown [address] [facility] [place] [address] 05/24/2021 12:00:00 AM EDT eCW1 ([facility]) Unknown [address] [facility] [place] [address] 05/17/2021 12:00:00 AM EDT eCW1 ([facility]) Outpatient [address] [facility] [place] [address] 05/16/2021 12:00:00 AM EDT eCW1 ([facility]) Unknown [address] [facility] [place] [address] 05/04/2021 12:00:00 AM EDT [facility]1 [facility] Unknown [address] [facility] [place] [address] 05/03/2021 12:00:00 AM EDT eCW1 ([facility] Unknown [address] [facility] [place] [address] 05/02/2021 12:00:00 AM EDT eCW1 ([facility]) [place] [address] [facility] [address] 05/02/2021 12:00:00 AM EDT eCW1 ([facility]) [place] [address] [facility] [address] 04/21/2021 12:00:00 AM EDT eCW1 ([facility]) Unknown [address] [facility] [address] 04/14/2021 12:00:00 AM EDT eCW1 ([facility]) Unknown [address] [facility] [address] 03/30/2021 12:00:00 AM EDT eCW1 ([facility]) Outpatient [address] [facility] [address] 03/14/2021 12:00:00 AM EDT eCW1 ([facility]) Unknown [address] [facility] [address] 03/14/2021 12:00:00 AM EDT eCW1 ([facility]) Outpatient [address] [facility] [address] 02/28/2021 12:00:00 AM EDT eCW1 ([facility]) Unknown [address] [facility] [place] [address] 02/17/2021 12:00:00 AM EDT eCW1 ([facility]) Unknown [address] [facility] [place] [address] 02/16/2021 12:00:00 AM EDT eCW1 ([facility]) Unknown [address] [facility] [address] 02/11/2021 12:00:00 AM EDT eCW1 ([facility]) Unknown [address] [facility] [place] [address] 01/14/2021 12:00:00 AM EDT eCW1 ([facility]) Unknown [address] [facility] [address] 12/24/2020 12:00:00 AM EDT eCW1 ([facility]) Unknown [address] [facility] [address] 11/29/2020 12:00:00 AM EST eCW1 ([facility]) Unknown [address] [facility] [address] 11/22/2020 12:00:00 AM EST eCW1 ([facility]) Outpatient [address] [facility] [address] 11/19/2020 12:00:00 AM EST eCW1 ([facility]) Unknown [address] [facility] [address] 11/03/2020 12:00:00 AM EST eCW1 ([facility]) Unknown [address] [facility] [address] 10/11/2020 12:00:00 AM EST eCW1 ([facility]) Unknown [address] [facility] [address] 09/13/2020 12:00:00 AM EST eCW1 ([facility]) Unknown [address] [facility] [address] 09/08/2020 12:00:00 AM EST eCW1 ([facility]) Outpatient [address] [facility] [address] 09/08/2020 12:00:00 AM EST eCW1 ([facility]) Unknown [address] [facility] [place] [address] 08/27/2020 12:00:00 AM EST eCW1 ([facility]) Outpatient [address] [facility] [address] 08/24/2020 12:00:00 AM EST eCW1 ([facility]) Unknown [address] [facility] [place] [address] 08/24/2020 12:00:00 AM EST eCW1 ([facility]) Outpatient [address] [facility] [place] [address] 07/22/2020 12:00:00 AM EDT eCW1 ([facility]) Unknown [address] [facility] [place] [address] 07/16/2020 12:00:00 AM EDT eCW1 ([facility]) Unknown [address] [facility] [address] 07/15/2020 12:00:00 AM EDT eCW1 ([facility]) Unknown [address] [facility] [address] 07/12/2020 12:00:00 AM EDT eCW1 ([facility]) [facility] [address] [facility] [address] 05/25/2020 12:00:00 AM EDT eCW1 ([facility]) Immunizations Vaccine Date Status Description Data Source(s) COVID-19 VACCINE Pfizer 03/27/2021 12:00:00 AM EDT completed [facility] Vaccine Series Complete: YESThis Data wa s Submitted to [facility] Via [employer]. COVID-19 VACC, MRNA(PFIZER)/PF 03/27/2021 12:00:00 AM EDT completed [facility] COVID-19 VACC, MRNA(PFIZER)/PF 03/06/2021 12:00:00 AM EDT completed [facility] COVID-19 VACCINE Pfizer 03/06/2021 12:00:00 AM EDT completed [facility] Vaccine Series Complete: NOThis Data was Submitted to [facility] Via [employer]. influenza, recombinant, quadrIvalent,injectable, prese rvative free 09/08/2020 03:02:00 PM EST completed eCW1 ([facility]) influenza, recombinant, quadrIvalent,injectable, prese rvative free 09/08/2020 03:02:00 PM EST completed eCW1 ([facility]) influenza, recombinant, quadrIvalent,injectable, prese rvative free 09/08/2020 03:02:00 PM EST completed eCW1 ([facility]) influenza, recombinant, quadrIvalent,injectable, prese rvative free 09/08/2020 03:02:00 PM EST completed eCW1 ([facility]) influenza, recombinant, quadrIvalent,injectable, prese rvative free 09/08/2020 03:02:00 PM EST completed eCW1 ([facility]) influenza, recombinant, quadrIvalent,injectable, prese rvative free 09/08/2020 03:02:00 PM EST completed eCW1 ([facility]) influenza, recombinant, quadrIvalent,injectable, prese rvative free 09/08/2020 03:02:00 PM EST completed eCW1 ([facility]) influenza, recombinant, quadrIvalent,injectable, prese rvative free 09/08/2020 03:02:00 PM EST completed eCW1 ([facility]) influenza, recombinant, quadrIvalent,injectable, prese rvative free 09/08/2020 03:02:00 PM EST completed eCW1 ([facility]) influenza, recombinant, quadrIvalent,injectable, prese rvative free 09/08/2020 03:02:00 PM EST completed eCW1 ([facility]) influenza, recombinant, quadrIvalent,injectable, prese rvative free 09/08/2020 03:02:00 PM EST completed eCW1 ([facility]) influenza, recombinant, quadrIvalent,injectable, prese rvative free 09/08/2020 03:02:00 PM EST completed eCW1 ([facility]) influenza, recombinant, quadrIvalent,injectable, prese rvative free 09/08/2020 03:02:00 PM EST completed eCW1 ([facility]) influenza, recombinant, quadrIvalent,injectable, prese rvative free 09/08/2020 03:02:00 PM EST completed eCW1 ([facility]) influenza, recombinant, quadrIvalent,injectable, prese rvative free 09/08/2020 03:02:00 PM EST completed eCW1 ([facility]) influenza, recombinant, quadrIvalent,injectable, prese rvative free 09/08/2020 03:02:00 PM EST completed eCW1 ([facility]) influenza, recombinant, quadrIvalent,injectable, prese rvative free 09/08/2020 03:02:00 PM EST completed eCW1 ([facility]) influenza, recombinant, quadrIvalent,injectable, prese rvative free 09/08/2020 03:02:00 PM EST completed eCW1 ([facility]) influenza, recombinant, quadrIvalent,injectable, prese rvative free 09/08/2020 03:02:00 PM EST completed eCW1 ([facility]) influenza, recombinant, quadrIvalent,injectable, prese rvative free 09/08/2020 03:02:00 PM EST completed eCW1 ([facility]) influenza, recombinant, quadrIvalent,injectable, prese rvative free 09/08/2020 03:02:00 PM EST completed eCW1 ([facility]) influenza, recombinant, quadrIvalent,injectable, prese rvative free 09/08/2020 03:02:00 PM EST completed eCW1 ([facility]) influenza, recombinant, quadrIvalent,injectable, prese rvative free 09/08/2020 03:02:00 PM EST completed eCW1 ([facility]) influenza, recombinant, quadrIvalent,injectable, prese rvative free 09/08/2020 03:02:00 PM EST completed eCW1 ([facility]) influenza, recombinant, quadrIvalent,injectable, prese rvative free 09/08/2020 03:02:00 PM EST completed eCW1 ([facility]) influenza, recombinant, quadrIvalent,injectable, prese rvative free 09/08/2020 03:02:00 PM EST completed eCW1 ([facility]) influenza, recombinant, quadrIvalent,injectable, prese rvative free 09/08/2020 03:02:00 PM EST completed eCW1 ([facility]) influenza, recombinant, quadrIvalent,injectable, prese rvative free 09/08/2020 03:02:00 PM EST completed eCW1 ([facility]) influenza, recombinant, quadrIvalent,injectable, prese rvative free 09/08/2020 03:02:00 PM EST completed eCW1 ([facility]) influenza, recombinant, quadrIvalent,injectable, prese rvative free 09/08/2020 03:02:00 PM EST completed eCW1 ([facility]) Medications Medication Brand Name Start Date Product [...] active Admelog SoloStar 100 UNIT/ML eCW1 ([facility]) Admelog SoloStar 100 UNIT/ML Admelog SoloStar 100 UNIT/ML 12:00:00 AM EDT active Admelog SoloStar 100 UNIT/ML eCW1 ([facility]) Admelog SoloStar 100 UNIT/ML Admelog SoloStar 100 UNIT/ML 12:00:00 AM EDT active eCW1 ([facility]) Basaglar KwikPen 100 UNIT/ML Basaglar KwikPen 100 UNIT/ML 12:00:00 AM EDT active Basaglar KwikPen 100 UNIT/ML eCW1 ([facility]) Basaglar KwikPen 100 UNIT/ML Basaglar KwikPen 100 UNIT/ML 12:00:00 AM EDT active Basaglar KwikPen 100 UNIT/ML eCW1 ([facility]) 3 ML Insulin Glargine 100 UNT/ML Pen [...] active Admelog SoloStar 100 UNIT/ML eCW1 ([facility]) Basaglar KwikPen 100 UNIT/ML Basaglar KwikPen 100 UNIT/ML 12:00:00 AM EDT active Basaglar KwikPen 100 UNIT/ML eCW1 ([facility]) Admelog SoloStar 100 UNIT/ML Admelog SoloStar 100 UNIT/ML 12:00:00 AM EDT active Admelog SoloStar 100 UNIT/ML eCW1 ([facility]) Basaglar KwikPen 100 UNIT/ML Basaglar KwikPen 100 UNIT/ML 12:00:00 AM EDT active eCW1 ([facility]) Basaglar KwikPen 100 UNIT/ML Basaglar KwikPen 100 UNIT/ML 12:00:00 AM EDT active Basaglar KwikPen 100 UNIT/ML eCW1 ([facility]) Basaglar KwikPen 100 UNIT/ML Basaglar KwikPen 100 UNIT/ML 12:00:00 AM EDT active Basaglar KwikPen 100 UNIT/ML eCW1 ([facility]) Admelog SoloStar 100 UNIT/ML Admelog SoloStar 100 UNIT/ML 12:00:00 AM EDT active Admelog SoloStar 100 UNIT/ML eCW1 ([facility]) Levemir Flex Touch 100 UNIT/ML UNK 05/02/2021 12:00:00 AM EDT active Levemir Flex Touch 100 UNIT/ML eCW1 ([facility]) Levemir Flex Touch 100 UNIT/ML UNK 05/02/2021 12:00:00 AM EDT active eCW1 ([facility]) Levemir Flex Touch 100 UNIT/ML UNK 05/02/2021 12:00:00 AM EDT active Levemir Flex Touch 100 UNIT/ML eCW1 ([facility]) 31 gauge x 3/16" 05/02/2021 12:00:00 AM EDT needle 5 USE DIRECTED USE DIRECTED SOLD: 05/04/2021 [facility] 3 ML Insulin Lispro 100 UNT/ML Pen Injec tor [Humalog] HumaLOG KwikPen 100 UNIT/ML HumaLOG KwikPen 100 UNIT/ML 05/02/2021 12:00:00 AM EDT active eCW1 ([facility]) 3 ML Insulin Lispro 100 UNT/ML Pen Injec tor [Humalog] HumaLOG KwikPen 100 UNIT/ML HumaLOG KwikPen 100 UNIT/ML 05/02/2021 12:00:00 AM EDT active HumaLOG KwikPen 100 UNIT/ML eCW1 ([facility]) 3 ML Insulin Lispro 100 UNT/ML Pen Injec tor [Humalog] HumaLOG KwikPen 100 UNIT/ML HumaLOG KwikPen 100 UNIT/ML 05/02/2021 12:00:00 AM EDT active HumaLOG KwikPen 100 UNIT/ML eCW1 ([facility]) Levemir Flex Touch 100 UNIT/ML UNK 05/02/2021 12:00:00 AM EDT active Levemir Flex Touch 100 UNIT/ML eCW1 ([facility]) Levemir Flex Touch 100 UNIT/ML UNK 05/02/2021 12:00:00 AM EDT active Levemir Flex Touch 100 UNIT/ML eCW1 ([facility]) 3 ML Insulin Lispro 100 UNT/ML Pen Injec tor [Humalog] HumaLOG KwikPen 100 UNIT/ML HumaLOG KwikPen 100 UNIT/ML 05/02/2021 12:00:00 AM EDT active HumaLOG KwikPen 100 UNIT/ML eCW1 ([facility]) Levemir Flex Touch 100 UNIT/ML UNK 05/02/2021 12:00:00 AM EDT active Levemir Flex Touch 100 UNIT/ML eCW1 ([facility]) 3 ML Insulin Lispro 100 UNT/ML Pen Injec tor [Humalog] HumaLOG KwikPen 100 UNIT/ML HumaLOG KwikPen 100 UNIT/ML 05/02/2021 12:00:00 AM EDT active HumaLOG KwikPen 100 UNIT/ML eCW1 ([facility]) 3 ML Insulin Lispro 100 UNT/ML Pen Injec tor [Humalog] HumaLOG KwikPen 100 UNIT/ML HumaLOG KwikPen 100 UNIT/ML 05/02/2021 12:00:00 AM EDT active HumaLOG KwikPen 100 UNIT/ML eCW1 ([facility]) FreeStyle Ginger Graham - FreeStyle Ginger Graham - 03/14/2021 12:00: 00 AM EDT active FreeStyle Ginger Graham - eCW1 ([facility]) FreeStyle Ginger 14 Day Sensor - FreeStyle Ginger 14 Day Senso r - 03/14/2021 12:00:00 AM EDT active FreeStyl e Ginger 14 Day Sensor - eCW1 ([facility]) FreeStyle Ginger 14 Day Sensor - FreeStyle Ginger 14 Day Senso r - 03/14/2021 12:00:00 AM EDT active FreeStyl e Ginger 14 Day Sensor - eCW1 ([facility]) FreeStyle Ginger 14 Day Sensor - FreeStyle Ginger 14 Day Senso r - 03/14/2021 12:00:00 AM EDT active FreeStyl e Ginger 14 Day Sensor - eCW1 ([facility]) FreeStyle Ginger Graham - FreeStyle Ginger Graham - 03/14/2021 12:00: 00 AM EDT active FreeStyle Ginger Graham - eCW1 ([facility]) FreeStyle Ginger Graham - FreeStyle Ginger Graham - 03/14/2021 12:00: 00 AM EDT active FreeStyle Ginger Graham - eCW1 ([facility]) FreeStyle Ginger Graham - FreeStyle Ginger Graham - 03/14/2021 12:00: 00 AM EDT active FreeStyle Ginger Graham - eCW1 ([facility]) FreeStyle Ginger 14 Day Sensor - FreeStyle Ginger 14 Day Senso r - 03/14/2021 12:00:00 AM EDT active FreeStyl e Ginger 14 Day Sensor - eCW1 ([facility]) FreeStyle Ginger Graham - FreeStyle Ginger Graham - 03/14/2021 12:00: 00 AM EDT active FreeStyle Ginger Graham - eCW1 ([facility]) FreeStyle Ginger 14 Day Sensor - FreeStyle Ginger 14 Day Senso r - 03/14/2021 12:00:00 AM EDT active FreeStyl e Ginger 14 Day Sensor - eCW1 ([facility]) FreeStyle Ginger 14 Day Sensor - FreeStyle Ginger 14 Day Senso r - 03/14/2021 12:00:00 AM EDT active FreeStyl e Ginger 14 Day Sensor - eCW1 ([facility]) FreeStyle Ginger 14 Day Sensor - FreeStyle Ginger 14 Day Senso r - 03/14/2021 12:00:00 AM EDT active FreeStyl e Ginger 14 Day Sensor - eCW1 ([facility]) FreeStyle Ginger Graham - FreeStyle Ginger Graham - 03/14/2021 12:00: 00 AM EDT active FreeStyle Ginger Graham - eCW1 ([facility]) FreeStyle Ginger Graham - FreeStyle Ginger Graham - 03/14/2021 12:00: 00 AM EDT active eCW1 ([facility]) FreeStyle Ginger 14 Day Sensor - FreeStyle Ginger 14 Day Senso r - 03/14/2021 12:00:00 AM EDT active e CW1 ([facility]) FreeStyle Ginger 14 Day Sensor - FreeStyle Ginger 14 Day Senso r - 03/14/2021 12:00:00 AM EDT active FreeStyl e Ginger 14 Day Sensor - eCW1 ([facility]) FreeStyle Ginger 14 Day Sensor - FreeStyle Ginger 14 Day Senso r - 03/14/2021 12:00:00 AM EDT active FreeStyl e Ginger 14 Day Sensor - eCW1 ([facility]) FreeStyle Ginger Graham - FreeStyle Ginger Graham - 03/14/2021 12:00: 00 AM EDT active FreeStyle Ginger Graham - eCW1 ([facility]) FreeStyle Ginger 14 Day Sensor - FreeStyle Ginger 14 Day Senso r - 03/14/2021 12:00:00 AM EDT active FreeStyl e Ginger 14 Day Sensor - eCW1 ([facility]) FreeStyle Ginger 14 Day Sensor - FreeStyle Ginger 14 Day Senso r - 03/14/2021 12:00:00 AM EDT active FreeStyl e Ginger 14 Day Sensor - eCW1 ([facility]) FreeStyle Ginger Graham - FreeStyle Ginger Graham - 03/14/2021 12:00: 00 AM EDT active FreeStyle Ginger Graham - eCW1 ([facility]) FreeStyle Ginger Graham - FreeStyle Ginger Graham - 03/14/2021 12:00: 00 AM EDT active FreeStyle Ginger Graham - eCW1 ([facility]) FreeStyle Ginegr Graham - FreeStyle Ginger Graham - 03/14/2021 12:00: 00 AM EDT active FreeStyle Ginger Graham - eCW1 ([facility]) FreeStyle Ginger Graham - FreeStyle Ginger Graham - 03/14/2021 12:00: 00 AM EDT active FreeStyle Ginger Graham - eCW1 ([facility]) FreeStyle Ginger Graham - FreeStyle Ginger Graham - 03/14/2021 12:00: 00 AM EDT active FreeStyle Ginger Graham - eCW1 ([facility]) FreeStyle Ginger 14 Day Sensor - FreeStyle Ginger 14 Day Senso r - 03/14/2021 12:00:00 AM EDT active FreeStyl e Ginger 14 Day Sensor - eCW1 ([facility]) 100 unit/mL 03/01/2021 12:00:00 AM EDT solution [...] 70 UNITS SOLD: 12/15/2020 [facility] 11/03/2020 12:00:00 AM EST misc 100 USE FOUR TIMES A DAY SUBCUTANEOUSLY USE FOUR TIMES A DAY SUBCUTANEOUSLY SOLD: 03/02/2021 [facility] 11/03/2020 12:00:00 AM EST misc 100 USE [...] Herrera Plan Information [place] 305/805 [id number] MO2 [id number] [facility] COMMUNITY PLAN MCDO [id number] SP [id number] PMA MANAGEMENT IKE [id number] SP [id number] [facility] O [id number] S [id number] [facility] O [id number] S [id number] [facility] [employer] O [id number] S [id number] [facility]-Medicaid [id number] [facility]-Medicaid [id number] ANS-Medicaid [id number] [facility]-Medicaid [id number] [facility]-Medicaid [id number] ANSI-Medicaid [id number] ANSI-Medicaid [id number] ANSI-Medicaid [id number] ANSI-Medicaid [id number] ANSI-Medicaid [id number] ANSI-Medicaid [id number] ANSI-Medicaid [id number] ANSI-Medicaid [id number] ANSI-Medicaid [id number] ANSI-Medicaid [id number] ANSI-Medicaid [id number] ANSI-Medicaid [id number] ANSI-Medicaid [id number] ANSI-Medicaid [id number] ANSI-Medicaid [id number] ANSI-Medicaid [id number] ANSI-Medicaid [id number] ANSI-Medicaid [id number] ANSI-Medicaid [id number] ANSI-Medicaid [id number] ANSI-Medicaid [id number] ANSI-Medicaid [id number] ANSI-Medicaid [id number] ANSI-Medicaid [id number] ANSI-Medicaid [id number] ANSI-Medicaid [id number] ANSI-Medicaid [id number] ANSI-Medicaid [id number] ANSI-Medicaid [id number] ANSI-Medicaid [id number] ANSI-Medicaid [id number] ANSI-Medicaid [id number] ANSI-Medicaid [id number] ANSI-Medicaid [id number] ANSI-Medicaid [id number] ANSI-Medicaid [id number] ANSI-Medicaid [id number] ANSI-Medicaid [id number] ANSI-Medicaid [id number] ANSI-Medicaid [id number] ANSI-Medicaid [id number] ANSI-Medicaid [id number] ANSI-Medicaid [id number] ANSI-Medicaid [id number] ANSI-Medicaid [id number] ANSI-Medicaid [id number] ANSI-Medicaid [id number] ANSI-Medicaid [id number] ANSI-Medicaid [id number] ANSI-Medicaid [id number] ANSI-Medicaid [id number] ANSI-Medicaid [id number] SELF PAY UNAVAILABLE SP UNAVAILA BLE ACTIVE DUTY [id number] MO2 [id number] [place] PPO 302/[phone] [id number] MO2 [id number] O BLUE [id number] SP [id number] [facility] [id number] SP [id number] [facility] [place] [id number] FA2 [id number] [facility] [id number] SP [id number] Problems, Conditions, and Diagnoses Code Display Name Description Problem Type Effective Dates Data Source(s) Z91.14 [id number] Non compliance w medication regimen Probl em 05/02/2021 12:00:00 AM EDT eCW1 ([facility]) Surgeries/Procedures Procedure Description Date Indications Data Source(s) Immunization: Flublok Quadrivalent (18 years & older) 0.5mL IM (Influenza) 09/08/2020 12:00:00 AM EST eCW1 ([facility]) Results ID Date Data Source [id number] 04/30/2021 04:23:00 PM EDT [facility] Name Value Range Interpretation Code Description Data Kaley rce(s) Supporting Document(s) SARS coronavirus 2 RNA [Presence] in Res piratory specimen by LISETH with probe detection NEGATIVE [facility] This lab was ordered by [facility] a nd reported by [facility]. ID Date Data Source [id number] 02/08/2021 02:54:00 PM EDT [facility] Name Value Range Interpretation Code Description Data Kaley rce(s) Supporting Document(s) SARS coronavirus 2 RNA [Presence] in Res piratory specimen by LISETH with probe detection NEGATIVE [facility] This lab was ordered by [facility] a nd reported by [facility]. Procedure Social History Code Duration Value Status Description Data Source(s ) Smoking 05/30/2021 12:00:00 AM EDT Never Smoker completed Never S moker eCW1 ([facility]) Smoking 05/30/2021 12:00:00 AM EDT Never Smoker completed Never S moker eCW1 ([facility]) Smoking 05/30/2021 12:00:00 AM EDT Never Smoker completed Never S moker eCW1 ([facility]) Smoking 05/16/2021 12:00:00 AM EDT Never Smoker completed Never S moker eCW1 ([facility]) Smoking 05/16/2021 12:00:00 AM EDT Never Smoker completed Never S moker eCW1 ([facility]) Smoking 05/16/2021 12:00:00 AM EDT Never Smoker completed Never S moker eCW1 ([facility]) Smoking 02/28/2021 12:00:00 AM EDT Never Smoker completed Never S moker eCW1 ([facility]) Smoking 02/28/2021 12:00:00 AM EDT Never Smoker completed Never S moker eCW1 ([facility]) Smoking 02/28/2021 12:00:00 AM EDT Never Smoker completed Never S moker eCW1 ([facility]) Smoking 02/28/2021 12:00:00 AM EDT Never Smoker completed Never S moker eCW1 ([facility]) Smoking 02/28/2021 12:00:00 AM EDT Never Smoker completed Never S moker eCW1 ([facility]) Smoking 02/28/2021 12:00:00 AM EDT Never Smoker completed Never S moker eCW1 ([facility]) Smoking 02/28/2021 12:00:00 AM EDT Never Smoker completed Never S moker eCW1 ([facility]) Smoking 02/28/2021 12:00:00 AM EDT Never Smoker completed Never S moker eCW1 ([facility]) Smoking 02/28/2021 12:00:00 AM EDT Never Smoker completed Never S moker eCW1 ([facility]) Smoking 02/28/2021 12:00:00 AM EDT Never Smoker completed Never S moker eCW1 ([facility]) Smoking 02/28/2021 12:00:00 AM EDT Never Smoker completed Never S moker eCW1 ([facility]) Smoking 11/19/2020 12:00:00 AM EST Never Smoker completed Never S moker eCW1 ([facility]) Smoking 11/19/2020 12:00:00 AM EST Never Smoker completed Never S moker eCW1 ([facility]) Smoking 11/19/2020 12:00:00 AM EST Never Smoker completed Never S moker eCW1 ([facility]) Smoking 11/19/2020 12:00:00 AM EST Never Smoker completed Never S moker eCW1 ([facility]) Smoking 11/19/2020 12:00:00 AM EST Never Smoker completed Never S moker eCW1 ([facility]) Smoking 11/19/2020 12:00:00 AM EST Never Smoker completed Never S moker eCW1 ([facility]) Smoking 11/19/2020 12:00:00 AM EST Never Smoker completed Never S moker eCW1 ([facility]) Smoking 11/19/2020 12:00:00 AM EST Never Smoker completed Never S moker eCW1 ([facility]) Smoking 09/08/2020 12:00:00 AM EST Never Smoker completed Never S moker eCW1 ([facility]) Smoking 09/08/2020 12:00:00 AM EST Never Smoker completed Never S moker eCW1 ([facility]) Smoking 09/08/2020 12:00:00 AM EST Never Smoker completed Never S moker eCW1 ([facility]) Smoking 09/08/2020 12:00:00 AM EST Never Smoker completed Never S moker eCW1 ([facility]) Smoking 09/08/2020 12:00:00 AM EST Never Smoker completed Never S moker eCW1 ([facility]) Smoking 07/22/2020 12:00:00 AM EDT Never Smoker completed Never S moker eCW1 ([facility]) Smoking 07/22/2020 12:00:00 AM EDT Never Smoker completed Never S moker eCW1 ([facility]) Smoking 07/22/2020 12:00:00 AM EDT Never Smoker completed Never S moker eCW1 ([facility]) Smoking 07/22/2020 12:00:00 AM EDT Never Smoker completed Never S moker eCW1 ([facility]) Vital Signs ID Date Data Source UNK Name Value Range Interpretation Code Description Data Source(s) Body temperature 97.9 [degF] 97.9 [degF] eCW1 ( [facility]) Systolic blood pressure 128 mm[Hg] 128 mm[Hg] e CW1 ([facility]) Diastolic blood pressure 76 mm[Hg] 76 mm[Hg] eCW1 ([facility]) Body weight 255.12 [lb_av] 255.12 [lb_av] eCW1 ([facility]) Body weight 115.72 kg 115.72 kg eCW1 ([facility]) Body height 69 [in_i] 69 [in_i] eCW1 ([facility]) Body mass index (BMI) [Ratio] 37.67 kg/m2 37.67 kg/m2 eCW1 ([facility]) Heart rate 104 /min 104 /min eCW1 ([facility]) Respiratory rate 18 /min 18 /min eCW1 ([facility]) Body weight 250.0 [lb_av] 250.0 [lb_av] eCW1 ([facility]) Body height 69 [in_i] 69 [in_i] eCW1 ([facility]) Body mass index (BMI) [Ratio] 36.91 kg/m2 36.91 kg/m2 eCW1 ([facility]) Heart rate 107 /min 107 /min eCW1 ([facility]) Respiratory rate 18 /min 18 /min eCW1 ([facility]) Body temperature 97.1 [degF] 97.1 [degF] eCW1 ( [facility]) Systolic blood pressure 116 mm[Hg] 116 mm[Hg] e CW1 ([facility]) Diastolic blood pressure 72 mm[Hg] 72 mm[Hg] eCW1 ([facility]) Body weight 250.0 [lb_av] 250.0 [lb_av] eCW1 ([facility]) Body height 69 [in_i] 69 [in_i] eCW1 ([facility]) Body mass index (BMI) [Ratio] 36.91 kg/m2 36.91 kg/m2 eCW1 ([facility]) Heart rate 107 /min 107 /min eCW1 ([facility]) Respiratory rate 18 /min 18 /min eCW1 ([facility]) Body temperature 97.1 [degF] 97.1 [degF] eCW1 ( [facility]) Systolic blood pressure 116 mm[Hg] 116 mm[Hg] e CW1 ([facility]) Diastolic blood pressure 72 mm[Hg] 72 mm[Hg] eCW1 ([facility]) Body weight 252.2 [lb_av] 252.2 [lb_av] eCW1 ([facility]) Body height 69 [in_i] 69 [in_i] eCW1 ([facility]) Body mass index (BMI) [Ratio] 37.24 kg/m2 37.24 kg/m2 eCW1 ([facility]) Heart rate 108 /min 108 /min eCW1 ([facility]) Respiratory rate 18 /min 18 /min eCW1 ([facility]) Body temperature 97.7 [degF] 97.7 [degF] eCW1 ( [facility]) Systolic blood pressure 112 mm[Hg] 112 mm[Hg] e CW1 ([facility]) Diastolic blood pressure 72 mm[Hg] 72 mm[Hg] eCW1 ([facility]) Body weight 257 [lb_av] 257 [lb_av] eCW1 ([facility]) Body height 69 [in_i] 69 [in_i] eCW1 ([facility]) Body mass index (BMI) [Ratio] 37.95 kg/m2 37.95 kg/m2 eCW1 ([facility]) Heart rate 116 /min 116 /min eCW1 ([facility]) Respiratory rate 18 /min 18 /min eCW1 ([facility]) Body temperature 96.2 [degF] 96.2 [degF] eCW1 ( [facility]) Systolic blood pressure 112 mm[Hg] 112 mm[Hg] e CW1 ([facility]) Diastolic blood pressure 68 mm[Hg] 68 mm[Hg] eCW1 ([facility]) Body weight 253.8 [lb_av] 253.8 [lb_av] eCW1 ([facility]) Body height 69 [in_i] 69 [in_i] eCW1 ([facility]) Body mass index (BMI) [Ratio] 37.48 kg/m2 37.48 kg/m2 eCW1 ([facility]) Body weight 260.0 [lb_av] 260.0 [lb_av] eCW1 ([facility]) Body height 69 [in_i] 69 [in_i] eCW1 ([facility]) Body mass index (BMI) [Ratio] 38.39 kg/m2 38.39 kg/m2 eCW1 ([facility]) Heart rate 98 /min 98 /min eCW1 ([facility]) Respiratory rate 18 /min 18 /min eCW1 ([facility]) Body temperature 97.6 [degF] 97.6 [degF] eCW1 ( [facility]) Systolic blood pressure 122 mm[Hg] 122 mm[Hg] e CW1 ([facility]) Diastolic blood pressure 80 mm[Hg] 80 mm[Hg] eCW1 ([facility]) Patient Treatment Plan of Care Planned Activity Planned Date Details Description Data Source (s) Basaglar KwikPen 100 UNIT/ML 05/04/2021 12:00:00 AM EDT eCW1 ([facility]) Admelog SoloStar 100 UNIT/ML 05/04/2021 12:00:00 AM EDT eCW1 ([facility]) Basaglar KwikPen 100 UNIT/ML 05/04/2021 12:00:00 AM EDT eCW1 ([facility]) Admelog SoloStar 100 UNIT/ML 05/04/2021 12:00:00 AM EDT eCW1 ([facility]) Basaglar KwikPen 100 UNIT/ML 05/04/2021 12:00:00 AM EDT eCW1 ([facility]) Admelkhurram FulleroStar 100 UNIT/ML 05/04/2021 12:00:00 AM EDT eCW1 ([facility]) FreeStyle Ginger Graham - 03/14/2021 12:00:00 AM EDT eCW1 ([facility]) FreeStyle Ginger 14 Day Sensor - 03/14/2021 12:00:00 AM EDT eCW1 ([facility]) FreeStyle Ginger Graham - 03/14/2021 12:00:00 AM EDT eCW1 ([facility]) FreeStyle Ginger 14 Day Sensor - 03/14/2021 12:00:00 AM EDT eCW1 ([facility]) FreeStyle Ginger Graham - 03/14/2021 12:00:00 AM EDT eCW1 ([facility]) FreeStyle Ginger 14 Day Sensor - 03/14/2021 12:00:00 AM EDT eCW1 ([facility]) FreeStyle Ginger Graham - 03/14/2021 12:00:00 AM EDT eCW1 ([facility]) FreeStyle Ginger 14 Day Sensor - 03/14/2021 12:00:00 AM EDT eCW1 ([facility]) FreeStyle Ginger Graham - 03/14/2021 12:00:00 AM EDT eCW1 ([facility]) FreeStyle Ginger 14 Day Sensor - 03/14/2021 12:00:00 AM EDT eCW1 ([facility]) FreeStyle Ginger Graham - 03/14/2021 12:00:00 AM EDT eCW1 ([facility]) FreeStyle Ginger 14 Day Sensor - 03/14/2021 12:00:00 AM EDT eCW1 ([facility]) FreeStyle Ginger Graham - 03/14/2021 12:00:00 AM EDT eCW1 ([facility]) FreeStyle Ginger 14 Day Sensor - 03/14/2021 12:00:00 AM EDT eCW1 ([facility])
[2021-07-21] MEDS ORDERED: VANCOMYCIN HCL 1,000 MG, VIAL MATE ADAPTER 1 EACH in NS 250 ML IV SCH (05:20)
[2021-07-21] MEDS ORDERED: VANCOMYCIN HCL 1,000 MG, VIAL MATE ADAPTER 1 EACH in NS 250 ML IV ONE ×2 (05:30→06:30)
[2021-07-21 05:31] LABS: RSV AMPLIFICATION NEGATIVE (NEGATIVE)
[2021-07-21] MEDS ORDERED: BASA100I SC ×2 (06:06)
[2021-07-21] MEDS ORDERED: POTA10TA17 PO (06:06)
[2021-07-21] MEDS ORDERED: HOME MED LIST COMPLETE! XX SCH (06:10)
[2021-07-21] MEDS ORDERED: ACETAMINOPHEN *IV* 1,000 MG in IV 1 EA IV ONE (06:20)
[2021-07-21] MEDS: INSULIN REGULAR IN 0.9 % NACL 100 UNIT in IV 1 EA IV SCH ×4 (06:26→08:30)
--- NOTE | 2021-07-21 06:31 | HPEPDOC ---
[facility] Medical History & Physical Date of Admission Jul 21, 2021 Date of Service: Jul 21, 2021 Primary Care Physician: Jake Waters M.D. Attending Physician: CADE TOMLIN MD History and Physical TIME OF SERVICE: 545am CHIEF COMPLAINT: high sugars HISTORY OF PRESENT ILLNESS: is a 30 yr old M who noticed that his sugars have been high and ranging from 300 to 600 over the last 2 days despite having an insulin pump. He is also c/o 10/10 in severity flank pain that he doesn't usually have when he is in DKA, non-bloody vomit, and body aches. He is thirst and has been urinating a lot. He denies having f/c/ runny nose, cough or diarrhea, sick contacts, eating new foods or foods that he didnt prepare. He was in the ER earlier on in the evening but left because of the long wait and returned again with his who noted that he was more ill. REVIEW OF SYSTEMS: 10-point review of systems negative except as listed in HPI PAST MEDICAL/ SURGICAL HISTORY: DM1, DLP, essential HTN, obesity FAMILY HISTORY: Father HTN & clotting disorder/ Mother - RA SOCIAL HISTORY: He is & doesnt smoke ALLERGIES: Please see below. HOME MEDICATIONS: Please see below. PHYSICAL EXAMINATION: Vital Signs Date Time Temp Pulse Resp B/P (MAP) Pulse Ox O2 Delivery O2 Flow Rate FiO2 07/21/21 02:25 99.3 145 18 132/78 (96) 95 Room Air GENERAL APPEARANCE: well-nourished and developed/ appears to be felling unwell and in pain HEENT: EOMI / MM pink but dry CARDIOVASCULAR: tachycardic /NMRG . his extremities are cool LUNGS: CTAB on RA ABDOMEN: he grimaces and guards as I approach his abdomen to examine it / contour flat/ there doesnt appear to be infection of the skin surrounding the site of the insulin pump/ there is no adaems blum sign or Singh sign MUSCULOSKELETAL: NCAT / MIREYA x 4 extremities INTEGUMENT: he is not flushed or diaphoretic NEUROLOGICAL: CN 2-12 grossly intact / speech not dysarthric PSYCHIATRIC: A&O x 3 / able to understand and follow all commands LABORATORY DATA: IMAGING: pending.. MICROBIOLOGY: Respiratory panel negative ASSESSMENT: is a 30 yr old M w a hx of DM1, DLP, HTN, Anxiety & obesity who is admitted for suspected sepsis cause TBD, DKA and GLO. PLAN: 1 Suspected Sepsis He has the following SIRS criteria - SIRS criteria: HR >90 / WBC >12 Plan: admit to ICU / telemetry / initiate Sepsis protocol / empiric renally dose adjusted meropenum and vancomycin pending blood cx, UA w culture, chest xray & CT of the abdomen / Acetaminophen PRN for fever / target MAP at of least 65 to 70 / f/u Is and Os with target UOP of at least 0.5 ml/kg/H / f/u FSBS w target serum glucose 140-180 while acutely ill 2 DKA Trigger likely infection, A1C 9% Plan: /NPO / Insulin drip per protocol/ after initial bolus of IVF are complete will c/w NS @ 300ml/H / f/u UA, blood cx, chest xray and CT abd / f/u accuchecks Q1H, BMP Q4H, venous PH Q4H, osmol Q4H, Mag Q4H, phosphorus Q4H/ / hold home anti-glycemic agents pending resolution of DKA 3 Acute Renal Failure Plan: monitor UOP / IVF / f/u renal panel, CK, Ulytes for FENa or FEUrea / renal US / hold nephrotoxic drugs 4 DLP Plan: resume statin after acute illness has resolved DVT px w renal dose adjusted lovenox Disposition: home after more than 2 midnights stay Home Medications Scheduled Aspirin (Aspirin EC) 81 Mg Tablet.dr, 81 MG PO QHS Atorvastatin Calcium (Atorvastatin Calcium) 20 Mg Tablet, 20 MG PO QHS Cholecalciferol (Vitamin D3) (Vitamin D3) 1,000 Unit Tablet, 2,000 UNITS PO QHS Insulin Glargine,Hum.rec.anlog (Basaglar Kwikpen U-100) 100 Unit/1 Ml Insuln.pen, 20 UNIT SC DAILY Insulin Glargine,Hum.rec.anlog (Basaglar Kwikpen U-100) 100 Unit/1 Ml Insuln.pen, 30 UNIT SC QHS Insulin Lispro (Admelog) 100 Unit/1 Ml Vial, 1 DOSE SC ASDIRECTED VIA INSULIN PUMP Magnesium Oxide (Magnesium Oxide) 400 Mg Tab, 400 MG PO QHS Potassium Chloride (Potassium Chloride) 10 Meq Tab.er.prt, 10 MEQ PO QHS Scheduled PRN Glucagon,Human Recombinant (Glucagon Emergency Kit) 1 Mg Kit, 1 MG IM ASDIRECTED PRN for LOW BLOOD SUGAR Allergies Coded Allergies: amoxicillin (Verified Allergy, Intermediate, RASH, 01/04/19) clavulanic acid (Verified Allergy, Intermediate, RASH, 01/04/19) A-FIB/CHADSVASC A-FIB History Current/History of A-Fib/PAF?: No Current PO Anticoag Therapy: No CADE TOMLIN MD Jul 21, 2021 06:31
--- NOTE | 2021-07-21 06:45 | REPVR ---
PROCEDURE INFORMATION: Exam: CT Abdomen And Pelvis Without Contrast Exam date and time: 07/21/2021 5:03 AM Age: 30 years old Clinical indication: Other: Blood glucose problem; Additional info: Suspected sepsis in patient with dka TECHNIQUE: Imaging protocol: Computed tomography of the abdomen and pelvis without contrast. Radiation optimization: All CT scans at this facility use at least one of these dose optimization techniques: automated exposure control; mA and/or kV adjustment per patient size (includes targeted exams where dose is matched to clinical indication); or iterative reconstruction. COMPARISON: CT ABD PELVIS W/O CONTRAST 04/29/2019 12:02 AM FINDINGS: Detailed evaluation of the abdominal and pelvic viscera is somewhat limited in the absence of intravenous contrast. Lungs: Interstitial prominence and mild basilar airspace disease. Liver: Fatty infiltration of the liver. Gallbladder and bile ducts: High attenuation bile in the contracted gallbladder. No biliary ductal dilatation. Pancreas: No pancreatic mass or ductal dilatation. Spleen: No splenomegaly. Adrenal glands: Unremarkable adrenals. Kidneys and ureters: Normal morphology and positioning of the right kidney. Left pelvic kidney. No hydronephrosis. Stomach and bowel: Mildly dilated fluid-filled stomach. No significant small bowel dilatation. Prominent stool and diverticula, without pericolonic inflammation. Appendix: No acute appendicitis. Intraperitoneal space: No free fluid. Vasculature: Pelvic vascular calcification. Normal caliber of the abdominal aorta. Lymph nodes: Subcentimeter lymph nodes. Urinary bladder: Normal morphology of the dilated bladder. Reproductive: Unremarkable as visualized. Bones/joints: No acute osseous pathology. IMPRESSION: 1. No acute inflammatory process in the visualized abdomen or pelvis. 2. Additional findings as described above. Electronically signed by: Raman Cadena On 07/21/2021 06:44:30 AM
--- NOTE | 2021-07-21 06:45 | REPVR ---
PROCEDURE INFORMATION: Exam: XR Chest Exam date and time: 07/21/2021 5:01 AM Age: 30 years old Clinical indication: Other: SOB. TECHNIQUE: Imaging protocol: XR of the chest. Views: 1 view. COMPARISON: CR Chest, 1 view 04/30/2021 5:34 PM FINDINGS: Lungs: Mild interstitial prominence, without focal infiltrate. Pleural spaces: No pleural effusion. Heart/Mediastinum: No cardiomegaly. Bones/joints: Unremarkable. IMPRESSION: Mild interstitial prominence, without focal infiltrate. Electronically signed by: Raman Cadena On 07/21/2021 06:45:15 AM
--- NOTE | 2021-07-21 06:47 | REPVR ---
PROCEDURE INFORMATION: Exam: US Retroperitoneal Limited, Kidneys Exam date and time: 07/21/2021 5:36 AM Age: 30 years old Clinical indication: Screening exam; Other: Arnie TECHNIQUE: Imaging protocol: Real-time ultrasound of the retroperitoneum with image documentation. Examination was focused on the kidneys. COMPARISON: CT ABD PELVIS W/O CONTRAST 07/21/2021 5:09 AM FINDINGS: Right kidney: Right kidney measures 11.6 cm in length. No renal mass, calculus, or hydronephrosis. Left kidney: Pelvic left kidney, measures 9.1 cm in length. No hydronephrosis. Bladder: Normal bladder morphology with dependent low level echoes. IMPRESSION: 1. No acute sonographic abnormality in the visualized kidneys and upper collecting systems. 2. Dependent low level echoes in the bladder. Electronically signed by: Raman Cadena On 07/21/2021 06:46:50 AM
--- NOTE | 2021-07-21 07:47 | ECGEPIP ---
[facility] - ED Test Date: 2021-07-21 Pat Name: PABLO SANCHEZ Department: Room: - Gender: Male [employer] Operator: : 1990 Requested By: PAT Salazar Order Number: [id number] Reading MD: Santy Gillette Measurements Intervals [place] Rate: 117 P: 68 PA: 142 QRS: 72 QRSD: 82 T: 20 QT: 336 QTc: 468 Interpretive Statements Sinus tachycardia RATE CHANGE COMPARED TO 04/30/21 Electronically Signed on 07-21-2021 7:46:32 EDT by Santy Gillette
[2021-07-21] MEDS ORDERED: D5W/0.45% SODIUM CHLORIDE 1,000 ML IV SCH (08:35)
[2021-07-21 08:51] LABS: VENOUS BASE EXCESS -11.1 (-2.0-2.0); VENOUS HCO3 15.2 MEQ/L (23.0-27.0); VENOUS O2 SATURATION 92.8 % (60.0-80.0); VENOUS PARTIAL PRESSURE CO2 35.6 mmHg (38.0-50.0); VENOUS PH 7.248 UNITS (7.330-7.430); VENOUS STANDARD HCO3 15.8 MEQ/L; VENOUS TOTAL CO2 16.3 MEQ/L (24.0-28.0)
[2021-07-21 09:08] LABS: HEMATOCRIT 44.4 % (42.0-52.0); HEMOGLOBIN 14.8 g/dl (13.5-17.5); MEAN CORPUSCULAR HEMOGLOBIN 30.5 pg (27.0-33.0); MEAN CORPUSCULAR HGB CONC 33.3 g/dl (32.0-36.5); MEAN CORPUSCULAR VOLUME 91.5 fl (80.0-96.0); PLATELET COUNT, AUTOMATED 317 10^3/uL (150-450); RED BLOOD COUNT 4.85 10^6/uL (4.30-6.10)
[2021-07-21] MEDS: MEROPENEM INJ 1 GM in IV 1 EA IV SCH ×2 (09:09→15:29)
[2021-07-21 09:10] LABS: WHITE BLOOD COUNT 30.8 10^3/uL (4.0-10.0)
[2021-07-21 09:25] LABS: CREATININE FOR GFR 1.53 MG/DL (0.70-1.30); GLOMERULAR FILTRATION RATE 57.2 (>60); PHOSPHORUS LEVEL 1.4 MG/DL (2.5-4.9); POTASSIUM SERUM 5.1 MEQ/L (3.5-5.1)
[2021-07-21] MEDS ORDERED: LEVEMIR (INSULIN DETEMIR) 1 UNITS/0.01ML SC ONE (09:40)
[2021-07-21] MEDS: ACETAMINOPHEN TAB 650MG DOSE (2X325MG) PO PRN (10:13)
[2021-07-21] MEDS ORDERED: HumaLOG INSULIN (NovoLOG) PER UNIT SC SCH ×2 (12:00→21:00)
--- NOTE | 2021-07-21 12:42 | IPNPDOC ---
Subjective Date Seen The patient was seen on 07/21/21. Subjective Chief Complaint/HPI Patient was seen and examined at bedside this morning. He reported having bilateral flank pain which is made worse with coughing as well as movement. He has improvement in his nausea and vomiting. He denies fever, chills. He is unsure why his blood glucose was uncontrolled as he was reportedly taking his insulin as scheduled. He reports he was drinking a lot of fluids including Gatorade, unclear if he was having any drinks high in sugar. Other systems 10 point review of system was negative except for what is noted in the HPI Objective Physical Examination Other physical findings General: Lying in bed, no acute distress Head/Neck/Throat: Trachea midline, mucous membranes moist Eyes: Sclera anicteric, no erythema or discharge appreciated bilaterally Thorax: Normal respiratory effort on room air, lungs clear to auscultation bilaterally, no wheezes/rales/rhonchi Cardiovascular: Normal rate, regular rhythm, normal S1, S2; no S3, S4, rubs/gallops/murmurs Abdomen: Bowel sounds present, soft/nontender/nondistended Genitourinary: No CVA tenderness, no Sexton in place Musculoskeletal: Moving all extremities. Palpation of the ninth and 10th rib elicit tenderness Skin: Warm, dry Neurologic: AAOx3, speech fluent and goal-directed, no focal deficits, grossly intact Assessment /Plan Assessment #DKA -Triggered by infectious etiology versus possibly noncompliance of diet. He does report he was taking his insulin as scheduled. -Blood glucose is less than 250 therefore we will switch his fluids to D5 half- normal saline. His anion gap is also closed, he will be given 20 units of Levemir (his home daily dosage), which will be overlapped with the insulin drip for 2 hours and subsequently the insulin drip should be held. Nurse was also asked to provide him with water as well as a clear liquid diet to see if he tolerates it. If he does, we will switch his fluids to half-normal saline due to his GLO. #Suspected sepsis -He met SIRS criteria (heart rate greater than 90 and elevated leukocytosis). However, there is no clear etiology. We will continue with broad-spectrum antibiotics until cultures have resulted. #Electrolyte abnormality -Replete phosphorus #Acute renal failure -Prerenal azotemia. Continue with IV fluids. #Costochondritis -Reports retching and having nausea and vomiting which may have caused this pain. Tylenol as needed #Dyslipidemia -Resume statin therapy #DVT prophylaxis -Lovenox Plan/VTE VTE Prophylaxis Ordered?: Yes VS, I&O, [facility] Vital Signs/I&O Vital Signs Date Time Temp Pulse Resp B/P (MAP) Pulse Ox O2 Delivery O2 Flow Rate FiO2 07/21/21 11:33 114 20 99 Room Air 07/21/21 11:18 98.6 07/21/21 10:16 133/64 (87) I&O- Last 24 Hours up to 6 AM 07/21/21 05:59 Intake Total 2000 ml Balance 2000 ml Laboratory Data 24H LABS Laboratory Tests 2 07/21/21 02:31: Bedside Glucose (Misc Panel) 560*H 07/21/21 02:56: Immature Granulocyte % (Auto) 1.1, Neutrophils (%) (Auto) 88.6H, Lymphocytes (%) (Auto) 3.1L, Monocytes (%) (Auto) 6.8, Eosinophils (%) (Auto) 0.0, Basophils (%) (Auto) 0.4, Neutrophils # (Auto) 33.7H, Lymphocytes # (Auto) 1.2L, Monocytes # (Auto) 2.6H, Eosinophils # (Auto) 0.0, Basophils # (Auto) 0.1, Nucleated Red Blood Cells % (auto) 0.0, Blood Gas Bicarbonate Standard 11.2, Venous Blood pH 7.111L, Venous Blood Partial Pressure CO2 29.2L, Venous Blood Partial Pressure O2 111.5H, Venous Blood Total Carbon Dioxide 10.0L, Venous Blood HCO3 9.1L, Venous Blood Oxygen Saturation 97.6H, Venous Blood Base Excess -19.0L, Anion Gap 26H, Glomerular Filtration Rate 39.9L, Estimated Mean Plasma Glucose 212H, Hemoglobin A1c 9.0, Osmolality 331H, Calcium Level 9.9, Total Bilirubin 0.5, Direct Bilirubin 0.1, Aspartate Amino Transf (AST/SGOT) 17, Alanine Aminotransferase (ALT/SGPT) 26, Alkaline Phosphatase 135H, Total Protein 9.0H, Albumin 4.5, Albumin/Globulin Ratio 1.0, Lipase 33L, B-Hydroxybutyrate > 46.00H 07/21/21 03:16: POC Glucose (Misc Panel) 603*H, POC Sodium (Misc Panel) 133L, POC Potassium (Misc Panel) 5.1, POC Chloride (Misc Panel) 102, POC Total CO2 (Misc Panel) 10.0L, POC Blood Urea Nitrogen (Misc Panel 24, POC Ionized Calcium (Misc Panel) 4.9, POC Creatinine (Misc Panel) 1.6H, POC Hematocrit (Misc Panel) 55.0H 07/21/21 03:23: POC Lactate (Misc Panel) 6.00*H 07/21/21 04:46: Coronavirus (COVID-19)(PCR) NEGATIVE, Influenza Type A (RT-PCR) NEGATIVE, Influenza Type B (RT-PCR) NEGATIVE, Respiratory Syncytial Virus (PCR) NEGATIVE 07/21/21 07:35: Urine Color STRAW, Urine Appearance CLEAR, Urine pH 5.0, Urine Specific [place] 1.021, Urine Protein 1+H, Urine Glucose (UA) 3+H, Urine Ketones 2+H, Urine Blood 1+H, Urine Nitrite NEGATIVE, Urine Bilirubin NEGATIVE, Urine Urobilinogen 0.2, Urine Leukocyte Esterase NEGATIVE, Urine WBC (Auto) 2, Urine RBC (Auto) 0, Urine Hyaline Casts (Auto) 0, Urine Bacteria (Auto) NEGATIVE, Urine Squamous E pithelial Cells 0, Urine Sperm (Auto) 07/21/21 07:46: Bedside Glucose (Misc Panel) 236H 07/21/21 08:28: Bedside Glucose (Misc Panel) 190H 07/21/21 08:30: Nucleated Red Blood Cells % (auto) 0.0, Blood Gas Bicarbonate Standard 15.8, Venous Blood pH 7.248L, Venous Blood Partial Pressure CO2 35.6L, Venous Blood Partial Pressure O2 66.0H, Venous Blood Total Carbon Dioxide 16.3L, Venous Blood HCO3 15.2L, Venous Blood Oxygen Saturation 92.8H, Venous Blood Base Excess - 11.1L, Anion Gap 13, Glomerular Filtration Rate 57.2L, Estimated Mean Plasma Glucose 212H, Hemoglobin A1c 9.0, Osmolality 308H, Lactic Acid Followup at 4 Hours 2.5*H, Calcium Level 9.0, Phosphorus Level 1.4L, Magnesium Level 2.0, Total Creatine Kinase 186 07/21/21 09:35: Bedside Glucose (Misc Panel) 180H 07/21/21 10:40: Bedside Glucose (Misc Panel) 165H CBC/BMP Laboratory Tests 07/21/21 02:56 07/21/21 08:30 Microbiology Microbiology 07/21/21 Blood Culture, Received Pending 07/21/21 Blood Culture, Received Pending ELVIS WRIGHT M.D. Jul 21, 2021 12:42
[2021-07-21 12:45] LABS: VENOUS PH 7.299 UNITS (7.330-7.430)
[2021-07-21 12:46] LABS: VENOUS BASE EXCESS -8.6 (-2.0-2.0); VENOUS HCO3 16.8 MEQ/L (23.0-27.0); VENOUS O2 SATURATION 68.6 % (60.0-80.0); VENOUS PARTIAL PRESSURE CO2 35.1 mmHg (38.0-50.0); VENOUS TOTAL CO2 17.9 MEQ/L (24.0-28.0)
[2021-07-21 13:15] LABS: BLOOD UREA NITROGEN 14 MG/DL (7-18); CALCIUM LEVEL 8.4 MG/DL (8.5-10.1); CARBON DIOXIDE LEVEL 21 MEQ/L (21-32); CHLORIDE LEVEL 108 MEQ/L (98-107); CREATININE FOR GFR 1.44 MG/DL (0.70-1.30); GLOMERULAR FILTRATION RATE > 60.0 (>60); GLUCOSE, FASTING 209 MG/DL (70-100); PHOSPHORUS LEVEL 1.4 MG/DL (2.5-4.9); POTASSIUM SERUM 5.4 MEQ/L (3.5-5.1); SODIUM LEVEL 136 MEQ/L (136-145)
[2021-07-21 13:26] LABS: TOTAL PROTEIN,RANDOM URINE 49.5 MG/DL (0.0-12.0)
[2021-07-21] MEDS ORDERED: DEXTROSE 50% 50 ML SYRINGE IV PRN (13:40)
[2021-07-21] MEDS ORDERED: GLUCAGON INJ 1MG VIAL SC PRN (13:40)
[2021-07-21] MEDS ORDERED: GLUCOSE 4GM CHEW TABLET PO PRN (13:40)
[2021-07-21 14:18] LABS: VENOUS BASE EXCESS -9.1 (-2.0-2.0); VENOUS O2 SATURATION 94.8 % (60.0-80.0); VENOUS PARTIAL PRESSURE CO2 32.6 mmHg (38.0-50.0); VENOUS PARTIAL PRESSURE O2 72.7 mmHg (30.0-50.0); VENOUS PH 7.308 UNITS (7.330-7.430); VENOUS STANDARD HCO3 17.2 MEQ/L
[2021-07-21] MEDS: NS 1,000 ML IV SCH (14:35)
[2021-07-21] MEDS: ENOXAPARIN 40MG/0.4ML SYRINGE (J1650 PER 10MG) SC SCH (14:37)
[2021-07-21 14:48] LABS: BLOOD UREA NITROGEN 13 MG/DL (7-18); CALCIUM LEVEL 8.5 MG/DL (8.5-10.1); CARBON DIOXIDE LEVEL 18 MEQ/L (21-32); CHLORIDE LEVEL 107 MEQ/L (98-107); CREATININE FOR GFR 1.32 MG/DL (0.70-1.30); GLOMERULAR FILTRATION RATE > 60.0 (>60); GLUCOSE, FASTING 274 MG/DL (70-100); PHOSPHORUS LEVEL 2.1 MG/DL (2.5-4.9); POTASSIUM SERUM 5.2 MEQ/L (3.5-5.1); SODIUM LEVEL 136 MEQ/L (136-145)
[2021-07-21] MEDS ORDERED: K-PHOS ORIGINAL (POT.ACID PHOSPHATE) 500MG TAB PO ONE (15:00)
[2021-07-21] MEDS ORDERED: HumaLOG INSULIN (NovoLOG) PER UNIT As Ordered ONE (15:25)
[2021-07-21] MEDS: HumaLOG INSULIN (NovoLOG) PER UNIT SC SCH (15:26)
[2021-07-21] MEDS ORDERED: SODIUM PHOSPHATE INJ 30 MMOL in D5W 500 ML IV ONE (19:00)
[2021-07-21] MEDS ORDERED: HumaLOG INSULIN (NovoLOG) PER UNIT SC ONE (19:05)
[2021-07-21] MEDS: VANCOMYCIN HCL 750 MG, VIAL MATE ADAPTER 1 EACH in NS 250 ML IV SCH (20:56)
[2021-07-21] MEDS ORDERED: ATORVASTATIN 20 MG TAB PO SCH (21:00)
[2021-07-21] MEDS ORDERED: VITAMIN D 1,000 INTERNATIONAL UNITS TABLET PO SCH (21:00)
[2021-07-21] MEDS ORDERED: ASPIRIN 81MG ENTERIC TABLET PO SCH (21:00)
[2021-07-21] MEDS ORDERED: LEVEMIR (INSULIN DETEMIR) 1 UNITS/0.01ML SC SCH (21:00)
[2021-07-21] MEDS ORDERED: VANCOMYCIN HCL 750 MG, VIAL MATE ADAPTER 1 EACH in NS 250 ML IV SCH (22:00)
[2021-07-22] MEDS: MEROPENEM INJ 1 GM in IV 1 EA IV SCH ×2 (01:10→08:10)
[2021-07-22] MEDS: NS 1,000 ML IV SCH (05:20)
[2021-07-22 05:26] LABS: HEMATOCRIT 36.4 % (42.0-52.0); MEAN CORPUSCULAR HGB CONC 34.1 g/dl (32.0-36.5); PLATELET COUNT, AUTOMATED 247 10^3/uL (150-450); WHITE BLOOD COUNT 15.6 10^3/uL (4.0-10.0)
[2021-07-22 05:32] LABS: HEMOGLOBIN 12.4 g/dl (13.5-17.5)
[2021-07-22 05:48] LABS: BLOOD UREA NITROGEN 10 MG/DL (7-18); CALCIUM LEVEL 8.2 MG/DL (8.5-10.1); CARBON DIOXIDE LEVEL 19 MEQ/L (21-32); CHLORIDE LEVEL 109 MEQ/L (98-107); CREATININE FOR GFR 1.13 MG/DL (0.70-1.30); GLOMERULAR FILTRATION RATE > 60.0 (>60); GLUCOSE, FASTING 239 MG/DL (70-100); MAGNESIUM LEVEL 1.7 MG/DL (1.8-2.4); PHOSPHORUS LEVEL 1.7 MG/DL (2.5-4.9); POTASSIUM SERUM 4.4 MEQ/L (3.5-5.1); SODIUM LEVEL 138 MEQ/L (136-145)
[2021-07-22 06:00] VITALS: BP 128/81
[2021-07-22] MEDS ORDERED: MAGNESIUM OXIDE 400MG TAB (MAG-OX) PO ONE (08:00)
[2021-07-22] MEDS: HumaLOG INSULIN (NovoLOG) PER UNIT SC SCH ×2 (08:11→13:02)
[2021-07-22] MEDS: ENOXAPARIN 40MG/0.4ML SYRINGE (J1650 PER 10MG) SC SCH (08:12)
[2021-07-22] MEDS ORDERED: LEVEMIR (INSULIN DETEMIR) 1 UNITS/0.01ML SC SCH ×2 (09:00)
[2021-07-22] MEDS: VANCOMYCIN HCL 750 MG, VIAL MATE ADAPTER 1 EACH in NS 250 ML IV SCH (09:10)
[2021-07-22] MEDS ORDERED: SODIUM PHOSPHATE INJ 30 MMOL in D5W 500 ML IV ONE (10:00)
[2021-07-22] MEDS: ACETAMINOPHEN TAB 650MG DOSE (2X325MG) PO PRN (11:08)
[2021-07-22] MEDS ORDERED: BASA100I SC (11:57)
[2021-07-22 14:00] VITALS: BP 128/80
--- NOTE | 2021-07-22 15:55 | DS.PDOC ---
Discharge Summary General Date of Admission Jul 21, 2021 at 04:50 Date of Discharge 07/22/21 Discharge Summary DISCHARGE DIAGNOSES: 1. DKA 2. Electrolyte abnormality COMPLICATIONS/CHIEF COMPLAINT: Dka (Diabetic Ketoacidosis). HOSPITAL COURSE: Mr. Hernandes, is a 30-year-old male who presented to the emergency room department when he noted his blood sugars to be high ranging from 300-600 over the last few days despite being on a basal and prandial regimen of insulin. He also had complaints of flank pain, nausea, as well as emesis. In the emergency room department he was noted to be in diabetic ketoacidosis and admitted for further management. He was placed on an insulin drip and was successfully transitioned to an adjusted dose of his insulin regimen. He tolerated diet well and there was r esolution in his symptoms including his flank pain, nausea and vomiting. Initially patient was thought to going to exacerbation secondary to a possible infection. However, after obtaining a detailed history of sequence of events that happened in the last week he reported his primary care physician had decreased the amount of insulin while he was getting for his insulin pump (short acting insulin), and he was without insulin for approximately 3 days. He eventually was able to obtain enough insulin, however his blood sugar remained uncontrolled. He also reported having significant amount of orange soda which may have also lead to uncontrolled blood glucose. Thus, infectious etiology was less likely to contribute to his DKA exacerbation. Also, clinically patient did not appear to be septic. He remained afebrile. His leukocytosis was likely reactive. His blood cultures were negative. His urine analysis was not consistent with a urinary tract infection. As well, there is no acute pathology seen on chest x-ray. In regards to his flank pain, this was reproducible when his ninth and 10th rib first palpated bilaterally. It was likely musculoskeletal in nature. At the time of discharge, this had resolved. CT of the abdomen pelvis noted no acute pathology. Patient was asked to have repeat blood work done CBC, BMP/mag/Phos to ensure that his white count as well as electrolytes were within normal limits, respectively. Prescription was provided to have these labs sent to his primary care physician and he was asked to follow-up with Dr. Waters his primary care doctor. Patient was asked to obtain all imaging results for appropriate follow-ups if required. DISCHARGE MEDICATIONS: Please see below. ALLERGIES: Please see below. PHYSICAL EXAMINATION ON DISCHARGE: VITAL SIGNS: Please see below. General: Lying in bed, no acute distress Head/Neck/Throat: Trachea midline, mucous membranes moist Eyes: Sclera anicteric, PERRLA Thorax: Normal respiratory effort on room air, lungs clear to auscultation bilaterally, no wheezes/rales/rhonchi Cardiovascular: Normal rate, regular rhythm, normal S1, S2; no S3, S4, rubs/gallops/murmurs Abdomen: Bowel sounds present, soft/nontender/nondistended Genitourinary: No CVA tenderness, no Sexton in place Musculoskeletal: Moving all extremities, no edema Skin: Warm, dry Neurologic: AAOx3, speech fluent and goal-directed, no focal deficits, grossly intact LABORATORY DATA: Please see below. IMAGING: CT ABD & PELVIS W/O CONTRAST FINDINGS: Detailed evaluation of the abdominal and pelvic viscera is somewhat limited in the absence of intravenous contrast. Lungs: Interstitial prominence and mild basilar airspace disease. Liver: Fatty infiltration of the liver. Gallbladder and bile ducts: High attenuation bile in the contracted gallbladder. No biliary ductal dilatation. Pancreas: No pancreatic mass or ductal dilatation. Spleen: No splenomegaly. Adrenal glands: Unremarkable adrenals. Kidneys and ureters: Normal morphology and positioning of the right kidney. Left pelvic kidney. No hydronephrosis. Stomach and bowel: Mildly dilated fluid-filled stomach. No significant small bowel dilatation. Prominent stool and diverticula, without pericolonic inflammation. Appendix: No acute appendicitis. Intraperitoneal space: No free fluid. Vasculature: Pelvic vascular calcification. Normal caliber of the abdominal aorta. Lymph nodes: Subcentimeter lymph nodes. Urinary bladder: Normal morphology of the dilated bladder. Reproductive: Unremarkable as visualized. Bones/joints: No acute osseous pathology. IMPRESSION: 1. No acute inflammatory process in the visualized abdomen or pelvis. 2. Additional findings as described above. Chest, 1 view FINDINGS: Lungs: Mild interstitial prominence, without focal infiltrate. Pleural spaces: No pleural effusion. Heart/Mediastinum: No cardiomegaly. Bones/joints: Unremarkable. IMPRESSION: Mild interstitial prominence, without focal infiltrate. RENAL US FINDINGS: Right kidney: Right kidney measures 11.6 cm in length. No renal mass, calculus, or hydronephrosis. Left kidney: Pelvic left kidney, measures 9.1 cm in length. No hydronephrosis. Bladder: Normal bladder morphology with dependent low level echoes. IMPRESSION: 1. No acute sonographic abnormality in the visualized kidneys and upper collecting systems. 2. Dependent low level echoes in the bladder. PROGNOSIS: Good ACTIVITY: As tolerated DIET: Diabetic diet DISCHARGE INSTRUCTIONS: 1. Patient asked to follow-up with his primary care physician within 5 days. 2. Patient asked to have repeat blood work done and to follow-up with these results with his primary care physician DISCHARGE CONDITION: Stable TIME SPENT ON DISCHARGE: 30 minutes. Vital Signs/I&Os Vital Signs Date Time Temp Pulse Resp B/P (MAP) Pulse Ox O2 Delivery O2 Flow Rate FiO2 07/22/21 14:00 98.2 105 16 128/80 (96) 98 07/22/21 06:00 Room Air I&O- Last 24 Hours up to 6 AM 07/22/21 06:00 Intake Total 5278 ml Output Total 1300 ml Balance 3978 ml Laboratory Data Labs 24H Laboratory Tests 2 07/21/21 17:08: Bedside Glucose (Misc Panel) 249H 07/21/21 20:15: Bedside Glucose (Misc Panel) 289H 07/21/21 21:24: Lactic Acid Level 0.9 07/22/21 04:58: Nucleated Red Blood Cells % (auto) 0.0, Anion Gap 10, Glomerular Filtration Rate > 60.0, Calcium Level 8.2L, Phosphorus Level 1.7L, Magnesium Level 1.7L 07/22/21 11:27: Bedside Glucose (Misc Panel) 160H CBC/BMP Laboratory Tests 07/22/21 04:58 FSBS Laboratory Tests Test 07/21/21 17:08 07/21/21 20:15 07/22/21 11:27 Range/Units Bedside Glucose (Misc Panel) 249 289 160 70-105 MG/DL Microbiology Microbiology 07/21/21 Blood Culture - Preliminary, Resulted No growth after 24 hours . All specim... 07/21/21 Blood Culture - Preliminary, Resulted No growth after 24 hours . All specim... Discharge Medications Scheduled Aspirin (Aspirin EC) 81 Mg Tablet.dr, 81 MG PO QHS, (Reported) Atorvastatin Calcium (Atorvastatin Calcium) 20 Mg Tablet, 20 MG PO QHS, (Rep orted) Cholecalciferol (Vitamin D3) (Vitamin D3) 1,000 Unit Tablet, 2,000 UNITS PO QHS, (Reported) Insulin Glargine,Hum.rec.anlog (Basaglar Kwikpen U-100) 100 Unit/1 Ml Insuln.pen, 30 UNIT SC QHS, (Reported) Insulin Glargine,Hum.rec.anlog (Basaglar Kwikpen U-100) 100 Unit/1 Ml Insuln.pen, 30 UNIT SC DAILY Insulin Lispro (Admelog) 100 Unit/1 Ml Vial, 1 DOSE SC ASDIRECTED, (Reported) VIA INSULIN PUMP Magnesium Oxide (Magnesium Oxide) 400 Mg Tab, 400 MG PO QHS, (Reported) Potassium Chloride (Potassium Chloride) 10 Meq Tab.er.prt, 10 MEQ PO QHS, (Reported) Scheduled PRN Glucagon,Human Recombinant (Glucagon Emergency Kit) 1 Mg Kit, 1 MG IM ASDIRECTED PRN for LOW BLOOD SUGAR, (Reported) Allergies Coded Allergies: amoxicillin (Verified Allergy, Intermediate, RASH, 01/04/19) clavulanic acid (Verified Allergy, Intermediate, RASH, 01/04/19) ELVIS WRIGHT M.D. Jul 22, 2021 15:55
== END 2021-07-22 16:35 | disposition home or self-care (01) | DRG 420 ==
LOC: M ED 02:25 → M ED INP 04:50 → M MSPAV 16:03
PROVIDERS: ADMIT Internal Medicine; ATTEND Internal Medicine
DX: E10.10 Type 1 diabetes mellitus with ketoacidosis without coma (principal); N17.9 Acute kidney failure, unspecified; E87.2 Acidosis; K76.0 Fatty (change of) liver, not elsewhere classified; Z79.82 Long term (current) use of aspirin; Z79.899 Other long term (current) drug therapy; Z88.0 Allergy status to penicillin; Z88.8 Allergy status to other drugs, medicaments and biological substances; E66.9 Obesity, unspecified; Z79.4 Long term (current) use of insulin; E78.5 Hyperlipidemia, unspecified; M94.0 Chondrocostal junction syndrome [Tietze]

== ENCOUNTER → 2021-07-25 | Outpatient (CLI) | payer OTHER ==
[~2021-07-25] MED LIST changes: -MAGN400T3 PO; +MAGN400T33 PO
[2021-07-25 14:19] LABS: HEMATOCRIT 45.3 % (42.0-52.0); HEMOGLOBIN 15.1 g/dl (13.5-17.5); MEAN CORPUSCULAR HEMOGLOBIN 30.1 pg (27.0-33.0); MEAN CORPUSCULAR HGB CONC 33.3 g/dl (32.0-36.5); MEAN CORPUSCULAR VOLUME 90.2 fl (80.0-96.0); PLATELET COUNT, AUTOMATED 235 10^3/uL (150-450); RED BLOOD COUNT 5.02 10^6/uL (4.30-6.10); WHITE BLOOD COUNT 5.7 10^3/uL (4.0-10.0)
[2021-07-25 14:37] LABS: BLOOD UREA NITROGEN 8 MG/DL (7-18); CALCIUM LEVEL 9.2 MG/DL (8.5-10.1); CARBON DIOXIDE LEVEL 30 MEQ/L (21-32); CHLORIDE LEVEL 104 MEQ/L (98-107); CREATININE FOR GFR 0.84 MG/DL (0.70-1.30); GLOMERULAR FILTRATION RATE > 60.0 (>60); GLUCOSE, FASTING 134 MG/DL (70-100); MAGNESIUM LEVEL 1.9 MG/DL (1.8-2.4); PHOSPHORUS LEVEL 2.9 MG/DL (2.5-4.9); SODIUM LEVEL 139 MEQ/L (136-145)
== END ==
LOC: M PLALAB 10:32
PROVIDERS: ATTEND Internal Medicine
DX: E87.8 Other disorders of electrolyte and fluid balance, not elsewhere classified (principal)

== ENCOUNTER → 2021-08-02 | Outpatient (CLI) | payer OTHER ==
[2021-08-02 15:43] LABS: BASO % 0.3 % (0.0-1.0); EOS # 0.1 10^3/uL (0.0-0.5); EOS % 1.4 % (0.0-3.0); HEMATOCRIT 43.6 % (42.0-52.0); HEMOGLOBIN 14.1 g/dl (13.5-17.5); LYMPH # 2.3 10^3/uL (1.5-5.0); LYMPH % 31.8 % (24.0-44.0); MEAN CORPUSCULAR HGB CONC 32.3 g/dl (32.0-36.5); MEAN CORPUSCULAR VOLUME 92.8 fl (80.0-96.0); MONO # 0.9 10^3/uL (0.0-0.8); MONO % 12.2 % (2.0-8.0); NEUTROPHILS # 3.8 10^3/uL (1.5-8.5); PLATELET COUNT, AUTOMATED 283 10^3/uL (150-450); WHITE BLOOD COUNT 7.1 10^3/uL (4.0-10.0)
[2021-08-02 16:54] LABS: ALBUMIN 3.5 GM/DL (3.2-5.2); ALT/SGPT 15 U/L (12-78); BILIRUBIN,TOTAL 0.3 MG/DL (0.2-1.0); BLOOD UREA NITROGEN 7 MG/DL (7-18); CALCIUM LEVEL 9.1 MG/DL (8.5-10.1); CARBON DIOXIDE LEVEL 28 MEQ/L (21-32); CHLORIDE LEVEL 109 MEQ/L (98-107); CREATININE FOR GFR 0.89 MG/DL (0.70-1.30); GLOMERULAR FILTRATION RATE > 60.0 (>60); GLUCOSE, FASTING 191 MG/DL (70-100); POTASSIUM SERUM 4.3 MEQ/L (3.5-5.1); SODIUM LEVEL 142 MEQ/L (136-145); TOTAL PROTEIN 6.8 GM/DL (6.4-8.2)
== END ==
LOC: M PLALAB 11:58
PROVIDERS: ATTEND Physician Assistant Medical
DX: E10.10 Type 1 diabetes mellitus with ketoacidosis without coma (principal)

== ENCOUNTER → 2021-09-28 | Outpatient (CLI) | payer OTHER ==
--- NOTE | 2021-09-28 14:30 | REP ---
INDICATION: LT THROMBOLITIS COMPARISON: 09/29/2019 TECHNIQUE: Limited directed real time triana scale and color Doppler evaluation using linear high-frequency transducer. FINDINGS: Directed ultrasound examination of the left wrist at the site of maximal tenderness demonstrates a thrombosed superficial vein. IMPRESSION: 1. Thrombosed superficial vein in the left wrist consistent with thrombophlebitis. <Electronically signed by Florencio Burnham > 09/28/21 [id number]
== END ==
LOC: M RAD 13:33
PROVIDERS: ATTEND Family Medicine
DX: I80.8 Phlebitis and thrombophlebitis of other sites (principal)

== ENCOUNTER → 2022-01-10 | Outpatient (CLI) | payer OTHER ==
[~2022-01-10] MED LIST changes: -D31000TA2 PO; +VITA100093 PO
[2022-01-10 18:34] LABS: ALBUMIN 3.9 GM/DL (3.2-5.2); BLOOD UREA NITROGEN 11 MG/DL (7-18); C REACTIVE PROTEIN QUANTITATIV 0.34 MG/DL (0.00-0.30); CALCIUM LEVEL 9.3 MG/DL (8.5-10.1); CARBON DIOXIDE LEVEL 30 MEQ/L (21-32); CHLORIDE LEVEL 105 MEQ/L (98-107); CHOLESTEROL LEVEL 181 MG/DL (<200); CHOLESTEROL RISK RATIO 3.232 (<5); CREATININE FOR GFR 0.88 MG/DL (0.70-1.30); GLOMERULAR FILTRATION RATE > 60.0 (>60); GLUCOSE, FASTING 117 MG/DL (70-100); HDL CHOLESTEROL 56 MG/DL (>40); LDL CHOLESTEROL 105 MG/DL (<100); NON-HDL-C 125 MG/DL; PHOSPHORUS LEVEL 3.5 MG/DL (2.5-4.9); POTASSIUM SERUM 4.4 MEQ/L (3.5-5.1); PTH INTACT 61.8 PG/ML (18.5-88.0); SODIUM LEVEL 139 MEQ/L (136-145); THYROID PEROXIDASE ANTIBODY 44.4 U/ML (<60.0); TOTAL 25(OH) VITAMIN D 20.6 NG/ML (30.0-100.0); TRIGLYCERIDES LEVEL 98 MG/DL (<150)
[2022-01-10 18:36] LABS: MALB URINE SIEMENS 22.8 MG/L; MAU/CREAT RATIO 17.9 MCG/MG (0.0-30.0)
== END ==
LOC: M PLALAB 14:29
PROVIDERS: ATTEND Family Medicine
DX: E78.2 Mixed hyperlipidemia (principal); E55.9 Vitamin D deficiency, unspecified; E10.9 Type 1 diabetes mellitus without complications

== ENCOUNTER → 2022-12-22 | Outpatient (CLI) | payer OTHER ==
[~2022-12-22] MED LIST changes: +INSU100I6 SC; -LEVE1INJ5 SC; +POTA-150 PO; -POTA10TA17 PO
[2022-12-22 13:56] LABS: CPK CREATINE PHOSPHOKINASE 336 U/L (46-171)
[2022-12-22 15:58] LABS: HEMOGLOBIN A1c 10.4 % (4.0-6.0)
[2022-12-22 16:17] LABS: ALKALINE PHOSPHATASE 109 U/L (46-116); ALT/SGPT 19 U/L (7.0-40); AST/SGOT 17 U/L (<34); BILIRUBIN,TOTAL 0.6 MG/DL (0.3-1.2); BLOOD UREA NITROGEN 11 MG/DL (9-23); CALCIUM LEVEL 9.4 MG/DL (8.5-10.1); CARBON DIOXIDE LEVEL 29 MMOL/L (20-31); CHLORIDE LEVEL 102 MMOL/L (98-107); CREATININE FOR GFR 0.86 MG/DL (0.70-1.30); GLOMERULAR FILTRATION RATE > 60.0 (>60); GLUCOSE, FASTING 218 MG/DL (60-100); MAGNESIUM LEVEL 1.8 MG/DL (1.8-2.4); PHOSPHORUS LEVEL 2.9 MG/DL (2.5-4.9); POTASSIUM SERUM 4.8 MMOL/L (3.5-5.1); PTH INTACT 70.3 PG/ML (18.5-88.0); SODIUM LEVEL 136 MMOL/L (136-145)
[2022-12-22 18:29] LABS: TOTAL PROTEIN 6.9 G/DL (5.7-8.2)
[2022-12-23 08:11] LABS: APOLIPOPROTEIN B/A-1 RATIO 0.8 ratio (0.0-0.7)
== END ==
LOC: M PLALAB 10:07
PROVIDERS: ATTEND Family Medicine
DX: E55.9 Vitamin D deficiency, unspecified (principal); E10.9 Type 1 diabetes mellitus without complications

== ENCOUNTER → 2023-03-23 | Outpatient (REF) | payer OTHER ==
[~2023-03-23] MED LIST changes: +BLOO-85 XX; -ONETKIT XX
== END ==
LOC: M SFHCPLAZ 10:49
PROVIDERS: ATTEND Family Medicine
DX: Z53.9 Procedure and treatment not carried out, unspecified reason (principal)

== ENCOUNTER 2023-11-09 19:02 | Emergency (ER) | payer OTHER ==
[~2023-11-09] VITALS: Ht 175.3 cm; Wt 114.9 kg
[2023-11-09] MEDS ORDERED: NOVOINJ SC (19:21)
[2023-11-09] MEDS ORDERED: IBUPROFEN 800 MG TAB PO ONE (20:35)
[2023-11-09 20:42] VITALS: BP 132/78; TEMP 96.9; O2SAT 99
== END 2023-11-09 20:52 | disposition home or self-care (01) ==
LOC: M ED 19:02
DX: S93.401A Sprain of unspecified ligament of right ankle, initial encounter (principal); V58.4XXA Person boarding or alighting a pick-up truck or van injured in noncollision transport accident, initial encounter; X50.1XXA Overexertion from prolonged static or awkward postures, initial encounter; Y92.89 Other specified places as the place of occurrence of the external cause; Y93.89 Activity, other specified; Y99.0 Civilian activity done for income or pay; E11.9 Type 2 diabetes mellitus without complications; E78.5 Hyperlipidemia, unspecified; Z88.0 Allergy status to penicillin; Z88.1 Allergy status to other antibiotic agents; Z79.899 Other long term (current) drug therapy; Z79.82 Long term (current) use of aspirin; Z79.4 Long term (current) use of insulin

== ENCOUNTER → 2023-12-14 | Outpatient (CLI) | payer OTHER ==
[~2023-12-14] MED LIST changes: -ASPI-161 PO; +ASPI-615 PO; +NOVOINJ SC
== END ==
LOC: M SOG 07:54
PROVIDERS: ATTEND Physician Assistant
DX: M25.571 Pain in right ankle and joints of right foot (principal); M79.671 Pain in right foot; Q74.2 Other congenital malformations of lower limb(s), including pelvic girdle

== ENCOUNTER → 2023-12-18 | Outpatient (CLI) | payer OTHER ==
[2023-12-18 17:35] LABS: BASO % 0.4 % (0.0-1.0); EOS # 0.1 10^3/uL (0.0-0.5); EOS % 1.4 % (0.0-3.0); HEMATOCRIT 46.1 % (42.0-52.0); HEMOGLOBIN 15.4 g/dl (13.5-17.5); LYMPH # 1.9 10^3/uL (1.5-5.0); LYMPH % 26.8 % (24.0-44.0); MEAN CORPUSCULAR HEMOGLOBIN 30.3 pg (27.0-33.0); MEAN CORPUSCULAR HGB CONC 33.4 g/dl (32.0-36.5); MEAN CORPUSCULAR VOLUME 90.7 fl (80.0-96.0); MONO # 0.8 10^3/uL (0.0-0.8); MONO % 11.1 % (2.0-8.0); NEUTROPHILS # 4.3 10^3/uL (1.5-8.5); PLATELET COUNT, AUTOMATED 282 10^3/uL (150-450); RED BLOOD COUNT 5.08 10^6/uL (4.30-6.10); WHITE BLOOD COUNT 7.2 10^3/uL (4.0-10.0)
[2023-12-18 18:02] LABS: ALBUMIN 3.8 G/DL (3.2-5.2); ALKALINE PHOSPHATASE 106 U/L (46-116); ALT/SGPT 21 U/L (7.0-40); AST/SGOT 13 U/L (<34); BILIRUBIN,TOTAL 0.5 MG/DL (0.3-1.2); BLOOD UREA NITROGEN 8 MG/DL (9-23); CALCIUM LEVEL 8.8 MG/DL (8.5-10.1); CARBON DIOXIDE LEVEL 29 MMOL/L (20-31); CHLORIDE LEVEL 103 MMOL/L (98-107); CHOLESTEROL LEVEL 161 MG/DL (<200); CHOLESTEROL RISK RATIO 3.63 (<5); GLOMERULAR FILTRATION RATE > 60.0 (>60); GLUCOSE, FASTING 310 MG/DL (60-100); HDL CHOLESTEROL 44.3 MG/DL (>40); LDL CHOLESTEROL 86.7 MG/DL (<100); NON-HDL-C 116.7 MG/DL; POTASSIUM SERUM 4.4 MMOL/L (3.5-5.1); SODIUM LEVEL 134 MMOL/L (136-145); THYROID STIMULATING HORMONE 1.479 uIU/ML (0.55-4.78); TOTAL PROTEIN 6.9 G/DL (5.7-8.2); TRIGLYCERIDES LEVEL 150 MG/DL (<150)
== END ==
LOC: M PLALAB 15:21
PROVIDERS: ATTEND Family Medicine
DX: E11.9 Type 2 diabetes mellitus without complications (principal); I10 Essential (primary) hypertension; K76.0 Fatty (change of) liver, not elsewhere classified

== ENCOUNTER → 2024-01-23 | Outpatient (CLI) | payer OTHER ==
[2024-01-23 10:44] LABS: C REACTIVE PROTEIN QUANTITATIV < 0.40 MG/DL (<1.0)
[2024-01-23 10:46] LABS: RHEUMATOID FACTOR QUANT 5.9 IU/ML (<14)
== END ==
LOC: M PLALAB 08:40
PROVIDERS: ATTEND Family Medicine
DX: M19.049 Primary osteoarthritis, unspecified hand (principal)

== ENCOUNTER → 2024-05-26 | Outpatient (REF) | payer OTHER | LOC: M SFHCPLAZ 15:52 | PROVIDERS: ATTEND Family Medicine | DX: E10.9 Type 1 diabetes mellitus without complications (principal); E78.2 Mixed hyperlipidemia; I10 Essential (primary) hypertension ==

== ENCOUNTER → 2024-06-12 | Outpatient (CLI) | payer OTHER ==
[2024-06-12 11:57] LABS: BASO % 0.5 % (0.0-1.0); EOS # 0.1 10^3/uL (0.0-0.5); EOS % 1.6 % (0.0-3.0); HEMATOCRIT 42.4 % (42.0-52.0); LYMPH # 1.9 10^3/uL (1.5-5.0); LYMPH % 30.7 % (24.0-44.0); MEAN CORPUSCULAR HEMOGLOBIN 30.7 pg (27.0-33.0); MONO # 0.6 10^3/uL (0.0-0.8); MONO % 9.4 % (2.0-8.0); NEUTROPHILS # 3.6 10^3/uL (1.5-8.5); NEUTROPHILS % 57.6 % (36.0-66.0); PLATELET COUNT, AUTOMATED 296 10^3/uL (150-450); RED BLOOD COUNT 4.56 10^6/uL (4.30-6.10); WHITE BLOOD COUNT 6.3 10^3/uL (4.0-10.0)
[2024-06-12 12:21] LABS: CHOLESTEROL RISK RATIO 2.8 (<5); HDL CHOLESTEROL 50.6 MG/DL (>40); LDL CHOLESTEROL 80.8 MG/DL (<100); NON-HDL-C 91.4 MG/DL
[2024-06-12 12:22] LABS: CREATININE, URINE 74.7 MG/DL; MALB URINE SIEMENS < 3.0 MG/L
== END ==
LOC: M PLALAB 08:59
PROVIDERS: ATTEND Family Medicine
DX: E10.9 Type 1 diabetes mellitus without complications (principal); E78.2 Mixed hyperlipidemia; I10 Essential (primary) hypertension

== ENCOUNTER → 2025-06-18 | Outpatient (CLI) | payer OTHER ==
[~2025-06-18] MED LIST changes: -GLUC1KIT IM; +GLUC1VIA14 IM
[2025-06-18 11:24] LABS: BASO # 0.0 10^3/uL (0.0-0.2); BASO % 0.3 % (0.0-1.0); EOS # 0.1 10^3/uL (0.0-0.5); EOS % 0.8 % (0.0-3.0); LYMPH # 2.0 10^3/uL (1.5-5.0); LYMPH % 26.4 % (24.0-44.0); MONO # 0.7 10^3/uL (0.0-0.8); MONO % 9.4 % (2.0-8.0); NEUTROPHILS # 4.7 10^3/uL (1.5-8.5); NEUTROPHILS % 63.0 % (36.0-66.0); PLATELET COUNT, AUTOMATED 316 10^3/uL (150-450)
[2025-06-18 11:53] LABS: ESTIMATED AVERAGE GLUCOSE 255.0 MG/DL (60-110)
[2025-06-18 11:57] LABS: ALT/SGPT 34 U/L (7.0-40); AST/SGOT 32 U/L (<34); CALCIUM LEVEL 9.2 MG/DL (8.5-10.1); CARBON DIOXIDE LEVEL 28 MMOL/L (20-31); CHLORIDE LEVEL 102 MMOL/L (98-107); CHOLESTEROL LEVEL 181 MG/DL (<200); CHOLESTEROL RISK RATIO 3.54 (<5); CREATININE FOR GFR 0.90 MG/DL (0.70-1.30); GLOMERULAR FILTRATION RATE > 90.0 (>60); LDL CHOLESTEROL 109.2 MG/DL (<100); NON-HDL-C 130.0 MG/DL; POTASSIUM SERUM 4.7 MMOL/L (3.5-5.1); PTH INTACT 53.8 PG/ML (18.5-88.0); SODIUM LEVEL 140 MMOL/L (136-145); TOTAL 25(OH) VITAMIN D 33.4 NG/ML (20.0-100.0); TRIGLYCERIDES LEVEL 104 MG/DL (<150)
[2025-06-18 11:58] LABS: FREE T4 1.11 NG/DL (0.89-1.76)
[2025-06-18 13:04] LABS: MALB URINE SIEMENS 25.0 MG/L
[2025-06-18 13:16] LABS: CREATININE, URINE 268.3 MG/DL; MAU/CREAT RATIO 9.3 MCG/MG (0.0-30.0)
== END ==
LOC: M RAD 09:18
PROVIDERS: ATTEND Family Medicine
DX: M17.10 Unilateral primary osteoarthritis, unspecified knee (principal); E10.9 Type 1 diabetes mellitus without complications; E78.2 Mixed hyperlipidemia; I10 Essential (primary) hypertension; E55.9 Vitamin D deficiency, unspecified; K86.0 Alcohol-induced chronic pancreatitis

== ENCOUNTER → 2025-08-12 | Outpatient (CLI) | payer OTHER ==
[2025-08-12 11:31] LABS: BASO # 0.0 10^3/uL (0.0-0.2); BASO % 0.4 % (0.0-1.0); EOS # 0.1 10^3/uL (0.0-0.5); EOS % 0.8 % (0.0-3.0); LYMPH # 2.7 10^3/uL (1.5-5.0); LYMPH % 30.2 % (24.0-44.0); MONO # 0.9 10^3/uL (0.0-0.8); MONO % 9.9 % (2.0-8.0); NEUTROPHILS # 5.2 10^3/uL (1.5-8.5); NEUTROPHILS % 58.4 % (36.0-66.0); PLATELET COUNT, AUTOMATED 307 10^3/uL (150-450)
[2025-08-12 11:53] LABS: ESTIMATED AVERAGE GLUCOSE 223.0 MG/DL (60-110)
[2025-08-12 12:03] LABS: CREATININE, URINE 233.6 MG/DL; MALB URINE SIEMENS 85.0 MG/L; MAU/CREAT RATIO 36.3 MCG/MG (0.0-30.0)
[2025-08-12 12:03] LABS: C REACTIVE PROTEIN QUANTITATIV < 0.50 MG/DL (<1.0)
[2025-08-12 12:05] LABS: ALT/SGPT 34 U/L (7.0-40); AST/SGOT 25 U/L (<34); CALCIUM LEVEL 9.5 MG/DL (8.5-10.1); CARBON DIOXIDE LEVEL 30 MMOL/L (20-31); CHLORIDE LEVEL 104 MMOL/L (98-107); CHOLESTEROL LEVEL 183 MG/DL (<200); CHOLESTEROL RISK RATIO 2.57 (<5); CREATININE FOR GFR 0.93 MG/DL (0.70-1.30); GLOMERULAR FILTRATION RATE > 90.0 (>60); LDL CHOLESTEROL 95.9 MG/DL (<100); NON-HDL-C 111.9 MG/DL; POTASSIUM SERUM 3.8 MMOL/L (3.5-5.1); PTH INTACT 62.0 PG/ML (18.5-88.0); SODIUM LEVEL 145 MMOL/L (136-145); TOTAL 25(OH) VITAMIN D 34.6 NG/ML (20.0-100.0); TRIGLYCERIDES LEVEL 80 MG/DL (<150)
[2025-08-12 12:06] LABS: FREE T4 1.31 NG/DL (0.89-1.76)
== END ==
LOC: M RAD 09:35
PROVIDERS: ATTEND Family Medicine
DX: K75.81 Nonalcoholic steatohepatitis (NASH) (principal); E10.9 Type 1 diabetes mellitus without complications; I10 Essential (primary) hypertension; E78.2 Mixed hyperlipidemia; E55.9 Vitamin D deficiency, unspecified

== ENCOUNTER → 2025-09-28 | Outpatient (REF) | payer OTHER ==
[~2025-09-28] MED LIST changes: +POTA-232 PO; -POTA10TA67 PO
== END ==
LOC: M SFHCPLAZ 09:26
PROVIDERS: ATTEND Family Medicine
DX: E10.9 Type 1 diabetes mellitus without complications (principal); E78.2 Mixed hyperlipidemia; I10 Essential (primary) hypertension